=== PATIENT | female | born 1935 | race Caucasian/White ===

== ENCOUNTER 2020-08-14 12:38 | Outpatient (REF) | payer MEDICARE, SELFPAY ==
--- NOTE | 2020-08-14 12:47 | XR_ITS ---
EXAMINATION: XR HIP, LEFT XR FEMUR, LEFT XR KNEE, LEFT CLINICAL INFORMATION: Primary osteoarthritis of the knee. COMPARISON: None TECHNIQUE: 2 views of the left hip. 2 views of the left femur. 2 views of the left knee. FINDINGS: Left hip: No fracture or dislocation. The femoral head articulates appropriately with its acetabulum. There is [id number] appearance medially with sclerosis and osteophyte formation. The visualized left hemipelvis is intact. Vascular calcifications are noted. Left femur: No fracture or cortical disruption. Vascular calcifications. 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 The distal femoral component articulates appropriately with the tibial plateau and patellar components. No periprosthetic lucency or fracture. No joint effusion. Vascular calcifications are present. XR/XR knee LT 2V IMPRESSION: Total left knee arthroplasty in typical positioning and alignment. Severe degenerative changes at the left hip.
--- NOTE | 2020-08-14 12:47 | XR_ITS ---
EXAMINATION: XR HIP, LEFT XR FEMUR, LEFT XR KNEE, LEFT CLINICAL INFORMATION: Primary osteoarthritis of the knee. COMPARISON: None TECHNIQUE: 2 views of the left hip. 2 views of the left femur. 2 views of the left knee. FINDINGS: Left hip: No fracture or dislocation. The femoral head articulates appropriately with its acetabulum. There is [id number] appearance medially with sclerosis and osteophyte formation. The visualized left hemipelvis is intact. Vascular calcifications are noted. Left femur: No fracture or cortical disruption. Vascular calcifications. 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 The distal femoral component articulates appropriately with the tibial plateau and patellar components. No periprosthetic lucency or fracture. No joint effusion. Vascular calcifications are present. XR/XR femur LT 2V IMPRESSION: Total left knee arthroplasty in typical positioning and alignment. Severe degenerative changes at the left hip.
--- NOTE | 2020-08-14 12:47 | XR_ITS ---
EXAMINATION: XR HIP, LEFT XR FEMUR, LEFT XR KNEE, LEFT CLINICAL INFORMATION: Primary osteoarthritis of the knee. COMPARISON: None TECHNIQUE: 2 views of the left hip. 2 views of the left femur. 2 views of the left knee. FINDINGS: Left hip: No fracture or dislocation. The femoral head articulates appropriately with its acetabulum. There is [id number] appearance medially with sclerosis and osteophyte formation. The visualized left hemipelvis is intact. Vascular calcifications are noted. Left femur: No fracture or cortical disruption. Vascular calcifications. 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 The distal femoral component articulates appropriately with the tibial plateau and patellar components. No periprosthetic lucency or fracture. No joint effusion. Vascular calcifications are present. XR/XR hip LT min 2V IMPRESSION: Total left knee arthroplasty in typical positioning and alignment. Severe degenerative changes at the left hip.
[2020-08-14 14:38] LABS: MANUAL DIFF FLAG NO
[2020-08-14 14:42] LABS: Basophils Percent Auto 0.5 % (0-2); Eosinophils Absolute Auto 0.4 X10*3/uL (0.0-0.4); Eosinophils Percent Auto 4.4 % (0-4); Hematocrit 37.4 % (37-47); Hemoglobin 11.9 g/dl (12.0-16.0); Imm Gran Abs Auto 0.02 X10*3/uL (0.00-0.03); Imm Gran Pct Auto 0.2 % (0.0-0.4); Lymphocytes Absolute Auto 1.6 X10*3/uL (1.2-4.9); Lymphocytes Percent Auto 18.2 % (20-40); Mean Corpuscular HGB Conc 31.8 g/dl (31.0-35.0); Mean Corpuscular Hemoglobin 32.1 pg (27.0-33.0); Mean Corpuscular Volume 100.8 fL (80-98); Mean Platelet Volume 10.7 fL (9.4-12.3); Monocytes Absolute Auto 0.9 X10*3/uL (0.1-1.2); Monocytes Percent Auto 10.7 % (2-11); Neutrophils Absolute Auto 5.8 X10*3/uL (2.0-8.3); Platelet Count 293 X10*3/uL (160-400); Red Blood Count 3.71 X10*6/uL (4.20-5.50); White Blood Count 8.7 X10*3/uL (4.8-10.8)
[2020-08-14 15:21] LABS: Anion Gap 13 (12-20); Blood Urea Nitrogen 33 mg/dL (9-16); Calcium 9.4 mg/dL (8.4-10.2); Carbon Dioxide 31 mmol/L (22-29); Chloride 100 mmol/L (96-108); Estimated Glomerular Filt Rate 38; Glucose Random 97 mg/dL (60-115); Potassium 4.3 mmol/l (3.3-5.1); Sodium 140 mmol/L (135-145)
[2020-08-14 15:27] LABS: Ferritin 165 ng/mL (10-250)
[2020-08-14 15:37] LABS: Uric Acid 8.1 mg/dL (2.4-5.7)
== END 2020-08-14 12:39 | disposition home or self-care (01) ==
LOC: HO.HMGCLDS 12:38
PROVIDERS: PCP Internal Medicine; Visit Provider Internal Medicine
DX: M17.0 Bilateral primary osteoarthritis of knee (principal); I12.9 Hypertensive chronic kidney disease with stage 1 through stage 4 chronic kidney disease, or unspecified chronic kidney disease; N18.9 Chronic kidney disease, unspecified; M10.9 Gout, unspecified; E78.9 Disorder of lipoprotein metabolism, unspecified; D64.9 Anemia, unspecified; M79.652 Pain in left thigh; M25.552 Pain in left hip
CPT/HCPCS: 36415; 73502; 73552; 73560; 80048; 82728; 84550; 85025

== ENCOUNTER → 2020-08-17 10:39 | Outpatient (BNVA) | payer MEDICARE, SELFPAY | PROVIDERS: PCP Internal Medicine; Referring Provider Internal Medicine; Visit Provider Internal Medicine Cardiovascular Disease | DX: I25.10 Atherosclerotic heart disease of native coronary artery without angina pectoris (principal); I50.30 Unspecified diastolic (congestive) heart failure; Z79.899 Other long term (current) drug therapy | CPT/HCPCS: 93005; 99212 ==

== ENCOUNTER 2021-03-09 11:05 | Outpatient (REF) | payer MEDICARE, SELFPAY ==
[2021-03-09 14:22] LABS: Hematocrit 36.8 % (37-47); Hemoglobin 11.8 g/dl (12.0-16.0)
[2021-03-09 14:50] LABS: Alanine Aminotransferase 10 U/L (0-31); Albumin Level 4.1 g/dL (3.5-5.0); Alkaline Phosphatase 77 U/L (39-117); Anion Gap 15 (12-20); Aspartate Amino Transferase 20 U/L (5-31); Bilirubin Direct 0.2 mg/dL (0.0-0.5); Bilirubin Total 0.8 mg/dL (0.0-1.0); Blood Urea Nitrogen 40 mg/dL (9-16); Calcium 9.4 mg/dL (8.4-10.2); Carbon Dioxide 27 mmol/L (22-29); Chloride 104 mmol/L (96-108); Estimated Glomerular Filt Rate 34; Glucose Random 85 mg/dL (60-115); Magnesium 2.2 mg/dL (1.6-2.6); Potassium 4.1 mmol/L (3.3-5.1); Sodium 142 mmol/L (135-145); Total Protein 6.6 g/dL (6.5-8.0); Uric Acid 8.3 mg/dL (2.4-5.7)
[2021-03-09 15:04] LABS: Vitamin B12 482 pg/mL (200-900)
[2021-03-10 18:31] LABS: LDL Cholesterol Direct 81 mg/dL (<100)
== END 2021-03-09 11:06 | disposition home or self-care (01) ==
LOC: HO.HMGCLDS 11:05
PROVIDERS: PCP Internal Medicine; Visit Provider Internal Medicine
DX: I12.9 Hypertensive chronic kidney disease with stage 1 through stage 4 chronic kidney disease, or unspecified chronic kidney disease (principal); N18.9 Chronic kidney disease, unspecified; I73.9 Peripheral vascular disease, unspecified; D64.9 Anemia, unspecified; M10.9 Gout, unspecified; E78.9 Disorder of lipoprotein metabolism, unspecified; R53.83 Other fatigue
CPT/HCPCS: 36415; 80048; 80076; 82607; 83721; 83735; 84550; 85014; 85018

== ENCOUNTER 2021-05-06 10:54 | Outpatient (REF) | payer MEDICARE, SELFPAY ==
--- NOTE | ~2021-05-06 | MM_ITS ---
EXAMINATION: BONE DENSITOMETRY CLINICAL INDICATION: Asymptomatic menopausal state. COMPARISON: Previous BD dated 11/22/2016 and baseline BD dated 01/25/2011. Radiographs lumbar spine 03/05/2018 TECHNIQUE: Using a [email or web address] DXA System (software version: 13.1) manufactured by [email or web address], dual-energy x-ray absorptiometry was performed of the lumbar spine and left hip. The images are of good technical quality. Summary results are attached. FINDINGS: AP SPINE L1-L4 (excluding L2 and L3): The data of L1-L4 has been changed to exclude the L2 and L3 vertebral bodies, because significant degenerative change at these levels may cause overestimation of lumbar spine density. Current: BMD 1.311 g/cm2, Z-score 3.2, T-score 1.2, normal, 10.4% increase from previous, 2.8% increase from baseline (<5% change is not significant). Prior: BMD 1.188 g/cm2. Baseline: BMD 1.275 g/cm2. LEFT FEMUR, NECK: Current: BMD 0.880 g/cm2, Z-score 1.3, T-score -1.1, osteopenia. Prior: BMD 0.801 g/cm2. Baseline: BMD 0.905 g/cm2. LEFT FEMUR, TOTAL: Current: BMD 0.987 g/cm2, Z-score 2.2, T-score -0.2, normal, 3.9% increase from previous, 5.1% decrease from baseline (<5% change is not significant). Prior: BMD 0.950 g/cm2. Baseline: BMD 1.040 g/cm2. IDENTIFIED RISK FACTORS: Osteoporosis, renal, height loss, menopause. HISTORY OF FRACTURE: None listed. MEDICATIONS: Vitamin D. MM/XR DEXA axial skeleton IMPRESSION: 1. DIAGNOSIS: Osteopenia based on the lowest T-score value of -1.1 in the femoral neck applying World Health Organization criteria. 2. 10-YEAR FRACTURE RISK PREDICTION, FRAX: Major osteoporotic fracture (clinical spine, forearm, hip or shoulder) 12.0%. Hip fracture 2.9%. 3. Treatment Recommendations: NOF guidelines recommend consideration for treatment in postmenopausal women and men age 50 and older presenting with the following: -A hip or vertebral (clinical or morphometric) fracture. -T-score less than or equal to -2.5 at the femoral neck or spine after appropriate evaluation to exclude secondary causes. -Low bone mass at the hip or spine and a 10-year fracture probability by FRAX of greater than or equal to 3% for hip fracture or greater than or equal to 20% for major osteoporotic fracture based on the [place] adapted WHO algorithm. 4. Other Recommendations: All treatment decisions require clinical judgment and consideration of individual patient factors, including patient preferences, comorbidities, previous drug use, risk factors not captured in the FRAX model (e.g. frailty, falls, vitamin D deficiency, increased bone turnover, interval significant decline in bone density) and possible under or overestimation of fracture risk by FRAX. Additional medical evaluation for secondary cause of low bone mineral density may be appropriate. FUTURE SCAN RECOMMENDATION: People with diagnosed cases of osteoporosis or at high risk for fracture should have regular bone mineral density tests. For patients eligible for Medicare, routine testing is allowed once every 2 years. The testing frequency can be increased to one year for patients who have rapidly progressing disease, those who are receiving or discontinuing medical therapy to restore bone mass, or have additional risk factors.
== END 2021-05-06 10:55 | disposition home or self-care (01) ==
LOC: HO.MAMMO 10:54
PROVIDERS: PCP Internal Medicine; Visit Provider Internal Medicine
DX: Z13.820 Encounter for screening for osteoporosis (principal); Z78.0 Asymptomatic menopausal state
CPT/HCPCS: 77080

== ENCOUNTER → 2021-07-01 13:22 | Outpatient (BNVA) | payer MEDICARE, SELFPAY | PROVIDERS: PCP Internal Medicine; Visit Provider Internal Medicine Cardiovascular Disease | DX: I25.10 Atherosclerotic heart disease of native coronary artery without angina pectoris (principal); I50.30 Unspecified diastolic (congestive) heart failure | CPT/HCPCS: 93005; 99212 ==

== ENCOUNTER 2021-07-30 12:08 | Outpatient (REF) | payer MEDICARE, SELFPAY ==
[2021-07-30 14:01] LABS: Hematocrit 38.4 % (37-47); Hemoglobin 12.3 g/dl (12.0-16.0)
[2021-07-30 14:17] LABS: Alanine Aminotransferase 9 U/L (0-31); Albumin Level 4.6 g/dL (3.5-5.0); Alkaline Phosphatase 70 U/L (39-117); Anion Gap 18 (12-20); Aspartate Amino Transferase 22 U/L (5-31); Bilirubin Total 0.4 mg/dL (0.0-1.0); Blood Urea Nitrogen 35 mg/dL (9-16); Calcium 10.1 mg/dL (8.4-10.2); Carbon Dioxide 28 mmol/L (22-29); Chloride 100 mmol/L (96-108); Estimated Glomerular Filt Rate 26; Glucose Random 91 mg/dL (60-115); Sodium 141 mmol/L (135-145); Total Protein 7.3 g/dL (6.5-8.0)
[2021-07-30 14:38] LABS: Ferritin 154 ng/mL (10-250)
== END 2021-07-30 12:09 | disposition home or self-care (01) ==
LOC: HO.HMGCLDS 12:08
PROVIDERS: PCP Internal Medicine; Visit Provider Internal Medicine
DX: I12.9 Hypertensive chronic kidney disease with stage 1 through stage 4 chronic kidney disease, or unspecified chronic kidney disease (principal); N18.9 Chronic kidney disease, unspecified; D64.9 Anemia, unspecified; E78.9 Disorder of lipoprotein metabolism, unspecified; M10.9 Gout, unspecified; M16.12 Unilateral primary osteoarthritis, left hip
CPT/HCPCS: 36415; 80053; 82728; 85014; 85018

== ENCOUNTER → 2021-12-24 10:52 | Outpatient (BNVA) | payer MEDICARE, SELFPAY | PROVIDERS: PCP Internal Medicine; Referring Provider Internal Medicine; Visit Provider Internal Medicine Cardiovascular Disease | DX: I50.30 Unspecified diastolic (congestive) heart failure (principal); I25.10 Atherosclerotic heart disease of native coronary artery without angina pectoris | CPT/HCPCS: 99212 ==

== ENCOUNTER → 2022-02-04 10:19 | Outpatient (REF) | payer MEDICARE, SELFPAY ==
--- NOTE | 2022-02-04 10:25 | CA_ITS ---
Transthoracic Echocardiogram Patient (Last, First, Middle): Aminah Lane S Gender: Female Date of : 1935 Age: 86 Procedure Date: 02/04/2022 Procedure Type: Transthoracic Echocardiogram Location: OP Height: 149.86 cm Weight: 58.97 kg BSA: 1.54 m2 Heart Rate: bpm BP: 138 / 64 mmHg Revenue Field Auditor: AYAAN Referring MD: Pranay Ruvalcaba MD Catalyst Supervisor: Pranay Ruvalcaba MD Symptoms: I50.30 - Unspecified diastolic (congestive) heart failure Study Quality: Adequate ECG Rhythm: Sinus Conclusions: - 1. Hyperdynamic LV systolic function with impaired relaxation filling pattern and elevated filling pressures 2. Normal cardiac valvular Doppler 3. No gross pericardial effusion Findings Procedure Information Contrast agent, definity, is being given per protocol without apparent complications. Left Ventricle Normal left ventricular cavity size. There is normal left ventricular wall thickness. The left ventricular systolic function is hyperdynamic. The visually estimated ejection fraction is >70%. Spectral Doppler is indicative of an impaired relaxation filling pattern. Elevated filling pressures. E/E prime ratio is >15, consistent with elevated filling pressures. Right Ventricle Normal right ventricular cavity size and systolic function. Atria The left atrium is likely dilated. There is no evidence of interatrial shunt. The right atrium is likely dilated. Aortic Valve There is mild calcification of the aortic valve. The mean gradient is 6 mmHg. There is no aortic valve regurgitation. Mitral Valve There is mild anterior and moderate posterior mitral leaflet thickening. There is moderate mitral annular calcification. There is trace mitral valve regurgitation. There is no mitral valve stenosis. Pulmonic Valve The pulmonic valve was not well visualized. Tricuspid Valve Likely normal tricuspid valve structure and function. Tricuspid regurgitation envelope is inadequate for calculation of right ventricular systolic pressure. Normal right atrial pressure. Great Vessels All visible segments of the aorta are normal in size. The pulmonary artery was not well visualized. Venous The inferior vena cava is normal in size and collapses greater than 50% with inspiration. Pericardium/Pleural There is no evidence of pericardial effusion. Prior Study Comparison No significant change compared to prior study dated: 05/19/2020. Measurements 2D Linear Measurements IVSd: 0.63 0.6-0.9/0.6-1.0 cm LVIDd: 4.21 3.9-5.3/4.2-5.9 cm LVIDd Index: 2.73 2.4-3.2/2.2-3.1 cm/m2 LVIDs: 2.59 2.0-3.6 cm LVPWd: 0.59 0.7-1.1 cm LA Diam: 3.20 2.7-3.8/3.0-4.0 cm LAIDs Index: 2.08 1.5-2.3 cm/m2 LV Mass: 88.63 67-162/88-224 g LV Mass Index: 57.55 43-95/49-115 g/m2 LVOT Diam: 2.00 3.0+(-)1.3 cm 2D Systolic Function EF 4C: 80.10 >55% EF 2C: 75.00 >55% EF BiP: 78.50 >55% Mitral Valve MV Pk E: 0.89 MV PK A: 0.97 MV Decel Time: 181.00 E/A: 0.90 E'Lateral: 6.96 E'Medial: 5.66 E/E' Med: 15.70 E/E' Lat: 12.70 PHT: 53.00 MVA PHT: 4.15 Decel Camas: 4.89 Aortic Valve AoV Pk Jamshid: 1.55 AoV Mn Jamshid: 1.14 AoV VTI: 0.37 AoV Pk Grad: 10.00 Aov Mn Grad: 6.00 ROSITA Cont.VTI: 1.85 AI Pk Jamshid: 3.66 AI Camas: 2.64 LVOT LVOT Pk Jamshid: 0.90 LVOT Mn Jamshid: 0.65 LVOT VTI: 0.22 LVOT Pk Grad: 3.00 LVOT Mn Grad: 2.00 LVOT Diam: 2.00 LVOT Area: 3.14 Diastolic Function MV Pk E: 0.89 MV Pk A: 0.97 E/A: 0.90 E'Medial: 5.66 E/E' Med: 15.70 E' Laterial: 6.96 E/E' Lat: 12.70 Right Ventricle TAPSE (mm): 13.50 TVS' Jamshid: 9.10 Tricuspid Valve RA Press: 3.00 Great Vessels Aorta Sinus of Valsalva: 2.52 2.0-3.[address] Ridge: 2.13 1.7-3.4 cm Ao Asc: 2.70 2.1-3.4 cm Pulmonary Veins Pulm Vein S/D 1.10 Pulmonary Valve PV Pk Jamshid: 1.05 Peak PV Grad: 4.00 Updated in Other Vendor System with Status of Final Pranay Ruvalcaba MD electronically signed on 02/04/2022 3:19:49 PM with status of Final
== END ==
LOC: HO.CARD 10:19
PROVIDERS: PCP Internal Medicine; Visit Provider Internal Medicine Cardiovascular Disease
DX: I50.30 Unspecified diastolic (congestive) heart failure (principal)
CPT/HCPCS: 93306; Q9957

== ENCOUNTER → 2022-03-31 13:07 | Outpatient (BNVA) | payer MEDICARE, SELFPAY | PROVIDERS: PCP Internal Medicine; Referring Provider Internal Medicine; Visit Provider Internal Medicine Cardiovascular Disease | DX: I50.30 Unspecified diastolic (congestive) heart failure (principal); I25.10 Atherosclerotic heart disease of native coronary artery without angina pectoris | CPT/HCPCS: 36415; 80048; 83880; 99212 ==

== ENCOUNTER 2022-03-31 13:40 | Outpatient (REF) | payer MEDICARE, SELFPAY ==
[2022-03-31 14:44] LABS: B Type Natriuretic Peptide 393 pg/mL (<100)
[2022-03-31 14:50] LABS: Anion Gap 17 (12-20); Blood Urea Nitrogen 31 mg/dL (9-16); Calcium 9.6 mg/dL (8.4-10.2); Carbon Dioxide 26 mmol/L (22-29); Chloride 104 mmol/L (96-108); Estimated Glomerular Filt Rate 30; Glucose Random 90 mg/dL (60-115); Potassium 4.6 mmol/L (3.3-5.1); Sodium 142 mmol/L (135-145)
== END 2022-03-31 13:41 | disposition home or self-care (01) ==
LOC: HO.LAB 13:40
PROVIDERS: PCP Internal Medicine; Visit Provider Internal Medicine Cardiovascular Disease
DX: Z13.89 Encounter for screening for other disorder (principal)
CPT/HCPCS: 36415; 80048; 83880

== ENCOUNTER 2022-04-07 15:36 | Emergency (ER) | payer MEDICARE, SELFPAY ==
--- NOTE | ~2022-04-07 | CT_ITS ---
EXAMINATION: CT HEAD WITHOUT CONTRAST CT CERVICAL SPINE WITHOUT CONTRAST CLINICAL INFORMATION: Head strike. On blood thinners. COMPARISON: None. TECHNIQUE: Imaging was performed from the skull base to vertex without intravenous administration of contrast. In addition, helical noncontrast CT imaging was acquired through the cervical spine and source images were reviewed along with axial reconstructions and sagittal and coronal MPRs. [This CT examination was performed using dose optimization techniques as appropriate, variously including the following: *Automated exposure control *Adjustment of mA and/or kV according to patient size (this includes techniques or standardized protocols for targeted exams where dose is matched to indication/reason for exam; i.e. extremities or head) *Use of iterative reconstruction technique] DLP: 1011 mGy-cm FINDINGS: HEAD: No intracranial mass, hemorrhage, or midline shift is visualized. There is generalized global volume loss. There is moderate prominence of the ventricles and the sulci . There is mild hypodensity of the periventricular white matter due to chronic small vessel ischemic disease. There are vascular calcifications of the internal carotid arteries bilaterally. . No extra-axial collections are identified. The paranasal sinuses and mastoid air cells are well aerated. CERVICAL SPINE: There is no evidence of acute cervical spine fracture. Vertebral bodies remain normal in height. Cervical vertebrae have normal alignment. There is multilevel degenerative spondylosis of the cervical spine with disc height narrowing and endplate spurs and facet joint arthrosis No pre- or paravertebral soft tissue abnormality is identified. Limited assessment of the lung apices is unremarkable. CT/CT cervical spine wo con IMPRESSION: 1. No acute intracranial pathology. 2. No CT evidence of acute cervical spine fracture or traumatic subluxation
--- NOTE | ~2022-04-07 | CT_ITS ---
EXAMINATION: CT CHEST, ABDOMEN AND PELVIS WITHOUT CONTRAST CLINICAL INFORMATION: fall left-sided abdominal pain rule out rib fracture COMPARISON: Rib radiographs earlier today, CT abdomen pelvis 02/08/2018 TECHNIQUE: Multidetector volumetric imaging was performed from the thoracic inlet through the pubic symphysis without IV contrast. Sagittal and coronal reformatted images were obtained on the technologist's workstation. This CT examination was performed using dose optimization techniques as appropriate, variously including the following: *Automated exposure control *Adjustment of mA and/or kV according to patient size (this includes techniques or standardized protocols for targeted exams where dose is matched to indication/reason for exam; i.e. extremities or head) *Use of iterative reconstruction technique DLP: 458+255 mGy-cm FINDINGS: CHEST: Lung: A number of 2 -3 mm sized nodules are seen, 2 in the left upper lobe and 1 in the right lower lobe (7:249, 248 and 394). The lungs are otherwise clear without worrisome focal opacity or nodule. Mediastinum: Status post median sternotomy. The central vascular structures demonstrate calcific atherosclerotic plaque. Moderate changes are present in the left subclavian artery.. No hilar or mediastinal lymphadenopathy. Pericardium/Pleura: No significant effusion. No pleural mass or thickening. Chest Wall/Axilla: Unremarkable ABDOMEN/PELVIS: Peritoneal Space: No significant free air or free fluid identified. Liver, Gallbladder, Biliary Tree: The liver is normal in size, shape, and attenuation. No focal hepatic lesion or biliary ductal dilatation is present. The gallbladder is unremarkable with no evidence of radiopaque gallstones, gallbladder wall thickening, or obvious pericholecystic inflammatory changes. Pancreas: Unremarkable Spleen: Unremarkable Adrenal Glands: Unremarkable Kidneys and Ureters: The kidneys are normal in size, shape, and attenuation. There is a nonobstructing 2 mm right upper pole renal calculus. No hydronephrosis, hydroureter, or calculi seen. No perinephric stranding. Bladder: Unremarkable Gastrointestinal Tract: A small hiatal hernia is present. The small and large bowel are unremarkable. The appendix is unremarkable. Abdominal Wall: No significant hernia is appreciated. Lymph Nodes: No lymphadenopathy. Vascular: Severe calcific atherosclerotic changes present in the infrarenal aorta and visualized iliofemoral vessels. I suspect there are stenoses present diagnosis with contrast media is difficult.. The IVC appears unremarkable. PELVIC VISCERA: An anteverted uterus is present containing calcifications. The ovaries are grossly abnormal, markedly enlarged on the left measuring 7.5 x 3.6 x 5.3 cm and 4.5 x 3.2 x 4.1 cm on the left. The right ovarian mass has increased considerably since the prior study when it measured 4.5 x 4.0 x 4.1 cm. Findings are suspicious for growing neoplasm. OSSEUS STRUCTURES: Marked degenerative changes are noted throughout the spine. No bony destructive lesions are seen. CT/CT abdomen pelvis wo con IMPRESSION: 1. No evidence of a traumatic injury in the chest abdomen or pelvis. 2. Growing solid neoplasm right ovary. Recommend gynecological consult and possible pelvic MRI 3. Incidental note made of atherosclerotic vascular disease punctate nonobstructing right renal calculus, tiny 2 to 3 mm lung nodules which most likely need no further follow-up and other findings described above. 2017 Fleischner Society Recommendations for Lung Nodule(s): Follow-Up based on size (average of long- and short-axis diameters). Use most suspicious nodule for followup. Multiple Solid lung nodules < 6 mm: Follow up management based on most suspicious nodule. In a low-risk patient, no routine follow-up imaging is recommended. In a high-risk patient, a non-contrast Chest CT at 12 months is optional. If performed and the nodule is stable at 12 months, no further follow-up is recommended. These guidelines do not apply to patients younger than 35 years, immunocompromised patients, and patients with cancer. F/u in patients with significant comorbidities as clinically warranted. For lung cancer screening, adhere to Lung-RADS guidelines. Reference: Radiology. 2017 Ha; 284(1):228-243 Fleischner guidelines were followed.
--- NOTE | ~2022-04-07 | XR_ITS ---
EXAMINATION: XR RIBS, LEFT CLINICAL INFORMATION: Left rib pain status post fall. COMPARISON: 02/02/2016 chest radiographs. TECHNIQUE: 3 views of the left ribs were obtained along with a PA view of the chest. FINDINGS: Lungs are clear. No consolidation, pneumothorax, or pleural effusion. The cardiomediastinal silhouette and pulmonary vasculature are normal. Multilevel sternotomy wires are intact. Osseous structures are unremarkable. Ribs are intact. No fractures are identified. XR/XR ribs LT min 3V w CXR1V IMPRESSION: Unremarkable examination.
--- NOTE | ~2022-04-07 | XR_ITS ---
EXAMINATION: XR KNEE, LEFT CLINICAL INFORMATION: Left knee pain status post fall. COMPARISON: Left knee radiographs dated 08/14/2020. TECHNIQUE: Four views of the left knee. FINDINGS: The patient is status post left knee arthroplasty showing good anatomic alignment and no evidence for hardware malfunction. There is no acute fracture or dislocation. There is a trace of joint effusion. Mild to moderate atherosclerosis is noted. XR/XR knee LT 3V IMPRESSION: No hardware abnormality. No acute fracture.
--- NOTE | ~2022-04-07 | XR_ITS ---
EXAMINATION: XR SHOULDER, LEFT CLINICAL INFORMATION: Left shoulder pain status post fall. COMPARISON: None TECHNIQUE: AP external rotation, Grashey, scapular Y, and axillary views of the left shoulder. FINDINGS: The bones and soft tissues are normal. No fracture. Glenohumeral and acromioclavicular alignment is anatomic with normal joint space. No abnormal soft tissue calcifications. XR/XR shoulder LT min 2V IMPRESSION: Unremarkable left shoulder.
[2022-04-07 15:48] VITALS: BP 165/53; PULSE 67; RESP 20; TEMP 36.8; O2SAT 97; BMI 25.8
[2022-04-07 20:26] VITALS: BP 219/71; PULSE 73; RESP 16; TEMP 36.5; O2SAT 99
--- NOTE | 2022-04-07 20:29 | PC.NURSE ---
patient a&ox3, phototypesetting equipment monitor applied, nsr, vss, family at bedside, provider at bedside, call de la rosa within reach, will continue to monitor.
--- NOTE | 2022-04-07 20:32 | ECG_ITS ---
Test Reason : FALL Blood Pressure : / mmHG Vent. Rate : 074 BPM Atrial Rate : 074 BPM P-R Int : 172 ms QRS Dur : 124 ms QT Int : 452 ms P-R-T Axes : 071 020 051 degrees QTc Int : 501 ms Normal sinus rhythm Possible Left atrial enlargement Right bundle branch block Abnormal ECG When compared with ECG of 02-FEB-2016 13:23, Non-specific change in ST segment in Anterior leads T wave inversion now evident in Anterior leads Referred By: Yamile Ramirez Electronically Signed By:Bernabe Chase
--- NOTE | 2022-04-07 20:36 | PC.NURSE ---
pt taken to ct scan before this nurse could start iv or obtain an ekg
--- NOTE | 2022-04-07 20:40 | ED_ITS ---
HPI - Fall General Chief Complaint: Fall Stated Complaint: fall Time Seen by Provider: 04/07/22 20:17 Source: patient Mode of arrival: ambulatory Limitations: no limitations History of Present Illness HPI Narrative: 86-year-old female history of heart failure, CAD, PVD, hypertension, CKD, GERD presents to the emergency department with complaints of left shoulder pain, left anterior chest wall pain and left knee pain status post trip and fall. Patient tells me that there was a crack in the sidewalk, patient got caught in a crack, falling onto her left side. She did not hit her head no loss of consciousness. fall was witnessed by patient's family member who is at the bedside. There is no preceding symptoms of chest pain, shortness of breath. At this time patient denies fevers, chills, chest pain, shortness of breath, nausea, vomiting, abdominal pain, headache, vision changes, dizziness. patient on Plavix and aspirin. MD complaint: fall Onset (ago): hour(s) (3) Fall from: standing Fall witnessed: yes, by family Place fall occurred: home Loss of consciousness: none Prolonged down time: no Symptoms prior to fall: none Context: tripped/slipped Severity: moderate Related Data Home Medications Medication Instructions Recorded Confirmed aspirin 81 mg tablet,delayed 81 mg PO DAILY 08/17/20 03/31/22 release (Adult Low Dose Aspirin) biotin 2,500 mcg capsule 2,500 mcg PO DAILY 08/17/20 03/31/22 cholecalciferol (vitamin D3) 10 10 mcg PO DAILY 08/17/20 03/31/22 mcg (400 unit) capsule coenzyme Q10 75 mg capsule (Ultra 150 mg PO DAILY 08/17/20 03/31/22 CoQ10) docusate sodium 100 mg capsule 100 mg PO DAILY 08/17/20 03/31/22 (Colace) lutein 40 mg capsule 40 mg PO DAILY 08/17/20 03/31/22 multivitamin 1 tab PO DAILY 08/17/20 03/31/22 clopidogrel 75 mg tablet 75 mg PO DAILY 12/24/21 03/31/22 Previous Rx's Medication Instructions Recorded metoprolol succinate 25 mg 25 mg PO BID 90 days #180 tabs 10/04/21 tablet,extended release 24 hr tramadol 50 mg tablet 50 mg PO BID PRN pain 30 days #60 12/31/21 tabs atorvastatin 20 mg tablet 20 mg PO BEDTIME #90 tabs 01/03/22 torsemide 20 mg tablet 40 mg PO DAILY 90 days #180 tabs 01/06/22 allopurinol 100 mg tablet 100 mg PO DAILY 90 days #90 tabs 03/31/22 Allergies Allergy/AdvReac Type Severity Reaction Status Date / Time azithromycin Allergy Unknown Nausea/Became Verified 01/21/22 12:33 dehydrated codeine Allergy Unknown Stomach Verified 01/21/22 12:33 Upset hydromorphone Allergy Unknown Unknown Verified 01/21/22 12:33 Review of Systems Review of Systems: Constitutional : No Weight loss, No Fever, No Chills, No Fatigue, No Malaise ENT/Mouth : No sore throat, No Rhinorrhea Eyes: No Eye Pain, No Swelling, No Redness Cardiovascular : No Chest Pain, No SOB, No Dyspnea on Exertion, No Orthopnea, No Edema, No Palpitations Respiratory : No Cough, No Sputum, No Wheezing Gastrointestinal : No Nausea, No Vomiting, No Diarrhea, No Constipation, No abdominal Pain, No Hematochezia, No Melena Genitourinary : No Dysuria, No Urinary Frequency, No Hematuria, Musculoskeletal : + joint pain, No Myalgias, No Joint Swelling Skin : No Skin Lesions, No rash Neuro : No Weakness, No Numbness, No Dizziness, No Headache Psych : No Anxiety/Panic, No Depression All other systems reviewed and are negative Yes all other systems are reviewed and are negative [facility] Past Medical History Attestation statement: The following information was validated with the patient. Source: old records reviewed and nursing notes reviewed Medical History (HFpEF) heart failure with preserved ejection fraction CAD (coronary artery disease) Chronic GERD Chronic kidney disease Degenerative localized arthritis of hip Diastolic dysfunction Gout Hypertension, essential Lipid disorder Low hemoglobin Osteoarthritis of knees, bilateral PVD (peripheral vascular disease) Surgical History History of carpal tunnel surgery History of right hip replacement History of tonsillectomy S/P CABG x 2 Family History Family History Father CHF (congestive heart failure) CVD (cardiovascular disease) Mother Pancreatitis Maternal Aunt Breast cancer Sister No problems noted. Sister No problems noted. Daughter No problems noted. Social History Social History Housing: House Alcohol intake: never Patient Tobacco Use Status: Former Tobacco user Quit Date: 1959 Tobacco use type: Cigarette Years Smoked: 2 years Use of substances other than those prescribed or required for medical reasons: No Advance Directives: No Advance Directives Information Provided: Yes Current occupational status: retired Cognitive needs: No Hearing needs: No Vision needs: No Physical Exam Vital Signs: Vital Signs: Last Vital Signs Temp 97.7 F 04/07/22 20:26 Pulse 68 04/08/22 00:00 Resp 12 04/08/22 00:00 BP 176/45 H 04/08/22 00:00 Pulse Ox 99 04/08/22 00:00 O2 Del Method 04/08/22 00:00 BMI result Body Mass Index 25.8 patient noted to be hypertensive. Appearance: Alert.? Oriented X3.? No acute distress.? Head: Normocephalic, atraumatic, no step-offs or deformities Eyes: Pupils equal, round and reactive to light.? ENT: Pharynx normal.? Neck: Normal inspection.? Neck supple.? CVS: Normal heart rate and rhythm.? Pulses normal.? Respiratory: No respiratory distress.? Breath sounds normal.? Abdomen: Soft and nontender.? Skin: Skin warm and dry.? Normal skin color.? Normal skin turgor.? Extremities: No lower extremity edema.? No calf ttp. 5/5 strength to bilateral upper and lower extremities + Abrasion to left shoulder with overlying hematoma, abrasions to the left knee with some overlying swelling. Full range of motion to shoulder and knee. 2+ radial pulses equal bilateral. 2+ patellar pulses equal bilateral. Patient able to ambulate with steady gait. Back: No midline tenderness, no C-spine tenderness, full range of motion, no CVA tenderness bilaterally Neuro: Oriented X 3.? No motor deficit.? No sensory deficit. CN 2-12 intact Course Reevaluation(s) Reevaluation #1: CBC appears to be at baseline. X-ray of the left knee with no acute findings. X-ray of the ribs with no acute findings. X-ray of the left shoulder with no acute findings. Time: 21:37 Reevaluation #2: Patient's pressure is elevated, she tells me she did not take her night blood pressure medication, it will be given at this time. Time: 22:02 Reevaluation #3: Patients chemistry w/o acute findings. Trop 11 initially repeat pending. EKG non ischemic unlikley ACS. CT of the head no acute findings. No fractures or traumatic subluxation of the cervical spine. No evidence of traumatic injury of the chest, abdomen or pelvis. 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 , arthrosclerotic vascular disease is noted with her nonobstructing right renal stone. Small lung nodules. This is also discussed with patient. CT scan results shared with patient and placed on her discharge for her to follow-up with her PCP. Time: 00:53 MDM - Fall MDM Narrative Medical decision making narrative: 2040 86-year-old female presents status post trip and fall with complaints of left shoulder pain, left knee pain and left anterior chest wall pain. Patient is anticoagulated on Plavix. No loss of consciousness or head strike. No preceding symptoms physical examination significant for left shoulder hematoma with abrasion, abrasions to left knee. No C-spine tenderness. Neuro exam nonfocal. Regular rate and rhythm. Lungs clear. Abdomen soft nontender nondistended. Patient ambulating with steady gait. Brisk patellar reflexes. Plan at this time is to obtain CT scan of the head, cervical spine as patient is anticoagulated and did sustain a fall. Will also obtain CT of the chest to rule out rib fractures, CT of the abdomen to rule out internal bleeding. Will also obtain basic lab work and will get cardiac enzymes although patient is denying chest pain will rule out cardiac etiologies. Medical Records Attestation: I reviewed the patient's medical records. Lab Data Attestation: I reviewed the patient's lab results. Result diagrams: 04/07/22 21:17 04/07/22 22:16 Labs: Lab Results 04/07/22 04/07/22 04/07/22 Range/Units 21:17 21:28 22:16 WBC 9.5 (4.8-10.8) X10*3/uL RBC 3.32 L (4.20-5.50) X10*6/uL Hgb 11.2 L (12.0-16.0) g/dl Hct 33.7 L (37.0-47.0) % MCV 101.5 H (80.0-98.0) fL MCH 33.7 H (27.0-33.0) pg MCHC 33.2 (31.0-35.0) g/dl RDW 13.3 (11.0-16.0) % Plt Count 257 (160-400) X10*3/uL MPV 10.3 (9.4-12.3) fL Immature Gran % (Auto) 0.3 (0.0-0.4) % Neut % (Auto) 66.0 (45-73) % Lymph % (Auto) 18.9 L (20-40) % [place] % (Auto) 12.1 H (2-11) % Eos % (Auto) 2.4 (0-4) % Baso % (Auto) 0.3 (0-2) % Lymph # (Auto) 1.8 (1.2-4.9) X10*3/uL [place] # (Auto) 1.2 (0.1-1.2) X10*3/uL Eos # (Auto) 0.2 (0.0-0.4) X10*3/uL Baso # (Auto) 0.0 (0.0-0.2) X10*3/uL Abs Immat Gran (auto) 0.03 (0.00-0.03) X10*3/uL Absolute Neuts (auto) 6.3 (2.0-8.3) x10*3/uL Absolute Nucleated RBC 0.000 (0.0-0.012) X10*3/uL Nucleated RBC % (auto) 0.0 (0.0-0.2) /100WBC Sodium 142 (135-145) mmol/L Potassium 4.2 (3.3-5.1) mmol/L Chloride 105 (96-108) mmol/L Carbon Dioxide 26 (22-29) mmol/L Anion Gap 15 (12-20) BUN 29 H (9-16) mg/dL Creatinine 1.37 (0.5-1.4) mg/dL Estim Creat Clear Calc 23.0 Estimated GFR 37 Random Glucose 105 (60-115) mg/dL Calcium 9.3 (8.4-10.2) mg/dL Magnesium 2.2 (1.6-2.6) mg/dL Total Bilirubin 0.4 (0.0-1.0) mg/dL AST 23 (5-31) U/L ALT 13 (0-31) U/L Alkaline Phosphatase 88 D (39-117) U/L Troponin I High Sens 11.0 (<3.5-17.0) ng/L Total Protein 6.7 (6.5-8.0) g/dL Albumin 4.2 (3.5-5.0) g/dL 04/08/22 Range/Units 00:41 WBC (4.8-10.8) X10*3/uL RBC (4.20-5.50) X10*6/uL Hgb (12.0-16.0) g/dl Hct (37.0-47.0) % MCV (80.0-98.0) fL MCH (27.0-33.0) pg MCHC (31.0-35.0) g/dl RDW (11.0-16.0) % Plt Count (160-400) X10*3/uL MPV (9.4-12.3) fL Immature Gran % (Auto) (0.0-0.4) % Neut % (Auto) (45-73) % Lymph % (Auto) (20-40) % [place] % (Auto) (2-11) % Eos % (Auto) (0-4) % Baso % (Auto) (0-2) % Lymph # (Auto) (1.2-4.9) X10*3/uL [place] # (Auto) (0.1-1.2) X10*3/uL Eos # (Auto) (0.0-0.4) X10*3/uL Baso # (Auto) (0.0-0.2) X10*3/uL Abs Immat Gran (auto) (0.00-0.03) X10*3/uL Absolute Neuts (auto) (2.0-8.3) x10*3/uL Absolute Nucleated RBC (0.0-0.012) X10*3/uL Nucleated RBC % (auto) (0.0-0.2) /100WBC Sodium (135-145) mmol/L Potassium (3.3-5.1) mmol/L Chloride (96-108) mmol/L Carbon Dioxide (22-29) mmol/L Anion Gap (12-20) BUN (9-16) mg/dL Creatinine (0.5-1.4) mg/dL Estim Creat Clear Calc Estimated GFR Random Glucose (60-115) mg/dL Calcium (8.4-10.2) mg/dL Magnesium (1.6-2.6) mg/dL Total Bilirubin (0.0-1.0) mg/dL AST (5-31) U/L ALT (0-31) U/L Alkaline Phosphatase (39-117) U/L Troponin I High Sens 12.4 (<3.5-17.0) ng/L Total Protein (6.5-8.0) g/dL Albumin (3.5-5.0) g/dL ECG Data Attestation: I personally reviewed and interpreted this ECG as follows: ECG interpretation date: 04/07/22 ECG interpretation time: 21:01 Prior ECG tracings: available for review Interpretation: Ventricular rate of 74, OK normal, QRS normal, QT /QTC normal. EKG with normal sinus rhythm and right bundle-branch block. no ST elevations or depressions concerning for ischemia. No significant changes when compared to EKG from 02/02/2016. Critical Care Time Critical Care Time Critical Care Time: No Discharge Plan Discharge Clinical Impression: Fall, Left shoulder pain, Left knee pain, Mass of ovary, Lung nodule Patient Disposition: Home, Self-Care Instructions: Knee Pain (ED), Fall Prevention (ED), Arm Pain (ED) Additional Instructions: Take your medications as prescribed. If you were prescribed antibiotics today, it is important that you take your medication to their entirety, do not skip any doses, do not finish them early. Follow-up with your primary care provider this week. Return to the emergency department with new or worsening symptoms. Such as fevers, chills, chest pain, shortness of breath, nausea, vomiting, dizziness, headache, vision changes, lethargy In case of emergency call 911 CT/CT head/brain wo con IMPRESSION: 1. No acute intracranial pathology. 2. No CT evidence of acute cervical spine fracture or traumatic subluxation ? CT/CT chest wo con IMPRESSION: 1.? No evidence of a traumatic injury in the chest abdomen or pelvis. 2.? Growing solid neoplasm right ovary. Recommend gynecological consult and possible pelvic MRI 3.? Incidental note made of atherosclerotic vascular disease punctate nonobstructing right renal calculus, tiny 2 to 3 mm lung nodules which most likely need no further follow-up and other findings described above. ? 2017 Fleischner Society Recommendations for Lung Nodule(s): Follow-Up based on size (average of long- and short-axis diameters). Use most suspicious nodule for followup. ? Multiple Solid lung nodules < 6 mm: Follow up management based on most suspicious nodule. In a low-risk patient, no routine follow-up imaging is recommended.? In a high-risk patient, a non-contrast Chest CT at 12 months is optional. If performed and the nodule is stable at 12 months, no further follow-up is recommended.? ? ? These guidelines do not apply to patients younger than 35 years, immunocompromised patients, and patients with cancer. F/u in patients with significant comorbidities as clinically warranted. For lung cancer screening, adhere to Lung-RADS guidelines.? Prescriptions: No Action metoprolol succinate 25 mg tablet extended release 24 hr 25 mg PO BID 90 Days Qty: 180 3RF tramadol 50 mg tablet 50 mg PO BID PRN (Reason: pain) 30 Days Qty: 60 0RF atorvastatin 20 mg tablet 20 mg PO BEDTIME Qty: 90 0RF torsemide 20 mg tablet 40 mg PO DAILY 90 Days Qty: 180 1RF allopurinol 100 mg tablet 100 mg PO DAILY 90 Days Qty: 90 0RF cholecalciferol (vitamin D3) 10 mcg (400 unit) capsule 10 mcg PO DAILY docusate sodium [Colace] 100 mg capsule 100 mg PO DAILY Ultra CoQ10 75 mg capsule 150 mg PO DAILY aspirin [Adult Low Dose Aspirin] 81 mg tablet,delayed release (DR/EC) 81 mg PO DAILY lutein 40 mg capsule 40 mg PO DAILY Rx Instructions: administer with meals multivitamin Tablet 1 tab PO DAILY biotin 2,500 mcg capsule 2,500 mcg PO DAILY clopidogrel 75 mg tablet 75 mg PO DAILY Referrals: Penelope Parsons MD [Primary Care Provider] - 2 days
[2022-04-07 21:20] LABS: MANUAL DIFF FLAG NO
[2022-04-07 21:23] LABS: Basophils Percent Auto 0.3 % (0-2); Eosinophils Absolute Auto 0.2 X10*3/uL (0.0-0.4); Eosinophils Percent Auto 2.4 % (0-4); Hematocrit 33.7 % (37.0-47.0); Hemoglobin 11.2 g/dl (12.0-16.0); Imm Gran Abs Auto 0.03 X10*3/uL (0.00-0.03); Imm Gran Pct Auto 0.3 % (0.0-0.4); Lymphocytes Absolute Auto 1.8 X10*3/uL (1.2-4.9); Lymphocytes Percent Auto 18.9 % (20-40); Mean Corpuscular HGB Conc 33.2 g/dl (31.0-35.0); Mean Corpuscular Hemoglobin 33.7 pg (27.0-33.0); Mean Corpuscular Volume 101.5 fL (80.0-98.0); Mean Platelet Volume 10.3 fL (9.4-12.3); Monocytes Absolute Auto 1.2 X10*3/uL (0.1-1.2); Monocytes Percent Auto 12.1 % (2-11); Neutrophils Absolute Auto 6.3 x10*3/uL (2.0-8.3); Platelet Count 257 X10*3/uL (160-400); Red Blood Count 3.32 X10*6/uL (4.20-5.50); Red Cell Distribution Width 13.3 % (11.0-16.0); White Blood Count 9.5 X10*3/uL (4.8-10.8)
[2022-04-07 21:30] VITALS: BP 164/86; PULSE 73; RESP 11
[2022-04-07 21:54] VITALS: BP 227/79; PULSE 74; O2SAT 99
[2022-04-07] MEDS: Metoprolol Succinate ER 25 MG TAB.ER.24H PO (22:24)
[2022-04-07 22:39] LABS: Alanine Aminotransferase 13 U/L (0-31); Albumin Level 4.2 g/dL (3.5-5.0); Alkaline Phosphatase 88 U/L (39-117); Anion Gap 15 (12-20); Aspartate Amino Transferase 23 U/L (5-31); Bilirubin Total 0.4 mg/dL (0.0-1.0); Blood Urea Nitrogen 29 mg/dL (9-16); Calcium 9.3 mg/dL (8.4-10.2); Carbon Dioxide 26 mmol/L (22-29); Chloride 105 mmol/L (96-108); Estimated Glomerular Filt Rate 37; Glucose Random 105 mg/dL (60-115); Magnesium 2.2 mg/dL (1.6-2.6); Potassium 4.2 mmol/L (3.3-5.1); Sodium 142 mmol/L (135-145); Total Protein 6.7 g/dL (6.5-8.0)
[2022-04-07] MEDS: Lidocaine 4 % Patch ADH..PATCH 1 PATCH TRANSDERMA (23:56)
[2022-04-07] MEDS: Acetaminophen 325 MG TABLET 650 MG PO (23:56)
[2022-04-08] VITALS: BP 176/45; PULSE 68; RESP 12; O2SAT 99
[2022-04-08 01:05] LABS: Troponin-I High Sensitivity 12.4 ng/L (<3.5-17.0)
== END 2022-04-08 01:41 | disposition home or self-care (01) ==
PROVIDERS: Physician Assistant; Emergency Provider Internal Medicine; PCP Internal Medicine
DX: S46.912A Strain of unspecified muscle, fascia and tendon at shoulder and upper arm level, left arm, initial encounter (principal); R19.00 Intra-abdominal and pelvic swelling, mass and lump, unspecified site; R91.1 Solitary pulmonary nodule; I13.0 Hypertensive heart and chronic kidney disease with heart failure and stage 1 through stage 4 chronic kidney disease, or unspecified chronic kidney disease; R51.9 Headache, unspecified; M54.2 Cervicalgia; N18.9 Chronic kidney disease, unspecified; I25.10 Atherosclerotic heart disease of native coronary artery without angina pectoris; R07.81 Pleurodynia; M25.512 Pain in left shoulder; M25.511 Pain in right shoulder; M25.562 Pain in left knee; M25.561 Pain in right knee; R10.30 Lower abdominal pain, unspecified; W01.0XXA Fall on same level from slipping, tripping and stumbling without subsequent striking against object, initial encounter; Y93.9 Activity, unspecified; Y92.480 Sidewalk as the place of occurrence of the external cause; Y99.9 Unspecified external cause status; Z79.899 Other long term (current) drug therapy; Z87.891 Personal history of nicotine dependence
CPT/HCPCS: 36415; 70450; 71101; 71250; 72125; 73030; 73562; 74176; 80053; 83735; 84484; 85025; 93005; 99284

== ENCOUNTER 2022-05-23 08:17 | Day surgery (SDC) | payer MEDICARE, SELFPAY ==
[2022-05-10 14:16] VITALS: BMI 27.0
--- NOTE | 2022-05-20 08:39 | MHC.SHP ---
Pre-Procedural Eval Section A Date of Service: 05/20/22 The patient is an INPATIENT: No Changes since office visit: No Cold of Flu in the past 2 weeks, No New Medical Problems, No Changes in Medication and No Patient answered all questions The History & Physical has been completed within 30 days and I have reviewed it.: Yes Section B Chief Complaint: cataract Allergies: Allergies Allergy/AdvReac Type Severity Reaction Status Date / Time azithromycin Allergy Intermediate Nausea/Became Verified 04/27/22 12:09 dehydrated hydromorphone Allergy Unknown Unknown Verified 04/27/22 12:09 codeine AdvReac Intermediate Stomach Verified 04/27/22 12:09 Upset Plan Diagnosis/Plan: Unchanged I have reviewed the history and physical and performed a pertinent physical examination on my patient. No changes have occurred unless specified.
--- NOTE | 2022-05-20 13:02 | P.CONAN_ITS ---
Documented by User: Analy Diaz NP 05/20/22 13:03 HPI - Anesthesia Eval Consult details Narrative: 86yo F for Left Cataract Extraction IOL Insertion PCP cleared No previous cataract on record [facility] [place] Active Problems Active Problems: All Active Problems (Updated 04/27/22 @ 12:27 by Penelope Parsons MD) Weakness of both legs (Acute) Cataract (Acute) Pre-op evaluation (Acute) Injury of shoulder, left, superficial (Acute) Fall (Acute) Traumatic ecchymosis of left thigh (Acute) Cellulitis of anterior lower leg (Acute) Low hemoglobin (Acute) Menopause (Acute) Tired (Acute) Osteoarthritis of left hip (Acute) Degenerative localized arthritis of hip (Acute) CAD (coronary artery disease) (Acute) (HFpEF) heart failure with preserved ejection fraction (Acute) Diastolic dysfunction (Acute) PVD (peripheral vascular disease) (Acute) Hypertension, essential (Acute) Chronic kidney disease (Acute) Low hemoglobin (Acute) Gout (Acute) Osteoarthritis of knees, bilateral (Acute) Chronic GERD (Acute) Lipid disorder (Acute) Past Medical History Medical History (HFpEF) heart failure with preserved ejection fraction CAD (coronary artery disease) Chronic GERD Chronic kidney disease Degenerative localized arthritis of hip Diastolic dysfunction Gout Hypertension, essential Lipid disorder Low hemoglobin Osteoarthritis of knees, bilateral PVD (peripheral vascular disease) Family History Family History Father CHF (congestive heart failure) CVD (cardiovascular disease) Mother Pancreatitis Maternal Aunt Breast cancer Sister No problems noted. Sister No problems noted. Daughter No problems noted. Surgical History Surgical History History of carpal tunnel surgery History of right hip replacement History of tonsillectomy S/P CABG x 2 Social History Social History Housing: House Alcohol intake: never Patient Tobacco Use Status: Former Tobacco user Quit Date: 1959 Tobacco use type: Cigarette Years Smoked: 2 years e-Cigarette/Vaping Use: Never Used Second Hand Smoke Exposure: No Are you DNR?: No Advance Directives: No Advance Directives Information Provided: Yes Nutrition Risks: No Nutritional Risk Current occupational status: retired Cognitive needs: No Hearing needs: No Vision needs: No Meds Allergies Allergy/AdvReac Type Severity Reaction Status Date / Time azithromycin Allergy Intermediate Nausea/Became Verified 04/27/22 12:09 dehydrated hydromorphone Allergy Unknown Unknown Verified 04/27/22 12:09 codeine AdvReac Intermediate Stomach Verified 04/27/22 12:09 Upset Home Medications Medication Instructions Recorded Confirmed Last Taken Type aspirin 81 mg tablet,delayed 81 mg PO DAILY 08/17/20 04/27/22 05/22/22 History release (Adult Low Dose Aspirin) biotin 2,500 mcg capsule 2,500 mcg PO DAILY 08/17/20 04/27/22 Unknown History cholecalciferol (vitamin D3) 10 10 mcg PO DAILY 08/17/20 04/27/22 Unknown History mcg (400 unit) capsule coenzyme Q10 75 mg capsule (Ultra 150 mg PO DAILY 08/17/20 04/27/22 Unknown History CoQ10) docusate sodium 100 mg capsule 100 mg PO DAILY 08/17/20 04/27/22 Unknown History (Colace) lutein 40 mg capsule 40 mg PO DAILY 08/17/20 04/27/22 Unknown History multivitamin 1 tab PO DAILY 08/17/20 04/14/22 Unknown History clopidogrel 75 mg tablet 75 mg PO DAILY 12/24/21 04/27/22 05/22/22 History Exam Exam Date and Time: May 20, 2022 1302 Height,Weight and Vital Signs: Height 4 ft 11 in Weight 60.781 kg Assessment and Plan Assessment Anesthesia Assessment: Chart Reviewed Documented by User: Hilda Fenton MD 05/23/22 09:25 [facility] [place] Past Medical History Medical History (HFpEF) heart failure with preserved ejection fraction CAD (coronary artery disease) Chronic GERD Chronic kidney disease Degenerative localized arthritis of hip Diastolic dysfunction Gout Hypertension, essential Lipid disorder Low hemoglobin Osteoarthritis of knees, bilateral PVD (peripheral vascular disease) Family History Family History Father CHF (congestive heart failure) CVD (cardiovascular disease) Mother Pancreatitis Maternal Aunt Breast cancer Sister No problems noted. Sister No problems noted. Daughter No problems noted. Surgical History Surgical History History of carpal tunnel surgery History of right hip replacement History of tonsillectomy S/P CABG x 2 History of Problems with Anesthesia: No Social History Social History Housing: House Alcohol intake: never Patient Tobacco Use Status: Former Tobacco user Quit Date: 1959 Tobacco use type: Cigarette Years Smoked: 2 years e-Cigarette/Vaping Use: Never Used Second Hand Smoke Exposure: No Are you DNR?: No Advance Directives: No Advance Directives Information Provided: Yes Nutrition Risks: No Nutritional Risk Current occupational status: retired Cognitive needs: No Hearing needs: No Vision needs: No Meds Allergies Allergy/AdvReac Type Severity Reaction Status Date / Time azithromycin Allergy Intermediate Nausea/Became Verified 04/27/22 12:09 dehydrated hydromorphone Allergy Unknown Unknown Verified 04/27/22 12:09 codeine AdvReac Intermediate Stomach Verified 04/27/22 12:09 Upset Home Medications Medication Instructions Recorded Confirmed Last Taken Type aspirin 81 mg tablet,delayed 81 mg PO DAILY 08/17/20 04/27/22 05/22/22 History release (Adult Low Dose Aspirin) biotin 2,500 mcg capsule 2,500 mcg PO DAILY 08/17/20 04/27/22 Unknown History cholecalciferol (vitamin D3) 10 10 mcg PO DAILY 08/17/20 04/27/22 Unknown History mcg (400 unit) capsule coenzyme Q10 75 mg capsule (Ultra 150 mg PO DAILY 08/17/20 04/27/22 Unknown History CoQ10) docusate sodium 100 mg capsule 100 mg PO DAILY 08/17/20 04/27/22 Unknown History (Colace) lutein 40 mg capsule 40 mg PO DAILY 08/17/20 04/27/22 Unknown History multivitamin 1 tab PO DAILY 08/17/20 04/14/22 Unknown History clopidogrel 75 mg tablet 75 mg PO DAILY 12/24/21 04/27/22 05/22/22 History Exam Airway Mallampati Class: II TM Dist: >3cm Neck ROM: Full Loose/Missing/Broken Teeth: No Heart: RRR Lungs: CTA Assessment and Plan Assessment Anesthesia Assessment: Anesthesia Plan Discussed Final Anesthetic Review History of Problems with Anesthesia: No NPO: Yes ASA Class: III Final Preanesthetic Review: Meds/Allgs Chart Reviewed, Consent Obtained/Reviewed and Anes Risks/Benef Reviewed Patient Risk: Intermediate Procedure Risk: Low Anesthetic Plan Anesthetic Plan: MAC: Disposition: Standard PACU
[2022-05-23 09:02] VITALS: BP 178/93; PULSE 66; RESP 17; TEMP 36.3; O2SAT 99
[2022-05-23] MEDS: Phenylephrine HCL 2.5% Oph SoL 2 ML BOTTLE 1 DROP EYE-LEFT ×3 (09:09→09:11)
[2022-05-23] MEDS: Tetracaine HCl/PF 0.5% Oph Sol 4 ML DROPS 1 DROP EYE-LEFT (09:09)
[2022-05-23] MEDS: Cyclopentolate 1 % Ophth Sol 2 ML DRPBTL 1 DROP EYE-LEFT ×3 (09:09→09:11)
[2022-05-23] MEDS: Tropicamide 1 % Ophth Sol 3 ML BTL 1 DROP EYE-LEFT ×3 (09:09→09:12)
[2022-05-23] MEDS: Lactated Ringers 500 ML 50 ML IV (09:10)
--- NOTE | 2022-05-23 10:07 | HO.PNOPHT ---
Ophthalmology Procedure Procedure Date of Service: 05/23/22 Ophthalmology Viscoelastic: Healivette Chavezt Dual Pack Pro Ophthalmology Lenses: TECNIS [id number] (23.5) Procedure Notes: PREOPERATIVE DIAGNOSIS: Decreased visual acuity left eye secondary to cataract POSTOPERATIVE DIAGNOSIS: Same PROCEDURE: Left cataract extraction with intraocular lens insertion SURGEON: Abner Zambrano M.D. ANESTHESIA: Topical/MAC ESTIMATED BLOOD LOSS: None COMPLICATIONS: None After obtaining informed consent, the patient was brought to the operation room suite and placed in the supine position. After adequate sedation per anesthesia, topical drops of Tetracaine were given to the left eye. The eye was then prepped and draped in the usual sterile fashion. The operating room microscope was then positioned over the operative eye and a lid speculum placed. A paracentesis was created. Viscoelastic was then instilled into the anterior chamber. A three plane incision was then created temporally, utilizing a 2.85 mm keratome. Capsulotomy forceps were then utilized to create a circular tear capsulotomy. Hydrodissection and hydrodelineation were carried out until adequate mobilization of the nucleus occurred. Phacoemulsification was then utilized to remove the dense central nucleus followed by removal of the cortical material utilizing the automated aspiration irrigation unit. Viscoat elastic was instilled into the posterior capsular bag followed by placement of a posterior chamber intraocular lens without difficulty. The residual Viscoat elastic was then removed utilizing the automated IA machine. The wound was check and found to be watertight. The patient tolerated the procedure well and the lid speculum was removed. Intracameral injection of Vigamox 0.1 mL followed by a subtenon injection of Kenalog-40 0.2 mL were administered. The patient will be seen in the a.m.
[2022-05-23 10:32] VITALS: BP 153/47; PULSE 66; RESP 16; TEMP 36.6; O2SAT 100
== END 2022-05-23 10:41 | disposition home or self-care (01) ==
PROVIDERS: PCP Internal Medicine; Visit Provider Ophthalmology
PROC: (CPT 66985; principal; 2022-05-23 10:30)
DX: H25.12 Age-related nuclear cataract, left eye (principal); H54.7 Unspecified visual loss; H04.123 Dry eye syndrome of bilateral lacrimal glands; I13.0 Hypertensive heart and chronic kidney disease with heart failure and stage 1 through stage 4 chronic kidney disease, or unspecified chronic kidney disease; I50.30 Unspecified diastolic (congestive) heart failure; N18.30 Chronic kidney disease, stage 3 unspecified; I25.10 Atherosclerotic heart disease of native coronary artery without angina pectoris; Z95.1 Presence of aortocoronary bypass graft; I73.9 Peripheral vascular disease, unspecified; E78.5 Hyperlipidemia, unspecified; M17.0 Bilateral primary osteoarthritis of knee; Z79.82 Long term (current) use of aspirin; Z79.899 Other long term (current) drug therapy; Z88.1 Allergy status to other antibiotic agents; Z88.8 Allergy status to other drugs, medicaments and biological substances; Z87.891 Personal history of nicotine dependence; Z91.81 History of falling
CPT/HCPCS: 66984; J2250; J3300; V2632

== ENCOUNTER 2022-06-13 08:26 | Day surgery (SDC) | payer MEDICARE, SELFPAY ==
[2022-05-10 14:15] VITALS: BMI 27.0
--- NOTE | 2022-06-10 13:00 | MHC.SHP ---
Pre-Procedural Eval Section A Date of Service: 06/10/22 The patient is an INPATIENT: No Changes since office visit: No Cold of Flu in the past 2 weeks, No New Medical Problems, No Changes in Medication and No Patient answered all questions The History & Physical has been completed within 30 days and I have reviewed it.: Yes Section B Chief Complaint: cataract Allergies: Allergies Allergy/AdvReac Type Severity Reaction Status Date / Time azithromycin Allergy Intermediate Nausea/Became Verified 05/31/22 12:57 dehydrated hydromorphone Allergy Unknown Unknown Verified 05/31/22 12:57 codeine AdvReac Intermediate Stomach Verified 05/31/22 12:57 Upset Plan Diagnosis/Plan: Unchanged I have reviewed the history and physical and performed a pertinent physical examination on my patient. No changes have occurred unless specified.
[2022-06-13] MEDS: Tropicamide 1 % Ophth Sol 3 ML BTL 1 DROP EYE-RIGHT ×3 (10:21→10:31)
[2022-06-13] MEDS: Cyclopentolate 1 % Ophth Sol 2 ML DRPBTL 1 DROP EYE-RIGHT ×3 (10:21→10:31)
[2022-06-13] MEDS: Lactated Ringers 500 ML 50 ML IVCONT (10:21)
[2022-06-13] MEDS: Tetracaine HCl/PF 0.5% Oph Sol 4 ML DROPS 1 DROP EYE-RIGHT (10:21)
[2022-06-13] MEDS: Phenylephrine HCL 2.5% Oph SoL 2 ML BOTTLE 1 DROP EYE-RIGHT ×3 (10:22→10:32)
--- NOTE | 2022-06-13 10:22 | P.CONAN_ITS ---
HPI - Anesthesia Eval Consult details Narrative: Right eye cataract [facility] Active Problems Active Problems: All Active Problems (Updated 05/31/22 @ 13:23 by Penelope Parsons MD) Pain management (Acute) Weakness of both legs (Acute) Cataract (Acute) Pre-op evaluation (Acute) Injury of shoulder, left, superficial (Acute) Fall (Acute) Traumatic ecchymosis of left thigh (Acute) Cellulitis of anterior lower leg (Acute) Low hemoglobin (Acute) Menopause (Acute) Tired (Acute) Osteoarthritis of left hip (Acute) Degenerative localized arthritis of hip (Acute) CAD (coronary artery disease) (Acute) (HFpEF) heart failure with preserved ejection fraction (Acute) Diastolic dysfunction (Acute) PVD (peripheral vascular disease) (Acute) Hypertension, essential (Acute) Chronic kidney disease (Acute) Low hemoglobin (Acute) Gout (Acute) Osteoarthritis of knees, bilateral (Acute) Chronic GERD (Acute) Lipid disorder (Acute) Past Medical History Medical History (HFpEF) heart failure with preserved ejection fraction CAD (coronary artery disease) Chronic GERD Chronic kidney disease Degenerative localized arthritis of hip Diastolic dysfunction Gout Hypertension, essential Lipid disorder Low hemoglobin Osteoarthritis of knees, bilateral PVD (peripheral vascular disease) Family History Family History Father CHF (congestive heart failure) CVD (cardiovascular disease) Mother Pancreatitis Maternal Aunt Breast cancer Sister No problems noted. Sister No problems noted. Daughter No problems noted. Family history of problems with anesthesia: No Surgical History Surgical History History of carpal tunnel surgery History of cataract surgery History of right hip replacement History of tonsillectomy S/P CABG x 2 History of Problems with Anesthesia: No Social History Social History Housing: House Alcohol intake: never Patient Tobacco Use Status: Former Tobacco user Quit Date: 1959 Tobacco use type: Cigarette Years Smoked: 2 years e-Cigarette/Vaping Use: Never Used Second Hand Smoke Exposure: No Advance Directives: No Advance Directives Information Provided: Yes Current occupational status: retired Cognitive needs: No Hearing needs: No Vision needs: No Meds Allergies Allergy/AdvReac Type Severity Reaction Status Date / Time azithromycin Allergy Intermediate Nausea/Became Verified 06/13/22 09:59 dehydrated hydromorphone Allergy Unknown Unknown Verified 06/13/22 09:59 codeine AdvReac Intermediate Stomach Verified 06/13/22 09:59 Upset Active Medications: Current Medications Cyclopentolate HCl (Cyclopentolate 1 % Ophth Summer 2 Ml Drpbtl) 1 drop EYE-RIGHT Q5M GRACIA Stop: 06/13/22 09:56 Lactated Ringer's (Lr) 500 mls @ 50 mls/hr IVCONT .Q10H GRACIA Ketorolac Tromethamine (Ketorolac Tromethamine 0.5% Op 3 Ml Drops) 1 drop EYE- RIGHT Q5M GRACIA Stop: 06/13/22 09:56 Moxifloxacin HCl (Moxifloxacin Hcl 0.5 % Oph Summer 3 Ml Drpbtl) 1 drop EYE-RIGHT POSTOP ONE Stop: 06/13/22 09:42 Phenylephrine HCl (Phenylephrine Hcl 2.5% Oph Summer 2 Ml Bottle) 1 drop EYE-RIGHT Q5M GRACIA Stop: 06/13/22 09:56 Povidone Iodine (Povidone Iodine 5 % Ophth Soln 30 Ml Bottle) 1 appl EYE-RIGHT PREOP PRN PRN Reason: Pre-Op Surgical Implant Prophy Tetracaine HCl (Tetracaine Hcl/Pf 0.5% Oph Summer 4 Ml Drops) 1 drop EYE-RIGHT PREOP ONE Stop: 06/13/22 09:42 Triamcinolone Acetonide (Triamcinolone Acetonide 40 Mg/Ml Vial) 40 mg IM POSTOP ONE Stop: 06/13/22 09:42 Tropicamide (Tropicamide 1 % Ophth Summer 3 Ml Btl) 1 drop EYE-RIGHT Q5M GRACIA Stop: 06/13/22 09:56 Home Medications Medication Instructions Recorded Confirmed Last Taken Type aspirin 81 mg tablet,delayed 81 mg PO DAILY 08/17/20 05/31/22 06/12/22 History release (Adult Low Dose Aspirin) biotin 2,500 mcg capsule 2,500 mcg PO DAILY 08/17/20 05/31/22 06/12/22 History cholecalciferol (vitamin D3) 10 10 mcg PO DAILY 08/17/20 05/31/22 06/12/22 History mcg (400 unit) capsule coenzyme Q10 75 mg capsule (Ultra 150 mg PO DAILY 08/17/20 05/31/22 06/12/22 History CoQ10) docusate sodium 100 mg capsule 100 mg PO DAILY 08/17/20 05/31/22 06/12/22 History (Colace) lutein 40 mg capsule 40 mg PO DAILY 08/17/20 05/31/22 06/12/22 History multivitamin 1 tab PO DAILY 08/17/20 05/31/22 06/12/22 History clopidogrel 75 mg tablet 75 mg PO DAILY 12/24/21 05/31/22 06/12/22 History Exam Exam Date and Time: June 13, 2022 1022 Height,Weight and Vital Signs: Height 4 ft 11 in Weight 60.781 kg Airway Mallampati Class: II TM Dist: >3cm Neck ROM: Full Loose/Missing/Broken Teeth: No Heart: [id number] Lungs: cta b/l Assessment and Plan Assessment Anesthesia Assessment: Anesthesia Plan Discussed and Chart Reviewed Final Anesthetic Review Family History of Problems with Anesthesia: No History of Problems with Anesthesia: No NPO: Yes ASA Class: III Final Preanesthetic Review: No Changes in Pt Med Stat, Meds/Allgs Chart Reviewed, Consent Obtained/Reviewed and Anes Risks/Benef Reviewed Patient Risk: Intermediate Procedure Risk: Low Assessment/Block/Sedation in SS: Assess/Block/Sedation-SS Anesthetic Plan Anesthetic Plan: MAC: and Agree w/ Assess. and Plan Disposition: Standard PACU
[2022-06-13 10:32] VITALS: BP 205/79; PULSE 65; RESP 18; TEMP 36.4; O2SAT 100
--- NOTE | 2022-06-13 11:24 | HO.PNOPHT ---
Ophthalmology Procedure Procedure Date of Service: 06/13/22 Ophthalmology Viscoelastic: Healivette Duet Dual Pack Pro Ophthalmology Lenses: TECNIS [id number] (23.5) Procedure Notes: PREOPERATIVE DIAGNOSIS: Decreased visual acuity right eye secondary to cataract POSTOPERATIVE DIAGNOSIS: Same PROCEDURE: Right cataract extraction with intraocular lens insertion SURGEON: Abner Zambrano M.D. ANESTHESIA: Topical/MAC ESTIMATED BLOOD LOSS: None COMPLICATIONS: None After obtaining informed consent, the patient was brought to the operating room suite and placed in the supine position. After adequate sedation per anesthesia, topical drops of Tetracaine were given to the right eye. The eye was then prepped and draped in the usual sterile fashion. The operating room microscope was then positioned over the operative eye and a lid speculum placed. A paracentesis was created. Viscoelastic was then instilled into the anterior chamber. A three plane incision was then created temporally, utilizing a 2.85 mm keratome. Capsulotomy forceps were then utilized to create a circular tear capsulotomy. Hydrodissection and hydrodelineation were carried out until adequate mobilization of the nucleus occurred. Phacoemulsification was then utilized to remove the dense central nucleus followed by removal of the cortical material utilizing the automated aspiration irrigation unit. Viscoelastic was instilled into the posterior capsular bag followed by placement of a posterior chamber intraocular lens without difficulty. The residual Viscoelastic was then removed utilizing the automated IA machine. The wound was checked and found to be watertight. The patient tolerated the procedure well and the lid speculum was removed. Intracameral injection of Vigamox 0.1 mL followed by a subtenon injection of Kenalog-40 0.2 mL were administered. The patient will be seen in the a.m.
[2022-06-13 11:45] VITALS: BP 215/81; PULSE 70; RESP 16; TEMP 36.1; O2SAT 98
--- NOTE | 2022-06-13 13:42 | P.EN_ITS ---
Event Note Date of Service: 06/13/22 Event Note: Patient for right eye catract pressure 205/79 admits to white coat hypertension. Proceeded with case and 1mg midazolam only given for the 10 minute case. In PACU pressure was 214/88. Patient states pressure 130's and checks all the time at home. Olivier texted her installer apprentice Dr. Ruvalcaba and he believed to be stress related and give 10mg hydralazine. Spoke with patient and daughter and was decided to hold hydralazine and to go home and check in a few hours when white coat hypertension should improve. Discuused also that if pressure still is abnormally high to go to the ER. Patient and daughter agreed to plan.
== END 2022-06-13 12:05 | disposition home or self-care (01) ==
PROVIDERS: PCP Internal Medicine; Visit Provider Ophthalmology
PROC: (CPT 66985; principal; 2022-06-13 10:50)
DX: H25.11 Age-related nuclear cataract, right eye (principal); I10 Essential (primary) hypertension; D64.9 Anemia, unspecified; M17.0 Bilateral primary osteoarthritis of knee; M16.12 Unilateral primary osteoarthritis, left hip; Z79.891 Long term (current) use of opiate analgesic; Z79.899 Other long term (current) drug therapy
CPT/HCPCS: 66984; 99499; J2250; J3300; V2632

== ENCOUNTER → 2022-08-23 08:57 | Outpatient (REF) | payer MEDICARE, SELFPAY ==
--- NOTE | ~2022-08-23 | NM_ITS ---
Myocardial perfusion study Indication: CAD Technique: The patient was brought in for a Lexiscan perfusion study on 08/23/2022. Patient performed low-level exercise and was injected 0.4 mg of Lexiscan intravenously. Within a minute of injection, 24 mCi of sestamibi was given intravenously. Images were obtained using the SPECT gamma camera interlaced with the gating device. Images were obtained in supine position. Resting perfusion study was performed on 08/23/2022. Patient was administered 8 mCi of sestamibi intravenously at rest. Images were then obtained in supine position. Images obtained with and without CT attenuation. Total DLP 84 mGy-cm. Images were processed with the software and compared side to side in short axis, horizontal long axis and vertical long axis views. Findings: The stress perfusion study showed non attenuated images show mildly reduced uptake in the basal and mid lateral wall of the LV myocardium. Remainder of the LV myocardium is normally perfused. Attenuation corrected images also show mildly reduced uptake in the basal and mid lateral wall of the LV myocardium.. The gated study shows normal LV systolic function with calculated LVEF of 57%. LV cavity is normal in size. The gated study shows normal systolic wall thickening and contraction of segments. Resting study shows improved uptake in the basal and mid lateral wall suggestive wall ischemia.. Gating at rest reveals normal systolic wall motion with ejection fraction at 67%. The findings are consistent with mild intensity reversible defect of the basal and mid lateral wall, consistent with ischemia.. NM/NM [place] perf SPECT rest & str Impression: 1. Myocardial perfusion imaging study shows mild intensity basal and mid lateral wall ischemia 2. Gated LVEF is 67% 3. Transient ischemic dilatation not present EKG is nondiagnostic for ischemia
--- NOTE | 2022-08-23 09:09 | CA_ITS ---
Acquisition Time: 2022-08-23 10:15:10 Total Exercise Time: 00:02:00 Test Indications: cad, preop Medications: see chart Protocol: LEXISCAN Max HR: 087 BPM 64% of Pred: 134 BPM Max BP: 190/062 mmHG Max Work Load: 1.0 METS Pharmacological stress test with Lexiscan injection, while sitting and kicking her legs, without anginal symptoms, with isolated PACs, with normotensive response to injection, with nondiagnostic EKG for ischemia. Nuclear images pending. Test reviewed wit Dr Brown. Referred By: Pranay Ruvalcaba Overread By: SHARAD DAVENPORT
== END ==
LOC: HO.CARD 08:57
PROVIDERS: Visit Provider Internal Medicine Cardiovascular Disease
DX: Z01.810 Encounter for preprocedural cardiovascular examination (principal); I25.10 Atherosclerotic heart disease of native coronary artery without angina pectoris; I50.30 Unspecified diastolic (congestive) heart failure
CPT/HCPCS: 78452; 93017; A9500; J0280; J2785

== ENCOUNTER → 2022-09-15 13:04 | Outpatient (BNVA) | payer MEDICARE, SELFPAY | PROVIDERS: PCP Internal Medicine; Referring Provider Internal Medicine; Visit Provider Internal Medicine Cardiovascular Disease | DX: Z01.810 Encounter for preprocedural cardiovascular examination (principal); I25.10 Atherosclerotic heart disease of native coronary artery without angina pectoris; I50.30 Unspecified diastolic (congestive) heart failure | CPT/HCPCS: 93005; 99212 ==

== ENCOUNTER → 2023-03-23 09:40 | Outpatient (BNVA) | payer MEDICARE, SELFPAY | PROVIDERS: PCP Internal Medicine; Referring Provider Internal Medicine; Visit Provider Internal Medicine Cardiovascular Disease | DX: I50.30 Unspecified diastolic (congestive) heart failure (principal); I25.10 Atherosclerotic heart disease of native coronary artery without angina pectoris; Z79.82 Long term (current) use of aspirin; Z79.899 Other long term (current) drug therapy | CPT/HCPCS: 99212 ==

== ENCOUNTER 2023-05-31 15:35 | Outpatient (AMB) | payer MEDICARE, SELFPAY ==
--- NOTE | 2023-05-31 15:39 | A.OFFPC_ITS ---
Vital Signs 05/31/23 15:40 Height 4 ft 11 in Weight 149 lb BMI 30.1 BP 116/62 Blood Pressure Location Rt brachial Position Sitting Pulse 60 Pulse Source Pulse Oximeter Pulse Oximetry (%) 98 Oxygen Delivery Method Room Air Intake Visit Reasons: 4 month f/u medication Allergies azithromycin Allergy (Intermediate, Verified 05/31/23 15:41) Nausea/Became dehydrated hydromorphone Allergy (Unknown, Verified 05/31/23 15:41) Unknown codeine Adverse Reaction (Intermediate, Verified 05/31/23 15:41) Stomach Upset Medication List - Last Reconciled 05/31/23 by Penelope Parsons MD allopurinol 100 mg PO DAILY 90 days aspirin (Adult Low Dose Aspirin) 81 mg PO DAILY atorvastatin 20 mg PO BEDTIME cephalexin 500 mg PO BID cholecalciferol (vitamin D3) 10 mcg PO DAILY clopidogrel 75 mg PO DAILY coenzyme Q10 (Ultra CoQ10) 150 mg PO DAILY docusate sodium (Colace) 100 mg PO DAILY metoprolol succinate ER 25 mg PO BID multivitamin (One Daily Multivitamin tablet) 1 tab PO DAILY multivitamin 1 tab PO DAILY torsemide 40 mg (2 x 20 mg) PO DAILY tramadol 50 mg PO BID PRN 30 days Tobacco use date assessed: 11/23/22 Last assessed Fall Risk: 05/31/23 HPI 4 month f/u medication HPI Details Patient is 87-year-old female came in today for a follow-up ap pointment Patient recently saw Nephrology Dr. Lopezter Note reviewed labs were done during that visit her creatinine was 1.5 hemoglobin was 11.4 Patient is on allopurinol due to gout however she ran out 3 months ago and has stop taking it Patient says that she has not had any gout attack and she would like to continue to hold the medication for now. She has chronic kidney disease stage 3 secondary to hypertension Patient had left hip replacement September of 2022 after that she developed anemia however her hemoglobin is gradually getting better Patient has seen and a vascular specialist also in April and had treatment done she is feeling much better The pain in her legs is better and she has stop taking tramadol. Medication list reviewed Atorvastatin 20 mg is through cardiology office Dr. Ruvalcaba She clopidogrel he is also through Cardiology office along with metoprolol 25 mg b.i.d. And diuretic. No medication is from PCP office Patient will now return for Medicare wellness visit annually. [facility] Medical History (HFpEF) heart failure with preserved ejection fraction CAD (coronary artery disease) Chronic GERD Chronic kidney disease Degenerative localized arthritis of hip Diastolic dysfunction Gout Hypertension, essential Lipid disorder Low hemoglobin Osteoarthritis of knees, bilateral PVD (peripheral vascular disease) Surgical History History of carpal tunnel surgery History of cataract surgery History of right hip replacement History of tonsillectomy S/P CABG x 2 Family History Father CHF (congestive heart failure) CVD (cardiovascular disease) Mother Pancreatitis Maternal Aunt Breast cancer Sister No problems noted. Sister No problems noted. Daughter No problems noted. Social History Housing: House Alcohol intake: never Patient Tobacco Use Status: Former Tobacco user Quit Date: 1959 Tobacco use type: Cigarette Years Smoked: 2 years e-Cigarette/Vaping Use: Never Used Second Hand Smoke Exposure: No Current occupational status: retired Cognitive needs: No Hearing needs: No Vision needs: No Questionnaire PHQ-9 Over the last 2 weeks, how often have you been bothered by any of the following problems? 1. Little interest or pleasure in doing things: not at all 2. Feeling down, depressed, or hopeless: several days 3. Trouble falling or staying asleep, or sleeping too much: not at all 4. Feeling tired or having little energy: nearly every day 5. Poor appetite or overeating: several days 6. Feeling bad about yourself - or that you are a failure or have let yourself or your family down: not at all 7. Trouble concentrating on things, such as reading the newspaper or watching television: not at all 8. Moving or speaking so slowly that other people could have noticed. Or the opposite - being so fidgety or restless that you have been moving around a lot more than usual: not at all 9. Thoughts that you would be better off or of hurting yourself in some way: not at all Total score: 5 Depression Screening Interpretation: Negative 46322 - PHQ-9 Billing: Yes Source: Developed by Drs. Umair Villegas, Miriam Antunez, Hermilo Friedman and colleagues, with an educational jillian from [employer]. Thrive Questionnaire Date Thrive assessed: 07/29/22 VENESSA-7 AMB Questionnaire VENESSA-7 Date VENESSA - 7 assessed: 07/29/22 Source: Developed by Drs. Umair Villegas, Miriam Antunez, Hermilo Friedman and colleagues, with an educational jillian from [employer]. Review of Systems Const Denies chills and Denies fever(s) ENT Denies epistaxis and Denies nasal discharge Card Denies chest pain Resp Denies chest congestion, Denies cough and Denies hemoptysis GI Denies diarrhea and Denies nausea Skin/Breast Denies rash Neuro Reports no additional complaints Psych Reports no additional complaints Endo Reports no additional complaints Physical exam (Primary Care) Vital Signs: Last Vital Signs Pulse 60 05/31/23 15:40 BP 116/62 05/31/23 15:40 Pulse Ox 98 05/31/23 15:40 Oxygen Delivery Method Room Air 05/31/23 15:40 BMI result Body Mass Index 30.1 Tobacco/Smoking Status: Tobacco use Status Tobacco use date assessed 11/23/22 05/31/23 15:40 Patient Tobacco Use Status Former Tobacco user 05/31/23 15:40 Tobacco use type Cigarette 05/31/23 15:40 e-Cigarette/Vaping Use Never Used 05/31/23 15:40 Depression Screening Interpretation: Negative Thrive Assessment: Date of Thrive Assessment Date Thrive assessed 07/29/22 05/31/23 15:40 Const General: cooperative, comfortable and no acute distress Orientation/consciousness: patient oriented x3 HENMT Head: Yes normocephalic Eyes General: appearance normal, both eyes and all related structures Neck Neck: Yes supple Resp Effort & Inspection: normal respiratory effort, no cough and no stridor Cardio Rhythm: regular rhythm Heart sounds: S1 normal heart sound present and S2 normal heart sound present Skin General skin exam: turgor normal Neuro General: patient oriented x3, tone normal and moves all extremities Extrem Right lower extremity: no edema Left lower extremity: no edema Assessment and Plan Assessment & Plan (1) Chronic kidney disease: Code(s): N18.9 - Chronic kidney disease, unspecified Qualifiers: Chronic kidney disease stage: stage 3 (moderate) Chronic kidney disease stage 3 subtype: stage 3a (GFR 45-59) Qualified Code(s): N18.31 - Chronic kidney disease, stage 3a (2) Hypertension, essential: Code(s): I10 - Essential (primary) hypertension (3) Low hemoglobin: Code(s): D64.9 - Anemia, unspecified (4) CAD (coronary artery disease): Code(s): I25.10 - Atherosclerotic heart disease of [place] coronary artery without angina pectoris Qualifiers: Coronary Disease-Associated Artery/Lesion type: [place] artery [place] vs. transplanted heart: [place] heart Associated angina: without angina Qualified Code(s): I25.10 - Atherosclerotic heart disease of [place] coronary artery without angina pectoris (5) (HFpEF) heart failure with preserved ejection fraction: Code(s): I50.30 - Unspecified diastolic (congestive) heart failure (6) PVD (peripheral vascular disease): Code(s): I73.9 - Peripheral vascular disease, unspecified (7) Chronic GERD: Code(s): K21.9 - Gastro-esophageal reflux disease without esophagitis (8) Lipid disorder: Code(s): E78.9 - Disorder of lipoprotein metabolism, unspecified (9) Gout: Code(s): M10.9 - Gout, unspecified Qualifiers: Gout site: foot Gout etiology: due to renal impairment Chronicity: chronic Laterality: unspecified laterality Presence of tophus: without tophus Qualified Code(s): M1A.3790 - Chronic gout due to renal impairment, unspecified ankle and foot, without tophus (tophi) Plan Patient is 87-year-old female came in today for a follow-up appointment Patient recently saw Nephrology Dr. Lopezter Note reviewed labs were done during that visit her creatinine was 1.5 hemoglobin was 11.4 Patient is on allopurinol due to gout however she ran out 3 months ago and has stop taking it Patient says that she has not had any gout attack and she would like to continue to hold the medication for now. She has chronic kidney disease stage 3 secondary to hypertension Patient had left hip replacement September of 2022 after that she developed anemia however her hemoglobin is gradually getting better Patient has seen and a vascular specialist also in April and had treatment done she is feeling much better The pain in her legs is better and she has stop taking tramadol. Medication list reviewed Atorvastatin 20 mg is through cardiology office Dr. Peg Childress clopidogrel he is also through Cardiology office along with metoprolol 25 mg b.i.d. And diuretic. No medication is from PCP office Patient will now return for Medicare wellness visit annually. Medications: Refilled allopurinol 100 mg PO DAILY 90 days 90 tabs 0RF Discontinued cephalexin Discontinued Reason: Patient Completed Course 500 mg PO BID 20 caps 0RF Coding Level of Care Code Est Pt Level 4 (80552) Diagnoses Chronic kidney disease N18.31 Chronic kidney disease stage: stage 3 (moderate) Chronic kidney disease stage 3 subtype: stage 3a (GFR 45-59) Hypertension, essential I10 Low hemoglobin D64.9 CAD (coronary artery disease) I25.10 Coronary Disease-Associated Artery/Lesion type: [place] artery [place] vs. transplanted heart: [place] heart Associated angina: without angina (HFpEF) heart failure with preserved ejection fraction I50.30 PVD (peripheral vascular disease) I73.9 Chronic GERD K21.9 Lipid disorder E78.9 Gout M1A.3790 Gout site: foot Gout etiology: due to renal impairment Chronicity: chronic Laterality: unspecified laterality Presence of tophus: without tophus
[2023-05-31 15:40] VITALS: BP 116/62; PULSE 60; O2SAT 98; BMI 30.1
== END 2023-05-31 16:39 | disposition home or self-care (01) ==
PROVIDERS: PCP Internal Medicine; Visit Provider Internal Medicine
DX: I12.9 Hypertensive chronic kidney disease with stage 1 through stage 4 chronic kidney disease, or unspecified chronic kidney disease (principal); N18.31 Chronic kidney disease, stage 3a; I50.30 Unspecified diastolic (congestive) heart failure; K21.9 Gastro-esophageal reflux disease without esophagitis; I73.9 Peripheral vascular disease, unspecified; I25.10 Atherosclerotic heart disease of native coronary artery without angina pectoris; D64.9 Anemia, unspecified; E78.9 Disorder of lipoprotein metabolism, unspecified; M1A.3790 Chronic gout due to renal impairment, unspecified ankle and foot, without tophus (tophi)
CPT/HCPCS: 99214

== ENCOUNTER 2023-09-06 14:34 | Outpatient (AMB) | payer MEDICARE, SELFPAY ==
--- NOTE | 2023-09-06 14:34 | AM.OFFWIN_ITS ---
Intake Vital Signs 09/06/23 14:35 Height 4 ft 11 in Weight 68.039 kg BMI 30.3 BP 150/70 H Blood Pressure Location Rt brachial Position Sitting Pulse 81 Pulse Source Pulse Oximeter Temp 96.9 F Temp Source Temporal Artery Scan Pulse Oximetry (%) 96 Oxygen Delivery Method Room Air Intake Visit Reasons: EP, finger swelling Intake Note: pt is here today for finger swelling started 5 days ago Patient Tobacco Use Status: Former Tobacco user Quit Date: 1959 Allergies azithromycin Allergy (Intermediate, Verified 09/06/23 14:35) Nausea/Became dehydrated hydromorphone Allergy (Unknown, Verified 09/06/23 14:35) Unknown codeine Adverse Reaction (Intermediate, Verified 09/06/23 14:35) Stomach Upset Do you need a note to return to daycare/school/sports/work: No HPI HPI Comments History of Present Illness Details 1456 87 year old female presents with bilater al finger pain to all digits, has been going on progressively worsening over the past few days. Patient reports she has a history of gout stop taking allopurinol a while ago and would like some labs drawn as well basic labs in magnesium as well as uric acid. Denies fevers and chills. Physical exam with positive depuytrens contracture b/l and swollen fingers b/l swollen finger joints b/l. normal sensation distally. 2+ radial pulsese equal and b/l. no wrist drop likely depuytrens contracture vs gout vs inflammatory arthritis unlikely septic joint, threat to [place], neurovascular compromise, arterial or venous occlusion. Plan will obtain basic labs. Discharged on prednisone. Ortho consult. Educated patient on diagnosis and treatment plan, answered all question, patient verbalizes understanding. At this time patient will be discharged home, advised to return with new or worsening symptoms. Educated on worrisome signs and symptoms and when to return. At this time I feel comfortable discharge home. [facility] Medical History Degenerative localized arthritis of hip PVD (peripheral vascular disease) CAD (coronary artery disease) Diastolic dysfunction (HFpEF) heart failure with preserved ejection fraction Low hemoglobin Gout Osteoarthritis of knees, bilateral Chronic kidney disease Chronic GERD Lipid disorder Hypertension, essential Surgical History History of cataract surgery S/P CABG x 2 History of carpal tunnel surgery History of right hip replacement History of tonsillectomy Family History Father CHF (congestive heart failure) CVD (cardiovascular disease) Mother Pancreatitis Maternal Aunt Breast cancer Sister No problems noted. Sister No problems noted. Daughter No problems noted. Social History Housing: House Alcohol intake: never Patient Tobacco Use Status: Former Tobacco user Quit Date: 1959 Tobacco use type: Cigarette Years Smoked: 2 years e-Cigarette/Vaping Use: Never Used Second Hand Smoke Exposure: No Current occupational status: retired Cognitive needs: No Hearing needs: No Vision needs: No Review of Systems Const Details: Constitutional : No Weight loss, No Fever, No Chills, No Fatigue, No Malaise ENT/Mouth : No sore throat, No Rhinorrhea Eyes: No Eye Pain, No Swelling, No Redness Cardiovascular : No Chest Pain, No SOB, No Dyspnea on Exertion, No Orthopnea, No Edema, No Palpitations Respiratory : No Cough, No Sputum, No Wheezing Gastrointestinal : No Nausea, No Vomiting, No Diarrhea, No Constipation, No abdominal Pain, No Hematochezia, No Melena Genitourinary : No Dysuria, No Urinary Frequency, No Hematuria, Musculoskeletal : + joint pain, No Myalgias, + Joint Swelling Skin : No Skin Lesions, No rash Neuro : No Weakness, No Numbness, No Dizziness, No Headache Psych : No Anxiety/Panic, No Depression All other systems reviewed and are negative All systems reviewed & are unremarkable except as noted in HPI and below Physical Exam Vital Signs: Last Vital Signs Temp 96.9 F 09/06/23 14:35 Pulse 81 09/06/23 14:35 BP 150/70 H 09/06/23 14:35 Pulse Ox 96 09/06/23 14:35 Oxygen Delivery Method Room Air 09/06/23 14:35 BMI result Body Mass Index 30.3 vss Appearance: Alert.? Oriented X3.? No acute distress.? Head: Normocephalic, atraumatic, no step-offs or deformities Eyes: Pupils equal, round and reactive to light.? CVS: Normal heart rate and rhythm.? Pulses normal.? Respiratory: No respiratory distress.? Breath sounds normal.? Skin: Skin warm and dry.? Normal skin color.? Normal skin turgor.? Extremities: No lower extremity edema.? No calf ttp. 5/5 strength to bilateral upper and lower extremities positive depuytrens contracture b/l and swollen fingers b/l swollen finger joints b/l. normal sensation distally. 2+ radial pulsese equal and b/l. no wrist drop Back: No midline tenderness, no C-spine tenderness, full range of motion, no CVA tenderness bilaterally Neuro: Oriented X 3.? No motor deficit.? No sensory deficit. CN 2-12 intact Assessment & Plan Assessment & Plan (1) Finger pain: Code(s): M79.646 - Pain in unspecified finger(s) (2) Dupuytren's contracture of both hands: Code(s): M72.0 - Palmar fascial fibromatosis [Dupuytren] (3) Bilateral finger arthralgia: Code(s): M25.541 - Pain in joints of right hand; M25.542 - Pain in joints of left hand Plan Take your medications as prescribed. If you were prescribed antibiotics today, it is important that you take your medication to their entirety, do not skip any doses, do not finish them early. Follow-up with your primary care provider this week. Return to the emergency department with new or worsening symptoms. In case of emergency call 911 Orders: Orders Uric Acid Today M79.646 - Pain in unspecified finger(s) Complete Blood Count Auto Diff Today M79.646 - Pain in unspecified finger(s) Basic Metabolic Panel Today M79.646 - Pain in unspecified finger(s) Magnesium Today M79.646 - Pain in unspecified finger(s) Referrals Orthopedics Referral M25.541 - Pain in joints of right hand, M25.542 - Pain in joints of left hand, M72.0 - Palmar fascial fibromatosis [Dupuytren] Medications: New prednisone 40 mg (2 x 20 mg) PO DAILY 5 days 10 tabs 0RF Coding Level of Care Code Est Pt Level 3 (97301) Diagnoses Finger pain M79.646 Dupuytren's contracture of both hands M72.0 Bilateral finger arthralgia M25.541; M25.542
[2023-09-06 14:35] VITALS: BP 150/70; PULSE 81; TEMP 36.1; O2SAT 96; BMI 30.3
== END 2023-09-06 15:31 | disposition home or self-care (01) ==
PROVIDERS: PCP Internal Medicine; Visit Provider Physician Assistant
DX: M79.646 Pain in unspecified finger(s) (principal); M72.0 Palmar fascial fibromatosis [Dupuytren]; M25.541 Pain in joints of right hand; M25.542 Pain in joints of left hand
CPT/HCPCS: 99213

== ENCOUNTER 2023-09-06 14:56 | Outpatient (REF) | payer MEDICARE, SELFPAY ==
[2023-09-06 16:09] LABS: MANUAL DIFF FLAG NO
[2023-09-06 16:22] LABS: Basophils Percent Auto 0.4 % (0-2); Eosinophils Absolute Auto 0.2 X10*3/uL (0.0-0.4); Eosinophils Percent Auto 2.4 % (0-4); Hematocrit 35.7 % (37.0-47.0); Hemoglobin 11.4 g/dl (12.0-16.0); Imm Gran Abs Auto 0.04 X10*3/uL (0.00-0.03); Imm Gran Pct Auto 0.4 % (0.0-0.4); Lymphocytes Absolute Auto 1.2 X10*3/uL (1.2-4.9); Lymphocytes Percent Auto 12.6 % (20-40); Mean Corpuscular HGB Conc 31.9 g/dl (31.0-35.0); Mean Corpuscular Hemoglobin 31.9 pg (27.0-33.0); Mean Platelet Volume 10.3 fL (9.4-12.3); Monocytes Absolute Auto 1.4 X10*3/uL (0.1-1.2); Monocytes Percent Auto 14.1 % (2-11); Neutrophils Absolute Auto 6.9 x10*3/uL (2.0-8.3); Neutrophils Percent Auto 70.1 % (45-73); Platelet Count 342 X10*3/uL (160-400); Red Blood Count 3.57 X10*6/uL (4.20-5.50); White Blood Count 9.9 X10*3/uL (4.8-10.8)
[2023-09-06 16:33] LABS: Anion Gap 15 (12-20); Blood Urea Nitrogen 29 mg/dL (9-16); Calcium 9.9 mg/dL (8.4-10.2); Carbon Dioxide 24 mmol/L (22-29); Chloride 105 mmol/L (96-108); Estimated Glomerular Filt Rate 31; Glucose Random 107 mg/dL (60-115); Magnesium 2.3 mg/dL (1.6-2.6); Potassium 4.1 mmol/L (3.3-5.1); Sodium 140 mmol/L (135-145); Uric Acid 10.8 mg/dL (2.4-5.7)
== END 2023-09-06 14:57 | disposition home or self-care (01) ==
LOC: HO.HMGCLDS 14:56
PROVIDERS: Physician Assistant; PCP Internal Medicine; Visit Provider Internal Medicine
DX: M79.646 Pain in unspecified finger(s) (principal)
CPT/HCPCS: 36415; 80048; 83735; 84550; 85025

== ENCOUNTER 2023-09-11 11:12 | Outpatient (AMB) | payer MEDICARE, SELFPAY ==
[2023-09-11 11:16] VITALS: BP 140/60; PULSE 73; BMI 29.8
--- NOTE | 2023-09-11 11:16 | MHC.OFFVIS ---
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 Accompanied by: Daughter Allergies azithromycin Allergy (Intermediate, Verified 09/11/23 11:19) Nausea/Became dehydrated hydromorphone Allergy (Unknown, Verified 09/11/23 11:19) Unknown codeine Adverse Reaction (Intermediate, Verified 09/11/23 11:19) Stomach Upset Medication List - Last Reconciled 09/11/23 by Pranay Ruvalcaba MD aspirin (Adult Low Dose Aspirin) 81 mg PO DAILY atorvastatin 20 mg PO BEDTIME cholecalciferol (vitamin D3) 10 mcg PO DAILY clopidogrel 75 mg PO DAILY coenzyme Q10 (Ultra CoQ10) 150 mg PO DAILY docusate sodium (Colace) 100 mg PO DAILY metoprolol succinate ER 25 mg PO BID multivitamin (One Daily Multivitamin tablet) 1 tab PO DAILY prednisone 40 mg (2 x 20 mg) PO DAILY 5 days torsemide 40 mg (2 x 20 mg) PO DAILY tramadol 50 mg PO BID PRN 30 days HPI HPI Comments History of Present Illness Details Aminah comes for follow-up. Recently she has been treated for gout flare up after she was off allopurinol for few months. She has no cardiac symptoms. Denies any exertional chest pain or shortness of breath. Denies any clear symptoms of claudication. Recently had procedure on peripheral venous ablation at vascular surgery. Denies any orthopnea, PND, leg edema. Follows with Nephrology. Denies any prolonged palpitation irregular heartbeat [facility] Medical History Degenerative localized arthritis of hip PVD (peripheral vascular disease) CAD (coronary artery disease) Diastolic dysfunction (HFpEF) heart failure with preserved ejection fraction Low hemoglobin Gout Osteoarthritis of knees, bilateral Chronic kidney disease Chronic GERD Lipid disorder Hypertension, essential Surgical History History of cataract surgery S/P CABG x 2 History of carpal tunnel surgery History of right hip replacement History of tonsillectomy Family History Father CHF (congestive heart failure) CVD (cardiovascular disease) Mother Pancreatitis Maternal Aunt Breast cancer Sister No problems noted. Sister No problems noted. Daughter No problems noted. Social History Housing: House Alcohol intake: never Patient Tobacco Use Status: Former Tobacco user Quit Date: 1959 Tobacco use type: Cigarette Years Smoked: 2 years e-Cigarette/Vaping Use: Never Used Second Hand Smoke Exposure: No Current occupational status: retired Cognitive needs: No Hearing needs: No Vision needs: No Review of Systems Const Reports chills, Reports fatigue, Reports fever(s), Reports frequent falls, Reports weakness, Reports weight gain and Reports weight loss ENT Reports dizziness Card Reports chest pain, Reports leg edema, Reports lightheadedness, Reports palpitations, Reports dyspnea and Reports dyspnea on exertion Resp Reports cough, Reports dyspnea and Reports dyspnea on exertion GI Reports hematochezia Musc Reports abnormal gait, Reports muscle weakness, Reports numbness, Reports radiating pain into limb and Reports tingling Neuro Reports abnormal gait, Reports dizziness, Reports frequent falls, Reports numbness, Reports tingling and Reports weakness Endo Reports fatigue and Reports palpitations Physical Exam Vital Signs: Last Vital Signs Pulse 73 09/11/23 11:16 BP 140/60 H 09/11/23 11:16 BMI result Body Mass Index 29.8 Const General: cooperative, healthy appearing, comfortable, no acute distress, well developed, alert and awake Nutritional Appearance: overweight Orientation/consciousness: patient oriented x3 Limitations: no limitations HEENT Head: Yes normal to inspection, Yes normocephalic and Yes atraumatic Eyes General: appearance normal, both eyes and all related structures Neck Neck: Yes normal visual inspection, Yes trachea midline, Yes supple and Yes no JVD Chest Chest palpation & inspection: normal inspection of the chest and other ( Well-healed sternotomy scar) Resp Effort & Inspection: normal respiratory effort Auscultation: clear to auscultation bilaterally, no crackles and no rales Cardio Palpation: normal PMI Rate: regular rate Rhythm: regular rhythm Heart sounds: S1 normal heart sound present, S2 normal heart sound present, no click, no gallops, Murmur heart sound present systolic early and Other heart sounds present ( S4 present) GI Auscultation: normal bowel sounds Skin General skin exam: no rashes or lesions noted and ecchymosis Neuro General: patient oriented x3 and no focal motor deficits Extrem General: No clubbing, No cyanosis, Yes edema and Yes other ( Bilateral significant varicosities) Psych Appearance: grossly normal Office Procedures EKG Details: EKG shows normal sinus rhythm with right bundle-branch block 53076-[id number], Complete Assessment & Plan Assessment & Plan (1) (HFpEF) heart failure with preserved ejection fraction: Code(s): I50.30 - Unspecified diastolic (congestive) heart failure Plan: Heart failure preserved ejection fraction, clinically appears to be euvolemic and well compensated. Currently on high dose of torsemide. There is elevated creatinine. She follows with Nephrology. This could be related to over-diuresis and/or progressive renal disease related to underlying atherosclerotic disease. Follow-up with nephrology. Consider tapering torsemide to 40 mg alternating with 20 mg. Daily weight monitoring avoidance of salt loading was discussed continue aggressive blood pressure control which currently appears to be well optimized. Signs and symptoms of heart failure were discussed. (2) CAD (coronary artery disease): Code(s): I25.10 - Atherosclerotic heart disease of [place] coronary artery without angina pectoris Qualifiers: Associated angina: without angina Coronary Disease-Associated Artery/Lesion type: [place] artery [place] vs. transplanted heart: [place] heart Qualified Code(s): I25.10 - Atherosclerotic heart disease of [place] coronary artery without angina pectoris Plan: CAD status post coronary bypass grafting with mild basal and mid lateral wall ischemia without any symptoms of angina. Continue medical therapy. She has diffuse vascular disease currently on dual antiplatelet therapy and discussed with her to discuss this with vascular to see how long she needs to continue dual antiplatelet therapy. If not indicated can consider switching to low-dose oral anticoagulant therapy in addition of aspirin. Blood pressure is currently well optimized. Continue statin therapy with target goal LDL closer to 70 mg/dL. Advised to call me with any symptoms of angina. Will follow up in the clinic in 6 months time, sooner p.r.n.. Thank you for allowing me to partake in her care Coding Level of Care Code Est Pt Level 4 (82171) Diagnoses (HFpEF) heart failure with preserved ejection fraction I50.30 Coronary artery disease involving [place] coronary artery of [place] heart without angina pectoris I25.10 Associated angina: without angina Coronary Disease-Associated Artery/Lesion type: [place] artery [place] vs. transplanted heart: [place] heart CPT Codes EKG - CPT: 89868-[id number], Complete ([id number])
== END 2023-09-11 11:57 | disposition home or self-care (01) ==
PROVIDERS: PCP Internal Medicine; Visit Provider Internal Medicine Cardiovascular Disease
DX: I50.30 Unspecified diastolic (congestive) heart failure (principal); I25.10 Atherosclerotic heart disease of native coronary artery without angina pectoris
CPT/HCPCS: 93010; 99214

== ENCOUNTER → 2023-09-11 11:12 | Outpatient (BNVA) | payer MEDICARE, SELFPAY | PROVIDERS: PCP Internal Medicine; Visit Provider Internal Medicine Cardiovascular Disease | DX: I50.30 Unspecified diastolic (congestive) heart failure (principal); I25.10 Atherosclerotic heart disease of native coronary artery without angina pectoris | CPT/HCPCS: 93005; 99212 ==

== ENCOUNTER 2023-12-26 12:05 | Outpatient (AMB) | payer MEDICARE, SELFPAY ==
--- NOTE | 2023-12-26 12:38 | A.OFFVIS_ITS ---
Intake Vital Signs 12/26/23 12:47 Height 4 ft 10 in Weight 154 lb 6 oz BMI 32.3 BP 136/74 Blood Pressure Location Rt brachial Position Sitting Respiration 16 Pulse 73 Pulse Source Pulse Oximeter Pulse Oximetry (%) 98 Oxygen Delivery Method Room Air Intake Visit Reasons: INP-Other symp & signs-LVM Intake Note: Pt presents to the office for new pt evaluation for neuropathy of fernie legs and feet. Pt is former pt of Dr. Gibson, who retired. 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 Allergies azithromycin Allergy (Intermediate, Verified 09/11/23 11:19) Nausea/Became dehydrated hydromorphone Allergy (Unknown, Verified 09/11/23 11:19) Unknown codeine Adverse Reaction (Intermediate, Verified 09/11/23 11:19) Stomach Upset Medication List - Last Reconciled 12/26/23 by Shasta Quarles MD allopurinol 100 mg PO DAILY aspirin (Adult Low Dose Aspirin) 81 mg PO DAILY atorvastatin 20 mg PO BEDTIME betamethasone dipropionate 0.05% 1 appl topical DAILY PRN cholecalciferol (vitamin D3) 10 mcg PO DAILY clopidogrel 75 mg PO DAILY coenzyme Q10 (Ultra CoQ10) 150 mg PO DAILY docusate sodium (Colace) 100 mg PO DAILY metoprolol succinate ER 25 mg PO BID multivitamin (One Daily Multivitamin tablet) 1 tab PO DAILY prednisone 40 mg (2 x 20 mg) PO DAILY 5 days torsemide 40 mg (2 x 20 mg) PO DAILY tramadol 50 mg PO ONCE PRN 30 days HPI HPI Comments History of Present Illness Details 88y/o female comes for further managemen t of neuropathy . she was diagnosed with neuropathy about 4-[address] Gibson. Her initial symptom was sensitivity in her feet - felt like she walked on broken stones.she feels her symptoms are about the same and fluctuates in intensity.she also feels in the sides of her leg.It bothers her somenights - hard to find a comfortable position. she takes tonic water to help with her nocturnal cramps. she has mild back pain and gets better as days goes on she is not sure she had EMG. she has venous issues in LE and has musculoskeletal issues. she had fernie knee replacement, hip replacement ( left ) Sep 2022, Right hip replacement in 2005. she uses a cane to walk , feels off balance . No recent falls. [facility] Medical History (Updated 12/26/23 @ 14:05 by Shasta Quarles MD) Gait disorder Neuropathy Degenerative localized arthritis of hip PVD (peripheral vascular disease) CAD (coronary artery disease) Diastolic dysfunction (HFpEF) heart failure with preserved ejection fraction Low hemoglobin Gout Osteoarthritis of knees, bilateral Chronic kidney disease Chronic GERD Lipid disorder Hypertension, essential Surgical History H/O vein stripping Hx of bilateral hip replacements History of cataract surgery S/P CABG x 2 History of carpal tunnel surgery History of right hip replacement History of tonsillectomy Family History Father CHF (congestive heart failure) CVD (cardiovascular disease) Mother Pancreatitis Maternal Aunt Breast cancer Sister No problems noted. Sister No problems noted. Daughter No problems noted. Social History Housing: House Alcohol intake: never Patient Tobacco Use Status: Former Tobacco user Quit Date: 1959 Tobacco use type: Cigarette Years Smoked: 2 years e-Cigarette/Vaping Use: Never Used Second Hand Smoke Exposure: No Current occupational status: retired Cognitive needs: No Hearing needs: No Vision needs: No Physical Exam Vital Signs: Last Vital Signs Pulse 73 12/26/23 12:47 Resp 16 12/26/23 12:47 BP 136/74 12/26/23 12:47 Pulse Ox 98 12/26/23 12:47 Oxygen Delivery Method Room Air 12/26/23 12:47 BMI result Body Mass Index 32.3 Const General: cooperative, healthy appearing and comfortable Nutritional Appearance: average body habitus Orientation/consciousness: patient oriented x3 Eyes Pupils: Equal, round and reactive pupils present Neuro Other: mild neck stiffness [place] foot bunions, high arches with hammer toes A=Mild dysesthesias in plantar surfaces Gait- slow mild off balance General: patient oriented x3, tone normal, moves all extremities and no focal motor deficits Cranial nerves: Yes Facial sensation intact/muscles of mastication intact, Yes Equal, round and reactive pupils present, Yes Bilaterally intact EOM present, Yes Nystagmus not present, Yes Normal facial strength present, Yes Midline tongue present and Yes Symmetric palate elevation present Cognition (Neuro): normal cognition Motor exam (neuro): 5/5 motor strength present throughout and Normal motor muscle tone present throughout Deep tendon reflexes (DTR's): Right triceps reflex intensity grade: 2+, Left triceps reflex intensity grade: 2+, Rt Biceps (C5, C6): 2+, Left biceps reflex intensity grade: 2+, Right brachioradialis reflex intensity grade: 2+, Left brachioradialis reflex intensity grade: 2+, Right patellar reflex intensity grade: 1+, Left patellar reflex intensity grade: 1+, Right ankle reflex intensity grade: 0 and Left ankle reflex intensity grade: 0 Coordination: [id number] test normal Assessment & Plan Assessment & Plan (1) Neuropathy: Comment: slowly progressive Code(s): G62.9 - Polyneuropathy, unspecified (2) Gait disorder: Comment: multifactorial - musculoskeletal, vascular , neuropathy Code(s): R26.9 - Unspecified abnormalities of gait and mobility Plan I will check her Vit B 12 TSH CBC CMP Suggested to start B complex and Alpha lipoic acid Suggested to continue exercise with PT. Orders: Orders Vitamin B12 and Folate Today G62.9 - Polyneuropathy, unspecified TSH reflex Free T4 Today G62.9 - Polyneuropathy, unspecified Vitamin D 25-OH (D2 and D3) Today G62.9 - Polyneuropathy, unspecified Complete Blood Count Auto Diff Today G62.9 - Polyneuropathy, unspecified Comprehensive Met. Panel Today G62.9 - Polyneuropathy, unspecified Coding Level of Care Code New Pt Level 4 (40939) Diagnoses Neuropathy G62.9 Gait disorder R26.9
[2023-12-26 12:47] VITALS: BP 136/74; PULSE 73; RESP 16; O2SAT 98; BMI 32.3
== END 2023-12-26 14:13 | disposition home or self-care (01) ==
PROVIDERS: PCP Internal Medicine; Visit Provider Psychiatry & Neurology Neurology
DX: G62.9 Polyneuropathy, unspecified (principal); R26.9 Unspecified abnormalities of gait and mobility
CPT/HCPCS: 99204

== ENCOUNTER → 2023-12-26 12:05 | Outpatient (BNVA) | payer MEDICARE, SELFPAY | PROVIDERS: PCP Internal Medicine; Visit Provider Psychiatry & Neurology Neurology ==

== ENCOUNTER 2023-12-26 13:49 | Outpatient (REF) | payer MEDICARE, SELFPAY ==
[2023-12-26 17:30] LABS: MANUAL DIFF FLAG NO
[2023-12-26 17:38] LABS: Basophils Percent Auto 0.4 % (0-2); Eosinophils Absolute Auto 0.2 X10*3/uL (0.0-0.4); Eosinophils Percent Auto 2.1 % (0-4); Hematocrit 36.9 % (37.0-47.0); Hemoglobin 12.1 g/dl (12.0-16.0); Imm Gran Abs Auto 0.02 X10*3/uL (0.00-0.03); Imm Gran Pct Auto 0.3 % (0.0-0.4); Lymphocytes Absolute Auto 1.4 X10*3/uL (1.2-4.9); Lymphocytes Percent Auto 17.9 % (20-40); Mean Corpuscular HGB Conc 32.8 g/dl (31.0-35.0); Mean Corpuscular Volume 97.6 fL (80.0-98.0); Mean Platelet Volume 10.6 fL (9.4-12.3); Monocytes Absolute Auto 0.8 X10*3/uL (0.1-1.2); Monocytes Percent Auto 10.6 % (2-11); Neutrophils Absolute Auto 5.3 x10*3/uL (2.0-8.3); Neutrophils Percent Auto 68.7 % (45-73); Platelet Count 318 X10*3/uL (160-400); Red Blood Count 3.78 X10*6/uL (4.20-5.50); Red Cell Distribution Width 14.7 % (11.0-16.0); White Blood Count 7.8 X10*3/uL (4.8-10.8)
[2023-12-26 17:54] LABS: Alanine Aminotransferase 12 U/L (0-31); Albumin Level 4.3 g/dL (3.5-5.0); Alkaline Phosphatase 86 U/L (39-117); Anion Gap 16 (12-20); Aspartate Amino Transferase 21 U/L (5-31); Bilirubin Total 0.4 mg/dL (0.0-1.0); Blood Urea Nitrogen 30 mg/dL (9-16); Calcium 9.7 mg/dL (8.4-10.2); Carbon Dioxide 27 mmol/L (22-29); Chloride 103 mmol/L (96-108); Estimated Glomerular Filt Rate 37; Glucose Random 102 mg/dL (60-115); Potassium 3.5 mmol/L (3.3-5.1); Sodium 142 mmol/L (135-145); Total Protein 7.5 g/dL (6.5-8.0)
[2023-12-26 18:10] LABS: TSH reflex Free T4 1.26 uIU/mL (0.32-4.0)
[2023-12-26 18:29] LABS: Folate > 20.0 ng/mL (> or = 4.0); Vitamin B12 675 pg/mL (200-900)
[2023-12-30 15:39] LABS: Vitamin D 25-OH, D2 <4 ng/mL; Vitamin D 25-OH, D3 42 ng/mL; Vitamin D 25-OH, Total 42 ng/mL (30-100)
== END 2023-12-26 13:50 | disposition home or self-care (01) ==
LOC: HO.HKASLDS 13:49
PROVIDERS: Visit Provider Psychiatry & Neurology Neurology
DX: G62.9 Polyneuropathy, unspecified (principal); R26.9 Unspecified abnormalities of gait and mobility; R25.2 Cramp and spasm; M54.9 Dorsalgia, unspecified; Z79.899 Other long term (current) drug therapy
CPT/HCPCS: 36415; 80053; 82306; 82607; 82746; 84443; 85025; 99202

== ENCOUNTER 2024-04-02 12:48 | Outpatient (REF) | payer MEDICARE, SELFPAY ==
[2024-04-02 14:37] LABS: Anion Gap 15 (12-20); Blood Urea Nitrogen 33 mg/dL (9-16); Calcium 9.4 mg/dL (8.4-10.2); Carbon Dioxide 26 mmol/L (22-29); Chloride 106 mmol/L (96-108); Estimated Glomerular Filt Rate 31; Glucose Random 97 mg/dL (60-115); Potassium 3.8 mmol/L (3.3-5.1); Sodium 143 mmol/L (135-145)
[2024-04-02 14:41] LABS: B Type Natriuretic Peptide 618 pg/mL (<100)
== END 2024-04-02 12:49 | disposition home or self-care (01) ==
LOC: HO.LAB 12:48
PROVIDERS: PCP Internal Medicine; Visit Provider Internal Medicine Cardiovascular Disease
DX: I11.0 Hypertensive heart disease with heart failure (principal); I50.30 Unspecified diastolic (congestive) heart failure; I25.10 Atherosclerotic heart disease of native coronary artery without angina pectoris
CPT/HCPCS: 36415; 80048; 83880; 99212

== ENCOUNTER 2024-04-02 12:48 | Outpatient (AMB) | payer MEDICARE, SELFPAY ==
[2024-04-02 12:51] VITALS: BP 142/86; PULSE 63; BMI 31.3
--- NOTE | 2024-04-02 12:51 | MHC.OFFVIS ---
Vital Signs 04/02/24 12:51 Height 4 ft 10 in Weight 149 lb 14.629 oz BMI 31.3 BP 142/86 H Blood Pressure Location Lt brachial Position Sitting Pulse 63 Intake Visit Reasons: 6 mth f/up Intake Note: 6 month follow-up bp has been a little high and leg swelling [employer] Associate Required: No Facility Administrator: Facility Administrator Present Accompanied by: Daughter Allergies azithromycin Allergy (Intermediate, Verified 09/11/23 11:19) Nausea/Became dehydrated hydromorphone Allergy (Unknown, Verified 09/11/23 11:19) Unknown codeine Adverse Reaction (Intermediate, Verified 09/11/23 11:19) Stomach Upset Medication List - Last Reconciled 04/02/24 by Pranay Ruvalcaba MD allopurinol 100 mg PO DAILY aspirin (Adult Low Dose Aspirin) 81 mg PO DAILY atorvastatin 20 mg PO BEDTIME betamethasone dipropionate 0.05% 1 appl topical DAILY PRN cholecalciferol (vitamin D3) 10 mcg PO DAILY clopidogrel 75 mg PO DAILY coenzyme Q10 (Ultra CoQ10) 150 mg PO DAILY docusate sodium (Colace) 100 mg PO DAILY metoprolol succinate ER 25 mg PO BID multivitamin (One Daily Multivitamin tablet) 1 tab PO DAILY omega-3 fatty acids-fish oil 435-880 mg (Fish Oil Extra Strength) caps PO torsemide 40 mg (2 x 20 mg) PO DAILY HPI Comments Details: Aminah comes for her regular follow-up in 6 months although she says she has had increasing leg swelling and increasing shortness of breath along with a weight gain of over 5-6 lb over the last many months. She most often takes torsemide 40 mg and has not been able to reduce it but sometimes she forgets to take them especially she is doing much that day. Over the weekend she call me as she would notice that her blood pressure is significantly elevated. She has not been monitoring a blood pressure usually but decided to monitor blood pressure over the weekend and with systolic blood pressure 180 to 190 range. She has not sure as to why her blood pressure will be so high recently although she has not been monitoring it on a regular basis. Today in the office a blood pressure is significantly elevated. She might have some salt indiscretion diet as per the daughter. [facility] Medical History Gait disorder Neuropathy Degenerative localized arthritis of hip PVD (peripheral vascular disease) CAD (coronary artery disease) Diastolic dysfunction (HFpEF) heart failure with preserved ejection fraction Low hemoglobin Gout Osteoarthritis of knees, bilateral Chronic kidney disease Chronic GERD Lipid disorder Hypertension, essential Surgical History H/O vein stripping Hx of bilateral hip replacements History of cataract surgery S/P CABG x 2 History of carpal tunnel surgery History of right hip replacement History of tonsillectomy Family History Father CHF (congestive heart failure) CVD (cardiovascular disease) Mother Pancreatitis Maternal Aunt Breast cancer Sister No problems noted. Sister No problems noted. Daughter No problems noted. Social History Housing: House Alcohol intake: never Patient Tobacco Use Status: Former Tobacco user Tobacco use type: Cigarette Years Smoked: 2 years e-Cigarette/Vaping Use: Never Used Second Hand Smoke Exposure: No Current occupational status: retired Cognitive needs: No Hearing needs: No Vision needs: No Review of Systems Const Denies chills, Denies fatigue, Denies fever(s), Denies frequent falls, Denies weakness, Denies weight gain and Denies weight loss ENT Denies dizziness Card Denies chest pain, Denies leg edema, Denies lightheadedness, Denies palpitations, Denies dyspnea, Denies dyspnea on exertion, Denies orthopnea and Denies other (loss of consciousness) Resp Denies cough, Denies dyspnea and Denies dyspnea on exertion GI Denies hematochezia and Denies change in stool character Musc Denies abnormal gait, Denies muscle weakness, Denies numbness, Denies radiating pain into limb and Denies tingling Neuro Denies abnormal gait, Denies dizziness, Denies frequent falls, Denies numbness, Denies tingling and Denies weakness Endo Denies fatigue and Denies palpitations Physical Exam Vital Signs: Last Vital Signs Pulse 63 04/02/24 12:51 BP 142/86 H 04/02/24 12:51 BMI result Body Mass Index 31.3 Const General: cooperative, healthy appearing, comfortable, no acute distress, well developed, alert and awake Nutritional Appearance: overweight Orientation/consciousness: patient oriented x3 Limitations: no limitations HEENT Head: Yes normal to inspection, Yes normocephalic and Yes atraumatic Eyes General: appearance normal, both eyes and all related structures Neck Neck: Yes normal visual inspection, Yes trachea midline, Yes supple and Yes no JVD (+ AJR) Chest Chest palpation & inspection: normal inspection of the chest and other ( Well-healed sternotomy scar) Resp Effort & Inspection: normal respiratory effort Auscultation: clear to auscultation bilaterally, no crackles and no rales Cardio Jugular venous distension: no JVD (Positive AJR) Palpation: normal PMI Rate: regular rate Rhythm: regular rhythm Heart sounds: S1 normal heart sound present, S2 normal heart sound present, no click, no gallops, Murmur heart sound present systolic early and Other heart sounds present ( S4 present) GI Auscultation: normal bowel sounds Skin General skin exam: no rashes or lesions noted and ecchymosis Neuro General: patient oriented x3 and no focal motor deficits Extrem General: No clubbing, No cyanosis, Yes edema (Two to 3+) and Yes other ( Bilateral significant varicosities) Psych Appearance: grossly normal Assessment & Plan Assessment & Plan (1) (HFpEF) heart failure with preserved ejection fraction: Code(s): I50.30 - Unspecified diastolic (congestive) heart failure Category: Medical Plan: Heart failure preserved ejection fraction with clinical findings suggestive of fluid overload. This is concerning. Discussed with her. Will check BMP and BNP today. If BNP significantly elevated I think she will benefit from increase diuretic dose. Concerned about renal function but we discussed that heart failure per se and also increase risk of progressive renal dysfunction. Will advised daily weight monitoring avoidance of salt loading. Improvement in dietary discretion was discussed. Expect with increase diuretic to have the weight loss of 5-6 lb but may not completely improved leg edema given her venous insufficiency. Consider compression stockings. Continue other therapy. Will follow renal function closely. Will also request echocardiogram to assess LV systolic and diastolic function to evaluate for RV systolic function as well as RV systolic pressures. (2) CAD (coronary artery disease): Code(s): I25.10 - Atherosclerotic heart disease of [place] coronary artery without angina pectoris Category: Medical Qualifiers: Coronary Disease-Associated Artery/Lesion type: [place] artery [place] vs. transplanted heart: [place] heart Associated angina: without angina Qualified Code(s): I25.10 - Atherosclerotic heart disease of [place] coronary artery without angina pectoris Plan: CAD with remote coronary artery bypass grafting with no recent symptoms suggestive angina. Continue low-dose aspirin therapy. Continue aggressive blood pressure control. Blood pressure is not well optimized at home. See below. Continue statin therapy with target goal LDL less than 70 mg/dL. No further workup is indicated at this point in time. (3) Hypertension, essential: Code(s): I10 - Essential (primary) hypertension Category: Medical Plan: Hypertension with significantly elevated blood pressure readings on home monitoring. Daughter is wondering if the blood pressure at home was not working. She is going to calibrate with her own machine. If she has persistently elevated blood pressure readings I have advised her to calibrate with over office machine. Advised to maintain a log. Low-salt diet was discussed. For blood pressure is persistently elevated will benefit from further blood pressure reduction consider amlodipine therapy at that point in time. Follow up in the clinic in 6 weeks time, sooner p.r.n.. Thank you for allowing me to partake in the care Orders: Orders Basic Metabolic Panel 04/02/24 I50.30 - Unspecified diastolic (congestive) heart failure B Type Natriuretic Peptide 04/02/24 I50.30 - Unspecified diastolic (congestive) heart failure CA echo transthoracic complete 04/02/24 I50.30 - Unspecified diastolic (congestive) heart failure Coding Level of Care Code Est Pt Level 4 (47691) Diagnoses (HFpEF) heart failure with preserved ejection fraction I50.30 Coronary artery disease involving [place] coronary artery of [place] heart without angina pectoris I25.10 Coronary Disease-Associated Artery/Lesion type: [place] artery [place] vs. transplanted heart: [place] heart Associated angina: without angina Hypertension, essential I10
== END 2024-04-02 13:24 | disposition home or self-care (01) ==
PROVIDERS: PCP Internal Medicine; Visit Provider Internal Medicine Cardiovascular Disease
DX: I50.30 Unspecified diastolic (congestive) heart failure (principal); I25.10 Atherosclerotic heart disease of native coronary artery without angina pectoris; I10 Essential (primary) hypertension
CPT/HCPCS: 99214

== ENCOUNTER → 2024-04-12 10:55 | Outpatient (BNVA) | payer MEDICARE, SELFPAY | PROVIDERS: PCP Internal Medicine; Visit Provider Internal Medicine Cardiovascular Disease ==

== ENCOUNTER → 2024-05-03 10:54 | Outpatient (BNVA) | payer MEDICARE, SELFPAY | PROVIDERS: PCP Internal Medicine; Visit Provider Internal Medicine Cardiovascular Disease ==

== ENCOUNTER 2024-05-15 10:01 | Outpatient (AMB) | payer MEDICARE, SELFPAY ==
--- NOTE | 2024-05-15 10:17 | ...WebTmpl.AM.BPCHK ---
Intake Intake Visit Reasons: BP Check Allergies azithromycin Allergy (Intermediate, Verified 09/11/23 11:19) Nausea/Became dehydrated hydromorphone Allergy (Unknown, Verified 09/11/23 11:19) Unknown codeine Adverse Reaction (Intermediate, Verified 09/11/23 11:19) Stomach Upset Vital Signs 05/15/24 10:44 BP 148/58 H Blood Pressure Location Lt brachial Position Sitting Nursing Note pt is here for blood pressure ck pt's bp at nurse visit was 148/58 pt brought in home machine it was 158/60 dr escobar is aware Coding
[2024-05-15 10:44] VITALS: BP 148/58
== END 2024-05-15 10:46 | disposition home or self-care (01) ==
PROVIDERS: PCP Internal Medicine; Visit Provider Internal Medicine Cardiovascular Disease
DX: I50.30 Unspecified diastolic (congestive) heart failure (principal); I35.1 Nonrheumatic aortic (valve) insufficiency; I34.0 Nonrheumatic mitral (valve) insufficiency; I36.1 Nonrheumatic tricuspid (valve) insufficiency
CPT/HCPCS: 93306

== ENCOUNTER → 2024-05-15 10:35 | Outpatient (REF) | payer MEDICARE, SELFPAY ==
--- NOTE | 2024-05-15 10:38 | CA_ITS ---
Transthoracic Echocardiogram Patient (Last, First, Middle): Aminah Lane S Gender: Female Date of : 1935 Age: 88 Procedure Date: 05/15/2024 Procedure Type: Transthoracic Echocardiogram Location: OP Height: 147.32 cm Weight: 67.59 kg BSA: 1.61 m2 Heart Rate: 57 bpm BP: 140 / 84 mmHg Commercial Lease Administrator: SB Referring MD: Pranay Ruvalcaba MD Symptoms: I50.30 - Unspecified diastolic (congestive) heart failure Study Quality: Fair but adequate ECG Rhythm: Sinus Conclusions: - The left ventricular systolic function is normal. The visually estimated ejection fraction is between 60-65%. - Evidence suggests grade II (moderate) diastolic dysfunction. - Trace to mild aortic regurgitation. - There is mild mitral valve regurgitation. - There is mild tricuspid valve regurgitation. Findings Left Ventricle Normal left ventricular cavity size. There is normal left ventricular wall thickness. The left ventricular systolic function is normal. The visually estimated ejection fraction is between 60-65%. There is no evidence of regional wall motion abnormalities. Evidence suggests grade II (moderate) diastolic dysfunction. Right Ventricle Normal right ventricular cavity size. There is mildly decreased right ventricular systolic function. Atria The left atrium is mildly dilated. The right atrium is normal in size. Aortic Valve There is a normal trileaflet aortic valve. There is mild calcification of the aortic valve. There is no aortic valve stenosis. Trace to mild aortic regurgitation. Mitral Valve There is mild mitral annular calcification. There is mild mitral valve regurgitation. There is no mitral valve stenosis. Pulmonic Valve The pulmonic valve is likely normal. There is mild pulmonic valve regurgitation. Tricuspid Valve There is mild tricuspid valve regurgitation. There is no evidence of pulmonary hypertension. Great Vessels The asc aorta is normal in size. Venous The inferior vena cava is normal in size and collapses less than 50% with inspiration. Pericardium/Pleural There is no evidence of pericardial effusion. Prior Study Comparison No significant change compared to prior study dated: 02/04/2022. Measurements 2D Linear Measurements IVSd: 0.61 0.6-0.9/0.6-1.0 cm LVIDd: 4.54 3.9-5.3/4.2-5.9 cm LVIDd Index: 2.82 2.4-3.2/2.2-3.1 cm/m2 LVIDs: 2.93 2.0-3.6 cm LVPWd: 0.61 0.7-1.1 cm LA Diam: 3.40 2.7-3.8/3.0-4.0 cm LAIDs Index: 2.11 1.5-2.3 cm/m2 LV Mass: 101.22 67-162/88-224 g LV Mass Index: 62.87 43-95/49-115 g/m2 LVOT Diam: 1.80 3.0+(-)1.3 cm 2D Systolic Function EF 4C: 54.30 >55% EF 2C: 57.30 >55% EF BiP: 55.80 >55% Mitral Valve MV VTI: 0.39 MV Pk Jamshid: 1.31 MV Mn Jamshid: 0.62 MV Pk Grad: 7.00 MV Mn Grad: 2.00 MV Pk E: 1.18 MV PK A: 0.67 MV Decel Time: 233.00 E/A: 1.80 E'Lateral: 5.15 E'Medial: 3.30 E/E' Med: 35.80 E/E' Lat: 22.90 PHT: 68.00 MVA PHT: 3.24 MVA Continuity: 1.60 Decel Pinal: 5.07 Aortic Valve AoV Pk Jamshid: 1.80 AoV Mn Jamshid: 1.25 AoV VTI: 0.49 AoV Pk Grad: 13.00 Aov Mn Grad: 7.00 ROSITA Cont.VTI: 1.29 AI Pk Jamhsid: 3.23 AI Pinal: 1.65 LVOT LVOT Pk Jamshid: 0.91 LVOT Mn Jamshid: 0.63 LVOT VTI: 0.25 LVOT Pk Grad: 3.00 LVOT Mn Grad: 2.00 LVOT Diam: 1.80 LVOT Area: 2.54 Diastolic Function MV Pk E: 1.18 MV Pk A: 0.67 E/A: 1.80 E'Medial: 3.30 E/E' Med: 35.80 E' Laterial: 5.15 E/E' Lat: 22.90 Right Ventricle TAPSE (mm): 14.10 TVS' Jamshid: 7.30 Tricuspid Valve TR Pk Jamshid: 2.34 TR Pk Grad: 22.00 RA Press: 8.00 RVSP: 30.00 Great Vessels Aorta Sinus of Valsalva: 2.60 2.0-3.5 cm Ao Asc: 2.70 2.1-3.4 cm Pulmonary Veins Pulm Vein S/D 0.80 Pulmonary Valve PV Pk Jamshid: 1.00 Peak PV Grad: 4.00 SC Pk Jamshid: 2.08 Updated in Other Vendor System with Status of Final Sixto Brown MD electronically signed on 05/15/2024 1:10:23 PM with status of Final
== END ==
LOC: HO.CARD 10:35
PROVIDERS: PCP Internal Medicine; Visit Provider Internal Medicine Cardiovascular Disease
DX: I50.30 Unspecified diastolic (congestive) heart failure (principal)
CPT/HCPCS: 93306

== ENCOUNTER 2024-06-07 12:03 | Outpatient (AMB) | payer MEDICARE, SELFPAY ==
[2024-06-07 12:05] VITALS: BP 132/74; PULSE 70; O2SAT 97; BMI 30.3
--- NOTE | 2024-06-07 12:06 | A.OFFVIS_ITS ---
Intake Vital Signs 06/07/24 12:05 Height 4 ft 10 in Weight 145 lb 2 oz BMI 30.3 BP 132/74 Blood Pressure Location Lt brachial Position Sitting Pulse 70 Pulse Source Pulse Oximeter Pulse Oximetry (%) 97 Oxygen Delivery Method Room Air Intake Visit Reasons: AWV G0438 Allergies azithromycin Allergy (Intermediate, Verified 06/07/24 12:06) Nausea/Became dehydrated hydromorphone Allergy (Unknown, Verified 06/07/24 12:06) Unknown codeine Adverse Reaction (Intermediate, Verified 06/07/24 12:06) Stomach Upset Medication List - Last Reconciled 06/07/24 by Penelope Parsons MD allopurinol 100 mg PO DAILY amlodipine 10 mg (2 x 5 mg) PO DAILY aspirin (Adult Low Dose Aspirin) 81 mg PO DAILY atorvastatin 20 mg PO BEDTIME betamethasone dipropionate 0.05% 1 appl topical DAILY PRN cholecalciferol (vitamin D3) 10 mcg PO DAILY clopidogrel 75 mg PO DAILY coenzyme Q10 (Ultra CoQ10) 150 mg PO DAILY docusate sodium (Colace) 100 mg PO DAILY metoprolol succinate ER 50 mg PO BID multivitamin (One Daily Multivitamin tablet) 1 tab PO DAILY omega-3 fatty acids-fish oil 435-880 mg (Fish Oil Extra Strength) caps PO torsemide 60 mg PO DAILY Do you need a note to return to daycare/school/sports/work: No HPI AWV G0438 HPI Details Patient complaining of difficulty swallowing at times and have dyspepsia Which is a chronic problem for the patient she was seeing a web production manager in [place] Patient would like to have a 2nd opinion at [facility] I have placed a referral for her to see Dr. Tracey She also feel the hearing test left ear Audiology appointment request placed. HPI Comments History of Present Illness Details AWV Medical/social history reviewed Past medical history reviewed Ruby of care / care team list updated Surgical/ hospitalization history reviewed Current medications including OTC and supplements reviewed Family history reviewed Tobacco controlled form updated Alcohol use form updated Illicit drug use in social history reviewed Current diagnosis of depression ?screening updated Appropriate PHQ 2/PHQ-9 completed . Vital signs reviewed Alcohol tobacco drug use reviewed and discussed . MMSE completed . ? Fall risk: ?Assessed Fall history: ?None Have you had any falls with injury in the past year?? No Have you had 2 or more falls in the past year?? No Fall risk assessment completed Home safety discussed with the patient Functional ability assessed and discussed and documented Activities of daily living reviewed and appropriate actions taken . HRA filled out by the patient and reviewed by provider and scanned . Appropriate written screening schedule established . Any health advise needed provided . Advance care planning discussed with the patient , necessary paperwork filled Examination IPPE/AWE: Balance intact Romberg intact Tandem failed walk-in turn failed rise from sit to stand intact . ?Hearing ?whisper test failed left ear . Medication list reviewed, patient is stable on medications All other providers patient is seeing discussed and noted . [facility] Medical History Gait disorder Neuropathy Degenerative localized arthritis of hip PVD (peripheral vascular disease) CAD (coronary artery disease) Diastolic dysfunction (HFpEF) heart failure with preserved ejection fraction Low hemoglobin Gout Osteoarthritis of knees, bilateral Chronic kidney disease Chronic GERD Lipid disorder Hypertension, essential Surgical History H/O vein stripping Hx of bilateral hip replacements History of cataract surgery S/P CABG x 2 History of carpal tunnel surgery History of right hip replacement History of tonsillectomy Family History Father CHF (congestive heart failure) CVD (cardiovascular disease) Mother Pancreatitis Maternal Aunt Breast cancer Sister No problems noted. Sister No problems noted. Daughter No problems noted. Social History Housing: House Alcohol intake: never Patient Tobacco Use Status: Former Tobacco user Tobacco use type: Cigarette Years Smoked: 2 years e-Cigarette/Vaping Use: Never Used Second Hand Smoke Exposure: No Current occupational status: retired Cognitive needs: No Hearing needs: No Vision needs: No Questionnaire Medicare Wellness Checkup What is your age?: 80 or older What gender do you identify with?: female During the past 4 weeks, how much have you been bothered by emotional problems such as feeling anxious, depressed, irritable, sad or downhearted, and blue?: not at all During the past 4 weeks, has your physical & emotional health limited your social activities with family, friends, neighbors, or groups?: not at all During the past 4 weeks, how much bodily pain have you generally had?: very mild pain During the past 4 weeks, was someone available to help you if you needed & wanted help?: yes, as much as I wanted During the past 4 weeks, what was the hardest physical activity you could do for at least 2 minutes?: light Can you get to places out of walking distance without help? (For eg., can you travel alone on buses, taxis or drive your car?): Yes Can you go shopping for groceries or clothes without someone's help?: Yes Can you prepare your own meals?: Yes Can you do your housework without help?: Yes Because of any health problems, do you need the help of another person with your personal care needs such as eating, bathing, dressing or getting around the house?: No Can you handle your own money without help?: Yes During the past 4 weeks, how would you rate your health in general?: very good During the past 4 weeks how have things been going for you?: pretty well Are you having difficulties driving your car?: not applicable, I don't use a car Do you always fasten your seat belt when you are in a car?: yes, usually During past 4 weeks, have you been bothered by the following: never: Falling or dizzy when standing up, Sexual problems?, Trouble eating well?, Teeth or denture problems?, Problems using the telephone? and Tiredness or fatigue? Have you fallen 2 or more times in the past year?: No Are you afraid of falling?: No Are you a smoker?: no During the past 4 weeks, how many drinks of wine, beer, or other alcoholic beverages did you have?: no alcohol at all Do you exercise for about 20 minutes 3 or more times a week?: no, I usually do not exercise this much Have you been given information to help with the following?: no: Hazards in your house that might hurt you? and no: Keeping track of your medications? How often do you have trouble taking medicines the way you have been told to take them?: I always take medicine as prescribed How confident are you that you can control & manage most of your health problems?: very confident What is your race?: White Mini Mental State Exam (MMSE) Orientation What is the (year) (season) (date) (day) (month)?: year, season, date, day and month Where are we (state) (county) (town or city) (hospital) (floor)?: state, county, town or city, hospital/clinic and floor Score Score: 10 Activity of Daily Living Bathing - sponge bath, tub bath or shower: receives no assistance (gets in/out by self, if usual bathing means Dressing - getting clothes from closets & drawers, including inner/outer garments & fasteners.: gets clothes & gets completely dressed without help Toileting - going to the 'toilet room' for urine/bowel elimination & cleaning self/arranging clothes: goes to toilet room, cleans self, arranges clothes without help Transfer: moves in & out of bed and chair without help (may use support object) Continence: controls urination/bowel movements completely by self Feeding: feeds self without help Total Score: 0 Information obtained from: patient Using telephone: independent Traveling: independent Shopping: independent Preparing meals: independent Housework: independent Taking medicine: independent Managing money: independent PHQ-9 Over the last 2 weeks, how often have you been bothered by any of the following problems? 1. Little interest or pleasure in doing things: not at all 2. Feeling down, depressed, or hopeless: not at all 3. Trouble falling or staying asleep, or sleeping too much: not at all 4. Feeling tired or having little energy: several days 5. Poor appetite or overeating: not at all 6. Feeling bad about yourself - or that you are a failure or have let yourself or your family down: not at all 7. Trouble concentrating on things, such as reading the newspaper or watching television: not at all 8. Moving or speaking so slowly that other people could have noticed. Or the opposite - being so fidgety or restless that you have been moving around a lot more than usual: not at all 9. Thoughts that you would be better off or of hurting yourself in some way: not at all Total score: 1 Depression Screening Interpretation: Negative Depression Screening Done: Yes 40776 - PHQ-9 Billing: Yes Source: Developed by Drs. Umair Villegas, Miriam Antunez, Hermilo Friedman and colleagues, with an educational jillian from [employer]. Review of Systems Const All systems reviewed & are unremarkable except as noted in HPI and below Physical Exam Vital Signs: Last Vital Signs Pulse 70 06/07/24 12:05 BP 132/74 06/07/24 12:05 Pulse Ox 97 06/07/24 12:05 Oxygen Delivery Method Room Air 06/07/24 12:05 BMI result Body Mass Index 30.3 Const General: no acute distress Orientation/consciousness: patient oriented x3 HEENT Other: Left ear exam shows no blockage due to wax Eyes General: appearance normal, both eyes and all related structures Resp Effort & Inspection: normal respiratory effort and able to speak in complete sentences Auscultation: clear to auscultation bilaterally Neuro General: patient oriented x3 Psych Mental Status: mental status grossly normal Assessment & Plan Assessment & Plan (1) Medicare annual wellness visit, initial: Code(s): Z00.00 - Encounter for general adult medical examination without abnormal findings (2) Hearing difficulty of left ear: Code(s): H91.92 - Unspecified hearing loss, left ear (3) Dyspepsia: Code(s): R10.13 - Epigastric pain Plan need hearing test, failed hearing test in left ear Orders: Referrals Gastroenterology Referral R10.13 - Epigastric pain Audiology Referral H91.92 - Unspecified hearing loss, left ear Quality Reporting (2019) Depression/Bipolar (159/160/161/177) PHQ-9: Total score: 1 Coding Level of Care Code Medicare First (G0438) Est Pt Level 3 (59787) Diagnoses Medicare annual wellness visit, initial Z00.00 Hearing difficulty of left ear H91.92 Dyspepsia R10.13 CPT Codes Advance Care Planning - Time spent: 16-45 minutes ([id number]) Advance Care Planning Forms completed: Health Care Proxy and MOLST Time spent: 16-45 minutes Actual minutes spent: 16
== END 2024-06-07 12:55 | disposition home or self-care (01) ==
PROVIDERS: PCP Internal Medicine; Visit Provider Internal Medicine
DX: Z00.00 Encounter for general adult medical examination without abnormal findings (principal); H91.92 Unspecified hearing loss, left ear; R10.13 Epigastric pain
CPT/HCPCS: 99213; 99497; G0438

== ENCOUNTER 2024-06-21 10:24 | Outpatient (REF) | payer MEDICARE, SELFPAY ==
[2024-06-21 10:39] LABS: MANUAL DIFF FLAG NO
[2024-06-21 11:00] LABS: Basophils Percent Auto 0.5 % (0-2); Eosinophils Absolute Auto 0.3 X10*3/uL (0.0-0.4); Hematocrit 34.6 % (37.0-47.0); Hemoglobin 11.5 g/dl (12.0-16.0); Imm Gran Abs Auto 0.02 X10*3/uL (0.00-0.03); Imm Gran Pct Auto 0.2 % (0.0-0.4); Lymphocytes Absolute Auto 1.4 X10*3/uL (1.2-4.9); Lymphocytes Percent Auto 15.9 % (20-40); Mean Corpuscular HGB Conc 33.2 g/dl (31.0-35.0); Mean Corpuscular Hemoglobin 32.4 pg (27.0-33.0); Mean Corpuscular Volume 97.5 fL (80.0-98.0); Mean Platelet Volume 10.3 fL (9.4-12.3); Monocytes Percent Auto 11.8 % (2-11); Neutrophils Percent Auto 68.6 % (45-73); Platelet Count 299 X10*3/uL (160-400); Red Blood Count 3.55 X10*6/uL (4.20-5.50); Red Cell Distribution Width 14.1 % (11.0-16.0); White Blood Count 8.7 X10*3/uL (4.8-10.8)
[2024-06-21 11:33] LABS: Parathyroid Hormone Intact 130.8 pg/mL (8.7-77.1)
[2024-06-21 11:58] LABS: Anion Gap 16 (12-20); Blood Urea Nitrogen 32 mg/dL (9-16); Calcium 9.5 mg/dL (8.4-10.2); Carbon Dioxide 25 mmol/L (22-29); Chloride 109 mmol/L (96-108); Estimated Glomerular Filt Rate 37; Phosphorus 3.3 mg/dL (2.7-4.5); Sodium 146 mmol/L (135-145); Uric Acid 8.1 mg/dL (2.4-5.7)
[2024-06-21 12:05] LABS: Vitamin D 25-OH Total 45.7 ng/mL (>30)
== END 2024-06-21 10:25 | disposition home or self-care (01) ==
LOC: HO.LAB 10:24
PROVIDERS: PCP Internal Medicine; Visit Provider Internal Medicine Nephrology
DX: N18.32 Chronic kidney disease, stage 3b (principal); I10 Essential (primary) hypertension; D63.1 Anemia in chronic kidney disease; D50.8 Other iron deficiency anemias
CPT/HCPCS: 36415; 80051; 82306; 82310; 82565; 83970; 84100; 84520; 84550; 85025

== ENCOUNTER 2024-06-24 12:29 | Outpatient (REF) | payer MEDICARE, SELFPAY ==
[2024-06-24 12:54] LABS: Appearance Urine Clear; Color Urine Yellow; Glucose Urine UA Negative (Negative); Leukocyte Esterase Urine Negative (Negative); Nitrite Urine Negative (Negative); PH 6.5 (5.0-9.0); UMIC TRIGGER UA YES; Urine Blood Negative (Negative); Urine Ketones Negative (Negative); Urine Protein 30 (1+) mg/dL (Neg-Trace)
[2024-06-24 12:57] LABS: Bacteria Urine None Seen (None Seen); Hyaline Casts Urine 0-2 /LPF (0-2); RBC Urine 0-2 /HPF (0-2); Squamous Epithelial Cell Urine 0-2 /HPF (0-2); WBC Urine 0-5 /HPF (0-5)
[2024-06-24 13:23] LABS: Creatinine Urine 34.98 mg/dL; Microalbum/Creatinine Ratio Ur 611.7 ug/mg cr (<30)
== END 2024-06-24 12:30 | disposition home or self-care (01) ==
LOC: HO.LNP 12:29
PROVIDERS: Visit Provider Internal Medicine Nephrology
DX: N18.32 Chronic kidney disease, stage 3b (principal); I10 Essential (primary) hypertension; D63.1 Anemia in chronic kidney disease; D50.8 Other iron deficiency anemias
CPT/HCPCS: 81001; 82043; 82570

== ENCOUNTER 2024-07-08 14:59 | Outpatient (AMB) | payer MEDICARE, SELFPAY ==
[2024-07-08 15:00] VITALS: BP 152/82; PULSE 67; BMI 31.3
--- NOTE | 2024-07-08 15:00 | A.OFFVIS_ITS ---
Vital Signs 07/08/24 15:00 Height 4 ft 10 in Weight 149 lb 14.629 oz BMI 31.3 BP 152/82 H Blood Pressure Location Lt brachial Position Sitting Pulse 67 Intake Visit Reasons: 3 mth f/up pre-op Dr Benson Intake Note: 3 month follow-up and pre-op Dr Benson bp is still running high Reproductive Healthcare Assistant Required: No Night Clerk: Night Clerk Present Accompanied by: Daughter Allergies azithromycin Allergy (Intermediate, Verified 06/07/24 12:06) Nausea/Became dehydrated hydromorphone Allergy (Unknown, Verified 06/07/24 12:06) Unknown codeine Adverse Reaction (Intermediate, Verified 06/07/24 12:06) Stomach Upset Medication List - Last Reconciled 07/08/24 by Pranay Ruvalcaba MD acetaminophen ER 650 mg PO Q8H PRN allopurinol 100 mg PO BEDTIME amlodipine 5 mg PO BID aspirin (Adult Low Dose Aspirin) 81 mg PO DAILY atorvastatin 20 mg PO BEDTIME betamethasone dipropionate 0.05% 1 appl topical DAILY PRN cholecalciferol (vitamin D3) (Vitamin D3) 50 mcg PO DAILY clopidogrel 75 mg PO DAILY coenzyme Q10 200 mg PO BEDTIME docusate sodium (Colace) 100 mg PO BEDTIME PRN hydralazine 10 mg PO BEDTIME metoprolol succinate ER 25 mg PO BID multivitamin 1 tab PO QAM torsemide 60 mg (3 x 20 mg) PO DAILY HPI Comments Details: Aminah comes for follow-up. Continues to have elevated blood pressures at home on reading. No symptoms associated with it. Denies any chest pain or shortness of breath. No worsening shortness of breath, orthopnea, PND. No prolonged palpitation irregular heartbeat. Takes all her medications. Denies lightheadedness, syncope. He is trying to increase her fluid intake. Renal function has improved on recent blood work. She is scheduled to undergo GI endoscopy next week [facility] Medical History Back pain History of femoral angiogram Arthritis Gait disorder Neuropathy Degenerative localized arthritis of hip PVD (peripheral vascular disease) CAD (coronary artery disease) Diastolic dysfunction (HFpEF) heart failure with preserved ejection fraction Low hemoglobin Gout Osteoarthritis of knees, bilateral Chronic kidney disease Chronic GERD Lipid disorder Hypertension, essential Surgical History H/O colonoscopy Hx of right cataract extraction History of bilateral knee replacement H/O vein stripping Hx of bilateral hip replacements History of cataract surgery S/P CABG x 2 History of carpal tunnel surgery History of right hip replacement History of tonsillectomy Family History Father CHF (congestive heart failure) CVD (cardiovascular disease) Mother Pancreatitis Maternal Aunt Breast cancer Sister No problems noted. Sister No problems noted. Daughter No problems noted. Social History Housing: House Are you a primary care nurse rn to a significant other at home: No Do you presently have visiting nurse or other home services: No Alcohol intake: never Patient Tobacco Use Status: Former Tobacco user Tobacco use type: Cigarette Years Smoked: 2 years e-Cigarette/Vaping Use: Never Used Second Hand Smoke Exposure: No Current occupational status: retired Cognitive needs: No Hearing needs: No Vision needs: No Review of Systems Const Denies chills, Denies fatigue, Denies fever(s), Denies frequent falls, Denies weakness, Denies weight gain and Denies weight loss ENT Denies dizziness Card Denies chest pain, Denies leg edema, Denies lightheadedness, Denies palpitations, Denies dyspnea, Denies dyspnea on exertion, Denies orthopnea and Denies other (loss of consciousness) Resp Denies cough, Denies dyspnea and Denies dyspnea on exertion GI Denies hematochezia and Denies change in stool character Musc Denies abnormal gait, Denies muscle weakness, Denies numbness, Denies radiating pain into limb and Denies tingling Neuro Denies abnormal gait, Denies dizziness, Denies frequent falls, Denies numbness, Denies tingling and Denies weakness Endo Denies fatigue and Denies palpitations Physical Exam Vital Signs: Last Vital Signs Pulse 67 07/08/24 15:00 BP 152/82 H 07/08/24 15:00 BMI result Body Mass Index 31.3 Const General: cooperative, healthy appearing, comfortable, no acute distress, well developed, alert and awake Nutritional Appearance: overweight Orientation/consciousness: patient oriented x3 Limitations: no limitations HEENT Head: Yes normal to inspection, Yes normocephalic and Yes atraumatic Eyes General: appearance normal, both eyes and all related structures Neck Neck: Yes normal visual inspection, Yes trachea midline, Yes supple and Yes no JVD (+ AJR) Chest Chest palpation & inspection: normal inspection of the chest and other ( Well- healed sternotomy scar) Resp Effort & Inspection: normal respiratory effort Auscultation: clear to auscultation bilaterally, no crackles and no rales Cardio Jugular venous distension: no JVD (Positive AJR) Palpation: normal PMI Rate: regular rate Rhythm: regular rhythm Heart sounds: S1 normal heart sound present, S2 normal heart sound present, no click, no gallops, Murmur heart sound present systolic early and Other heart sounds present ( S4 present) GI Auscultation: normal bowel sounds Skin General skin exam: no rashes or lesions noted and ecchymosis Neuro General: patient oriented x3 and no focal motor deficits Extrem General: No clubbing, No cyanosis, Yes edema (Two to 3+) and Yes other ( Bilateral significant varicosities) Psych Appearance: grossly normal Assessment & Plan Assessment & Plan (1) Labile blood pressure: Code(s): R09.89 - Other specified symptoms and signs involving the circulatory and respiratory systems Category: Medical Plan: Labile blood pressure this elderly woman which is not unusual given her age and diffuse atherosclerotic events. I would suggest to add hydralazine 10 mg b.i.d. to her regimen instead of at bedtime. Continue monitor blood pressure at home. Goal blood pressure less than systolic 140. Can not normalized blood pressure. Orthostatic precautions were discussed. Low-salt diet was discussed. Advised to maintain adequate hydration. Advised to follow-up with blood pressure readings with over office in 2 weeks time (2) (HFpEF) heart failure with preserved ejection fraction: Code(s): I50.30 - Unspecified diastolic (congestive) heart failure Category: Medical Plan: Heart failure with preserved ejection fraction, clinically euvolemic and well compensated. Continue current high diuretic dose. Daily weight monitoring avoidance salt loading was discussed. Management of heart failure were discussed in details. Additional diuretics as need be. Continue participate in aggressive blood pressure control as above. (3) CAD (coronary artery disease): Code(s): I25.10 - Atherosclerotic heart disease of [place] coronary artery without angina pectoris Category: Medical Qualifiers: Coronary Disease-Associated Artery/Lesion type: [place] artery [place] vs. transplanted heart: [place] heart Associated angina: without angina Qualified Code(s): I25.10 - Atherosclerotic heart disease of [place] coronary artery without angina pectoris Plan: CAD status post coronary artery bypass grafting. No symptoms of angina at current point time. Discussed with the patient about continue medical therapy including current antiplatelet therapy. Continue statin therapy with target goal LDL less than 70 mg/dL. No further workup is indicated at this point time. Will follow up in the clinic in 3 months time, sooner p.r.n.. Thank you for allowing me to partake in her care Medications: New hydralazine 10 mg PO BID 60 tabs 5RF Coding Level of Care Code Est Pt Level 4 (52340) Diagnoses Labile blood pressure R09.89 (HFpEF) heart failure with preserved ejection fraction I50.30 Coronary artery disease involving [place] coronary artery of [place] heart without angina pectoris I25.10 Coronary Disease-Associated Artery/Lesion type: [place] artery [place] vs. transplanted heart: [place] heart Associated angina: without angina
== END 2024-07-08 15:25 | disposition home or self-care (01) ==
PROVIDERS: PCP Internal Medicine; Visit Provider Internal Medicine Cardiovascular Disease
DX: R09.89 Other specified symptoms and signs involving the circulatory and respiratory systems (principal); I50.30 Unspecified diastolic (congestive) heart failure; I25.10 Atherosclerotic heart disease of native coronary artery without angina pectoris
CPT/HCPCS: 99214

== ENCOUNTER → 2024-07-08 14:59 | Outpatient (BNVA) | payer MEDICARE, SELFPAY | PROVIDERS: PCP Internal Medicine; Visit Provider Internal Medicine Cardiovascular Disease | DX: Z01.810 Encounter for preprocedural cardiovascular examination (principal); R09.89 Other specified symptoms and signs involving the circulatory and respiratory systems; I11.0 Hypertensive heart disease with heart failure; I25.10 Atherosclerotic heart disease of native coronary artery without angina pectoris; I50.30 Unspecified diastolic (congestive) heart failure | CPT/HCPCS: 99212 ==

== ENCOUNTER 2024-07-18 12:04 | Day surgery (SDC) | payer MEDICARE, SELFPAY ==
--- NOTE | 2024-07-04 | ECG_ITS ---
Test Reason : pre op Blood Pressure : / mmHG Vent. Rate : 070 BPM Atrial Rate : 070 BPM P-R Int : 172 ms QRS Dur : 136 ms QT Int : 486 ms P-R-T Axes : 077 027 020 degrees QTc Int : 524 ms Normal sinus rhythm Right bundle branch block Abnormal ECG When compared with ECG of 07-APR-2022 20:53, Inverted T waves have replaced nonspecific T wave abnormality in Inferior leads Referred By: Analy Diaz Electronically Signed By:BENEDICT RODRIGUEZ
[2024-07-04 12:38] VITALS: BP 158/67; PULSE 56; RESP 16; O2SAT 99
--- NOTE | 2024-07-16 09:46 | HO.ANESPROP2 ---
Documented by User: Analy Diaz NP 07/17/24 10:34 HPI - Anesthesia Eval Consult details Narrative: 88yo F for Upper Endoscopy with Balloon Dilitation Follows [facility] for CAD s/p CABG x 2, HFpEF. Last office visit 07/08/2024, discussed labile BP. OK to hold plavix PMFSH Active Problems Active Problems: All Active Problems (Updated 07/08/24 @ 15:41 by Pranay Ruvalcaba MD) Labile blood pressure (Acute) Dyspepsia (Acute) Medicare annual wellness visit, initial (Acute) Hearing difficulty of left ear (Acute) Lower extremity edema (Acute) Cellulitis of right leg (Acute) Pain management (Acute) Weakness of both legs (Acute) Cataract (Acute) Pre-op evaluation (Acute) Injury of shoulder, left, superficial (Acute) Fall (Acute) Traumatic ecchymosis of left thigh (Acute) Cellulitis of anterior lower leg (Acute) Low hemoglobin (Acute) Menopause (Acute) Tired (Acute) Osteoarthritis of left hip (Acute) Gait disorder (Acute) Neuropathy (Acute) Degenerative localized arthritis of hip (Acute) CAD (coronary artery disease) (Acute) (HFpEF) heart failure with preserved ejection fraction (Acute) Diastolic dysfunction (Acute) PVD (peripheral vascular disease) (Acute) Hypertension, essential (Acute) Chronic kidney disease (Acute) Low hemoglobin (Acute) Gout (Acute) Osteoarthritis of knees, bilateral (Acute) Chronic GERD (Acute) Lipid disorder (Acute) Past Medical History Medical History Back pain History of femoral angiogram Arthritis Gait disorder Neuropathy Degenerative localized arthritis of hip PVD (peripheral vascular disease) CAD (coronary artery disease) Diastolic dysfunction (HFpEF) heart failure with preserved ejection fraction Low hemoglobin Gout Osteoarthritis of knees, bilateral Chronic kidney disease Chronic GERD Lipid disorder Hypertension, essential Family History Family History Father CHF (congestive heart failure) CVD (cardiovascular disease) Mother Pancreatitis Maternal Aunt Breast cancer Sister No problems noted. Sister No problems noted. Daughter No problems noted. Family history of problems with anesthesia: No Surgical History Surgical History H/O colonoscopy Hx of right cataract extraction History of bilateral knee replacement H/O vein stripping Hx of bilateral hip replacements History of cataract surgery S/P CABG x 2 History of carpal tunnel surgery History of right hip replacement History of tonsillectomy History of Problems with Anesthesia: No Social History Social History Housing: House Are you a primary physician locums urgent care to a significant other at home: No Do you presently have visiting nurse or other home services: No Alcohol intake: never Patient Tobacco Use Status: Former Tobacco user Tobacco use type: Cigarette Years Smoked: 2 years e-Cigarette/Vaping Use: Never Used Second Hand Smoke Exposure: No Use of substances other than those prescribed or required for medical reasons: No Have you been hit, kicked, punched, or otherwise hurt by someone within the past year? If so, by whom?: No Advance Directives: No Advance Directives Information Provided: Yes Advance Directives on File: No Recently lost weight without trying: No Eating poorly because of decreased appetite: No Nutrition Risks: No Nutritional Risk Patient : No : No Poor oral hygiene: Yes (3 implants upper and one lower implant) Current occupational status: retired Cognitive needs: No Hearing needs: No Vision needs: No Meds Allergies Allergy/AdvReac Type Severity Reaction Status Date / Time azithromycin Allergy Intermediate Nausea/Became Verified 06/07/24 12:06 dehydrated hydromorphone Allergy Unknown Unknown Verified 06/07/24 12:06 codeine AdvReac Intermediate Stomach Verified 06/07/24 12:06 Upset Home Medications ?Medication ?Instructions ?Recorded ?Confirmed ?Last Taken ?Type aspirin 81 mg tablet,delayed 81 mg PO DAILY 08/17/20 07/08/24 07/17/24 History release (Adult Low Dose Aspirin) docusate sodium 100 mg capsule 100 mg PO BEDTIME PRN Constipation 08/17/20 07/08/24 06/12/22 History (Colace) clopidogrel 75 mg tablet 75 mg PO DAILY 12/24/21 07/08/24 07/13/24 History betamethasone dipropionate 0.05 % 1 appl topical DAILY PRN Skin 12/26/23 07/08/24 07/17/24 History topical cream Irritation metoprolol succinate 25 mg 25 mg PO BID 05/15/24 07/08/24 07/18/24 History tablet,extended release 24 hr acetaminophen 650 mg 650 mg PO Q8H PRN Pain 07/04/24 07/08/24 07/17/24 History tablet,extended release allopurinol 100 mg tablet 100 mg PO BEDTIME 07/04/24 07/08/24 07/17/24 History amlodipine 5 mg tablet 5 mg PO BID 07/04/24 07/08/24 07/18/24 History cholecalciferol (vitamin D3) 50 50 mcg PO DAILY 07/04/24 07/08/24 07/17/24 History mcg (2,000 unit) tablet (Vitamin D3) coenzyme Q10 200 mg capsule 200 mg PO BEDTIME 07/04/24 07/08/24 07/17/24 History multivitamin 1 tab PO QAM 07/04/24 07/08/24 07/17/24 History Exam Height,Weight and Vital Signs: Height 4 ft 11.5 in Weight 68.492 kg Last Vital Signs Pulse 56 07/04/24 12:38 Resp 16 07/04/24 12:38 BP 158/67 H 07/04/24 12:38 Pulse Ox 99 07/04/24 12:38 O2 Del Method Room Air 07/04/24 12:38 Pertinent Lab Results Pertinent Lab Results: Laboratory Tests 06/21/24 10:38 WBC 8.7 Hgb 11.5 L Hct 34.6 L Plt Count 299 Sodium 146 H Potassium 4.0 Chloride 109 H Carbon Dioxide 25 BUN 32 H Creatinine 1.35 Narrative Narrative: EKG 07/2024 Vent. Rate : 070 BPM Atrial Rate : 070 BPM P-R Int : 172 ms QRS Dur : 136 ms QT Int : 486 ms P-R-T Axes : 077 027 020 degrees QTc Int : 524 ms Normal sinus rhythm Right bundle branch block Abnormal ECG When compared with ECG of 07-APR-2022 20:53, Inverted T waves have replaced nonspecific T wave abnormality in Inferior leads ECHO 05/2024 Conclusions: - The left ventricular systolic function is normal. The visually estimated ejection fraction is between 60-65%. - Evidence suggests grade II (moderate) diastolic dysfunction. - Trace to mild aortic regurgitation. - There is mild mitral valve regurgitation. - There is mild tricuspid valve regurgitation. NM [place] perf SPECT rest & str 2021 Impression: 1. Myocardial perfusion imaging study shows mild intensity basal and mid lateral wall ischemia 2. Gated LVEF is 67% 3. Transient ischemic dilatation not present EKG is nondiagnostic for ischemia Assessment and Plan Assessment Anesthesia Assessment: Chart Reviewed Final Anesthetic Review Family History of Problems with Anesthesia: No History of Problems with Anesthesia: No Documented by User: Hilda Fenton MD 07/18/24 13:06 [facility] Past Medical History Medical History Back pain History of femoral angiogram Arthritis Gait disorder Neuropathy Degenerative localized arthritis of hip PVD (peripheral vascular disease) CAD (coronary artery disease) Diastolic dysfunction (HFpEF) heart failure with preserved ejection fraction Low hemoglobin Gout Osteoarthritis of knees, bilateral Chronic kidney disease Chronic GERD Lipid disorder Hypertension, essential Family History Family History Father CHF (congestive heart failure) CVD (cardiovascular disease) Mother Pancreatitis Maternal Aunt Breast cancer Sister No problems noted. Sister No problems noted. Daughter No problems noted. Surgical History Surgical History H/O colonoscopy Hx of right cataract extraction History of bilateral knee replacement H/O vein stripping Hx of bilateral hip replacements History of cataract surgery S/P CABG x 2 History of carpal tunnel surgery History of right hip replacement History of tonsillectomy Social History Social History Housing: House Are you a primary physician locums urgent care to a significant other at home: No Do you presently have visiting nurse or other home services: No Alcohol intake: never Patient Tobacco Use Status: Former Tobacco user Tobacco use type: Cigarette Years Smoked: 2 years e-Cigarette/Vaping Use: Never Used Second Hand Smoke Exposure: No Use of substances other than those prescribed or required for medical reasons: No Have you been hit, kicked, punched, or otherwise hurt by someone within the past year? If so, by whom?: No Advance Directives: No Advance Directives Information Provided: Yes Advance Directives on File: No Recently lost weight without trying: No Eating poorly because of decreased appetite: No Nutrition Risks: No Nutritional Risk Patient : No : No Poor oral hygiene: Yes (3 implants upper and one lower implant) Current occupational status: retired Cognitive needs: No Hearing needs: No Vision needs: No Meds Allergies Allergy/AdvReac Type Severity Reaction Status Date / Time azithromycin Allergy Intermediate Nausea/Became Verified 06/07/24 12:06 dehydrated hydromorphone Allergy Unknown Unknown Verified 06/07/24 12:06 codeine AdvReac Intermediate Stomach Verified 06/07/24 12:06 Upset Home Medications ?Medication ?Instructions ?Recorded ?Confirmed ?Last Taken ?Type aspirin 81 mg tablet,delayed 81 mg PO DAILY 08/17/20 07/08/24 07/17/24 History release (Adult Low Dose Aspirin) docusate sodium 100 mg capsule 100 mg PO BEDTIME PRN Constipation 08/17/20 07/08/24 06/12/22 History (Colace) clopidogrel 75 mg tablet 75 mg PO DAILY 12/24/21 07/08/24 07/13/24 History betamethasone dipropionate 0.05 % 1 appl topical DAILY PRN Skin 12/26/23 07/08/24 07/17/24 History topical cream Irritation metoprolol succinate 25 mg 25 mg PO BID 05/15/24 07/08/24 07/18/24 History tablet,extended release 24 hr acetaminophen 650 mg 650 mg PO Q8H PRN Pain 07/04/24 07/08/24 07/17/24 History tablet,extended release allopurinol 100 mg tablet 100 mg PO BEDTIME 07/04/24 07/08/24 07/17/24 History amlodipine 5 mg tablet 5 mg PO BID 07/04/24 07/08/24 07/18/24 History cholecalciferol (vitamin D3) 50 50 mcg PO DAILY 07/04/24 07/08/24 07/17/24 History mcg (2,000 unit) tablet (Vitamin D3) coenzyme Q10 200 mg capsule 200 mg PO BEDTIME 07/04/24 07/08/24 07/17/24 History multivitamin 1 tab PO QAM 07/04/24 07/08/24 07/17/24 History Exam Airway Mallampati Class: II TM Dist: >3cm Neck ROM: Full Loose/Missing/Broken Teeth: No Heart: RRR Lungs: CTA Assessment and Plan Assessment Anesthesia Assessment: Anesthesia Plan Discussed Final Anesthetic Review NPO: Yes ASA Class: III Final Preanesthetic Review: Meds/Allgs Chart Reviewed, Consent Obtained/Reviewed and Anes Risks/Benef Reviewed Patient Risk: Intermediate Procedure Risk: Intermediate Anesthetic Plan Anesthetic Plan: MAC: Disposition: Standard PACU
[2024-07-18 12:20] VITALS: BP 178/60; PULSE 76; RESP 18; TEMP 36.9; O2SAT 97
[2024-07-18] MEDS: Lactated Ringers 1,000 ML 100 ML IVCONT (12:44)
[2024-07-18 13:50] VITALS: BP 126/56; PULSE 78; RESP 12; TEMP 36.1; O2SAT 97
--- NOTE | 2024-07-18 14:01 | P.BOP_ITS ---
Brief Operative Note Date of Service: 07/18/24 Pre-op diagnosis: Dysphagia Post-op diagnosis: other (Esophageal stricture, esophagitis, gastritis) Procedure: EGD with Balloon dilation 12mm to 13.5mm to 15mm of esophageal stricture, and biopsies Surgeon: Umair Tracey MD Anesthesia: MAC Was an Copy Preparer used for this Procedure?: No Estimated blood loss (mL): 2.0 Pathology: other (A. Gastric antrum) Condition: stable Disposition: PACU
[2024-07-18 14:05] VITALS: BP 142/64; PULSE 74; RESP 16; TEMP 36.1; O2SAT 98
--- NOTE | 2024-07-19 00:04 | OP_ITS ---
DATE OF SERVICE: 07/18/2024 SURGEON: Umair Tracey MD INDICATIONS: The patient presents for evaluation of chronic gastroesophageal reflux and dysphagia. Full consent has been obtained from her for this, including risks of bleeding and perforation. PREOPERATIVE DIAGNOSIS: POSTOPERATIVE DIAGNOSIS: PROCEDURE PERFORMED: Esophagogastroduodenoscopy with balloon dilation of esophageal stricture and biopsies. ESTIMATED BLOOD LOSS: COMPLICATIONS: ANESTHESIA: Monitored anesthesia care. ASSISTANTS: SPECIMENS: PREOPERATIVE DIAGNOSES: Gastroesophageal reflux and dysphagia. POSTOPERATIVE DIAGNOSES: Gastroesophageal reflux and dysphagia, esophageal stricture, esophagitis, hiatal hernia, gastritis, duodenitis. DESCRIPTION OF PROCEDURE: The patient was placed in the left lateral decubitus position. The Olympus video gastroscope was passed in the posterior oropharynx and upper esophagus under direct vision. The scope was passed slowly to a level of 28 cm. At this level was what appeared to be a circumferential fibrotic stricture. There was some friability at this level and the scope passed it easily. Between 28 and 30 cm was what appeared to be a probable short-segment of Nair mucosa but without any overlying mass or other lesions. There was some associated friability. The esophagogastric junction was at 30 cm, which appeared patent. The scope entered the stomach. There was a moderate-sized hiatal hernia with the diaphragmatic indentation seen at 35 cm. The hiatal hernia mucosa appeared normal. The scope was advanced to the pylorus and the duodenum was cannulated to the descending portion. The duodenum including the bulb was carefully inspected. The duodenal bulb had some evidence of duodenitis with erythema and edema but no erosions or ulceration. The 2nd and 3rd portions of duodenum appeared normal. The scope was withdrawn back in the stomach. The gastric antrum had a relatively diffuse gastritis with some erythema and edema. There was good peristalsis. Biopsies were obtained from the antrum. The scope was retroflexed visualizing the proximal stomach carefully, which appeared normal, without any sign of mass or ulceration. The scope was straightened and withdrawn back in the esophagus. Given her symptomatology, I did use a [employer] esophageal balloon to dilate the esophageal stricture from 12 mm to 13.5 mm to 15 mm at the recommended pressures for approximately 20 to 30 seconds each. There was some friability noted and definite heme noted post dilation. It was easy to move the scope into and out of the stomach at that point. I did not obtain biopsies from the Nair appearing mucosa between 28 and 30 cm. Proximal to 28 cm, the esophageal mucosa appeared normal. The scope was withdrawn from the patient. She tolerated the procedure well and was returned to the recovery area in stable condition. IMPRESSION: 1. Esophageal stricture, status post balloon dilation. 2. Hiatal hernia. 3. 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 4. Gastritis. 5. Duodenitis. PLAN: The results of the biopsies will be checked. She has been using omeprazole 20 mg daily and reports that her heartburn has definitely improved and her swallowing seems to be somewhat better as well. Given the findings, I shall have her increase the omeprazole to 40 mg each morning and have her stay on that until she sees me in followup in the next 2 to 3 months. Between today's dilation and the PPI, hopefully, she will experience some significant improvement in her swallowing as well. She was advised to resume her Plavix in 72 hours and to resume her aspirin in 48 hours. She was advised to stay off all NSAIDs long-term. She was advised to contact me prior to the office visit if she has any problems. This has all been discussed with her daughter Arianna. MD MARK Peres/ROSALBA / [phone]
== END 2024-07-18 14:32 | disposition home or self-care (01) ==
PROVIDERS: PCP Internal Medicine; Visit Provider Internal Medicine
PROC: (CPT 43249; principal; 2024-07-18 13:00)
DX: K22.2 Esophageal obstruction (principal); K20.80 Other esophagitis without bleeding; K29.60 Other gastritis without bleeding; K29.80 Duodenitis without bleeding; K44.9 Diaphragmatic hernia without obstruction or gangrene; K21.9 Gastro-esophageal reflux disease without esophagitis; I45.10 Unspecified right bundle-branch block; I13.0 Hypertensive heart and chronic kidney disease with heart failure and stage 1 through stage 4 chronic kidney disease, or unspecified chronic kidney disease; N18.9 Chronic kidney disease, unspecified; I50.30 Unspecified diastolic (congestive) heart failure; E78.5 Hyperlipidemia, unspecified; Z87.891 Personal history of nicotine dependence; Z79.82 Long term (current) use of aspirin; Z79.02 Long term (current) use of antithrombotics/antiplatelets; Z79.899 Other long term (current) drug therapy
CPT/HCPCS: 43249; 43239; 88305; 88313; 88342; 93005; C1726; J2704

== ENCOUNTER 2024-10-21 15:06 | Outpatient (AMB) | payer MEDICARE, SELFPAY ==
[2024-10-21 15:08] VITALS: BP 136/78; PULSE 77; BMI 30.6
--- NOTE | 2024-10-21 15:08 | A.OFFVIS_ITS ---
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: No Block Out Machine Operator: Block Out Machine Operator Present Accompanied by: Daughter Allergies azithromycin Allergy (Intermediate, Verified 06/07/24 12:06) Nausea/Became dehydrated hydromorphone Allergy (Unknown, Verified 06/07/24 12:06) Unknown codeine Adverse Reaction (Intermediate, Verified 06/07/24 12:06) Stomach Upset Medication List - Last Reconciled 10/21/24 by Pranay Ruvalcaba MD acetaminophen ER 650 mg PO Q8H PRN allopurinol 100 mg PO BEDTIME amlodipine 5 mg PO BID aspirin (Adult Low Dose Aspirin) 81 mg PO DAILY atorvastatin 20 mg PO BEDTIME betamethasone dipropionate 0.05% 1 appl topical DAILY PRN cholecalciferol (vitamin D3) (Vitamin D3) 50 mcg PO DAILY clopidogrel 75 mg PO DAILY coenzyme Q10 200 mg PO BEDTIME docusate sodium (Colace) 100 mg PO BEDTIME PRN hydralazine 10 mg PO BID metoprolol succinate ER 25 mg PO BID multivitamin 1 tab PO QAM omeprazole mg PO DAILY torsemide 60 mg (3 x 20 mg) PO DAILY HPI Comments Details: Aminah comes for follow-up. Continues to have significant exertional shortness of breath and said this is getting worse with limited exertion. She denies any clear orthopnea or PND. No chest pain. She says her leg edema continues to be present and maybe getting worse. No clear abdominal distension. No prolonged palpitation irregular heartbeat. Blood pressure, she has not been measuring religiously. Taking all medications. Taking her diuretics and says she is diuresing well. [facility] Medical History Back pain History of femoral angiogram Arthritis Gait disorder Neuropathy Degenerative localized arthritis of hip PVD (peripheral vascular disease) CAD (coronary artery disease) Diastolic dysfunction (HFpEF) heart failure with preserved ejection fraction Low hemoglobin Gout Osteoarthritis of knees, bilateral Chronic kidney disease Chronic GERD Lipid disorder Hypertension, essential Surgical History H/O colonoscopy Hx of right cataract extraction History of bilateral knee replacement H/O vein stripping Hx of bilateral hip replacements History of cataract surgery S/P CABG x 2 History of carpal tunnel surgery History of right hip replacement History of tonsillectomy Family History Father CHF (congestive heart failure) CVD (cardiovascular disease) Mother Pancreatitis Maternal Aunt Breast cancer Sister No problems noted. Sister No problems noted. Daughter No problems noted. Social History Housing: House Are you a primary care transitions nurse to a significant other at home: No Do you presently have visiting nurse or other home services: No Alcohol intake: never Patient Tobacco Use Status: Former Tobacco user Tobacco use type: Cigarette Years Smoked: 2 years e-Cigarette/Vaping Use: Never Used Second Hand Smoke Exposure: No Current occupational status: retired Cognitive needs: No Hearing needs: No Vision needs: No Review of Systems Const Denies chills, Denies fatigue, Denies fever(s), Denies frequent falls, Denies weakness, Denies weight gain and Denies weight loss ENT Denies dizziness Card Denies chest pain, Denies leg edema, Denies lightheadedness, Denies palpitations, Denies dyspnea, Denies dyspnea on exertion, Denies orthopnea and Denies other (loss of consciousness) Resp Denies cough, Denies dyspnea and Denies dyspnea on exertion GI Denies hematochezia and Denies change in stool character Musc Denies abnormal gait, Denies muscle weakness, Denies numbness, Denies radiating pain into limb and Denies tingling Neuro Denies abnormal gait, Denies dizziness, Denies frequent falls, Denies numbness, Denies tingling and Denies weakness Endo Denies fatigue and Denies palpitations Physical Exam Vital Signs: Last Vital Signs Pulse 77 10/21/24 15:08 BP 136/78 10/21/24 15:08 BMI result Body Mass Index 30.6 Const General: cooperative, healthy appearing, comfortable, no acute distress, well developed, alert and awake Nutritional Appearance: overweight Orientation/consciousness: patient oriented x3 Limitations: no limitations HEENT Head: Yes normal to inspection, Yes normocephalic and Yes atraumatic Eyes General: appearance normal, both eyes and all related structures Neck Neck: Yes normal visual inspection, Yes trachea midline, Yes supple and Yes JVD Chest Chest palpation & inspection: normal inspection of the chest and other ( Well- healed sternotomy scar) Resp Effort & Inspection: normal respiratory effort Auscultation: clear to auscultation bilaterally, no crackles and no rales Cardio Jugular venous distension: no JVD (Positive AJR) Palpation: normal PMI Rate: regular rate Rhythm: regular rhythm Heart sounds: S1 normal heart sound present, S2 normal heart sound present, no click, no gallops, Murmur heart sound present systolic early and Other heart sounds present ( S4 present) GI Auscultation: normal bowel sounds Skin General skin exam: no rashes or lesions noted and ecchymosis Neuro General: patient oriented x3 and no focal motor deficits Extrem General: No clubbing, No cyanosis, Yes edema (Three to 4+) and Yes other ( Bilateral significant varicosities) Psych Appearance: grossly normal Assessment & Plan Assessment & Plan (1) CAD (coronary artery disease): Code(s): I25.10 - Atherosclerotic heart disease of [place] coronary artery without angina pectoris Category: Medical Qualifiers: Associated angina: without angina Coronary Disease-Associated Artery/Lesion type: [place] artery [place] vs. transplanted heart: [place] heart Qualified Code(s): I25.10 - Atherosclerotic heart disease of [place] coronary artery without angina pectoris Plan: CAD with remote coronary artery bypass grafting. She had mild ischemia by prior myocardial perfusion imaging 2 years ago. Clearly no symptoms of angina or exertional shortness of breath could represent myocardial ischemia although likely more related to heart failure and diastolic dysfunction has says deconditioning. Continue aggressive medical therapy. Currently on amlodipine as well as metoprolol which will be continued. Continue clopidogrel. Continue statin therapy with target goal LDL less than 70 mg/dL. (2) (HFpEF) heart failure with preserved ejection fraction: Code(s): I50.30 - Unspecified diastolic (congestive) heart failure Category: Medical Plan: Heart failure preserved ejection fraction, clinically appears to be significantly fluid overloaded. Will check BMP and BNP today. I think she will require extra diuresis. Further treatment based on her lab value. If she has significantly elevated BNP I think she would benefit from more diuresis with torsemide up to 80 mg. If she does not respond with torsemide will need additional metolazone therapy. This was discussed with her. Discussed importance of managing congestive heart failure euvolemia to help with also renal function and improve her functionality. She understands agrees. Advised to monitor salt intake in his diet. Daily weight monitoring avoidance of salt loading was discussed. A detailed discussion about management of heart failure. Continue aggressive blood pressure control. (3) Labile blood pressure: Code(s): R09.89 - Other specified symptoms and signs involving the circulatory and respiratory systems Category: Medical Plan: Difficult control blood pressure with labile blood pressure. Continue current therapy. Blood pressure on today's exam appears to be well controlled. However importance of measuring more frequently blood pressure at home was discussed. Low-salt diet was discussed. Target goal blood pressure systolic less than 140 if possible. Will monitor closely. Monitor renal function. Will follow up in the clinic in 3 months time, sooner p.r.n.. Greater than 30 minutes was spent in managing her care. Orders: Orders Basic Metabolic Panel Today I50.30 - Unspecified diastolic (congestive) heart failure B Type Natriuretic Peptide Today I50.30 - Unspecified diastolic (congestive) heart failure Coding Level of Care Code Est Pt Level 5 (54269) Complex EM visit Add On G2211 Diagnoses Coronary artery disease involving [place] coronary artery of [place] heart without angina pectoris I25.10 Associated angina: without angina Coronary Disease-Associated Artery/Lesion type: [place] artery [place] vs. transplanted heart: [place] heart (HFpEF) heart failure with preserved ejection fraction I50.30 Labile blood pressure R09.89
== END 2024-10-21 15:38 | disposition home or self-care (01) ==
PROVIDERS: PCP Internal Medicine; Visit Provider Internal Medicine Cardiovascular Disease
DX: I25.10 Atherosclerotic heart disease of native coronary artery without angina pectoris (principal); I50.30 Unspecified diastolic (congestive) heart failure; R09.89 Other specified symptoms and signs involving the circulatory and respiratory systems
CPT/HCPCS: 99214; G2211

== ENCOUNTER 2024-10-21 15:06 | Outpatient (REF) | payer MEDICARE, SELFPAY ==
[2024-10-21 17:00] LABS: Anion Gap 16 (12-20); Blood Urea Nitrogen 28 mg/dL (9-16); Calcium 9.7 mg/dL (8.4-10.2); Carbon Dioxide 25 mmol/L (22-29); Chloride 105 mmol/L (96-108); Estimated Glomerular Filt Rate 35; Glucose Random 99 mg/dL (60-115); Potassium 4.3 mmol/L (3.3-5.1); Sodium 142 mmol/L (135-145)
[2024-10-21 17:02] LABS: B Type Natriuretic Peptide 531 pg/mL (<100)
== END 2024-10-21 15:07 | disposition home or self-care (01) ==
LOC: HO.LAB 15:06
PROVIDERS: PCP Internal Medicine; Visit Provider Internal Medicine Cardiovascular Disease
DX: I50.30 Unspecified diastolic (congestive) heart failure (principal); I25.10 Atherosclerotic heart disease of native coronary artery without angina pectoris; R09.89 Other specified symptoms and signs involving the circulatory and respiratory systems
CPT/HCPCS: 36415; 80048; 83880; 99212

== ENCOUNTER 2024-12-25 12:52 | Outpatient (REF) | payer MEDICARE, SELFPAY ==
[2024-12-25 18:15] LABS: MANUAL DIFF FLAG NO
[2024-12-25 18:17] LABS: Basophils Absolute Auto 0.1 X10*3/uL (0.0-0.2); Basophils Percent Auto 0.6 % (0-2); Eosinophils Absolute Auto 0.3 X10*3/uL (0.0-0.4); Eosinophils Percent Auto 3.1 % (0-4); Hematocrit 34.3 % (37.0-47.0); Imm Gran Abs Auto 0.02 X10*3/uL (0.00-0.03); Imm Gran Pct Auto 0.2 % (0.0-0.4); Lymphocytes Absolute Auto 1.2 X10*3/uL (1.2-4.9); Lymphocytes Percent Auto 13.3 % (20-40); Mean Corpuscular HGB Conc 32.1 g/dl (31.0-35.0); Mean Corpuscular Hemoglobin 29.7 pg (27.0-33.0); Mean Corpuscular Volume 92.7 fL (80.0-98.0); Mean Platelet Volume 10.3 fL (9.4-12.3); Monocytes Absolute Auto 0.9 X10*3/uL (0.1-1.2); Monocytes Percent Auto 10.5 % (2-11); Neutrophils Absolute Auto 6.4 x10*3/uL (2.0-8.3); Neutrophils Percent Auto 72.3 % (45-73); Platelet Count 390 X10*3/uL (160-400); Red Cell Distribution Width 15.1 % (11.0-16.0); White Blood Count 8.8 X10*3/uL (4.8-10.8)
[2024-12-25 18:37] LABS: Alanine Aminotransferase 11 U/L (0-31); Alkaline Phosphatase 133 U/L (39-117); Anion Gap 16 (12-20); Aspartate Amino Transferase 28 U/L (5-31); Bilirubin Total 0.3 mg/dL (0.0-1.0); Blood Urea Nitrogen 27 mg/dL (9-16); Calcium 9.6 mg/dL (8.4-10.2); Carbon Dioxide 25 mmol/L (22-29); Chloride 105 mmol/L (96-108); Estimated Glomerular Filt Rate 38; Glucose Random 110 mg/dL (60-115); Potassium 3.7 mmol/L (3.3-5.1); Sodium 142 mmol/L (135-145); Total Protein 7.6 g/dL (6.5-8.0)
[2024-12-25 18:52] LABS: TSH reflex Free T4 1.89 uIU/mL (0.32-4.0)
[2024-12-25 19:08] LABS: Folate > 20.0 ng/mL (> or = 4.0); Vitamin B12 451 pg/mL (200-900)
== END 2024-12-25 12:53 | disposition home or self-care (01) ==
LOC: HO.HKASLDS 12:52
PROVIDERS: PCP Internal Medicine; Visit Provider Psychiatry & Neurology Neurology
DX: G62.9 Polyneuropathy, unspecified (principal); R26.9 Unspecified abnormalities of gait and mobility
CPT/HCPCS: 36415; 80053; 82607; 82746; 84443; 85025; 99212

== ENCOUNTER 2024-12-25 12:52 | Outpatient (AMB) | payer MEDICARE, SELFPAY ==
--- NOTE | 2024-12-25 12:56 | A.OFFVIS_ITS ---
Vital Signs 12/25/24 12:57 Height 4 ft 11.5 in Weight 152 lb BMI 30.2 BP 124/70 Blood Pressure Location Rt brachial Position Sitting Pulse 77 Pulse Source Pulse Oximeter Pulse Oximetry (%) 98 Oxygen Delivery Method Room Air Intake Visit Reasons: 1 year F/U Intake Note: patient following up on labs, called and left msg. for patient regarding labs ordered by Dr. Quarles before next weeks appt. Allergies azithromycin Allergy (Intermediate, Verified 12/25/24 13:03) Nausea/Became dehydrated hydromorphone Allergy (Unknown, Verified 12/25/24 13:03) Unknown codeine Adverse Reaction (Intermediate, Verified 12/25/24 13:03) Stomach Upset HPI Comments Details: 89y/o female comes for follow up neuropathy and gait disorder.. she did PT and is doing well No falls. History form initial visit-she was diagnosed with neuropathy about 4-[address] Gibson. Her initial symptom was sensitivity in her feet - felt like she walked on broken stones.she feels her symptoms are about the same and fluctuates in intensity.she also feels in the sides of her leg.It bothers her somenights - hard to find a comfortable position. she takes tonic water to help with her nocturnal cramps. she has mild back pain and gets better as days goes on she is not sure she had EMG. she has venous issues in LE and has musculoskeletal issues. she had fernie knee replacement, hip replacement ( left ) Sep 2022, Right hip replacement in 2005. she uses a cane to walk , feels off balance . No recent falls. [facility] Medical History Back pain History of femoral angiogram Arthritis Gait disorder Neuropathy Degenerative localized arthritis of hip PVD (peripheral vascular disease) CAD (coronary artery disease) Diastolic dysfunction (HFpEF) heart failure with preserved ejection fraction Low hemoglobin Gout Osteoarthritis of knees, bilateral Chronic kidney disease Chronic GERD Lipid disorder Hypertension, essential Surgical History H/O colonoscopy Hx of right cataract extraction History of bilateral knee replacement H/O vein stripping Hx of bilateral hip replacements History of cataract surgery S/P CABG x 2 History of carpal tunnel surgery History of right hip replacement History of tonsillectomy Family History Father CHF (congestive heart failure) CVD (cardiovascular disease) Mother Pancreatitis Maternal Aunt Breast cancer Sister No problems noted. Sister No problems noted. Daughter No problems noted. Social History Housing: House Are you a primary urgent care to a significant other at home: No Do you presently have visiting nurse or other home services: No Alcohol intake: never Patient Tobacco Use Status: Former Tobacco user Tobacco use type: Cigarette Years Smoked: 2 years e-Cigarette/Vaping Use: Never Used Second Hand Smoke Exposure: No Current occupational status: retired Cognitive needs: No Hearing needs: No Vision needs: No Physical Exam Vital Signs: Last Vital Signs Pulse 77 12/25/24 12:57 BP 124/70 12/25/24 12:57 Pulse Ox 98 12/25/24 12:57 Oxygen Delivery Method Room Air 12/25/24 12:57 BMI result Body Mass Index 30.2 Const General: cooperative, healthy appearing and comfortable Nutritional Appearance: average body habitus Orientation/consciousness: patient oriented x3 Eyes Pupils: Equal, round and reactive pupils present Neuro Other: Fernie foot bunions, high arches with hammer toes Mild dysesthesias in plantar surfaces Gait- slow mild off balance General: patient oriented x3, tone normal, moves all extremities and no focal motor deficits Cranial nerves: Yes Facial sensation intact/muscles of mastication intact, Yes Equal, round and reactive pupils present, Yes Bilaterally intact EOM present, Yes Nystagmus not present, Yes Normal facial strength present, Yes Midline tongue present and Yes Symmetric palate elevation present Cognition (Neuro): normal cognition Motor exam (neuro): 5/5 motor strength present throughout Deep tendon reflexes (DTR's): Right triceps reflex intensity grade: 2+, Left triceps reflex intensity grade: 2+, Rt Biceps (C5, C6): 2+, Left biceps reflex intensity grade: 2+, Right brachioradialis reflex intensity grade: 2+, Left brachioradialis reflex intensity grade: 2+, Right patellar reflex intensity grade: 0, Left patellar reflex intensity grade: 0, Right ankle reflex intensity grade: 0 and Left ankle reflex intensity grade: 0 Coordination: [id number] test normal Assessment & Plan Assessment & Plan (1) Neuropathy: Comment: slowly progressive Code(s): G62.9 - Polyneuropathy, unspecified Category: Medical (2) Gait disorder: Comment: multifactorial - musculoskeletal, vascular , neuropathy Code(s): R26.9 - Unspecified abnormalities of gait and mobility Category: Medical Plan I will check her Vit B 12 TSH CBC CMP Suggested to start B complex and Alpha lipoic acid PT for gait and balance Orders: Orders TSH reflex Free T4 Today G62.9 - Polyneuropathy, unspecified Vitamin B12 and Folate Today G62.9 - Polyneuropathy, unspecified Complete Blood Count Auto Diff Today G62.9 - Polyneuropathy, unspecified PT Evaluation and Treatment Today G62.9 - Polyneuropathy, unspecified, R26.9 - Unspecified abnormalities of gait and mobility Comprehensive Met. Panel Today G62.9 - Polyneuropathy, unspecified Coding Level of Care Code Est Pt Level 4 (32637) Diagnoses Neuropathy G62.9 Gait disorder R26.9
[2024-12-25 12:57] VITALS: BP 124/70; PULSE 77; O2SAT 98; BMI 30.2
--- OUTSIDE RECORDS SUMMARY | 2024-12-25 15:14 | XMS_ITS ---
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, [place] Primary Care Provider UnavailFrancesca Hull Unavailable [phone] Juan Daniel Ambrosio Unavailable [phone] REASON FOR VISIT Painful nail(s) aggrevated by shoes and causing difficulty standing/walking. Medications Medication SIG (Take, Route, Frequency, Duration) Notes Start Date End Date Status Multivitamin Not-Jasper ing Aleve 220 MG 1 tablet as needed Orally every 12 hrs Not-Taking Folic Acid 1 MG 1 tablet Orally Once a day Not-Taking [place] Power 1050 MG 1 capsule Orally Once a day Not-Taking Vitamin B-6 50 MG 1 tablet Orally Once a day Not-Taking Warfarin Sodium 1 MG take 3 tablets by mouth once daily or as directed for 10 days Oral for 3 Not-Taking Lisinopril 10 MG 1 tablet Orally Once a day Not-Taking Isosorbide Mononitrate ER 60 MG Oral for 30 Not-Taking Omeprazole 20 MG 1 capsule Orally Once a day Not-Taking Atenolol 25 MG 1 tablet Orally Once a day Not-Taking Colchicine 0.6 MG 1 tablet Orally Once a day for 10 days 02/08/2016 Not-Taking traMADol HCl Not-Jasper ing Lasix 40 MG 1 tablet Orally Once a day Not-Taking Chlorhexidine Gluconate 0.12 % Mouth/Throat for 2 Not-Taking Mupirocin 2 % External for 22 Not-Taking Pantoprazole Sodium 40 MG take 1 tablet by mouth every morning Oral for 30 Not-Taking Furosemide 20 MG Oral for 30 N ot-Taking Fish Oil Not-Taking hydroCHLOROthiazide 25 MG 1 tablet in th e morning Orally Once a day Not-Taking Spironolactone 25 MG 1 tablet Orally Once a day Not-Taking Ocuvite Not-Taking Biotin Not-Taking Vitamin B 12 Not-Jasper ing Nystop Not-Taking Lipitor 20 MG Orally Not-Ta kitty Extra-Depth Diabetic Shoes with 3 Pair Custom heat-molded multi-density innersoles . for 1 year . Dx:please accomodate for painful left 5th mtpj in the insole for . 07/01/2015 Not-Taking Tums 500 MG 1 tablet Orally Four times a day PRN Not-Taking Metoprolol Succinate 100 MG Orally Not-Taking Centrum Silver Orally Not-T aking Allopurinol 100 MG Orally every other day Not-Taking [place] 3 Not-Taking Metoprolol Tartrate 25 MG Oral for 6 Active Colace Not-Taking Clopidogrel Bisulfate 75 MG as directed Not-Taking Torsemide 20 MG as directed Orally Once a day Not-Taking Pepto-Bismol Not-Jasper ing Tamsulosin HCl Not-T aking Co Q 10 10 MG 1 capsule with a meal Orally Once a day Not-Taking Atorvastatin Calcium 20 MG 1 tablet Oral ly Once a day Not-Taking Ezetimibe Not-Taking Aspirin 81 MG 1 tablet Orally Once a day Active Torsemide 20 MG 2 tabs Orally Active Plavix Active Betamethasone Dipropionate 0.05 % APPLY TWICE DAILY TO LOWER LEGS FOR 2 WEEKS THEN TAKE 1 WEEK OFF. REPEAT NEEDED External for 30 L2089,Unava ilable Active [place] Not-Taking Vitamin D3 1000 UNIT 1 capsule Orally Once a day Active amLODIPine Besylate 10 MG 1 tablet Orall y Once a day Active Acetaminophen Active Multivitamin Active Vital Signs Height 5 ft in 05/20/2024 Weight 140 lbs 05/20/2024 BMI 27.34 kg/m2 05/20/2024 Blood pressure systolic 162 mm Hg 05/20/20 24 Blood pressure diastolic 69 mm Hg 024 Encounters Encounter Location Date Provider Diagnosis [facility] [address] [place] [address] 05/20/2024 Juan Daniel Ambrosio Pain in right toe(s) [...] neuritis, unspecified M79.2 and 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, bilateral legs I70.203 Assessments Encounter Date Diagnosis (ICD Code) Assessment Notes Treatment Notes Treatment Clinical Notes Section Notes 05/20/2024 Pain in right toe(s) (ICD-10 - M79.674) 05/20/2024 Tinea unguium (ICD-10 - B35.1) 05/20/2024 Pain in left toe(s) (ICD-10 - M79.675) 05/20/2024 Tailors bunion (ICD-10 - M20.10) 05/20/2024 Hallux valgus (acquired), left foot (ICD-10 - M20.12) 05/20/2024 Hallux valgus (acquired), right foot (ICD-10 - M20.11) 05/20/2024 Metatarsalgia, left foot (ICD-10 - M77.42) 05/20/2024 Other hammer toe(s) (acquired), left foot (ICD-10 - M20.42) 05/20/2024 Other hammer toe(s) (acquired), right foot (ICD-10 - M20.41) 05/20/2024 Neuralgia and neuritis, unspecified (ICD-10 - M79.2) 05/20/2024 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 Patient chooses, no pharmaceutical tx (83301) Keratoma Treatment Parring or Cutting o f Benign Hyperkeratotic Lesion(s) 36368 ( 2-4 Lesions ) - The Benign hyperkeratotic lesions, as described above were pared, and/or cut utilizing a sterile 15 blade, tissue nippers, and/or dremel , Q8 Progress Notes * Aminah FRAZIER SDOB:1935 (88 yo F)Acc No.[id number]:05/20/2024 Progress Note Patient:?Aminah Frazier S Provider:?Juan Daniel Ambrosio DPM :1935???Age:88 Y???Sex:Female D ate:05/20/2024 Address:[address] [place] [address], [place], [id number] Pcp:Penelope Parsons MD Subjective: * Chief Complaints: * ??? Painful nail(s) aggrevat ed by shoes and causing difficulty standing/walking. * HPI: ???Painful Nails:?Pt States Last PCP Visit:?Date:?08/02/2023 ?Misc:?daughter Arianna is present who takes care of and lives with her Mom.?Toe pain:?Location:?5th toe, Left foot.?Duration:?several months.?Course:?improved.? * ROS:?General/Constitutional:?Nausea?denies.?Vomiting?denies.?Hunger Thirst?denies.?Loss appetite?denies.?Chills?denies.?Fatigue?admits.?Fever?denies.?Night Sweats?denies.?Unexplained weight loss?denies.?Unexplained weight gain?denies.?HEENTM:?Dentures?denies.?Dizziness?denies.?Glasses/contacts?admits.?Retinopathy?de nies.?Blurred/double vision?denies.?TMJ?denies.?Discharge/drainage?denies.?Implants?denies.?Sore throat?admits.?Dental implants?admits.?Hard of hearing ?denies.?Difficulty chewing/swallowing/speaking?admits.?Nose bleeds?admits.?Sore mouth?denies.?Respiratory:?On Oxygen?denies.?Pneumonia/pleurisy?denies.?Bronchitis?denies.?Emphysema?denies.?C oughing?denies.?Cough blood?denies.?Shortness of breath?admits.?Wheezing?denies.?Cardiovascular:?Pacemaker?denies.?MVP?denies.?WPW?denies.?CHF?denies.?Heart attack?denies.?Septal defect?denies.?Rapid beat?denies.?Chest pain ?denies.?Atrial Fib.?denies.?Murmur/Palpitations?denies.?Gastrointestinal:?Hemorrhoids?denies.?Stomach/Abdominal pain?denies.?Dark blood stool?denies.?Irritable bowel ?denies.?Constipation?denies.?Diarrhea?denies.?Hematology:?Swelling?admits.?Clots?denies.?Varicose Veins?admits.?Bruising?admits.?Bleeding problem?denies.?Genitourinary:?Blood urine?denies.?Frequent/Painfu/urination/bladder control?admits.?Kidney stones?denies.?Infection (UTI)?denies.?Nephropathy?denies.?sex trans dis (STD)?denies.?Prostate?denies.?Musculoskeletal:?Hammertoes?denies.?Bunions?denies.?Back Pain?denies.?Muscle Cramps/ Resting?admits.?Muscle cramps / walking?denies.?Generalized aches and pains?denies.?Weakness?admits.?Integ.:?Diallo?denies.?Scars?denies.?Corns/calluses?admits.?Ingrown nails?denies.?Painful nails?denies.?Open Sores?denies.?Rashes?denies.?Neurologic:?Difficulty sleeping?denies.?Brain disorder?denies.?Numbness?denies.?Balance trouble?admits.?Confusion?denies.?Fainting/blackouts?denies.?Tingling?denies.?Tr emors?denies.? * Medical History:? * Surgical History:? * Hospitalization/Major Diagno stic Procedure:? * Medications:?TakingamLODIPin e Besylate 10 MG Tablet 1 tablet Orally Once a dayMultivitamin Acetaminophen Vitamin D3 1000 UNIT Capsule 1 capsule Orally Once a dayAspirin 81 MG Tablet 1 tablet Orally Once a dayPlavix Torsemide 20 MG Tablet 2 tabs Orally Betamethasone Dipropionate 0.05 % Cream APPLY TWICE DAILY TO LOWER LEGS FOR 2 WEEKS THEN TAKE 1 WEEK OFF. REPEAT NEEDED External , Notes: L2089,UnavailableMetoprolol Tartrate 25 MG Tablet Oral Taking amLODIPine Besylate 10 MG Tablet 1 tablet Orally Once a dayTaking Multivitamin Taking Acetaminophen Taking Vitamin D3 1000 UNIT Capsule 1 capsule Orally Once a dayTaking Aspirin 81 MG Tablet 1 tablet Orally Once a dayTaking Plavix Taking Torsemide 20 MG Tablet 2 tabs Orally Taking Betamethasone Dipropionate 0.05 % Cream APPLY TWICE DAILY TO LOWER LEGS FOR 2 WEEKS THEN TAKE 1 WEEK OFF. REPEAT NEEDED External , Notes: L2089,UnavailableTaking Metoprolol Tartrate 25 MG Tablet Oral Not- Taking/PRNVazalore Ezetimibe Tamsulosin HCl Pepto-Bismol Atorvastatin Calcium 20 MG Tablet 1 tablet Orally Once a dayCo Q 10 10 MG Capsule 1 capsule with a meal Orally Once a dayOmega 3 Colace Torsemide 20 MG Tablet as directed Orally Once a dayClopidogrel Bisulfate 75 MG Tablet as directed Allopurinol 100 MG Tablet Orally every other dayCentrum Silver Tablet Orally Tums 500 MG Tablet Chewable 1 tablet Orally Four times a day, Notes: PRNExtra-Depth Diabetic Shoes with 3 Pair Custom heat-molded multi-density innersoles . . for 1 year . Dx:please accomodate for painful left 5th mtpj in the insoleMetoprolol Succinate 100 MG Capsule ER 24 Hour Sprinkle Orally Vitamin B 12 Biotin Ocuvite Lipitor 20 MG Tablet Orally Nystop Fish Oil Spironolactone 25 MG Tablet 1 tablet Orally Once a dayhydroCHLOROthiazide 25 MG Tablet 1 tablet in the morning Orally Once a dayFurosemide 20 MG Tablet Oral Pantoprazole Sodium 40 MG Tablet Delayed Release take 1 tablet by mouth every morning Oral Lasix 40 MG Tablet 1 tablet Orally Once a daytraMADol HCl Colchicine 0.6 MG Tablet 1 tablet Orally Once a dayMupirocin 2 % Ointment External Chlorhexidine Gluconate 0.12 % Solution Mouth/Throat Isosorbide Mononitrate ER 60 MG Tablet Extended Release 24 Hour Oral Lisinopril 10 MG Tablet 1 tablet Orally Once a dayAtenolol 25 MG Tablet 1 tablet Orally Once a dayOmeprazole 20 MG Capsule Delayed Release 1 capsule Orally Once a dayWarfarin Sodium 1 MG Tablet take 3 tablets by mouth once daily or as directed for 10 days Oral Folic Acid 1 MG Tablet 1 tablet Orally Once a dayVitamin B-6 50 MG Tablet 1 tablet Orally Once a dayOmega Power 1050 MG Capsule 1 capsule Orally Once a dayAleve 220 MG Tablet 1 tablet as needed Orally every 12 hrsMultivitamin Medication List reviewed and reconciled with the patientNot-Taking/PRN [place] Not- Taking/PRN Ezetimibe Not-Taking/PRN Tamsulosin HCl Not-Taking/PRN Pepto-Bismol Not- Taking/PRN Atorvastatin Calcium 20 MG Tablet 1 tablet Orally Once a dayNot-Taking/PRN Co Q 10 10 MG Capsule 1 capsule with a meal Orally Once a dayNot-Taking/PRN [place] 3 Not-Taking/PRN Colace Not-Taking/PRN Torsemide 20 MG Tablet as directed Orally Once a dayNot-Taking/PRN Clopidogrel Bisulfate 75 MG Tablet as directed Not-Taking/PRN Allopurinol 100 MG Tablet Orally every other dayNot-Taking/PRN Centrum Silver Tablet Orally Not-Taking/PRN Tums 500 MG Tablet Chewable 1 tablet Orally Four times a day, Notes: PRNNot-Taking/PRN Extra-Depth Diabetic Shoes with 3 Pair Custom heat- molded multi-density innersoles . . for 1 year . Dx:please accomodate for painful left 5th mtpj in the insoleNot-Taking/PRN Metoprolol Succinate 100 MG Capsule ER 24 Hour Sprinkle Orally Not-Taking/PRN Vitamin B 12 Not-Taking/PRN Biotin Not-Taking/PRN Ocuvite Not-Taking/PRN Lipitor 20 MG Tablet Orally Not-Taking/PRN Nystop Not-Taking/PRN Fish Oil Not-Taking/PRN Spironolactone 25 MG Tablet 1 tablet Orally Once a dayNot-Taking/PRN hydroCHLOROthiazide 25 MG Tablet 1 tablet in the morning Orally Once a dayNot-Taking/PRN Furosemide 20 MG Tablet Oral Not-Taking/PRN Pantoprazole Sodium 40 MG Tablet Delayed Release take 1 tablet by mouth every morning Oral Not-Taking/PRN Lasix 40 MG Tablet 1 tablet Orally Once a dayNot-Taking/PRN traMADol HCl Not-Taking/PRN Colchicine 0.6 MG Tablet 1 tablet Orally Once a dayNot-Taking/PRN Mupirocin 2 % Ointment External Not-Taking/PRN Chlorhexidine Gluconate 0.12 % Solution Mouth/Throat Not-Taking/PRN Isosorbide Mononitrate ER 60 MG Tablet Extended Release 24 Hour Oral Not-Taking/PRN Lisinopril 10 MG Tablet 1 tablet Orally Once a dayNot-Taking/PRN Atenolol 25 MG Tablet 1 tablet Orally Once a dayNot-Taking/PRN Omeprazole 20 MG Capsule Delayed Release 1 capsule Orally Once a dayNot-Taking/PRN Warfarin Sodium 1 MG Tablet take 3 tablets by mouth once daily or as directed for 10 days Oral Not-Taking/PRN Folic Acid 1 MG Tablet 1 tablet Orally Once a dayNot-Taking/PRN Vitamin B-6 50 MG Tablet 1 tablet Orally Once a dayNot-Taking/PRN [place] Power 1050 MG Capsule 1 capsule Orally Once a dayNot-Taking/PRN Aleve 220 MG Tablet 1 tablet as needed Orally every 12 hrsNot-Taking/PRN Multivitamin Medication List reviewed and reconciled with the patient Objective: * Vitals:?Ht: 5 ft, Wt:140, BM I:27.34, Shoe size:6.5, BP:162/69 mm Hg. * Examination: ???General Examination: ?GENERAL APPEARANCE:?pleasant, alert, well nourished, well developed, well hydrated, with good attention to hygene/body habitus, and in no acute distress.?ORIENTED:?person,place, and time.?Neurological: ?SENSORY:? Neurological exam reveals intact sensorium, pain sensation normal, vibration sensation intact, pinprick sensation is normal in the lower extremities, Pt denies, anesthesia, burning, paresthesia, tingling, B/L, Neurological exam demonstrates pop left 5th toe pipj.?TINEL'S COMPRESSION:?Negative tarsal tunnel, stephen pedis, and medial calcaneal nerves B/L.?BABINSKI REFLEX:?absent.?Neuroma Pain: ?PALPATION:?No interspace pain noted on palpation.?Vascular: ?DP PULSES:? 0/4, B/L.?PT PULSES:? 0/4, B/L.?CAPILLARY FILL TIME:? delayed, all digits, B/L.?SKIN TEMPERTURE GRADIENT OF THE LOWER EXTERMITIES:? decreased, cool to cold, proximal to distal, B/L.?HAIR GROWTH/TEXTURE/ELASTICITY/TURGOR:? decreased, B/L.?PIGMENTATION:? cyanotic, B/L.?EDEMA:? 2/4, pitting, B/L, Feet, Ankle(s), Leg(s).?TELANGECTASIA:? moderate .?VARICOSITIES:? present, moderate, nonpainful, B/L .?Dermatologic: ?SKIN FINDINGS:? Skin exam reveals Keratotic lesion(s) located at, Dorsal, PIPJ, T4, SUB MTH (s), 1, 5, Left , Skin exam reveals Keratotic lesion(s) located at, SUB MTH (s), 1, Right.?Orthopedic: ?MUSCLE STRENGTH:?5/5 all groups in a symmetrical fashion , B/L .?GAIT ABNORMALITY:?pronated, abducted, B/L .?BUNION:? Medially prominent 1st MPJ, Dorsally prominent 1st MPJ , (+) Pain on palpation, RIGHT, Lateral tracking 1st MPJ incompletely reducable .?TAILOR'S BUNION:? Prominent 5th MTH/MPJ, B/L.?DIGITAL DEFORMITIES:? Digital contracture, PIPJ, 2-5 B/L, incompl- reducable to push-up test, no over, nor underlapping.?Nails: ?NAILS are:? Elongated, overgrown, dystrophic, lytic, greater than 3mm thick, discolored and friable with crumbly malodorous subungual debris, with pain on palpation, 1-5 Right foot, TA.? 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 Plan: * Treatment: * Procedures:?Debride Nail 6-10:?Nail debridement?Nail debridement performed extensively to reduce/remove overall nail length and girth, subungual debris, and necrotic tissue, by manual and electrical means with use of a nail nipper and/or dremel, to more viable healthy nail plate or bed tissue 6-10. Silver nitrate used for any petechial bleeding as necessary. Patient chooses, no pharmaceutical tx (26307).?Keratoma Treatment:?Parring or Cutting of Benign Hyperkeratotic Lesion(s)?77082 ( 2-4 Lesions ) - The Benign hyperkeratotic lesions, as described above were pared, and/or cut utilizing a sterile 15 blade, tissue nippers, and/or dremel , Q8.? * Procedure Codes:?88843 DEBRI DE NAIL, 6 OR MORE, Modifiers: XS 85278 TRIM SKIN LESIONS, 2 TO 4, Modifiers: Q8 * Follow Up:?3 Months * Images: * Sign off status: Completed true * Provider:?Juan Daniel Ambrosio DPM Date:? 024 Generated for Leroy martinez/Shonda/Isaias on:?12/25/2024 03:14 PM EDT History and Physical Notes * HPI (History of Present Illness) Category Sub-Category Detail Notes Category Not es Toe pain Location: 5th toe, Left foot Duration: several months Course: improved Painful Nails Misc: daughter Arianna is present [...]
--- OUTSIDE RECORDS SUMMARY | 2024-12-25 15:14 | XMS_ITS | Encounter Summary ---
Author Organization [facility], Address [address] [address] Phone Care Team Providers Care Warning Analyst Name Role Phone Penelope Parsons MD Primary Care Provider [phone] Encounter Details Date Type Department Care Team (Late st Contact Info) Description 12/02/2024 2:15 PM EST Office Visit [facility], [address] [place] [address] Juan Luis MD [address] [place] [address] [place] [phone] Stage 3b chronic kidney disease (HCC) (Primary Dx); Hypertension; Anemia in chronic kidney disease; Other iron deficiency anemia Social History Tobacco Use Types Packs/Day Years Used Date Smoking Tobacco: Never Alcohol Use Standard Drinks/Week Comments No 0 (1 standard drink = 0.6 oz pure alcohol) Alcoholic Drinks/day: 1-2 drinks per day Comments Unknown Sex and Gender Information Value Date Recorded Sex Assigned at Not on file Legal Sex Female 4:35 PM EST Gender Identity Not on file Sexual Orientation Not on file documented as of this encounter Last Filed Vital Signs Vital Sign Reading Time Taken Comments Blood Pressure 138/60 12/02/2024 2:15 PM EST Pulse - - Temperature - - Respiratory Rate - - Oxygen Saturation - - Inhaled Oxygen Concentration - - Weight - - Height - - Body Mass Index - - documented in this encounter H&P Notes * Juan Luis MD - 12/02/2024 2:15 PM EST Images from the original note were not included. PATIENT: Aminah Lane : 1935 ENCOUNTER: 12/02/2024 PCP: Penelope Parsons MD Aminah Lane is a 88 y.o. year old patient who I have followed for the following: Chronic kidney disease stage III with a baseline creatinine of 1.5 to 1.9 mg/dL in the setting of ischemic nephropathy and hypertensive nephrosclerosis In the interval since our last visit I have had the opportunity to review the following: -availablelaboratory data, imaging studies, and cardiovascular data -current medication list if available from patient; any changes from previous (including information from the patient's pharmacy, [facility], and Care Everywhere) During this visit I had the opportunity for a full review of systems and limited physical exam as outlined below, with the pertinent findings noted and others found to be negative or noncontributory to the current assessment of this patient. HPI: I last saw Aminah santos in June 2024. At that time she was on amlodipine and relatively high dose of torsemide with ongoing lower extremity edema. Her blood pressure was also high in the office. Her creatinine in June was actually relatively stable at 1.4 mg/dL. She now presents for follow-up. She went through a period of time recently when her blood pressure was more elevated and she was having more volume retention. It sounds like hydralazine 10 twice a day was added. In addition the torsemide went up to 60 mg. Her edema and blood pressure did improve. PAST MEDICAL HISTORY: Patient Active Problem List Diagnosis Date Noted ??? 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 Renal artery stenosis (HCC) 12/31/2021 ??? Essential hypertension 05/27/2021 ??? Stage 3b chronic kidney disease (HCC) 01/03/2020 ??? 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 Iron deficiency anemia 01/03/2020 ROS: Constitutional: No fever. Respiratory: No shortness of breath. Cardiovascular: No chest pain. Gastrointestinal: No abdominal pain, nausea or vomiting, no change in appetite. Genitourinary: No hematuria, pain, or difficulty voiding. All other systems reviewed and are negative. MEDICATIONS: Outpatient Encounter Medications as of 12/02/2024 Medication Sig Dispense Refill ??? allopurinol (ZYLOPRIM) 100 MG tablet Take 100 mg by mouth 1 (one) time each day ??? amLODIPine (NORVASC) 5 MG tablet Take 5 mg by mouth in the morning and 5 mg in the evening. ??? aspirin 81 MG tablet Take 81 mg by mouth 1 (one) time each day ??? atorvastatin (LIPITOR) 20 MG tablet Take 20 mg by mouth 1 (one) time each day ??? betamethasone dipropionate 0.05 % cream APPLY TWICE DAILY TO LOWER LEGS FOR 2 WEEKS THEN TAKE 1WEEK OFF. REPEAT NEEDED ??? Cholecalciferol 50 MCG (2000 UT) capsule Take by mouth ??? clopidogrel (PLAVIX) 75 MG tablet Take 75 mg by mouth 1 (one) time each day ??? co-enzyme Q-10 30 MG capsule Take 30 mg by mouth 1 (one) time each day ??? docusate sodium (COLACE) 100 MG capsule Take 100 mg by mouth 2 (two) times a day ??? hydrALAZINE (APRESOLINE) 10 MG tablet Take 10 mg by mouth in the morning and 10 mg in the evening. ??? Lutein 6 MG capsule Take by mouth ??? metoprolol succinate XL (TOPROL XL) 25 MG 24 hr tablet Take 1 tablet (25 mg total) by mouth twice a day Do not crush or chew. ??? Multiple Vitamin (MULTIVITAMIN) capsule Take 1 capsule by mouth 1 (one) time each day ??? oxyCODONE (ROXICODONE) 5 MG immediate release tablet TAKE 1 TO 2 TABLETS BY MOUTH EVERY 4 HOURSAS NEEDED FOR MODERATE PAIN ??? pantoprazole (PROTONIX) 40 MG EC tablet TAKE 1 TABLET BY MOUTH EVERY DAY MEDICATION TO BE STARTED AFTER SURGERY ??? predniSONE (DELTASONE) 20 MG tablet TAKE 2 TABLETS BY MOUTH DAILY FOR 5 DAYS ??? sodium polystyrene (KAYEXALATE) 15 GM/60ML suspension Take 15 g by mouth 1 (one) time ??? torsemide (DEMADEX) 20 MG tablet Take 60 mg by mouth 1 (one) time each day ??? traMADol (ULTRAM) 50 MG tablet Take 50 mg by mouth 2 (two) times a day if needed ??? triamcinolone (KENALOG) 0.1 % ointment APPLY TOPICALLY TO THE AFFECTED AREA DAILY FOR 14 DAYS No facility-administered encounter medications on file as of 12/02/2024. ALLERGIES: is allergic to azithromycin, clarithromycin, codeine, erythromycin, guaifenesin, hydrocodone, hydromorphone, and levofloxacin. Physical exam: Blood pressure: 138/60 Lungs clear Heart regular Bilateral lower extremity edema 2+ LABS: Chemistry Lab Units 05/26/23 1451 CREATININE MG/DL 1.5* BUN MG/DL 36* POTASSIUM MMOL/L 5.4* SODIUM MMOL/L 139 CO2 MMOL/L 25 CHLORIDE MMOL/L 101 ALBUMIN GM/DL 4.5 EGFRNAFR ML/MIN/1.73 M2 33 WBC AUTO K/MM3 8.6 HEMATOCRIT % 35.7 HEMOGLOBIN GM/DL 11.4* PLATELETS AUTO K/MM3 322 Bone Mineral Lab Units 05/26/23 1451 CALCIUM MG/DL 9.8 PHOSPHORUS MG/DL 4.0 SUMMARY: Based on the above findings and my interpretation of the available data including med review, the following problems/diagnoses with recommendations for any further testing, treatment options, and follow-up are provided for your review: Chronic and Active Issues: 1. Stage 3b chronic kidney disease (HCC) 2. Hypertension 3. Anemia in chronic kidney disease 4. Other iron deficiency anemia Aminah has chronic kidney disease with a creatinine of 1.4-1.9. This is most likely on the basis of hypertensive nephrosclerosis. Her blood pressure was recently more elevated with more volume retention. This has improved with an increase in her torsemide and the addition of hydralazine. At this point, I have made no changes in her medications. [facility] Otherwise, I will see her back in 6 months if things remain stable. No orders of the defined types were placed in this encounter. documented in this encounter Plan of Treatment Upcoming Encounters Date Type Department Care Team (Late st Contact Info) Description 06/06/2025 2:00 PM EDT Office Visit [facility], [address] [place] [address] Juan Luis MD [address] [facility] [place] [address] documented as of this encounter Visit Diagnoses Diagnosis Stage 3b chronic kidney disease (HCC)- Primary Hypertension Anemia in chronic kidney disease Other iron deficiency anemia documented in this encounter Care Teams Warning Analyst Relationship Specialty Start Date End Date Penelope Parsons MD [address] [place], [place] [id number] PCP - General 08/06/19 documented as of this encounter
--- OUTSIDE RECORDS SUMMARY | 2024-12-25 15:14 | XMS_ITS ---
Author [facility] Address [address] [place] [address] Care Team Providers Care Environmental Field Technician Name Role Phone Issa STEIN, [facility] Primary [facility] Provider Francesca Zapien Unavailable [phone] Allergies Allergen (clinical drug ingredient) Drug/Non Drug Allergy documented on EMR Reaction Allergy Type Onset Date Status Biaxin nausea and dehydration Drug Allergy Active azithromycin Azithromycin nausea and dehydration Drug Allergy Active codeine Codeine nausea Drug Allergy Active erythromycin Erythromycin nausea and dehydration Drug Allergy Active hydromorphone Hydromorphone withdraw Drug Allergy Active REASON FOR VISIT Pcp-06/07/24, At Risk Footcare, Painful Nail(s) aggravated by shoes and causing difficulty standing/walking. Medications Medication SIG (Take, Route, Frequency, Duration) Notes Start Date End Date Status Vitamin B-6 50 MG 1 tablet Orally Once a day Not-Taking Folic Acid 1 MG 1 tablet Orally Once a day Not-Taking Multivitamin Not-Jasper ing Aleve 220 MG 1 tablet as needed Orally every 12 hrs Not-Taking Ecorse Power 1050 MG 1 capsule Orally Once a day Not-Taking Atenolol 25 MG 1 tablet Orally Once a day Not-Taking Lisinopril 10 MG 1 tablet Orally Once a day Not-Taking Isosorbide Mononitrate ER 60 MG Oral for 30 Not-Taking Warfarin Sodium 1 MG take 3 tablets by mouth once daily or as directed for 10 days Oral for 3 Not-Taking Omeprazole 20 MG 1 capsule Orally Once a day Not-Taking Mupirocin 2 % External for 22 Not-Taking Chlorhexidine Gluconate 0.12 % Mouth/Throat for 2 Not-Taking Lasix 40 MG 1 tablet Orally Once a day Not-Taking Colchicine 0.6 MG 1 tablet Orally Once a day for 10 days 02/08/2016 Not-Taking traMADol HCl Not-Jasper ing Spironolactone 25 MG 1 tablet Orally Once a day Not-Taking Fish Oil Not-Taking Pantoprazole Sodium 40 MG take 1 tablet by mouth every morning Oral for 30 Not-Taking Furosemide 20 MG Oral for 30 N ot-Taking hydroCHLOROthiazide 25 MG 1 tablet in th e morning Orally Once a day Not-Taking Nystop Not-Taking Lipitor 20 MG Orally Not-Ta kitty Ocuvite Not-Taking Biotin Not-Taking Vitamin B 12 Not-Jasper ing Allopurinol 100 MG Orally every other day Not-Taking Metoprolol Succinate 100 MG Orally Not-Taking Extra-Depth Diabetic Shoes with 3 Pair Custom heat-molded multi-density innersoles . for 1 year . Dx:please accomodate for painful left 5th mtpj in the insole for . 07/01/2015 Not-Taking Tums 500 MG 1 tablet Orally Four times a day PRN Not-Taking Centrum Silver Orally Not-T aking Clopidogrel Bisulfate 75 MG as directed Not-Taking Torsemide 20 MG as directed Orally Once a day Not-Taking Colace Not-Taking Ecorse 3 Not-Taking Co Q 10 10 MG 1 capsule with a meal Orally Once a day Not-Taking Pepto-Bismol Not-Jasper ing Tamsulosin HCl Not-T aking Ezetimibe Not-Taking Vazalore Not-Taking Atorvastatin Calcium 20 MG 1 tablet Oral ly Once a day Not-Taking Torsemide 20 MG 2 tabs Orally Active Metoprolol Tartrate 25 MG Oral for 6 Active Betamethasone Dipropionate 0.05 % APPLY TWICE DAILY TO LOWER LEGS FOR 2 WEEKS THEN TAKE 1 WEEK OFF. REPEAT NEEDED External for 30 L2089,Unava ilable Active Plavix Active Aspirin 81 MG 1 tablet Orally Once a day Active Multivitamin Active amLODIPine Besylate 10 MG 1 tablet Orall y Once a day Active Vitamin D3 1000 UNIT 1 capsule Orally Once a day Active Acetaminophen Active Social History Tobacco Use: Social History Observation Description Date Details (start date - stop date) Former Smoker NA - NA Tobacco Use/Smoking Question Answer Notes Are you a: former smoker Additional Findings: Tobacco Non-User Current no n-smoker Tobacco use other than smoking: Question Answer Notes Are you an other tobacco user? 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, with unspecified presence of clinical manifestation (I70.203) Active confirmed Q7(A), Q8(2B), Q9(1B,2C) Vital Signs Height 5 ft in 08/26/2024 Weight 145 lbs 08/26/2024 BMI 28.32 kg/m2 08/26/2024 Blood pressure systolic 148 mm Hg 08/26/20 Blood pressure diastolic 70 mm Hg 024 Procedures Procedure Date Ordered Date Performed Result Body Sit e 33520-MXATYZT NAIL, 6 OR MORE 08/26/2024 N/A 11656-OPWO SKIN LESIONS, OVER 4 08/26/2024 N/A Encounters Encounter Location Date Provider Diagnosis [facility] [place] [address] [place] [address] 08/26/2024 Francesca Gutierrez Atherosclerosis of klamath artery of both lower extremities, with unspecified presence of clinical manifestation I70.203 ; Tinea unguium B35.1 ; Pain in right toe(s) M79.674 and Pain in left toe(s) M79.675 Assessments Encounter Date Diagnosis (ICD Code) Assessment Notes Treatment Notes Treatment Clinical Notes Section Notes 08/26/2024 Atherosclerosis of klamath artery of both lower extremities, with unspecified presence of clinical manifestation (ICD-10 - I70.203) Q7(A), Q8(2B), Q9(1B,2C) 08/26/2024 Tinea unguium (ICD-10 - B35.1) 08/26/2024 Pain in right toe(s) (ICD-10 - M79.674) 08/26/2024 Pain in left toe(s) (ICD-10 - M79.675) Plan Of Treatment Pending Test Test Name Order Date 48543-PZAGZJQ NAIL, 6 OR MORE 08/26/2024 80036-FXHT SKIN LESIONS, OVER 4 08/26/20 24 Next Appt Details Follow Up: 3 Months, Reason: Provider Name:Francesca henry, 01/13/2025 11:15:00 AM, [address] [place], [address], Procedure Notes * Category Sub-Category Detail Notes Debride Nail 6-10 Nail debridement Performance o f this nail treatment by a nonprofessional would put this patients foot and overall health at risk. Therefore, debridement to affected nail(s), as described in exam, was performed extensively to reduce/remove overall nail length, girth, thickness, subungual debris, and necrotic tissue, by manual and/or electrical means through the use of a nail nipper and/or dremel-type glass grinder, to a more viable healthy nail plate or bed tissue 6-10 nails in total. Silver nitrate was used for any petechial bleeding as necessary. Definitive antifungal treatment options, both pharmaceutical and surgical, have been reviewed and discussed with the patient. The patient solely prefers the use of intermittent/as needed professional debridement services for their nail condition and understands the need for additional periodic treatments to maintain effectiveness in symptomatic relief - 68114 Keratoma Treatment Parring or Cutting o f Benign Hyperkeratotic Lesion(s) (-57) More than 4 Lesions - The Benign hyperkeratotic lesions, ( 6 ) in total, locations as stated and described in exam, were pared, and/or cut utilizing a sterile 15 blade, tissue nippers, and/or power dremel instrumentation - 94292, Q8 Progress Notes * Aminah FRAZIER SDOB:1935 (88 yo F)Acc No.[id number]:08/26/2024 Progress Note Patient:?Aminah FRAZIER S Provider:?Francesca Gutierrez DPM :1935???Age:88 Y???Sex:Female D ate:08/26/2024 Address:[address] [place], [place] [id number] Pcp:Penelope Parsons MD Subjective: * Chief Complaints: * ???Pcp-06/07/24At Risk Footc arePainful Nail(s) aggravated by shoes and causing difficulty standing/walking. * HPI: ???At Risk footcare:?Pt States Last PCP Visit:?Date?06/07/2024 * ROS:?General/Constitutional:?Nausea?denies.?Vomiting?denies.?Hunger Thirst?denies.?Loss appetite?denies.?Chills?denies.?Fatigue?admits.?Fever?denies.?Night Sweats?denies.?Unexplained weight loss?denies.?Unexplained [...] trouble?admits.?Confusion?denies.?Fainting/blackouts?denies.?Tingling?denies.?Tr emors?denies.? * Medical History:? * Surgical History:?Tonsillect sukumar 1950Carpal Tunnel 1980'sRt Hip Replacement 2004angioplasty 2014,2double bypass surgery 06/10/2016right knee replacement 11/2017Left knee replacement 05/16/2017cataract surgery 2021endoscopy * Hospitalization/Major Diagno stic Procedure:?[facility] for bad reaction to pain medication. Legs/feet swelled up. 2018Vein Surgery 03/24 * Family History:?Mother: dece ased, diagnosed with Unspecified essential hypertension, Family history of arthritis.?Father: , poor circulation, diagnosed with Unspecified essential hypertension, Unspecified heart disease.?Siblings: foot problems, diagnosed with Unspecified essential hypertension, Unspecified heart disease, Family history of arthritis.?Maternal aunt: diagnosed with Other malignant neoplasm of unspecified site.? * Social History:?Tobacco Use:?Tobacco Use/Smoking?Are you a:?former smoker ?Additional Findings: Tobacco Non-User?Current non-smoker ?Tobacco use other than smoking?Are you an other tobacco user??No * Medications:?TakingamLODIPin e Besylate 10 MG Tablet 1 tablet Orally Once a day Multivitamin Acetaminophen Vitamin D3 1000 UNIT Capsule 1 capsule Orally Once a day Aspirin 81 MG Tablet 1 tablet Orally Once a day Plavix Torsemide 20 MG Tablet 2 tabs Orally Betamethasone Dipropionate 0.05 % Cream APPLY TWICE DAILY TO LOWER LEGS FOR 2 WEEKS THEN TAKE 1 WEEK OFF. REPEAT NEEDED External , Notes to Pharmacist: L2089,UnavailableMetoprolol Tartrate 25 MG Tablet Oral Taking amLODIPine Besylate 10 MG Tablet 1 tablet Orally Once a day Taking Multivitamin Taking Acetaminophen Taking Vitamin D3 1000 UNIT Capsule 1 capsule Orally Once a day Taking Aspirin 81 MG Tablet 1 tablet Orally Once a day Taking Plavix Taking Torsemide 20 MG Tablet 2 tabs Orally Taking Betamethasone Dipropionate 0.05 % Cream APPLY TWICE DAILY TO LOWER LEGS FOR 2 WEEKS THEN TAKE 1 WEEK OFF. REPEAT NEEDED External , Notes to Pharmacist: L2089,UnavailableTaking Metoprolol Tartrate 25 MG Tablet Oral Not- Taking/PRNVazalore Ezetimibe Tamsulosin HCl Pepto-Bismol Atorvastatin Calcium 20 MG Tablet 1 tablet Orally Once a day Co Q 10 10 MG Capsule 1 capsule with a meal Orally Once a day Ecorse 3 Colace Torsemide 20 MG Tablet as directed Orally Once a day Clopidogrel Bisulfate 75 MG Tablet as directed Allopurinol 100 MG Tablet Orally every other day Centrum Silver Tablet Orally Tums 500 MG Tablet Chewable 1 tablet Orally Four times a day , Notes to Pharmacist: PRNExtra-Depth Diabetic Shoes with 3 Pair Custom heat- molded multi-density innersoles . . for 1 year . Dx:please accomodate for painful left 5th mtpj in the insole Metoprolol Succinate 100 MG Capsule ER 24 Hour Sprinkle Orally Vitamin B 12 Biotin Ocuvite Lipitor 20 MG Tablet Orally Nystop Fish Oil Spironolactone 25 MG Tablet 1 tablet Orally Once a day hydroCHLOROthiazide 25 MG Tablet 1 tablet in the morning Orally Once a day Furosemide 20 MG Tablet Oral Pantoprazole Sodium 40 MG Tablet Delayed Release take 1 tablet by mouth every morning Oral Lasix 40 MG Tablet 1 tablet Orally Once a day traMADol HCl Colchicine 0.6 MG Tablet 1 tablet Orally Once a day Mupirocin 2 % Ointment External Chlorhexidine Gluconate 0.12 % Solution Mouth/Throat Isosorbide Mononitrate ER 60 MG Tablet Extended Release 24 Hour Oral Lisinopril 10 MG Tablet 1 tablet Orally Once a day Atenolol 25 MG Tablet 1 tablet Orally Once a day Omeprazole 20 MG Capsule Delayed Release 1 capsule Orally Once a day Warfarin Sodium 1 MG Tablet take 3 tablets by mouth once daily or as directed for 10 days Oral Folic Acid 1 MG Tablet 1 tablet Orally Once a day Vitamin B-6 50 MG Tablet 1 tablet Orally Once a day Ecorse Power 1050 MG Capsule 1 capsule Orally Once a day Aleve 220 MG Tablet 1 tablet as needed Orally every 12 hrs Multivitamin Medication List reviewed and reconciled with the patientNot-Taking/PRN Vazalore Not-Taking/PRN Ezetimibe Not-Taking/PRN Tamsulosin HCl Not-Taking/PRN Pepto-Bismol Not-Taking/PRN Atorvastatin Calcium 20 MG Tablet 1 tablet Orally Once a day Not-Taking/PRN Co Q 10 10 MG Capsule 1 capsule with a meal Orally Once a day Not-Taking/PRN Ecorse 3 Not-Taking/PRN Colace Not-Taking/PRN Torsemide 20 MG Tablet as directed Orally Once a day Not-Taking/PRN Clopidogrel Bisulfate 75 MG Tablet as directed Not-Taking/PRN Allopurinol 100 MG Tablet Orally every other day Not-Taking/PRN Centrum Silver Tablet Orally Not-Taking/PRN Tums 500 MG Tablet Chewable 1 tablet Orally Four times a day , Notes to Pharmacist: PRNNot- Taking/PRN Extra-Depth Diabetic Shoes with 3 Pair Custom heat-molded multi-density innersoles . . for 1 year . Dx:please accomodate for painful left 5th mtpj in the insole Not-Taking/PRN Metoprolol Succinate 100 MG Capsule ER 24 Hour Sprinkle Orally Not-Taking/PRN Vitamin B 12 Not-Taking/PRN Biotin Not-Taking/PRN Ocuvite Not-Taking/PRN Lipitor 20 MG Tablet Orally Not-Taking/PRN Nystop Not-Taking/PRN Fish Oil Not-Taking/PRN Spironolactone 25 MG Tablet 1 tablet Orally Once a day Not-Taking/PRN hydroCHLOROthiazide 25 MG Tablet 1 tablet in the morning Orally Once a day Not-Taking/PRN Furosemide 20 MG Tablet Oral Not-Taking/PRN Pantoprazole Sodium 40 MG Tablet Delayed Release take 1 tablet by mouth every morning Oral Not- Taking/PRN Lasix 40 MG Tablet 1 tablet Orally Once a day Not-Taking/PRN traMADol HCl Not-Taking/PRN Colchicine 0.6 MG Tablet 1 tablet Orally Once a day Not- Taking/PRN Mupirocin 2 % Ointment External Not-Taking/PRN Chlorhexidine Gluconate 0.12 % Solution Mouth/Throat Not-Taking/PRN Isosorbide Mononitrate ER 60 MG Tablet Extended Release 24 Hour Oral Not-Taking/PRN Lisinopril 10 MG Tablet 1 tablet Orally Once a day Not-Taking/PRN Atenolol 25 MG Tablet 1 tablet Orally Once a day Not- Taking/PRN Omeprazole 20 MG Capsule Delayed Release 1 capsule Orally Once a day Not- Taking/PRN Warfarin Sodium 1 MG Tablet take 3 tablets by mouth once daily or as directed for 10 days Oral Not-Taking/PRN Folic Acid 1 MG Tablet 1 tablet Orally Once a day Not-Taking/PRN Vitamin B-6 50 MG Tablet 1 tablet Orally Once a day Not- Taking/PRN Ecorse Power 1050 MG Capsule 1 capsule Orally Once a day Not-Taking/PRN Aleve 220 MG Tablet 1 tablet as needed Orally every 12 hrs Not-Taking/PRN Multivitamin Medication List reviewed and reconciled with the patient * Allergies:?Hydromorphone: wi thdrawAzithromycin: nausea and dehydrationErythromycin: nausea and dehydrationBiaxin: nausea and dehydrationCodeine: nauseayes[Allergies Verified] Objective: * Vitals:?Ht: 5 ft, Wt: 145, B NE: 28.32, Shoe size: 6.5, BP: 148/70 mm Hg, Ht-cm: 149.86 cm, Wt-k.77 kg. * Examination: ???General Examination: ?GENERAL APPEARANCE:?Reveals a pleasant, alert, well nourished, well- developed, well hydrated individual, who demonstrates proper attention to hygiene/body habitus, and is in no acute distress, Pt serves as own historian for office visit today.?ORIENTED:?person, place, and time.?Vascular: ?DP PULSES(B):? 0/4, B/L.?PT PULSES(B):? 0/4, B/L.?CAPILLARY FILL TIME:? delayed, all digits, B/L.?TROPHIC CONDITION-TEXTURE/ELASTICITY/TURGOR/HAIR GROWTH(B):? decreased, fragile, thin, shiny skin, with sparse to absent hair growth, B/L.?TEMPERTURE GRADIENT(C):? decreased, cool to cool, proximal to distal, B/L.?PIGMENTATION:?cyanotic, B/L.?EDEMA(C):?absent, B/L.?CLAUDICATION(C):?denies, B/L.?REST PAIN:?denies, B/L.?PARESTHESIA(C):?absent, B/L.?BURNING(C):?absent, B/L.?Dermatologic: ?SKIN FINDINGS:?Skin exam reveals Keratotic lesion(s) located at sub 1st metatarsal head B/L, sub 5th metatarsal B/L, plantar heels B/L.?Nails: ?NAILS are:?Elongated, overgrown, dystrophic, lytic, greater than 3mm thick, discolored and friable with crumbly malodorous subungual debris, with pain on palpation, 1-5 B/L.?Orthopedic: ?MUSCLE STRENGTH:?5/5 all groups in a symmetrical fashion, B/L.?Neurological: ?SENSORY:?Neurological exam reveals intact sensorium, pain sensation normal, vibration sensation intact, pinprick sensation is normal in the lower extremities, Pt denies, anesthesia, burning, paresthesia, tingling, B/L.? 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 Plan: * Treatment: 2.?Tinea unguium?Procedure: 59040-FCBPPOD NAIL, 6 OR MORE * Procedures:?Debride Nail 6-10:?Nail debridement?Performance of this nail treatment by a nonprofessional would put this patients foot and overall health at risk. Therefore, debridement to affected nail(s), as described in exam, was performed extensively to reduce/remove overall nail length, girth, thickness, subungual debris, and necrotic tissue, by manual and/or electrical means through the use of a nail nipper and/or dremel-type glass grinder, to a more viable healthy nail plate or bed tissue 6-10 nails in total. Silver nitrate was used for any petechial bleeding as necessary. Definitive antifungal treatment options, both pharmaceutical and surgical, have been reviewed and discussed with the patient. The patient solely prefers the use of intermittent/as needed professional debridement services for their nail condition and understands the need for additional periodic treatments to maintain effectiveness in symptomatic relief - 68497.?Keratoma Treatment:?Parring or Cutting of Benign Hyperkeratotic Lesion(s)?(-57) More than 4 Lesions - The Benign hyperkeratotic lesions, ( 6 ) in total, locations as stated and described in exam, were pared, and/or cut utilizing a sterile 15 blade, tissue nippers, and/or power dremel instrumentation - 61585, Q8.? * Procedure Codes:?60939 DEBRI DE NAIL, 6 OR MORE, Modifiers: XS 14397 TRIM SKIN LESIONS, OVER 4, Modifiers: XS , Q8 * Follow Up:?3 Months * Images: * Sign off status: Completed true * Provider:?Francesca Gutierrez DPM Date:?10/26/2023 Generated for Leroy martinez/Shonda/Isaias on:?12/25/2024 03:14 PM EDT History and Physical Notes * HPI (History of Present Illness) Category Sub-Category Detail Notes Category Not es At Risk footcare Pt States Last PCP Visit: Date: 4 Examination Category Sub-Category Detail Notes Category Not es Neurological SENSORY: Neurological exa m reveals intact sensorium, pain sensation normal, vibration sensation intact, pinprick sensation is normal in the lower extremities, Pt denies, anesthesia, burning, paresthesia, tingling, B/L Dermatologic SKIN FINDINGS: Skin exam reveal s Keratotic lesion(s) located at sub 1st metatarsal head B/L, sub 5th metatarsal B/L, plantar heels B/L Orthopedic MUSCLE STRENGTH: 5/5 all groups in a symmetrical fashion, B/L General Examination GENERAL APPEARANCE: Reveals a pleasant, alert, well nourished, well-developed, well hydrated individual, who demonstrates proper attention to hygiene/body habitus, and is in no acute distress, Pt serves as own historian for office visit today ORIENTED: person, place, and t karri Vascular DP PULSES (B): 0/4, B/L PT PULSES (B): 0/4, B/L CAPILLARY FILL TIME: delayed, all digits , B/L TEMPERTURE GRADIENT (C): decreased, cool to cool, proximal to distal, B/L TROPHIC CONDITION-TEXTURE/ELASTICITY/TURGOR/HAIR GROWTH (B): decreased, fragile, thin, shiny skin, wi th sparse to absent hair growth, B/L EDEMA (C): absent, B/L CLAUDICATION (C): denies, B/L REST PAIN: denies, B/L PIGMENTATION: cyanotic, B/L PARESTHESIA (C): absent, B/L BURNING (C): absent, B/L Nails NAILS are: Elongated, overg rown, dystrophic, lytic, greater than 3mm thick, discolored and friable with crumbly malodorous subungual debris, with pain on palpation, 1-5 B/L
--- OUTSIDE RECORDS SUMMARY | 2024-12-25 15:14 | XMS_ITS | Patient Health Record ---
Author Organization [facility] Address [address] [place] [address] Care Team Providers Care Teacher Name Role Phone Issa STEIN, [facility] Primary Care Provider Umair Villafana [phone] Allergies Allergen (clinical drug ingredient) Drug/Non Drug Allergy documented on EMR Reaction Allergy Type Onset Date Status hydromorphone HYDROmorphone Unknown Drug Allergy Active codeine Codeine Unknown Drug Allergy Active azithromycin Azithromycin Unknown Drug Allergy A ctive Results Component Value Reference Range Notes Pathology Reviewed date:11/21/2024 10:20:00 AM Interpretation: Performing Lab:[facility], [address] [place] [phone] Notes/Report: Name: Pravin Frazierronald Lundberg Age/Sex: 88/F : 1935 Unit#: [id number] Attend Dr: Umair Tracey MD Re07/18/24 Status : [facility] Location: [facility] Disch: SPEC : [id number] RECD : 07/18/24 STATUS: YANELIS BELL NUM: [id number] VALERIE: 07/18/24-[address] [facility] [address]: Umair Tracey MD ENTERED: 07/18/24- SP TYPE: Surgical OTHR DR: Penelope Parsons MD ORDERED: HE Stain/3, Gross Micro L4, IHC, Special st. 2, H. pylori, AB/PAS Diagnosis Stomach, antrum, bio psy: Gastric antral mucosa with reactive gastropathy; negative for Helicobacter pylori, intestinal metaplasia and dysplasia. Clinical History Pre-Op Dx: Dysphagia Post-Op Dx: Hiatal h ernia, esophagitis Microscopic Description A. Microscopic secti ons examined. No metaplastic changes are seen, supported by AB/PAS stains (A); no Helic obacter organisms are seen, supported by H. pylori immunostain (A). Material Received Gastric antrum Gross Description Received in formalin labeled ?gastric antrum? are 3 ward-pink rectangular tissue fragments ranging from 0.35-0. 45 cm, submitted in toto in a cassette labeled A. CEDS Special stains order ed and performed: AB PAS on A; immunostain for H pylori on A. Copies To: Penelope Parsons MD [facility] [address] [place], [place] [id number] Umair Tracey MD [facility] [address] [place] [address] [address] [place], [place] [address] CONTINUED ON NEXT PAGE Name: Fede Frazier Age/Sex: 88/F : 1935 Unit#: [id number] Attend Dr: Umair Tracey MD Re07/18/24 Status : [facility] Location: [facility] Disch: SPEC : [id number] RECD : 07/18/24298 STATUS: YANELIS BELL NUM: [id number] VALERIE: 07/18/[address] [facility] [address]: Umair Tracey MD ENTERED: 07/18/24 SP TYPE: Surgical OTHR DR: Penelope Parsons MD ORDERED: HE Stain/3, Gross Micro L4, IHC, Special st. 2, H. pylori, AB/PAS Signed (si gnature on file) Amanda Ball MD 07/19/24 1456 END OF REPORT Reason For Referral No Information Medications Medication SIG (Take, Route, Frequency, Duration) Notes Start Date End Date Status Metoprolol Succinate ER 25 MG TAKE 1 TABLET BY MOUTH TWICE DAILY Oral for 90 Active amLODIPine Besylate 5 MG 1 tablet Oral twice a day for 90 days Active Torsemide 20 MG TAKE 2 TABLETS BY MOUTH DAILY Oral for 90 Active hydrALAZINE HCl 10 MG 1 tablet with food Oral Twice a day for 30 days Active Clopidogrel Bisulfate 75 MG TAKE 1 TABLET BY MOUTH EVERY DAY Oral for 90 [id number],Unavailab le Active Vitamin D 50 MCG (2000 UT) 1 capsule Orally Once a day for 30 day(s) Active Aspirin Adult Low Strength 81 MG 1 tablet Orally Once a day for 30 day(s) Active Pepto Bismol 262 MG 1 capsule as needed Orally 8 time(s) a day Active Tylenol Arthritis Pain Active Omeprazole 40 MG 1 Orally Once a day every morning for 90 days 07/18/2024 Active Allopurinol 100 MG 1 tablet Orally Once a day for 30 day(s) Active Betamethasone Dipropionate 0.05 % APPLY TWICE DAILY TO LOWER LEGS FOR 2 WEEKS THEN TAKE 1 WEEK OFF. REPEAT NEEDED External for 30 L2089,Unavailab le Active Omeprazole 20 MG 1 Orally Once a day every morning for 90 days 06/18/2024 Active Co Q-10 200 MG as directed Orally Active Atorvastatin Calcium 20 MG Oral for 90 Active Biotin 5000 Active Colace 100 MG 1 capsule as needed Orally Once a day for 30 day(s) Active Social History Tobacco Use: Social History Observation Description Date Details (start date - stop date) Former Smoker NA - NA Tobacco Use/Smoking Question Answer Notes Patient is a former smoker How long has it been since you last smoked? > 10 years Alcohol Screen Question Answer Notes Did you have a drink containing alcohol in the p ast year? No Points 0 Interpretation Negative Problems Problem Type SNOMED Code ICD Code Onset Dates Problem Status W/U Status Risk Notes Problem Gastro-esophageal reflux disease without esophagitis (419193195) Gastro-esophag eal reflux disease without esophagitis (K21.9) Active confirmed Problem Dysphagia (77002038) Dysphagia (R13.10) Active confirmed Problem Duodenitis (91197684) Duodenitis (K29.80) Active confirmed Problem Esophageal stricture (83208402) Esophageal stricture (K22.2) Active confirmed Problem Hiatal hernia (25636618) Hiatal hernia (K44.9) Active confirmed Problem Chronic gastritis (3975880) Gastritis, chronic (K29.50) Active confirmed Problem Gastroesophageal reflux disease (disorder) (883405177) Chronic GERD (K21.9) Active confirmed Vital Signs Blood pressure diastolic 11 mm Hg 11/21/2024 Height 4 ft 10 in in 11/21/2024 Blood pressure systolic 111 mm Hg 11/21/2024 Weight 138 lbs 11/21/2024 BMI 28.84 kg/m2 11/21/2024 Encounters Encounter Location Date Provider Diagnosis [facility] [address] [place] [phone] 07/18/2024 Umair Tracey Esophageal stricture K22.2 ; Other specified disease of esophagus K22.89 ; Gastro-esophageal reflux disease without esophagitis K21.9 ; Hiatal hernia K44.9 ; Duodenitis K29.80 ; Gastritis, chronic K29.50 and Dysphagia R13.10 [facility] [address] [place] [phone] 11/21/2024 Umair Tracey Esophageal stricture K22.2 ; Dysphagia R13.10 ; Chronic GERD K21.9 and Hiatal hernia K44.9 [facility] [address] [place] [phone] 06/18/2024 Umair Tracey Dysphagia R13.10 and Chronic GERD K21.9 [facility] [address] [place] [phone] 06/30/2024 Umair Tracey [facility] [address] [place] [address] [address] [place] [phone] 07/18/2024 Umair Tracey Assessments Encounter Date Diagnosis (ICD Code) Assessment Notes Treatment Notes Treatment Clinical Notes Section Notes 07/18/2024 Esophageal stricture (ICD-10 - K22.2) 07/18/2024 Other specified disease of esophagus (ICD-10 - K22.89) 11/21/2024 Esophageal stricture (ICD-10 - K22.2) Continue omeprazole 20mg daily supervisor long 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 Call me if problems 06/18/2024 Dysphagia (ICD-10 - R13.10) Stop Clopidogrel for 5 days before the procedure Do not take aspirin on the morning of the procedure Overall, Aminah appears quite well from a clinical standpoint given her age, multiple medical issues, and her ongoing upper GI complaints. We did review that she may very well have developed an esophageal stricture from the years of chronic reflux. Other things to be concerned about would be that of an esophageal neoplasm, although given her good clinical appearance I doubt that would be the case. I did recommend an upper endoscopy with possible balloon dilation further treatment and evaluation. Full consent was obtained from her for this, including risks of bleeding and perforation. She was given the below instructions regarding adjustment of her medications for the procedure. The procedure will be done with monitored anesthesia care. She does have an appointment with Dr. Ruvalcaba on July 08. We shall schedule her procedure for some time after that so as to be able to obtain his clearance for her. We shall also schedule her for a PAT appointment at the hospital to meet with the anesthesiologists as well. In the meantime, I shall start her on a regimen of omeprazole 20 mg daily to decrease any further acid reflux. I did instruct her to continue to be very careful with her eating and chewing so to avoid an esophageal obstruction. Aminah and her daughter were comfortable with this plan. Thank you again for allowing me to participate in Aminah's care. I shall continue to keep you advised of her progress. 06/18/2024 Chronic GERD (ICD-10 - K21.9) Overall, Aminah appears quite well from a clinical standpoint given her age, multiple medical issues, and her ongoing upper GI complaints. We did review that she may very well have developed an esophageal stricture from the years of chronic reflux. Other things to be concerned about would be that of an esophageal neoplasm, although given her good clinical appearance I doubt that would be the case. I did recommend an upper endoscopy with possible balloon dilation further treatment and evaluation. Full consent was obtained from her for this, including risks of bleeding and perforation. She was given the below instructions regarding adjustment of her medications for the procedure. The procedure will be done with monitored anesthesia care. She does have an appointment with Dr. Ruvalcaba on July 08. We shall schedule her procedure for some time after that so as to be able to obtain his clearance for her. We shall also schedule her for a PAT appointment at the hospital to meet with the anesthesiologists as well. In the meantime, I shall start her on a regimen of omeprazole 20 mg daily to decrease any further acid reflux. I did instruct her to continue to be very careful with her eating and chewing so to avoid an esophageal obstruction. Aminah and her daughter were comfortable with this plan. Thank you again for allowing me to participate in Aminah's care. I shall continue to keep you advised of her progress. 07/18/2024 Gastro-esophag eal reflux disease without esophagitis (ICD-10 - K21.9) 11/21/2024 Dysphagia (ICD-10 - R13.10) 07/18/2024 Hiatal hernia (ICD-10 - K44.9) 11/21/2024 Chronic GERD (ICD-10 - K21.9) 07/18/2024 Duodenitis (ICD-10 - K29.80) 11/21/2024 Hiatal hernia (ICD-10 - K44.9) 07/18/2024 Gastritis, chronic (ICD-10 - K29.50) 07/18/2024 Dysphagia (ICD-10 - R13.10) Plan Of Treatment Future Test Test Name Order Date UPPER GI ENDOSCOPY BALLOOON DILATION OF ESOPH 06/18/2024 Insurance Providers Payer Name Payer Address Payer Phone Subscriber Number Group Number Insured Name Patient Relationship to Insured Coverage Start Date Coverage End Date MEDICARE OF [place] [address] [place] [address] [phone] [id number] FREDDIEPRAVIN AGUILARIA Self - patient is the insured [employer] ATTN CLAIMS [address] [place] [phone] [id number] PRAVIN FRAZIERIA Self - patient is the insured Medical (General) History Medical History History ICD Code Neuropathy Arthritis Peripheral vascular disease Coronary artery disease Gout Hypertension Chronic kidney disease-- Stage 3 -sees Dr[address] Booth GERD--EGD 07/2024 Denies PR,DM,CVA,Lung disease Surgical History Surgery Date(Month/Year) Bilateral knee replacements tonsillectomy CARPAL TUNNEL BILATERAALY S/P CABG Hx of cataract surgery Hx of bilateral hip replacements LE vein stripping
--- OUTSIDE RECORDS SUMMARY | 2024-12-25 15:15 | XMS_ITS | Encounter Summary ---
Author Organization [facility] Address [address] [place] [address] Phone Care Team Providers Care Inserter Promotional Item Name Role Phone Penelope Parsons MD Primary Care Provider [phone] Encounter Details Date Type Department Care Team (Late Contact Info) Description 06/25/2024 Documentation Only [facility] [address] [place] [address] [place] [address] [place] [address] Social History Tobacco Use Types Packs/Day Years [...] on file documented as of this encounter Plan of Treatment Upcoming Encounters Date Type Department Care Team (Late st Contact Info) Description 06/06/2025 2:00 PM EDT Office Visit [facility] [address] [place] [address] Juan Luis MD [address] [facility] [address] [place] [address] documented as of this encounter Visit Diagnoses Not on filedocumented in this encounter Care Teams Inserter Promotional Item Relationship Specialty Start Date End Date Penelope Parsons MD [address] [facility] [place] [id number] PCP - General 08/06/19 documented as of this encounter
--- OUTSIDE RECORDS SUMMARY | 2024-12-25 15:15 | XMS_ITS ---
Author Organization [facility] Address [address] [place] [address] Care Team Providers Care Financial Investment Adviser Name Role Phone Issa STEIN, [facility] Primary Care Provider Francesca Zapien Unavailable [phone] Juan Daniel Ambrosio Unavailable [phone] REASON FOR VISIT Painful nail(s) aggrevated by shoes and causing difficulty standing/walking. Encounters Encounter Location Date Provider Diagnosis 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 Patient chooses, no pharmaceutical tx (77001) Keratoma Treatment Parring or Cutting o f Benign Hyperkeratotic Lesion(s) 60138 ( 2-4 Lesions ) - The Benign hyperkeratotic lesions, as described above were pared, and/or cut utilizing a sterile 15 blade, tissue nippers, and/or dremel , Q8 Progress Notes * Aminah FRAZIER SDOB:1935 (89 yo F)Acc No.[id number]:04/29/2024 Progress Note Patient:?Aminah FRAZIER S Provider:?Juan Daniel Ambrosio DPM :1935???Age:88 Y???Sex:Female D ate:04/29/2024 Address:[address] [place], [place] [address]ation Rosalba [place]berg [phone] Pcp:Penelope Parsons MD Subjective: * Chief Complaints: * ???1. Painful nail(s) aggrev ated by shoes and causing difficulty standing/walking.. * HPI: ???Painful Nails:?Pt States Last PCP Visit:?Date:?08/02/2023 ?Misc:?daughter Arianna is present who takes care of and lives with her Mom.?Toe pain:?Nature:?aching, tenderness, sharp.?Location:?5th toe, Left foot.?Duration:?several months.?Onset/Cause:?gradual.?Aggravated by:?shoes, any pressure.?Treatments:?change in shoes, bracing/splinting/padding.? * ROS:?General/Constitutional:?Nausea?denies.?Vomiting?denies.?Hunger Thirst?denies.?Loss appetite?denies.?Chills?denies.?Fatigue?admits.?Fever?denies.?Night Sweats?denies.?Unexplained weight loss?denies.?Unexplained weight gain?denies.?HEENTM:?Dentures?denies.?Dizziness?denies.?Glasses/contacts?admits.?Retinopathy?de nies.?Blurred/double vision?denies.?TMJ?denies.?Discharge/drainage?denies.?Implants?denies.?Sore throat?admits.?Dental implants?admits.?Hard of hearing ?denies.?Difficulty chewing/swallowing/speaking?admits.?Nose bleeds?admits.?Sore mouth?denies.?Respiratory:?On Oxygen?denies.?Pneumonia/pleurisy?denies.?Bronchitis?denies.?Emphysema?denies.?C oughing?denies.?Cough blood?denies.?Shortness of breath?admits.?Wheezing?denies.?Cardiovascular:?Pacemaker?denies.?MVP?denies.?WPW?denies.?CHF?denies.?Heart attack?denies.?Septal defect?denies.?Rapid beat?denies.?Chest pain ?denies.?Atrial Fib.?denies.?Murmur/Palpitations?denies.?Gastrointestinal:?Hemorrhoids?denies.?Stomach/Abdominal pain?denies.?Dark blood stool?denies.?Irritable bowel ?denies.?Constipation?denies.?Diarrhea?denies.?Hematology:?Swelling?admits.?Clots?denies.?Varicose Veins?admits.?Bruising?admits.?Bleeding problem?denies.?Genitourinary:?Blood urine?denies.?Frequent/Painfu/urination/bladder control?admits.?Kidney stones?denies.?Infection (UTI)?denies.?Nephropathy?denies.?sex trans dis (STD)?denies.?Prostate?denies.?Musculoskeletal:?Hammertoes?denies.?Bunions?denies.?Back Pain?denies.?Muscle Cramps/ Resting?admits.?Muscle cramps / walking?denies.?Generalized aches and pains?denies.?Weakness?admits.?Integ.:?Diallo?denies.?Scars?denies.?Corns/calluses?admits.?Ingrown nails?denies.?Painful nails?denies.?Open Sores?denies.?Rashes?denies.?Neurologic:?Difficulty sleeping?denies.?Brain disorder?denies.?Numbness?denies.?Balance trouble?admits.?Confusion?denies.?Fainting/blackouts?denies.?Tingling?denies.?Tr emors?denies.? * Medical History:? Objective: * Vitals:? * Examination: ???General Examination: ?GENERAL APPEARANCE:?pleasant, alert, [...] ?PALPATION:?No interspace pain noted on palpation.?Vascular: ?DP PULSES (B):? 0/4, B/L.?PT PULSES (B):? 0/4, B/L.?CAPILLARY FILL TIME:? delayed, all digits, B/L.?TROPHIC CONDITION-TEXTURE/ELASTICITY/TURGOR/HAIR GROWTH (B):? decreased, B/L.?TEMPERTURE GRADIENT (C):? decreased, cool to cold, proximal to distal, B/L.?PIGMENTATION:? cyanotic, B/L.?EDEMA (C):? 2/4, pitting, B/L, Feet, Ankle(s), Leg(s).?TELANGECTASIA:? moderate.?VARICOSITIES:? present, moderate, nonpainful, B/L.?Dermatologic: ?SKIN FINDINGS:? Skin exam reveals Keratotic lesion(s) located at, Dorsal, PIPJ, T4, SUB MTH (s), 1, 5, Left , Skin exam reveals Keratotic lesion(s) located at, SUB MTH (s), 1, Right.?Orthopedic: ?MUSCLE STRENGTH:?5/5 all groups in a symmetrical fashion , B/L.?GAIT ABNORMALITY:?pronated, abducted, B/L.?BUNION:? Medially prominent 1st MPJ, Dorsally prominent 1st MPJ , (+) Pain on palpation, RIGHT, Lateral tracking 1st MPJ incompletely reducable.?TAILOR'S BUNION:? Prominent 5th MTH/MPJ, B/L.?DIGITAL DEFORMITIES:? Digital contracture, PIPJ, 2-5 B/L, incompl- reducable to push-up test, no over, nor underlapping.?Nails: ?NAILS are:? Elongated, overgrown, dystrophic, lytic, greater than 3mm thick, discolored and friable with crumbly malodorous subungual debris, with pain on palpation, 1-5 Right foot, TA.? 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 Plan: * Treatment: * Procedures:?Debride Nail 6-10:?Nail debridement?Nail debridement performed extensively to reduce/remove overall nail length and girth, subungual debris, and necrotic tissue, by manual and electrical means with use of a nail nipper and/or dremel, to more viable healthy nail plate or bed tissue 6-10. Silver nitrate used for any petechial bleeding as necessary. Patient chooses, no pharmaceutical tx (18057).?Keratoma Treatment:?Parring or Cutting of Benign Hyperkeratotic Lesion(s)?02437 ( 2-4 Lesions ) - The Benign hyperkeratotic lesions, as described above were pared, and/or cut utilizing a sterile 15 blade, tissue nippers, and/or dremel , Q8.? * Procedure Codes:?53953 DEBRI DE NAIL, 6 OR MORE, Modifiers: XS , 01499 TRIM SKIN LESIONS, 2 TO 4, Modifiers: Q8 * Follow Up:?3 Months * Images: * The named appointment provid er may or may not be the originator of this progress note, and it is not deemed complete until electronically signed by the appointment provider. Sign off status: Pending * Provider:?Juan Daniel Ambrosio DPM Date:? 024 Generated for Leroy martinez/Shonda/Cassandraitting on:?12/25/2024 03:14 PM EDT History and Physical [...]
--- OUTSIDE RECORDS SUMMARY | 2024-12-25 15:15 | XMS_ITS ---
Author Organization [facility] Address [address] [place] [address] Care Team Providers Care Sap Bpc Developer Name Role Phone Issa STEIN, Asma Primary Care Provider Umair Villafana [phone] REASON FOR VISIT 40mg omeprazole Rx Medications Medication SIG (Take, Route, Fr equency, Duration) Notes Start Date End Date Status Omeprazole 40 MG 1 Orally Once a day every morning for 90 days 07/18/2024 Active Encounters Encounter Location Date Provider Diagnosis [facility] [address] [place] [phone] 07/18/2024 Umair Tracey Plan Of Treatment Medication Medication Name Sig Start Date Stop Date Notes Omeprazole 40 MG 1 Orally Once a day every morning for 90 days 07/18/2024 Progress Notes * FREDDIE, JANINEDOB:[birth year] (88 yo F)Acc No.[id number]:07/18/2024 Patient:?PRAVIN FRAZIERIA :1935???Age:88 Y???Sex:Female Address:[address] [place] [address] * Refills? Start Omeprazole Capsule Delayed Release, 40 MG, Orally, 90, 1, Once a day every morning, 90 days, Refills=3 * true * Date:? Generated for Leroy martinez/Shonda/eTransmitting on:?12/25/2024 03:14 PM EDT
--- OUTSIDE RECORDS SUMMARY | 2024-12-25 15:15 | XMS_ITS ---
Author Organization [facility] Address [address] [place] [address] Care Team Providers Care Cardiac Sonographer Name Role Phone Issa STEIN, Penelope Primary Care Provider Umair Villafana [phone] REASON FOR VISIT burning in throat Encounters Encounter Location Date Provider Diagnosis [facility] [address] [place] [phone] 09/03/2024 Umair Tracey Plan Of Treatment No Information Progress Notes * JANINE FRAZIERDOB:[birth year] (89 yo F)Acc No.[id number]:09/03/2024 Progress Notes Patient:?JANINE FRAZIER Provider:?Umair Tracey MD :1935???Age:88 Y???Sex:Female D ate:09/03/2024 Address:[address] [place], [place] [phone] Pcp:Penelope Parsons MD Subjective: * Chief Complaints: * ???1. Burning in throat. * Medical History:? Objective: * Vitals:? Assessment: Plan: * Treatment: * * The named appointment provid er may or may not be the originator of this progress note, and it is not deemed complete until electronically signed by the appointment provider. Sign off status: Pending * Provider:?Umair Tracey MD Date:? 024 Generated for Printi ng/Fatheodorag/eTransmitting on:?12/25/2024 03:14 PM EDT
--- OUTSIDE RECORDS SUMMARY | 2024-12-25 15:15 | XMS_ITS | Clinical Summary ---
Author Organization [facility], Address [address] [place] [address] [place] [address] Phone Care Team Providers Care Band Lining Bander Name Role Phone Penelope Parsons MD Primary Care Provider [phone] Allergies Active Allergy Reactions Criticality Noted Date Comments Azithromycin Other (see comments) 12/04/2023 Clarithromycin Other (see comments) 12/04/2023 Codeine Nausea,Other (see comments) 12/04/2023 Erythromycin Other (see comments) 12/04/2023 Guaifenesin Nausea Only 05/27/2021 Hydrocodone 12/04/2023 Hydromorphone 12/04/2023 Other Reaction(s): withdraw pt unable to recall if allergy is hydrocodone or hydromorphone, requests both added to allergy list Levofloxacin Nausea Only 05/27/2021 Medications aspirin 81 MG tablet Take 81 mg by mouth 1 (one) time each day Active atorvastatin (LIPITOR) 20 MG tablet Take 20 mg by mouth 1 (one) time each day Active co-enzyme Q-10 30 MG capsule Take 30 mg by mouth 1 (one) time each day Active docusate sodium (COLACE) 100 MG capsule Take 100 mg by mouth 2 (two) times a day Active Lutein 6 MG capsule Take by mouth Active Multiple Vitamin (MULTIVITAMIN) capsule Take 1 capsule by mouth 1 (one) time each day Active sodium polystyrene (KAYEXALATE) 15 GM/60ML suspension Take 15 g by mouth 1 (one) time Active torsemide (DEMADEX) 20 MG tablet Take 60 mg by mouth 1 (one) time each day Active Cholecalciferol 50 MCG (2000 UT) capsule Take by mouth Active metoprolol succinate XL (TOPROL XL) 25 MG 24 hr tablet Take 1 tablet (25 mg total) by mouth twice a day Do not crush or chew. 1 Active allopurinol (ZYLOPRIM) 100 MG tablet Take 100 mg by mouth 1 (one) time each day 1 Active traMADol (ULTRAM) 50 MG tablet Take 50 mg by mouth 2 (two) times a day if needed 1 Active clopidogrel (PLAVIX) 75 MG tablet Take 75 mg by mouth 1 (one) time each day 1 Active oxyCODONE (ROXICODONE) 5 MG immediate release tablet TAKE 1 TO 2 TABLETS BY MOUTH EVERY 4 HOURS NEEDED FOR MODERATE PAIN 2 Active pantoprazole (PROTONIX) 40 MG EC tablet TAKE 1 TABLET BY MOUTH EVERY DAY MEDICATION TO BE STARTED AFTER SURGERY 2 Active triamcinolone (KENALOG) 0.1 % ointment APPLY TOPICALLY TO THE AFFECTED AREA DAILY FOR 14 DAYS 3 Active betamethasone dipropionate 0.05 % cream APPLY TWICE DAILY TO LOWER LEGS FOR 2 WEEKS THEN TAKE 1 WEEK OFF. REPEAT NEEDED 4 Active predniSONE (DELTASONE) 20 MG tablet TAKE 2 TABLETS BY MOUTH DAILY FOR 5 DAYS 3 Active amLODIPine (NORVASC) 5 MG tablet Take 5 mg by mouth in the morning and 5 mg in the evening. Active hydrALAZINE (APRESOLINE) 10 MG tablet Take 10 mg by mouth in the morning and 10 mg in the evening. 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, or unspecified 01/03/2020 Iron deficiency anemia 01/03/2020 Encounters Date Type Department Care Team Description 12/02/2024 2:15 PM EST Office Visit [facility], [address] [place] [address] Juan Luis MD Stage 3b chronic kidney disease (HCC) (Primary Dx); Hypertension; Anemia in chronic kidney disease; Other iron deficiency anemia from Last 3 Months Immunizations Name Administration Dates Next Due Influenza Split High Dose Preservative Free IM 0 12/12/2019 Social History Tobacco Use Types Packs/Day Years [...] on file Sexual Orientation Not on file Last Filed Vital Signs Vital Sign Reading Time Taken Comments Blood Pressure 138/60 12/02/2024 2:15 PM EST Pulse - - Temperature - - Respiratory Rate 22 03/27/2018 12:00 PM EDT Oxygen Saturation - - Inhaled Oxygen Concentration - - Weight 63 kg (138 lb 12.8 oz) 09/03/2021 11:47 A M EST Height 149.9 cm (4' 11 ) 07/08/2019 12:00 PM EDT Body Mass Index 28.03 07/08/2019 12:00 PM EDT Plan of Treatment Upcoming Encounters Date Type Department Care Team (Late st Contact Info) Description 06/06/2025 2:00 PM EDT Office Visit [facility] [address] [place] [address] Juan Luis MD [address] [place] [phone] Health Maintenance Due Date Last Done Comments Pneumococcal Vaccine: 65+ Ye ars (1 of 2 - PCV) 12/14/1941 Influenza Vaccine (#1) 2024 12/12/2019 Hepatitis B Vaccine Aged Out No longe r eligible based on patient's age to complete this topic Insurance MEDICARE [facility] Care Teams Band Lining Bander Relationship Specialty Start Date End Date Penelope Parsons MD [address] [place] [address] PCP - General 08/06/19
--- OUTSIDE RECORDS SUMMARY | 2024-12-25 15:15 | XMS_ITS ---
Author Organization [facility] Address [address] [place] [address] Care Team Providers Care Hose Sprayer Name Role Phone Issa STEIN, [facility] Primary Care Provider Umair Villafana [phone] Allergies Allergen (clinical drug ingredient) Drug/Non Drug Allergy documented on EMR Reaction Allergy Type Onset Date Status hydromorphone HYDROmorphone Unknown Drug Allergy Active codeine Codeine Unknown Drug Allergy Active azithromycin Azithromycin Unknown Drug Allergy A ctive REASON FOR VISIT Patient presents today for esophageal stricture Medications Medication SIG (Take, Route, Frequency, Duration) Notes Start Date End Date Status Metoprolol Succinate ER 25 MG TAKE 1 TABLET BY MOUTH TWICE DAILY Oral for 90 Active Torsemide 20 MG TAKE 2 TABLETS BY MOUTH DAILY Oral for 90 Active Omeprazole 40 MG 1 Orally Once a day every morning for 90 days 07/18/2024 Active Betamethasone Dipropionate 0.05 % APPLY TWICE DAILY TO LOWER LEGS FOR 2 WEEKS THEN TAKE 1 WEEK OFF. REPEAT NEEDED External for 30 [id number],Unavailab le Active Atorvastatin Calcium 20 MG Oral for 90 Active amLODIPine Besylate 5 MG 1 tablet Oral twice a day for 90 days Active hydrALAZINE HCl 10 MG 1 tablet with food Oral Twice a day for 30 days Active Clopidogrel Bisulfate 75 MG TAKE 1 TABLET BY MOUTH EVERY DAY Oral for 90 [id number],Unavailab le Active Vitamin D 50 MCG (1999) 1 capsule Orally Once a day for 30 day(s) Active Aspirin Adult Low Strength 81 MG 1 tablet Orally Once a day for 30 day(s) Active Pepto Bismol 262 MG 1 capsule as needed Orally 8 time(s) a day Active Tylenol Arthritis Pain Active Allopurinol 100 MG 1 tablet Orally Once a day for 30 day(s) Active Co Q-10 200 MG as directed Orally Active Colace 100 MG 1 capsule as needed Orally Once a day for 30 day(s) Active Omeprazole 20 MG 1 Orally Once a day every morning for 90 days 06/18/2024 Active Biotin 5000 Active Social History Tobacco Use: Social History [...] Problem Status W/U Status Risk Notes Problem Hiatal hernia (05594172) Hiatal hernia (K44.9) Active confirmed Vital Signs Blood pressure systolic 111 mm Hg 11/21/19 25 Blood pressure diastolic 11 mm Hg 025 Height 4 ft 10 in in 11/21/2024 Weight 138 lbs 11/21/2024 BMI 28.84 kg/m2 11/21/2024 Encounters Encounter Location Date Provider Diagnosis [facility] [address] [place] [address] 11/21/2024 Umair Tracey Esophageal stricture K22.2 ; Dysphagia R13.10 ; Chronic GERD K21.9 and Hiatal hernia K44.9 Assessments Encounter Date Diagnosis (ICD Code) Assessment Notes Treatment Notes Treatment Clinical Notes Section Notes 11/21/2024 Esophageal stricture (ICD-10 - K22.2) 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 Call me if problems Progress Notes * PRIYANKA FRAZIER:[birth year] (89 yo F)Acc No.[id number]:11/21/2024 Progress Notes Patient:?JANINE FRAZIER Provider:?Umair Tracey MD :1935???Age:88 Y???Sex:Female D ate:11/21/2024 Address:[address] [place], [place] [id number] Pcp:Penelope Parsons MD Subjective: * Chief Complaints: * ???1. Patient presents today for esophageal stricture. * Medical History:?Neuropathy , Arthritis, Peripheral vascular disease, Coronary artery disease, Gout, Hypertension, Chronic kidney disease-- Stage 3 -sees Dr. Booth, GERD--EGD 07/2024, Denies VA,DM,CVA,Lung disease. * Surgical History:?LE vein st ripping , Hx of bilateral hip replacements , Hx of cataract surgery , S/P CABG , CARPAL TUNNEL BILATERAALY , tonsillectomy , Bilateral knee replacements . * Family History:?Father: dece ased, [employer], diagnosed with HTN (hypertension), Heart disease.?Mother: , gallbladder issues.? no known hx of colon cancer. * Social History:?Tobacco Use:?Tobacco Use/Smoking?Patient is a?former smoker,?How long has it been since you last smoked??> 10 years.?Drugs/Alcohol:?Alcohol Screen?Did you have a drink containing alcohol in the past year??No,?Points?0,?Interpretation?Negative.?Miscellaneous:?Housing: Lives in an In-law apartment by her daughter. Marital status: . Occupation: retired. * Medications:?Taking Biotin 5 000 , Taking Colace 100 MG Capsule 1 capsule as needed Orally Once a day , Taking Allopurinol 100 MG Tablet 1 tablet Orally Once a day , Taking Co Q-10 200 MG Capsule as directed Orally , Taking Pepto Bismol 262 MG Capsule 1 capsule as needed Orally 8 time(s) a day , Taking Tylenol Arthritis Pain , Taking Vitamin D 50 MCG (2000 UT) Capsule 1 capsule Orally Once a day , Taking Aspirin Adult Low Strength 81 MG Tablet Delayed Release 1 tablet Orally Once a day , Taking hydrALAZINE HCl 10 MG Tablet 1 tablet with food Oral Twice a day , Taking Clopidogrel Bisulfate 75 MG Tablet TAKE 1 TABLET BY MOUTH EVERY DAY Oral , Notes to Pharmacist: [id number],Unavailable, Taking amLODIPine Besylate 5 MG Tablet 1 tablet Oral twice a day , Taking Torsemide 20 MG Tablet TAKE 2 TABLETS BY MOUTH DAILY Oral , Taking Metoprolol Succinate ER 25 MG Tablet Extended Release 24 Hour TAKE 1 TABLET BY MOUTH TWICE DAILY Oral , Taking Betamethasone Dipropionate 0.05 % Cream APPLY TWICE DAILY TO LOWER LEGS FOR 2 WEEKS THEN TAKE 1 WEEK OFF. REPEAT NEEDED External , Notes to Pharmacist: [id number],Unavailable, Taking Atorvastatin Calcium 20 MG Tablet Oral , Taking Omeprazole 20 MG Capsule Delayed Release 1 Orally Once a day every morning , Taking Omeprazole 40 MG Capsule Delayed Release 1 Orally Once a day every morning , Medication List reviewed and reconciled with the patient * Allergies:?Azithromycin, HYD ROmorphone, Codeine. Objective: * Vitals:?Wt: 138 lbs, Ht: 4 f t 10 in, BMI: 28.84 Index, BP: 111/11 mm Hg, Wt-k.6. Assessment: * Assessment: 1.?Esophageal stricture - K2 2.2???2.?Dysphagia - R13.10???3.?Chronic GERD - K21.9???4.?Hiatal hernia - K44.9??? Plan: * Treatment: 2.?Chronic GERD? Refill Omeprazole Capsule Delayed Release, 20 MG, 1, Orally, Once a day every morning, 90 days, 90, Refills 3.?? * Preventive Medicine:? ??Counseling:?Care goal follow-up plan:?Above Normal BMI Follow-up?Giving encouragement to exercise,?BMI management provided?Yes.? ??Urinary Incontinence:?Urinary Incontinence?Assessment:?Present,?Plan of care documented:?Yes,?Type of plan of care:?Lifestyle interventions.? ??Screenings:?Fall Risk Screening?Fall Risk Assessment:?No falls in the past year,?Screening:?No falls in the past year,?Assessment:?Not performed, no reason specified,?Plan of Care:?Not documented, no reason specified.? * * The named appointment provid er may or may not be the originator of this progress note, and it is not deemed complete until electronically signed by the appointment provider. Sign off status: Pending * Provider:?Umair Tracey MD Date:? 025 Generated for Leroy martinez/Shonda/Cassandraitting on:?12/25/2024 03:15 PM EDT
== END 2024-12-25 13:41 | disposition home or self-care (01) ==
LOC: HO.HSMS 12:53
PROVIDERS: PCP Internal Medicine; Visit Provider Psychiatry & Neurology Neurology
DX: G62.9 Polyneuropathy, unspecified (principal); R26.9 Unspecified abnormalities of gait and mobility
CPT/HCPCS: 99214

== ENCOUNTER 2025-01-27 10:29 | Outpatient (AMB) | payer MEDICARE, SELFPAY ==
[2025-01-27 10:37] VITALS: BP 120/76; PULSE 78; BMI 28.9
--- NOTE | 2025-01-27 10:37 | MHC.OFFVIS ---
Vital Signs 01/27/25 10:37 Height 4 ft 11.5 in Weight 145 lb 8.081 oz BMI 28.9 BP 120/76 Blood Pressure Location Lt brachial Position Sitting Pulse 78 Intake Visit Reasons: 3m follow up Intake Note: 3 month follow-up c/o fatigue Logistics Support Required: No Local City Driver: Local City Driver Present Accompanied by: Daughter Allergies azithromycin Allergy (Intermediate, Verified 12/25/24 13:03) Nausea/Became dehydrated hydromorphone Allergy (Unknown, Verified 12/25/24 13:03) Unknown codeine Adverse Reaction (Intermediate, Verified 12/25/24 13:03) Stomach Upset Medication List - Last Reconciled 01/27/25 by Pranay Ruvalcaba MD acetaminophen ER 650 mg PO Q8H PRN allopurinol 100 mg PO BEDTIME amlodipine 10 mg (2 x 5 mg) PO DAILY aspirin (Adult Low Dose Aspirin) 81 mg PO DAILY atorvastatin 20 mg PO BEDTIME betamethasone dipropionate 0.05% 1 appl topical DAILY PRN cholecalciferol (vitamin D3) (Vitamin D3) 50 mcg PO DAILY clopidogrel 75 mg PO DAILY coenzyme Q10 200 mg PO BEDTIME docusate sodium (Colace) 100 mg PO BEDTIME PRN hydralazine 10 mg PO BID metoprolol succinate ER 25 mg PO BID multivitamin 1 tab PO QAM omeprazole 20 mg PO DAILY torsemide 60 mg (3 x 20 mg) PO DAILY HPI Comments Details: Aminah comes for follow-up. While she has been doing well with the fluid status. She was lost about 15 lb. She is now managing and weighing 135 lb at home. She continues to have leg edema mostly below the knees. No significant orthopnea, PND, leg edema. Blood pressure seems to be better controlled although when she measures blood pressure at home she does not usually relax prior to measuring it. Denies any exertional chest pain. No prolonged palpitation irregular heartbeat. No lightheadedness, syncope. Complains of neuropathy. Does also have cramps in her muscles. [facility] Medical History Back pain History of femoral angiogram Arthritis Gait disorder Neuropathy Degenerative localized arthritis of hip PVD (peripheral vascular disease) CAD (coronary artery disease) Diastolic dysfunction (HFpEF) heart failure with preserved ejection fraction Low hemoglobin Gout Osteoarthritis of knees, bilateral Chronic kidney disease Chronic GERD Lipid disorder Hypertension, essential Surgical History H/O colonoscopy Hx of right cataract extraction History of bilateral knee replacement H/O vein stripping Hx of bilateral hip replacements History of cataract surgery S/P CABG x 2 History of carpal tunnel surgery History of right hip replacement History of tonsillectomy Family History Father CHF (congestive heart failure) CVD (cardiovascular disease) Mother Pancreatitis Maternal Aunt Breast cancer Sister No problems noted. Sister No problems noted. Daughter No problems noted. Social History Housing: House Are you a primary floor care specialist to a significant other at home: No Do you presently have visiting nurse or other home services: No Alcohol intake: never Patient Tobacco Use Status: Former Tobacco user Tobacco use type: Cigarette Years Smoked: 2 years e-Cigarette/Vaping Use: Never Used Second Hand Smoke Exposure: No Current occupational status: retired Cognitive needs: No Hearing needs: No Vision needs: No Review of Systems Const Denies chills, Denies fatigue, Denies fever(s), Denies frequent falls, Denies weakness, Denies weight gain and Denies weight loss ENT Denies dizziness Card Denies chest pain, Denies leg edema, Denies lightheadedness, Denies palpitations, Denies dyspnea, Denies dyspnea on exertion, Denies orthopnea and Denies other (loss of consciousness) Resp Denies cough, Denies dyspnea and Denies dyspnea on exertion GI Denies hematochezia and Denies change in stool character Musc Denies abnormal gait, Denies muscle weakness, Denies numbness, Denies radiating pain into limb and Denies tingling Neuro Denies abnormal gait, Denies dizziness, Denies frequent falls, Denies numbness, Denies tingling and Denies weakness Endo Denies fatigue and Denies palpitations Physical Exam Vital Signs: Last Vital Signs Pulse 78 01/27/25 10:37 BP 120/76 01/27/25 10:37 BMI result Body Mass Index 28.9 Const General: cooperative, healthy appearing, comfortable, no acute distress, well developed, alert and awake Nutritional Appearance: overweight Orientation/consciousness: patient oriented x3 Limitations: no limitations HEENT Head: Yes normal to inspection, Yes normocephalic and Yes atraumatic Eyes General: appearance normal, both eyes and all related structures Neck Neck: Yes normal visual inspection, Yes trachea midline, Yes supple and Yes no JVD Chest Chest palpation & inspection: normal inspection of the chest and other ( Well-healed sternotomy scar) Resp Effort & Inspection: normal respiratory effort Auscultation: clear to auscultation bilaterally, no crackles and no rales Cardio Jugular venous distension: no JVD Palpation: normal PMI Rate: regular rate Rhythm: regular rhythm Heart sounds: S1 normal heart sound present, S2 normal heart sound present, no click, no gallops, Murmur heart sound present systolic early and Other heart sounds present ( S4 present) GI Auscultation: normal bowel sounds Skin General skin exam: no rashes or lesions noted and ecchymosis Neuro General: patient oriented x3 and no focal motor deficits Extrem General: No clubbing, No cyanosis, Yes edema (1-2+ below knee) and Yes other ( Bilateral significant varicosities) Psych Appearance: grossly normal Assessment & Plan Assessment & Plan (1) (HFpEF) heart failure with preserved ejection fraction: Code(s): I50.30 - Unspecified diastolic (congestive) heart failure Category: Medical Plan: Heart failure preserved ejection fraction much improved fluid status on increase torsemide dose. Kidney function has remained stable and Mibi marginally improved. Importance of continuing diuretic therapy was discussed. Daily weight monitoring avoidance salt loading was discussed. Additional diuretics as need be. Continue aggressive blood pressure control with current therapy. This is difficult control, see below. Overall prognosis guarded. Goals of therapy were discussed including avoidance of hospitalization. Follow-up blood work in 3 months time participate in next visit. (2) CAD (coronary artery disease): Code(s): I25.10 - Atherosclerotic heart disease of augustine coronary artery without angina pectoris Category: Medical Qualifiers: Coronary Disease-Associated Artery/Lesion type: [place] artery [place] vs. transplanted heart: augustine heart Associated angina: without angina Qualified Code(s): I25.10 - Atherosclerotic heart disease of augustine coronary artery without angina pectoris Plan: CAD with remote coronary artery bypass grafting without any symptoms of angina. Continue current aggressive blood pressure control. Continue statin therapy with target goal LDL less than 70 mg/dL. Currently on dual antiplatelet therapy due to vascular disease prescribed by vascular surgery. Recommend to follow their advice regarding dual antiplatelet therapy. (3) Labile blood pressure: Code(s): R09.89 - Other specified symptoms and signs involving the circulatory and respiratory systems Category: Medical Plan: Labile blood pressure most likely related to significant diffuse atherosclerotic disease. Advised to continue to monitor blood pressure at home maintain a log. Proper way of measuring blood pressure at home was discussed. Low-salt diet was discussed. Difficulty managing labile blood pressure was discussed with her. Orthostatic symptoms were discussed advised to maintain adequate hydration. Will follow up in the clinic in 3 months time, sooner p.r.n.. Thank you for allowing me to partake in her care Medications: New amlodipine 5 mg PO BID 60 tabs 5RF Discontinued amlodipine Discontinued Reason: Doctor's Order 10 mg (2 x 5 mg) PO DAILY 180 tabs 3RF Coding Level of Care Code Est Pt Level 4 (95910) Complex EM visit Add On G2211 Diagnoses (HFpEF) heart failure with preserved ejection fraction I50.30 Coronary artery disease involving augustine coronary artery of augustine heart without angina pectoris I25.10 Coronary Disease-Associated Artery/Lesion type: [place] artery [place] vs. transplanted heart: augustine heart Associated angina: without angina Labile blood pressure R09.89
--- OUTSIDE RECORDS SUMMARY | 2025-01-27 12:20 | XMS_ITS ---
[facility] Address [address] [facility] [facility] [place] [address] Care Team Providers Care Lift Slab Operator Name Role Phone Issa STEIN, [facility] Primary Care Provider Francesca Zapien Unavailable [phone] Allergies Allergen (clinical drug ingredient) Drug/Non Drug [...] as needed Orally every 12 hrs Not-Taking [place] Power 1050 MG 1 capsule Orally Once [...] Orally Once a day Not-Taking Colace Not-Taking [place] 3 Not-Taking Co Q 10 10 MG [...] Problem Status W/U Status Risk Notes Problem Bilateral atherosclerosis of arteries of lower limbs (disorder) ([id number] ) Atherosclerosis of [place] artery of both lower extremities, with unspecified presence of clinical manifestation (I70.203) Active confirmed Q7(A), Q8(2B), Q9(1B,2 C) Vital Signs Height 5 ft in 08/26/2024 Weight 145 lbs 08/26/2024 BMI 28.32 kg/m2 08/26/2024 Blood pressure systolic 148 mm Hg 08/26/20 Blood pressure diastolic 70 mm Hg 024 Procedures Procedure Date Ordered Date Performed Result Body Sit e 49946-KRCGEZR NAIL, 6 OR MORE 08/26/2024 N/A 67642-AQJU SKIN LESIONS, OVER 4 08/26/2024 N/A Encounters Encounter Location Date Provider Diagnosis [facility] [address] [address] 08/26/2024 Francesca Gutierrez Atherosclerosis of [place]ch[place] artery of both lower extremities, with unspecified presence of clinical manifestation I70.203 ; Tinea unguium B35.1 ; Pain in right toe(s) M79.674 and Pain in left toe(s) M79.675 Assessments Encounter Date Diagnosis (ICD Code) Assessment Notes Treatment Notes Treatment Clinical Notes Section Notes 08/26/2024 Atherosclerosis of [place] artery of both lower extremities, with unspecified presence of clinical manifestation (ICD-10 - I70.203) Q7(A), Q8(2B), Q9(1B,2C) 08/26/2024 Tinea unguium (ICD-10 - B35.1) 08/26/2024 Pain in right toe(s) (ICD-10 - M79.674) 08/26/2024 Pain in left toe(s) (ICD-10 - M79.675) Plan Of Treatment Pending Test Test Name Order Date [id number]-[id number] NAIL, 6 OR MORE 08/26/2024 98617-XIAF SKIN LESIONS, OVER 4 08/26/20 24 Next Appt Details Follow Up: 3 Months, Reason: Provider Name:Francesca henry, 03/17/2025 11:15:00 AM, [address] [place], [address], Procedure Notes * Category Sub-Category Detail Notes [...] use of a nail nipper and/or dremel-type disk grinder, to a more viable healthy nail [...] to maintain effectiveness in symptomatic relief - 19673 Keratoma Treatment Parring or Cutting o f Benign Hyperkeratotic Lesion(s) (-57) More than 4 Lesions - The Benign hyperkeratotic lesions, ( 6 ) in total, locations as stated and described in exam, were pared, and/or cut utilizing a sterile 15 blade, tissue nippers, and/or power dremel instrumentation - 87497, Q8 Progress Notes * Aminah FRAZIER SDOB:1935 (88 yo F)Acc No.[id number]:08/26/2024 Progress Note Patient:?FREDDIE Aminah S Provider:?Francesca Gutierrez DPM :1935???Age:88 Y???Sex:Female D ate:08/26/2024 Address:[address] [place] [address], [id number] Pcp:Penelope Parsons MD Subjective: * Chief Complaints: [...] sukumar 1950Carpal Tunnel 1980'sRt Hip Replacement 2004angioplasty 2014,ouble bypass surgery 06/10/2016right knee replacement 11/2017Left knee replacement 05/16/2017cataract surgery 2022endoscopy * Hospitalization/Major Diagno stic Procedure:?[facility] for bad reaction to pain medication. Legs/feet swelled up. 2018Vein Surgery 03/24 7- * Family History:?Mother: dece ased, diagnosed with [...] with a meal Orally Once a day [place] 3 Colace Torsemide 20 MG Tablet as [...] Tablet 1 tablet Orally Once a day [place] Power 1050 MG Capsule 1 capsule Orally [...] a meal Orally Once a day Not-Taking/PRN [place] 3 Not-Taking/PRN Colace Not-Taking/PRN Torsemide 20 MG [...] tablet Orally Once a day Not- Taking/PRN [place] Power 1050 MG Capsule 1 capsule Orally Once a day Not-Taking/PRN Aleve 220 MG Tablet 1 tablet as needed Orally every 12 hrs Not-Taking/PRN Multivitamin Medication List reviewed and reconciled with the patient * Allergies:?Hydromorphone: wi thdrawAzithromycin: nausea and dehydrationErythromycin: nausea and dehydrationBiaxin: nausea and dehydrationCodeine: nauseayes[Allergies Verified] Objective: * Vitals:?Ht: 5 ft, Wt: 145, B TX: 28.32, Shoe size: 6.5, BP: 148/70 mm [...] tingling, B/L.? Assessment: * Assessment: 1.?Atherosclerosis of pechanga artery of both lower extremities, with unspecified presence of clinical manifestation - I70.203 (Primary)???Notes :Q7(A), Q8(2B), Q9(1B,2C)???2.?Tinea unguium - B35.1???3.?Pain in right toe(s) - M79.674???4.?Pain in left toe(s) - M79.675??? Plan: * Treatment: 2.?Tinea unguium?Procedure: 75461-BPXKAYR NAIL, 6 OR MORE * Procedures:?Debride Nail [...] use of a nail nipper and/or dremel-type disk grinder, to a more viable healthy nail [...] to maintain effectiveness in symptomatic relief - 69487.?Keratoma Treatment:?Parring or Cutting of Benign Hyperkeratotic Lesion(s)?(-57) More than 4 Lesions - The Benign hyperkeratotic lesions, ( 6 ) in total, locations as stated and described in exam, were pared, and/or cut utilizing a sterile 15 blade, tissue nippers, and/or power dremel instrumentation - 18336, Q8.? * Procedure Codes:?15582 DEBRI DE NAIL, 6 OR MORE, Modifiers: XS 04382 TRIM SKIN LESIONS, OVER 4, Modifiers: XS , Q8 * Follow Up:?3 Months * Images: * Sign off status: Completed true * Provider:?Francesca Gutierrez DPM Date:?10/26/2023 Generated for Leroy martinez/Shonda/Isaias on:?01/27/2025 12:20 PM EDT History and Physical Notes * [...]
--- OUTSIDE RECORDS SUMMARY | 2025-01-27 12:20 | XMS_ITS | Clinical Summary ---
Author Organization [facility], Address [address] [place] [address] [place] [address] Phone Care Team Providers Care Industrial Truck Operator Name Role Phone Penelope Parsons MD Primary Care Provider [phone] Allergies Active Allergy Reactions Criticality Noted Date [...] Problem Noted Date Diagnosed Date Atherosclerosis of [place] arteries of the extrem ities 05/29/2023 05/29/2023 Renal artery stenosis 12/31/2021 05/29/2023 Essential hypertension 05/27/2021 Stage 3b chronic kidney disease 01/03/2020 Hypertensive chronic kidney disease, malignant, 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, or unspecified 01/03/2020 Iron deficiency anemia 01/03/2020 Encounters Date Type Department Care Team Description 12/25/2024 Documentation Only [facility] [address] [place] [address] Zara Bob MA 12/02/2024 2:15 PM EST Office Visit [facility] [address] [place] [address] Juan Luis MD Stage 3b chronic kidney disease (HCC) (Primary Dx); Hypertension; Anemia in chronic kidney disease; Other iron deficiency anemia from Last 3 Months Immunizations Immunization Administration Dates Next Due Influenza Split High [...] Office Visit [facility] [address] [place] [address] Juan Luis MD [address] [place] [address] [place] [id number] Health Maintenance Due Date Last Done Comments Pneumococcal Vaccine: 50+ Ye ars (1 of 2 - PCV) 12/14/1954 Influenza Vaccine (Season Ended) 2025 12/12/19 20 Hepatitis B Vaccine Aged Out No longe r eligible based on patient's age to complete this topic Insurance Medicare [facility] Care Teams Industrial Truck Operator Relationship Specialty Start Date End Date Penelope Parsons MD [facility] [place] [address] PCP - General 08/06/19
--- OUTSIDE RECORDS SUMMARY | 2025-01-27 12:20 | XMS_ITS | Encounter Summary ---
Author Organization [facility] Address [address] [place] [address] Phone Care Team Providers Care Senior Software Engineer Analytics Name Role Phone Penelope Parsons MD Primary Care Provider Encounter Details Date Type Department Care Team (Late Contact Info) Description 12/25/2024 Documentation Only [facility] [address] [place] [address] [place], [place] [address] [place] [address] Social History Tobacco Use Types [...] Visit [facility] [address] [facility] [address] [address] Juan Luis MD [address] [facility] [place] [address] documented as of this encounter Visit Diagnoses Not on filedocumented in this encounter Care Teams Senior Software Engineer Analytics Relationship Specialty Start Date End Date Penelope Parsons MD [address] [facility] [place] [address] PCP - General 08/06/19 documented as of this encounter
--- OUTSIDE RECORDS SUMMARY | 2025-01-27 12:20 | XMS_ITS | Encounter Summary ---
Author Organization [facility] Address [address] [place] [address] Phone Care Team Providers Care Program Proposals Coordinator Name Role Phone Penelope Parsons MD Primary Care Provider Encounter Details Date Type Department Care Team (Late Contact Info) Description 06/25/2024 Documentation Only [facility] [address] [place] [address] [place], [place] [address] [place] [address] Social History Tobacco Use Types [...] Visit [facility] [address] [address] Juan Luis MD [address] [facility] [place] [address] documented as of this encounter Visit Diagnoses Not on filedocumented in this encounter Care Teams Program Proposals Coordinator Relationship Specialty Start Date End Date Penelope Parsons MD [address] [facility] [place] [address] PCP - General 08/06/19 documented as of this encounter
--- OUTSIDE RECORDS SUMMARY | 2025-01-27 12:20 | XMS_ITS | Patient Health Record ---
Author Organization [facility] Address [address] [facility] [place] [address] Care Team Providers Care Transitions Manager Rn Name Role Phone Issa STEIN, [facility] Primary Care Provider UnavailFrancesca Hull Unavailable [phone] Juan Daniel Ambrosio Unavailable [phone] Allergies Allergen (clinical drug ingredient) Drug/Non Drug Allergy documented on EMR Reaction Allergy Type Onset Date Status Biaxin nausea and dehydration Drug Allergy Active azithromycin Azithromycin nausea and dehydration Drug Allergy Active codeine Codeine nausea Drug Allergy Active erythromycin Erythromycin nausea and dehydration Drug Allergy Active hydromorphone Hydromorphone withdraw Drug Allergy Active Reason For Referral No Information Medications Medication SIG (Take, Route, Frequency, Duration) Notes Start Date End Date Status Allopurinol 100 MG Orally every other day Not-Taking Clopidogrel Bisulfate 75 MG as directed Not-Taking Torsemide 20 MG as directed Orally Once a day Not-Taking Metoprolol Succinate 100 MG Orally Not-Taking Extra-Depth Diabetic Shoes with 3 Pair Custom heat-molded multi-density innersoles . for 1 year . Dx:please accomodate for painful left 5th mtpj in the insole for . 07/01/2015 Not-Taking Tums 500 MG 1 tablet Orally Four times a day PRN Not-Taking Centrum Silver Orally Not-T aking Ocuvite Not-Taking Biotin Not-Taking Vitamin B 12 Not-Jasper ing Spironolactone 25 MG 1 tablet Orally Once a day Not-Taking Fish Oil Not-Taking Nystop Not-Taking Lipitor 20 MG Orally Not-Ta kitty Lasix 40 MG 1 tablet Orally Once a day Not-Taking Pantoprazole Sodium 40 MG take 1 tablet by mouth every morning Oral for 30 Not-Taking Furosemide 20 MG Oral for 30 N ot-Taking hydroCHLOROthiazide 25 MG 1 tablet in th e morning Orally Once a day Not-Taking Colchicine 0.6 MG 1 tablet Orally Once a day for 10 days 02/08/2016 Not-Taking traMADol HCl Not-Jasper ing Mupirocin 2 % External for 22 Not-Taking Atenolol 25 MG 1 tablet Orally Once a day Not-Taking Lisinopril 10 MG 1 tablet Orally Once a day Not-Taking Isosorbide Mononitrate ER 60 MG Oral for 30 Not-Taking Chlorhexidine Gluconate 0.12 % Mouth/Throat for 2 Not-Taking Torsemide 20 MG 2 tabs Orally Active Multivitamin Active Vitamin B-6 50 MG 1 tablet Orally Once a day Not-Taking amLODIPine Besylate 10 MG 1 tablet Orall y Once a day Active Folic Acid 1 MG 1 tablet Orally Once a day Not-Taking Warfarin Sodium 1 MG take 3 tablets by mouth once daily or as directed for 10 days Oral for 3 Not-Taking Omeprazole 20 MG 1 capsule Orally Once a day Not-Taking Plavix Active Aspirin 81 MG 1 tablet Orally Once a day Active Vitamin D3 1000 UNIT 1 capsule Orally Once a day Active Acetaminophen Active Raleigh Power 1050 MG 1 capsule Orally Once a day Not-Taking Metoprolol Tartrate 25 MG Oral for 6 Active Betamethasone Dipropionate 0.05 % APPLY TWICE DAILY TO LOWER LEGS FOR 2 WEEKS THEN TAKE 1 WEEK OFF. REPEAT NEEDED External for 30 L2089,Unava ilable Active Pepto-Bismol Not-Jasper ing Tamsulosin HCl Not-T aking Ezetimibe Not-Taking Vazalore Not-Taking Colace Not-Taking Raleigh 3 Not-Taking Multivitamin Not-Jasper ing Co Q 10 10 MG 1 capsule with a meal Orally Once a day Not-Taking Aleve 220 MG 1 tablet as needed Orally every 12 hrs Not-Taking Atorvastatin Calcium 20 MG 1 tablet Oral ly Once a day Not-Taking Social History Tobacco Use: Social History Observation Description Date Details (start date - stop date) Former Smoker NA - NA Tobacco Use/Smoking Question Answer Notes Are you a: former smoker Additional Findings: Tobacco Non-User Current no n-smoker Alcohol Screen Question Answer Notes Did you have a drink contain ing alcohol in the past year? Yes How often did you have a dri nk containing alcohol in the past year? Monthly or less (1 point) Points 1 Interpretation Negative Tobacco use other than smoking: Question Answer Notes Are you an other tobacco user? No Problems Problem Type SNOMED Code ICD Code Onset Dates Problem Status W/U Status Risk Notes Problem Acquired hallux valgus (22860435) Hallux valgus (acquired), left foot (M20.12) Active confirmed Problem Bilateral atherosclerosis of arteries of lower limbs (disorder) (78768967534499296 ) Unspecified atherosclerosis of [place] arteries of extremities, bilateral legs (I70.203) Active confirmed Problem Acquired hallux valgus (10097582) Hallux valgus (acquired), right foot (M20.11) Active confirmed Problem Acquired hammer toe of right foot (6288526794235685) Other hammer toe(s) (acquired), right foot (M20.41) Active confirmed Problem Acquired hammer toe of left foot (9997032444603947) Other hammer toe(s) (acquired), left foot (M20.42) Active confirmed Problem 1732483 Tailors bunion (M20.10) Active confirmed Problem Bilateral atherosclerosis of arteries of lower limbs (disorder) (96748673638836504 ) Atherosclerosis of [place] artery of both lower extremities, with unspecified presence of clinical manifestation (I70.203) Active confirmed Q7(A), Q8(2B), Q9(1B,2 C) Vital Signs Blood pressure diastolic 70 mm Hg 08/26/2024 Height 5 ft in 08/26/2024 Blood pressure systolic 148 mm Hg 08/26/2024 Weight 145 lbs 08/26/2024 BMI 28.32 kg/m2 08/26/2024 Procedures Procedure Date Ordered Date Performed Result Body Sit e 48883-NVTCYBB NAIL, 6 OR MORE 08/26/2024 N/A 34310-CXBV SKIN LESIONS, OVER 4 08/26/2024 N/A Encounters Encounter Location Date Provider Diagnosis [facility] [place] [address] [place] [address] 05/20/2024 Juan Daniel Ambrosio Pain in right [...] neuritis, unspecified M79.2 and Unspecified atherosclerosis of [place] arteries of extremities, bilateral legs I70.203 [facility] [address] [address] 08/26/2024 Francesca Gutierrez Atherosclerosis of [place] artery of both lower extremities, with unspecified presence of clinical manifestation I70.203 ; Tinea unguium B35.1 ; Pain in right toe(s) M79.674 and Pain in left toe(s) M79.[address] [address] 04/26/2024 [facility] [address] 01/13/2025 Francesca Gutierrez Assessments Encounter Date Diagnosis (ICD Code) Assessment Notes Treatment Notes Treatment Clinical Notes Section Notes 05/20/2024 Pain in right toe(s) (ICD-10 - M79.674) 08/26/2024 Atherosclerosis of [place] artery of both lower extremities, with unspecified presence of clinical manifestation (ICD-10 - I70.203) Q7(A), Q8(2B), Q9(1B,2C) 05/20/2024 Tinea unguium (ICD-10 - B35.1) 08/26/2024 Tinea unguium (ICD-10 - B35.1) 05/20/2024 Pain in left toe(s) (ICD-10 - M79.675) 08/26/2024 Pain in right toe(s) (ICD-10 - [...] (ICD-10 - M79.2) 05/20/2024 Unspecified atherosclerosis of [place] arteries of extremities, bilateral legs (ICD-10 - I70.203) Plan Of Treatment Pending Test Test Name Order Date *Uric Acid, Serum 02/08/2016 *Sedimentation Rate-Westergren 6 X ray : Foot, left 3V 04/13/2015 29408-JJTGJEL NAIL, 6 OR MORE 08/26/2024 74159-QMALDFP NAIL, 1-5 04/13/2015 06995-BOESILM NAIL, 1-5 07/01/2015 94637-OWFTAKI NAIL, 1-5 09/21/2015 79385-PFAIZHK NAIL, 1-5 01/04/2016 89481-QKZXMDB NAIL, 1-5 05/02/2016 00257-QYJJNQD NAIL, 1-5 08/22/2016 55597-YTGDKIY NAIL, 1-5 12/21/2016 58871-VNIMKOY NAIL, 1-5 03/29/2017 94420-DVSM SKIN LESIONS, OVER 4 08/26/20 24 74432-DBDY SKIN LESIONS, 2 TO 4 01/03/20 23 90375-TADA SKIN LESIONS, 2 TO 4 07/01/20 19 44125-EZDR SKIN LESIONS, 2 TO 4 07/01/20 15 18156-MUOZ SKIN LESIONS, 2 TO 4 04/10/20 23 63571-PBQN NAIL(S) 01/02/2023 O6734-YAXTPAIQ DYSTROPHIC NAILS ANY # 73762- Nail Unit Biopsy 06/21/2018 Next Appt Details Provider Name:Francesca Cordovamarisela henry, 03/17/2025 11:15:00 AM, [address] [facility], [place], [address], Insurance Providers Payer Name Payer Address Payer Phone Subscriber Number Group Number Insured Name Patient Relationship to Insured Coverage Start Date Coverage End Date Medicare National Govt Sv[employer] [address] [place] [id number] Self - patient is the insured [employer] [address] [place] [address] [id number] Self - patient is the insured Medical (General) History Medical History History ICD Code Gout Cholesterol Back,Hip,and Knee pain Arthritis High blood pressure Kidney disease Osteoporosis Poor circulation Reflux Measles Mumps Chicken pox Transfusions Joint implants/screws Numbness Tonsilectomy Carpal Tunnel Heart disease Neuropathy Bone implants/screws Reflux ( GERD) Surgical History Surgery Date(Month/Year) Tonsillectomy 1950 Carpal Tunnel Rt Hip Replacement 2004 angioplasty 2014,2021 double bypass surgery 06/10/2016 right knee replacement 11/2017 Left knee replacement 05/16/2017 cataract surgery 2021 endoscopy Hospitalization History Reason Date(Month/Year) Vein Surgery 03/24 [facility] for bad reaction to pain medica tion. Legs/feet swelled up. 2017
--- OUTSIDE RECORDS SUMMARY | 2025-01-27 12:20 | XMS_ITS ---
Author Organization [facility] Address [address] [place] [address] Care Team Providers Care Schedule Announcer Name Role Phone Issa STEIN, Penelope Primary Care Provider Francesca Zapien [phone] Encounters Encounter Location Date Provider Diagnosis [address] [address] 01/13/2025 Francesca Gutierrez Plan Of Treatment Next Appt Details Provider Name:Francesca henry, 03/17/2025 11:15:00 AM, [address] [place] [address], [address], Progress Notes * Aminah FRAZIER SDOB:1935 (89 yo F)Acc No.[id number]:01/13/2025 Progress Note Patient:?Aminah FRAZIER Provider:?Francesca Gutierrez DPM :1935???Age:89 Y???Sex:Female D ate:01/13/2025 Address:[address] [place], [place] [id number] Pcp:Penelope Parsons MD Subjective: * Chief Complaints: * ??? * Medical History:? Objective: * Vitals:? Assessment: Plan: * Treatment: * Images: * The named appointment provid er may or may not be the originator of this progress note, and it is not deemed complete until electronically signed by the appointment provider. Sign off status: Pending * Provider:?Francesca Gutierrez DPM Date:?0 01/13/2025 Generated for Leroy martinez/Shonda/Isaias on:?01/27/2025 12:19 PM EDT
--- OUTSIDE RECORDS SUMMARY | 2025-01-27 12:20 | XMS_ITS ---
Author Organization [facility] Address [address] [place] [address] Care Team Providers Care Jai Alai Player Name Role Phone Issa STEIN, Asma Primary Care Provider Francesca Zapien [phone] REASON FOR VISIT same day rs 01/13/25 Encounters Encounter Location Date Provider Diagnosis [address] [address] 01/13/2025 Francesca Gutierrez Plan Of Treatment Next Appt Details Provider Name:Francesca henry, 03/17/2025 11:15:00 AM, [address] [place] [address], [address], Progress Notes * Aminah FRAZIER SDOB:1935 (89 yo F)Acc No.[id number]:01/13/2025 Patient:?Aminah FRAZIER :1935???Age:89 Y???Sex:Female Address:[address] [place], [place] [address] [facility] [place], [address] * true * Date:? Generated for Printi ng/Fatheodorag/eTransmitting on:?01/27/2025 12:20 PM EDT
== END 2025-01-27 11:08 | disposition home or self-care (01) ==
LOC: HO.HCS 10:30
PROVIDERS: PCP Internal Medicine; Visit Provider Internal Medicine Cardiovascular Disease
DX: I50.30 Unspecified diastolic (congestive) heart failure (principal); I25.10 Atherosclerotic heart disease of native coronary artery without angina pectoris; R09.89 Other specified symptoms and signs involving the circulatory and respiratory systems
CPT/HCPCS: 99214; G2211

== ENCOUNTER → 2025-01-27 10:29 | Outpatient (BNVA) | payer MEDICARE, SELFPAY | PROVIDERS: PCP Internal Medicine; Visit Provider Internal Medicine Cardiovascular Disease | DX: I25.10 Atherosclerotic heart disease of native coronary artery without angina pectoris (principal); I50.30 Unspecified diastolic (congestive) heart failure; R09.89 Other specified symptoms and signs involving the circulatory and respiratory systems | CPT/HCPCS: 99212 ==

== ENCOUNTER 2025-02-21 12:25 | Outpatient (REF) | payer MEDICARE, SELFPAY ==
--- OUTSIDE RECORDS SUMMARY | 2025-02-21 12:28 | XMS_ITS ---
Author Organization [facility] Address [address] [place] [address] Care Team Providers Care Mobile Game Engineer Name Role Phone Issa STEIN, Penelope Primary Care Provider Francesca Zapien [phone] Encounters Encounter Location Date Provider Diagnosis [address] [address] 01/13/2025 Francesca Gutierrez Plan Of Treatment Next Appt Details Provider Name:Francesca henry, 03/17/2025 11:15:00 AM, [address] [place] [address], [address], Progress Notes * Aminah FRAZIER SDOB:1935 (89 yo F)Acc No.[id number]:01/13/2025 Progress Note Patient:?Aminah FRAZIER Provider:?Francesca Gutierrez DPM :1935???Age:89 Y???Sex:Female D ate:01/13/2025 Address:[address] [place], [place] [id number] Pcp:Penelope Parsons MD Subjective: * Chief Complaints: [...] DPM Date:?0 01/13/2025 Generated for Leroy martinez/Shonda/Isaias on:?02/21/2025 12:28 PM EDT
== END 2025-02-21 12:26 | disposition home or self-care (01) ==
LOC: HO.SH 12:25
PROVIDERS: Visit Provider Internal Medicine
DX: Z01.118 Encounter for examination of ears and hearing with other abnormal findings (principal); H91.92 Unspecified hearing loss, left ear
CPT/HCPCS: 92557; 92567

== ENCOUNTER 2025-04-21 11:07 | Outpatient (RCR) | payer MEDICARE, SELFPAY ==
--- NOTE | 2025-02-28 14:58 | MHC.PT.EP ---
[facility] [place] Office [place] Office [place] Office [address] Abisai Azar [address] [phone] F: [phone] F: [phone] F: [phone] F: [phone] Physical Therapy Plan of Care Date of Evaluation: 02/28/25 Date of Surgery: Diagnosis: polyneuropathy unspecified abnormalities of gait and mobility neuropathy, gait disorder Assessment: 89 y/o female referred to PT with gait disorder and neuropathy. Currently ambulates with cane or furniture surfing in apartment. Educated pt and daughter on importance of using cane and not furniture for balance/ feedback to decrease fall risk. Also educated pt on looking into finding a shorter cane which will help improve gait. Pt would benefit from PT 2x/week for 5 weeks to address balance deficits, improved strength and flexibility and optimize function Frequency and Duration: The patient will be seen 2x/week for 5 weeks Short Term Goals: 3 weeks I with HEP Pt will demonstrate 10* B hip extension Circular Tank Cooper Goals: 5 weeks I with hEP and self management of sx Pt will be able to ambulate > 15 min with LRAD and appropriate balance strategies Treatment Plan: Modalities to reduce pain, spasms and effusion. Manual therapy to restore motion and function. Therapeutic exercise to improve strength and flexibility. Neuromuscular re-education for posture and balance. Therapeutic activities to return to functional activities of daily living. Electronically signed by: Alberta Brady PT Please sign and return to therapist. Thank you for your referral.
--- NOTE | 2025-04-21 12:33 | MHC.PT.DC ---
[facility] [place] [facility] [place] Office [place] Office [address] Abisai Azar [address] [phone] F: [phone] F: [phone] F: [phone] F: [phone] Physical Therapy Discharge Report Diagnosis: polyneuropathy unspecified abnormalities of gait and mobility neuropathy, gait disorder Date of Surgery: Date of Evaluation: 02/28/25 Date of Discharge: 04/21/25 Treatments to Date: 10 Cancellations to Date: 1 No Shows to Date: 0 Discharge Status: Improved Function Independent with HEP Discharge Summary: Pt has made good progress with appropriate balance strategies and is I with HEP. SHe is very motivated and reports will continue with exercises at home. At this time, she is appropriate for d/c to I HEP Electronically signed by: Gertrudis Brady PT Please sign and return to therapist. Thank you for your referral.
== END 2025-04-21 12:33 | disposition home or self-care (01) ==
LOC: HO.PT 11:07
PROVIDERS: PCP Internal Medicine; Visit Provider Psychiatry & Neurology Neurology
DX: G62.9 Polyneuropathy, unspecified (principal); R26.9 Unspecified abnormalities of gait and mobility
CPT/HCPCS: 97110; 97112; 97161

== ENCOUNTER 2025-05-05 11:01 | Outpatient (REF) | payer MEDICARE, SELFPAY ==
--- OUTSIDE RECORDS SUMMARY | 2025-01-13 07:15 | XMS_ITS ---
Author Organization [facility] Address [address] [place] [address] Care Team Providers Care Lockmaker Name Role Phone Issa STEIN, Penelope Primary Care Provider Francesca Zapien [phone] Encounters Encounter Location Date Provider Diagnosis [address] [address] 01/13/2025 Francesca Gutierrez Plan Of Treatment Next Appt Details Provider Name:Francesca henry, 06/30/2025 11:00:00 AM, [address] [place] [address], [phone], Progress Notes * Aminah FRAZIER SDOB:1935 (89 yo F)Acc No.[id number]:01/13/2025 Progress Note Patient: Aminah PRADO Provider: Chad Gutierrez DPM :1935 A ge:89 Y S ex:Female Date:01/13/2025 Address:[address] [place], [place] [address] [id number] Pcp:Penelope Parsons MD Subjective: * Chief Complaints: [...] 01/13/2025 Generated for Leroy martinez/Shonda/Isaias on: 0 05/05/2025 12:03 PM EDT
--- OUTSIDE RECORDS SUMMARY | 2025-05-05 12:04 | XMS_ITS | Patient Health Record ---
Author Organization [facility] Address [address] [place] [address] Care Team Providers Care Wheel Press Operator Name Role Phone Issa STEIN, [facility] Primary Care Provider Umair Villafana [phone] Allergies Allergen (clinical drug ingredient) Drug/Non Drug Allergy documented on EMR Reaction Allergy Type Onset Date Status hydromorphone HYDROmorphone Unknown Drug Allergy Active codeine Codeine Unknown Drug Allergy Active azithromycin Azithromycin Unknown Drug Allergy A ctive Results Component Value Reference Range Notes Pathology Reviewed date:11/21/2024 10:20:00 AM Interpretation: Performing Lab:[facility], [address] [place] [address] Notes/Report: Reason For Referral No Information Medications Medication [...] Z9862,Unavailab le Active Vitamin D 50 MCG (1999 UT) 1 capsule Orally Once a day [...] Notes Problem Gastro-esophageal reflux disease without esophagitis (464484573) Gastro-esophag eal reflux disease without esophagitis (K21.9) Active confirmed Problem Dysphagia (10691273) Dysphagia (R13.10) Active confirmed Problem Duodenitis (86086454) Duodenitis (K29.80) Active confirmed Problem Esophageal stricture (79757014) Esophageal stricture (K22.2) Active confirmed Problem Hiatal hernia (10023106) Hiatal hernia (K44.9) Active confirmed Problem Chronic gastritis (5345569) Gastritis, chronic (K29.50) Active confirmed Problem Gastroesophageal reflux disease (disorder) (000115971) Chronic GERD (K21.9) Active confirmed Vital Signs Blood pressure diastolic 11 mm Hg 11/21/2024 Height 4 ft 10 in in 11/21/2024 Blood pressure systolic 111 mm Hg 11/21/2024 Weight 138 lbs 11/21/2024 BMI 28.84 kg/m2 11/21/2024 Encounters Encounter Location Date Provider Diagnosis [facility] [address] [place] [phone] 07/18/2024 Umair Tracey Esophageal stricture K22.2 ; Other specified disease of esophagus K22.89 ; Gastro-esophageal reflux disease without esophagitis K21.9 ; Hiatal hernia K44.9 ; Duodenitis K29.80 ; Gastritis, chronic K29.50 and Dysphagia R13.10 [facility] [address] [place] [address] 06/18/2024 Umair Tracey Dysphagia R13.10 and Chronic GERD K21.9 [facility] [address] [place] [address] 11/21/2024 Umair Tracey Esophageal stricture K22.2 ; Dysphagia R13.10 ; Chronic GERD K21.9 and Hiatal hernia K44.9 [facility] [address] [place] [address] 06/30/2024 Umair Tracey [facility] [address] [place] [address] 07/18/2024 Umair Tracey Assessments Encounter Date Diagnosis (ICD Code) Assessment Notes Treatment Notes Treatment Clinical Notes Section Notes 07/18/2024 Esophageal stricture (ICD-10 - K22.2) 07/18/2024 Other specified disease of esophagus (ICD-10 - K22.89) 06/18/2024 Dysphagia (ICD-10 - R13.10) Stop Clopidogrel [...] to keep you advised of her progress. 11/21/2024 Dysphagia (ICD-10 - R13.10) 11/21/2024 Esophageal stricture (ICD-10 - K22.2) Continue omeprazole 20mg daily shelter. Call me if problems 07/18/2024 Gastro-esophag eal reflux disease without esophagitis (ICD-10 - K21.9) 11/21/2024 Chronic GERD (ICD-10 - K21.9) 07/18/2024 Hiatal hernia (ICD-10 - K44.9) 11/21/2024 Hiatal hernia (ICD-10 - K44.9) 07/18/2024 Duodenitis [...] Date MEDICARE OF [place] [address] [place] [address] [id number] AMINAH FRAZIER Self - patient is the insured [employer] ATT[employer] CLAIMS [address] [place] [address] [id number] AMINAH FRAZIER Self - patient is the insured Medical (General) History Medical History History ICD Code Neuropathy Arthritis Peripheral vascular disease Coronary artery disease Gout Hypertension Chronic kidney disease-- Stage 3 -sees Dr[address] Booth GERD--EGD 07/2024 Denies SC,DM,CVA,Lung disease Surgical History Surgery Date(Month/Year) Bilateral knee replacements tonsillectomy CARPAL TUNNEL BILATERAALY S/P CABG Hx of cataract surgery Hx of bilateral hip replacements LE vein stripping
--- OUTSIDE RECORDS SUMMARY | 2025-05-05 12:04 | XMS_ITS | Encounter Summary ---
Author Organization [facility] Address [address] [place] [address] Phone Care Team Providers Care Motor Vehicle Technician Name Role Phone Penelope Parsons MD Primary Care Provider [phone] Encounter Details Date Type Department Care Team (Late Contact Info) Description 06/25/2024 Documentation Only [facility] [address] [place] [address] [place], [place] [address] [place] [address] Social History Tobacco Use Types [...] [facility] [address] [place] [address] Juan Luis MD [address] [place] [address] documented as of this encounter Visit Diagnoses Not on filedocumented in this encounter Care Teams Motor Vehicle Technician Relationship Specialty Start Date End Date Penelope Parsons MD [address] [facility] [place] [address] PCP - General 08/06/19 documented as of this encounter
[2025-05-05 12:16] LABS: B Type Natriuretic Peptide 351 pg/mL (<100)
[2025-05-05 12:23] LABS: Anion Gap 12 (12-20); Blood Urea Nitrogen 30 mg/dL (9-16); Calcium 8.8 mg/dL (8.4-10.2); Carbon Dioxide 27 mmol/L (22-29); Chloride 109 mmol/L (96-108); Estimated Glomerular Filt Rate 36; Potassium 4.2 mmol/L (3.3-5.1); Sodium 144 mmol/L (135-145)
== END 2025-05-05 11:02 | disposition home or self-care (01) ==
LOC: HO.LAB 11:01
PROVIDERS: PCP Internal Medicine; Visit Provider Internal Medicine Cardiovascular Disease
DX: I50.30 Unspecified diastolic (congestive) heart failure (principal)
CPT/HCPCS: 36415; 80048; 83880

== ENCOUNTER 2025-05-12 10:56 | Outpatient (AMB) | payer MEDICARE, SELFPAY ==
--- OUTSIDE RECORDS SUMMARY | 2025-01-13 07:15 | XMS_ITS ---
Author Organization [facility] Address [address] [place] [address] Care Team Providers Care Automatic Stacker Name Role Phone Issa STEIN, Penelope Primary Care Provider Francesca Zapien [phone] Encounters Encounter Location Date Provider Diagnosis [address] [address] 01/13/2025 Francesca Gutierrez Plan Of Treatment Next Appt Details Provider Name:Francesca henry, 06/30/2025 11:00:00 AM, [address] [place] [address], [phone], Progress Notes * Aminah FRAZIER SDOB:1935 (89 yo F)Acc No.[id number]:01/13/2025 Progress Note Patient: Aminah PRADO Provider: Chad Gutierrez DPM :1935 A ge:89 Y S ex:Female Date:01/13/2025 Address:[address] [place], [place] [address] [id number] Pcp:Penelope Parsons MD Subjective: * Chief Complaints: [...] 01/13/2025 Generated for Leroy martinez/Shonda/Isaias on: 0 05/12/2025 11:39 AM EDT
[2025-05-12 11:02] VITALS: BP 128/72; PULSE 73; BMI 30.4
--- NOTE | 2025-05-12 11:02 | A.OFFVIS_ITS ---
Vital Signs 05/12/25 11:02 Height 4 ft 11 in Weight 150 lb 5.684 oz BMI 30.4 BP 128/72 Blood Pressure Location Lt brachial Position Sitting Pulse 73 Pulse Source Pulse Oximeter Intake Visit Reasons: 3 mth f/up labs wk prior Intake Note: 3 Month follow up [employer] Required: No Accompanied by: Daughter Allergies azithromycin Allergy (Intermediate, Verified 05/12/25 11:06) Nausea/Became dehydrated hydromorphone Allergy (Unknown, Verified 05/12/25 11:06) Unknown codeine Adverse Reaction (Intermediate, Verified 05/12/25 11:06) Stomach Upset Medication List - Last Reconciled 05/12/25 by Pranay Ruvalcaba MD acetaminophen ER 650 mg PO Q8H PRN allopurinol 100 mg PO BEDTIME amlodipine 5 mg PO BID aspirin (Adult Low Dose Aspirin) 81 mg PO DAILY atorvastatin 20 mg PO BEDTIME betamethasone dipropionate 0.05% 1 appl topical DAILY PRN cholecalciferol (vitamin D3) (Vitamin D3) 50 mcg PO DAILY clopidogrel 75 mg PO DAILY coenzyme Q10 200 mg PO BEDTIME docusate sodium (Colace) 100 mg PO BEDTIME PRN fluorouracil 5% 1 appl topical BID hydralazine 10 mg PO BEDTIME metoprolol succinate ER 25 mg PO BID multivitamin 1 tab PO QAM omeprazole 20 mg PO DAILY torsemide 60 mg (3 x 20 mg) PO DAILY HPI Comments Details: Aminah comes for follow-up, accompanied by her daughter. She has been overall doing well. She says her weight varies from 135-140 lb in his mostly related to fluid intake. She does not take extra diuretic when the weight is up. She says her weight comes down automatically after that. She has not had any worsening symptoms of shortness of breath, orthopnea, PND. She has no prolonged palpitation irregular heartbeat. No exertional chest pain. Blood pressures remained more or less stable. Her BNP has has downtrended while her creatinine has remained stable [facility] Medical History Back pain History of femoral angiogram Arthritis Gait disorder Neuropathy Degenerative localized arthritis of hip PVD (peripheral vascular disease) CAD (coronary artery disease) Diastolic dysfunction (HFpEF) heart failure with preserved ejection fraction Low hemoglobin Gout Osteoarthritis of knees, bilateral Chronic kidney disease Chronic GERD Lipid disorder Hypertension, essential Surgical History H/O colonoscopy Hx of right cataract extraction History of bilateral knee replacement H/O vein stripping Hx of bilateral hip replacements History of cataract surgery S/P CABG x 2 History of carpal tunnel surgery History of right hip replacement History of tonsillectomy Family History Father CHF (congestive heart failure) CVD (cardiovascular disease) Mother Pancreatitis Maternal Aunt Breast cancer Sister No problems noted. Sister No problems noted. Daughter No problems noted. Social History Housing: House Are you a primary adult care manager to a significant other at home: No Do you presently have visiting nurse or other home services: No Alcohol intake: never Patient Tobacco Use Status: Former Tobacco user Tobacco use type: Cigarette Years Smoked: 2 years e-Cigarette/Vaping Use: Never Used Second Hand Smoke Exposure: No Current occupational status: retired Cognitive needs: No Hearing needs: No Vision needs: No Review of Systems Const Denies daytime sleepiness, Denies difficulty sleeping, Denies snoring, Denies stops breathing during sleep and Denies weakness Card Denies chest pain, Denies rapid heart rate, Denies irregular heart rhythm, Denies claudication, Reports leg edema, Denies lightheadedness, Denies palpitations, Denies dyspnea, Denies dyspnea on exertion, Denies orthopnea, Denies paroxysmal nocturnal dyspnea and Denies slow heart rate Resp Denies cough, Denies dyspnea, Denies dyspnea on exertion and Denies snoring GI Reports no additional complaints, Denies hematochezia, Denies change in stool character and Denies dyspepsia Musc Denies abnormal gait, Denies muscle weakness and Denies numbness Neuro Denies abnormal gait, Denies numbness and Denies weakness Endo Denies palpitations Physical Exam Vital Signs: Last Vital Signs Pulse 73 05/12/25 11:02 BP 128/72 05/12/25 11:02 BMI result Body Mass Index 30.4 Const General: cooperative, healthy appearing, comfortable, no acute distress, well developed, alert and awake Nutritional Appearance: overweight Orientation/consciousness: patient oriented x3 Limitations: no limitations HEENT Head: Yes normal to inspection, Yes normocephalic and Yes atraumatic Eyes General: appearance normal, both eyes and all related structures Neck Neck: Yes normal visual inspection, Yes trachea midline, Yes supple and Yes no JVD Chest Chest palpation & inspection: normal inspection of the chest and other ( Well- healed sternotomy scar) Resp Effort & Inspection: normal respiratory effort Auscultation: clear to auscultation bilaterally, no crackles and no rales Cardio Jugular venous distension: no JVD Palpation: normal PMI Rate: regular rate Rhythm: regular rhythm Heart sounds: S1 normal heart sound present, S2 normal heart sound present, no click, no gallops, Murmur heart sound present systolic early and Other heart sounds present ( S4 present) GI Auscultation: normal bowel sounds Skin General skin exam: no rashes or lesions noted and ecchymosis Neuro General: patient oriented x3 and no focal motor deficits Extrem General: No clubbing, No cyanosis, Yes edema (1-2+ below knee) and Yes other ( Bilateral significant varicosities) Psych Appearance: grossly normal Assessment & Plan Assessment & Plan (1) (HFpEF) heart failure with preserved ejection fraction: Code(s): I50.30 - Unspecified diastolic (congestive) heart failure Category: Medical Plan: Heart failure preserved ejection fraction, clinically euvolemic and well compensated with improved BNP. Management of heart failure was discussed again. Continue aggressive blood pressure control. Discussed with her about diuretic use. Daily weight monitoring avoidance salt loading was discussed with the additional diuretics as need be. She understands agrees. Goals of therapy were discussed. (2) CAD (coronary artery disease): Code(s): I25.10 - Atherosclerotic heart disease of [place] coronary artery without angina pectoris Category: Medical Qualifiers: Coronary Disease-Associated Artery/Lesion type: [place] artery [place] vs. transplanted heart: [place] heart Associated angina: without angina Qualified Code(s): I25.10 - Atherosclerotic heart disease of [place] coronary ar [place] without angina pectoris Plan: CAD status post remote two-vessel coronary artery bypass grafting with no recent symptoms of angina. Continue current dual antiplatelet therapy given her peripheral vascular disease. Continue statin therapy with target goal LDL less than 70 mg/dL. Blood pressure is currently well optimized but she remains at risk for labile blood pressure. Continue PRN use of hydralazine. Stress mitigation strategies was discussed. Low-salt diet was discussed. Follow up in the clinic in 6 months time, sooner p.r.n.. Thank you for allowing me to partake in her care Coding Level of Care Code Est Pt Level 4 (19138) Complex EM visit Add On G2211 Diagnoses (HFpEF) heart failure with preserved ejection fraction I50.30 Coronary artery disease involving [place] coronary artery of [place] heart without angina pectoris I25.10 Coronary Disease-Associated Artery/Lesion type: [place] artery [place] vs. transplanted heart: [place] heart Associated angina: without angina
--- OUTSIDE RECORDS SUMMARY | 2025-05-12 11:39 | XMS_ITS | Encounter Summary ---
Author Organization [facility] Address [address] [place] [address] Phone Care Team Providers Care Labels Molder Name Role Phone Penelope Parsons MD Primary Care Provider Encounter Details Date Type Department Care Team (Late Contact Info) Description 06/25/2024 Documentation Only [facility] [address] [place] [address] [place], [place] [address] [place] [address] Social History Tobacco Use Types [...] Visit [facility] [address] [address] Juan Luis MD [address] [place] [address] documented as of this encounter Visit Diagnoses Not on filedocumented in this encounter Care Teams Labels Molder Relationship Specialty Start Date End Date Penelope Parsons MD 1961 [facility] [place] [id number] PCP - General 08/06/19 documented as of this encounter
== END 2025-05-12 11:25 | disposition home or self-care (01) ==
LOC: HO.HCS 10:57
PROVIDERS: PCP Internal Medicine; Visit Provider Internal Medicine Cardiovascular Disease
DX: I50.30 Unspecified diastolic (congestive) heart failure (principal); I25.10 Atherosclerotic heart disease of native coronary artery without angina pectoris
CPT/HCPCS: 99214; G2211

== ENCOUNTER → 2025-05-12 10:56 | Outpatient (BNVA) | payer MEDICARE, SELFPAY | PROVIDERS: PCP Internal Medicine; Visit Provider Internal Medicine Cardiovascular Disease | DX: I25.10 Atherosclerotic heart disease of native coronary artery without angina pectoris (principal); I50.30 Unspecified diastolic (congestive) heart failure | CPT/HCPCS: 99212 ==

== ENCOUNTER 2025-06-13 10:56 | Outpatient (REF) | payer MEDICARE, SELFPAY ==
[2025-06-13 13:23] LABS: MANUAL DIFF FLAG NO
[2025-06-13 13:37] LABS: Hematocrit 31.1 % (37.0-47.0); Hemoglobin 9.7 g/dl (12.0-16.0); Imm Gran Abs Auto 0.03 X10*3/uL (0.00-0.03); Imm Gran Pct Auto 0.3 % (0.0-0.4); Lymphocytes Absolute Auto 1.3 X10*3/uL (1.2-4.9); Mean Corpuscular HGB Conc 31.2 g/dl (31.0-35.0); Mean Corpuscular Hemoglobin 28.0 pg (27.0-33.0); Mean Corpuscular Volume 89.9 fL (80.0-98.0); NRBC Abs Auto 0.000 X10*3/uL (0.0-0.012); NRBC Pct Auto 0.0 /100WBC (0.0-0.2); Platelet Count 414 X10*3/uL (160-400); Red Blood Count 3.46 X10*6/uL (4.20-5.50); White Blood Count 8.7 X10*3/uL (4.8-10.8)
[2025-06-13 14:19] LABS: Alanine Aminotransferase 9 U/L (0-31); Albumin Level 4.1 g/dL (3.5-5.0); Alkaline Phosphatase 94 U/L (39-117); Anion Gap 15 (12-20); Aspartate Amino Transferase 26 U/L (5-31); Blood Urea Nitrogen 32 mg/dL (9-16); Calcium 9.3 mg/dL (8.4-10.2); Carbon Dioxide 27 mmol/L (22-29); Chloride 105 mmol/L (96-108); Estimated Glomerular Filt Rate 34; Ferritin 16 ng/mL (10-250); Magnesium 2.4 mg/dL (1.6-2.6); Potassium 4.2 mmol/L (3.3-5.1); Sodium 143 mmol/L (135-145); Total Protein 7.1 g/dL (6.5-8.0); Uric Acid 7.3 mg/dL (2.4-5.7)
[2025-06-13 14:53] LABS: Folate 16.0 ng/mL (> or = 4.0); Vitamin B12 612 pg/mL (200-900)
== END 2025-06-13 10:57 | disposition home or self-care (01) ==
LOC: HO.HMGCLDS 10:56
PROVIDERS: PCP Internal Medicine; Visit Provider Internal Medicine
DX: I13.0 Hypertensive heart and chronic kidney disease with heart failure and stage 1 through stage 4 chronic kidney disease, or unspecified chronic kidney disease (principal); I50.32 Chronic diastolic (congestive) heart failure; N18.31 Chronic kidney disease, stage 3a; D63.8 Anemia in other chronic diseases classified elsewhere; N95.1 Menopausal and female climacteric states; M1A.3790 Chronic gout due to renal impairment, unspecified ankle and foot, without tophus (tophi); Z12.31 Encounter for screening mammogram for malignant neoplasm of breast; Z79.82 Long term (current) use of aspirin; Z79.899 Other long term (current) drug therapy
CPT/HCPCS: 36415; 80053; 82607; 82728; 82746; 83735; 84550; 85025; 96127; 99212

== ENCOUNTER 2025-06-13 10:56 | Outpatient (AMB) | payer MEDICARE, SELFPAY ==
--- OUTSIDE RECORDS SUMMARY | 2024-04-29 07:15 | XMS_ITS ---
Author Organization [facility] Address [address] [place] [address] Care Team Providers Care Derrickman Helper Name Role Phone Issa STEIN, [facility] Primary Care Provider Francesca Zapien Unavailable [phone] Juan Daniel Ambrosio Unavailable [phone] REASON FOR VISIT Painful nail(s) aggrevated by shoes and causing difficulty standing/walking. Encounters Encounter Location Date Provider Diagnosis [facility] [address] [place] [address] 04/29/2024 Juan Daniel Ambrosio Pain in right toe(s) M79.674 ; Tinea [...] neuritis, unspecified M79.2 and Unspecified atherosclerosis of eagle arteries of extremities, bilateral legs I70.203 Assessments [...] (ICD-10 - M79.2) 04/29/2024 Unspecified atherosclerosis of eagle arteries of extremities, bilateral legs (ICD-10 - I70.203) Plan Of Treatment Next Appt Details Follow Up: 3 Months, Reason: Provider Name:Francescaki henry, 06/30/2025 11:00:00 AM, [address] [place] [address], [phone], Procedure Notes * Category Sub-Category Detail [...] as necessary. Patient chooses, no pharmaceutical tx (36306) Keratoma Treatment Parring or Cutting o f Benign Hyperkeratotic Lesion(s) 95760 ( 2-4 Lesions ) - The Benign hyperkeratotic lesions, as described above were pared, and/or cut utilizing a sterile 15 blade, tissue nippers, and/or dremel , Q8 Progress Notes * Aminah FRAZIER SDOB:1935 (89 yo F)Acc No.[id number]:04/29/2024 Progress Note Patient: Aminah PRADO Provider: Hetal Ambrosio DPM :1935 A ge:88 Y S ex:Female Date:04/29/2024 Address:[address] [place] [address] Rosalba [place]berg [id number] Pcp:Penelope Parsons MD Subjective: * Chief Complaints: * 1 . Painful nail(s) aggrevated by shoes and causing difficulty standing/walking.. * HPI: P ainful Nails: Pt States Last PCP Visit: D ate: 1 10/02/2022 Misc: sendy nevin Keller is present who takes care [...] enies. C ardiovascular: Pacemaker d enies. M PIANO INSTRUCTOR d enies. W PW d enies. C [...] M79.2 1 1. U nspecified atherosclerosis of eagle arteries of extremities, bilateral legs - I70.203 [...] as necessary. Patient chooses, no pharmaceutical tx (21382). K eratoma Treatment: Parring or Cutting of Benign Hyperkeratotic Lesion(s) 1 1056 ( 2-4 Lesions ) - The Benign hyperkeratotic lesions, as described above were pared, and/or cut utilizing a sterile 15 blade, tissue nippers, and/or dremel , Q8. * Procedure Codes: 1 1721 DEBRIDE NAIL, 6 OR MORE, Modifiers: XS , 95782 TRIM SKIN LESIONS, 2 TO 4, Modifiers: Q8 * Follow Up: 3 Months * Images: * The named appointment provid er may or may not be the originator of this progress note, and it is not deemed complete until electronically signed by the appointment provider. Sign off status: Pending * Provider: Hetal Ambrosio DPM Date: 0 04/29/2024 Generated for Leroy martinez/Shonda/eTransmitting on: 0 06/13/2025 12:37 PM EDT History and Physical Notes * HPI (History [...]
--- OUTSIDE RECORDS SUMMARY | 2024-07-18 09:00 | XMS_ITS ---
Author Organization [facility] Address [address] [place] [address] Care Team Providers Care Decorating Kiln Operator Name Role Phone Issa STEIN, [facility] Primary Care Provider Umair Villafana [phone] REASON FOR VISIT dysphagia, gerd Problems Problem Type SNOMED Code ICD Code Onset Dates Problem Status W/U Status Risk Notes Problem Esophageal stricture (68447791) Esophageal stricture (K22.2) Active confirmed Problem Gastro-esophagea l reflux disease without esophagitis (484674636) Gastro-esophage al reflux disease without esophagitis (K21.9) Active confirmed Problem Duodenitis (67825347) Duodenitis (K29.80) Active confirmed Problem Chronic gastritis (6374056) Gastritis, chronic (K29.50) Active confirmed Encounters Encounter Location Date Provider Diagnosis [facility] Outpatient [address] [place] [phone] 07/18/2024 Umair Tracey Esophageal strictu re K22.2 [...] * JANINE FRAZIERDOB:[birth year] (89 yo F)Acc No.[id number]:07/18/2024 EGD/MAC Patient: JANINE PRADO Provider: Shelley Tracey MD :1935 A ge:88 Y S ex:Female Date:07/18/2024 Address:[address] [place], [place] [phone] Pcp:Penelope Parsons MD Subjective: * Chief Complaints: [...] Procedure Codes: 4 3249 ESOPH ENDOSCOPY, DILATION, 62879 UPPER GI ENDOSCOPY, BIOPSY, Modifiers: 59 * * The named appointment provid er may or may not be the originator of this progress note, and it is not deemed complete until electronically signed by the appointment provider. Sign off status: Pending * Provider: Shelley Tracey MD Date: 1 Generated for Leroy martinez/Shonda/Kevansmitting on: 0 06/13/2025 12:37 PM EDT
--- OUTSIDE RECORDS SUMMARY | 2024-09-03 06:50 | XMS_ITS ---
Author Organization [facility] Address [address] [place] [phone] Care Team Providers Care Field Clinical Engineer Name Role Phone Issa STEIN, Penelope Primary Care Provider Umair Villafana [phone] REASON FOR VISIT burning in throat Encounters Encounter Location Date Provider Diagnosis [facility] [address] [place] [phone] 09/03/2024 Umair Tracey Plan Of Treatment No Information Progress Notes * JANINE FRAZIERDOB:[birth year] (89 yo F)Acc No.[id number]:09/03/2024 Progress Notes Patient: JANINE PRADO Provider: Shelley Tracey MD :1935 A ge:88 Y S ex:Female Date:09/03/2024 Address:[address] [place], [place] [phone] Pcp:Penelope Parsons MD Subjective: * Chief Complaints: [...] MD Date: 1 11/04/2023 Generated for Printi ng/Faxing/eTransmitting on: 0 06/13/2025 12:37 PM EDT
--- OUTSIDE RECORDS SUMMARY | 2025-01-13 07:15 | XMS_ITS ---
Author Organization [facility] Address [address] [place] [address] Care Team Providers Care Joy Loader Name Role Phone Issa STEIN, Penelope Primary Care Provider Francesca Zapien [phone] Encounters Encounter Location Date Provider Diagnosis [address] [address] 01/13/2025 Francesca Gutierrez Plan Of Treatment Next Appt Details Provider Name:Francesca henry, 06/30/2025 11:00:00 AM, [address] [place] [address], [phone], Progress Notes * Aminah FRAZIER SDOB:1935 (89 yo F)Acc No.[id number]:01/13/2025 Progress Note Patient: Aminah PRADO Provider: Chad Gutierrez DPM :1935 A ge:89 Y S ex:Female Date:01/13/2025 Address:[address] [place], [place] [address] [id number] Pcp:Penelope Parsons MD Subjective: * Chief Complaints: [...] 01/13/2025 Generated for Leroy martinez/Shonda/Isaias on: 0 06/13/2025 12:37 PM EDT
[2025-06-13 11:03] VITALS: BP 140/78; PULSE 69; O2SAT 97; BMI 30.5
--- NOTE | 2025-06-13 11:03 | A.OFFVIS_ITS ---
Intake Vital Signs 06/13/25 11:03 Height 4 ft 11 in Weight 151 lb BMI 30.5 BP 140/78 H Pulse 69 Pulse Oximetry (%) 97 Oxygen Delivery Method Room Air Intake Visit Reasons: AWV Allergies azithromycin Allergy (Intermediate, Verified 06/13/25 11:08) Nausea/Became dehydrated hydromorphone Allergy (Unknown, Verified 06/13/25 11:08) Unknown codeine Adverse Reaction (Intermediate, Verified 06/13/25 11:08) Stomach Upset Medication List - Last Reconciled 06/13/25 by Penelope Parsons MD acetaminophen ER 650 mg PO Q8H PRN allopurinol 100 mg PO BEDTIME amlodipine 5 mg PO BID aspirin (Adult Low Dose Aspirin) 81 mg PO DAILY atorvastatin 20 mg PO BEDTIME betamethasone dipropionate 0.05% 1 appl topical DAILY PRN cholecalciferol (vitamin D3) (Vitamin D3) 50 mcg PO DAILY clopidogrel 75 mg PO DAILY coenzyme Q10 200 mg PO BEDTIME docusate sodium (Colace) 100 mg PO BEDTIME PRN fluorouracil 5% 1 appl topical BID hydralazine 10 mg PO BEDTIME metoprolol succinate ER 25 mg PO BID multivitamin 1 tab PO QAM omeprazole 20 mg PO DAILY torsemide 60 mg (3 x 20 mg) PO DAILY HPI AWV HPI Details History The patient is an 89-year-old female presenting with a Medicare wellness visit and management of chronic medical conditions. Congestive Heart Failure: - The patient is diagnosed with congesti ve heart failure with a preserved ejection fraction. - Associated with coronary artery diseas e and diastolic dysfunction. - Complains of chronic skin changes lowe r extremity due to fluid retention due to peripheral vascular disease. - Managed by cardiology. Coronary Artery Disease: - Established care under cardiology for coronary artery disease. - No recent exacerbations mentioned. Hypertension: - Managed with amlodipine, hydralazine, and metoprolol. . Chronic Kidney Disease: - Under care with Dr. Booth for [facility] kidney disease. - stable. Anemia: - History of anemia of chronic disease, with the last complete blood count in November showing hemoglobin at 11.0 with microcytic picture. - Plans to monitor CBC in the future. Skin Cancer: - Recent squamous cell carcinoma on the back treated by Dr. Pinedo. Immunizations: - Updated on flu and COVID-19, but lacki ng pneumococcal vaccine. Shingles and Tdap - Patient agreed to receive vaccine thro [facility] pharmacy Gout: - History of gout, currently on allopuri nol for gout prevention. - No recent gout flare-ups reported. Fungal Infection: - Presenting with fungal infection under breasts. - topical cream prescribed today to be u sed at night until rash healed Uterine Incontinence: - Patient reports uterine incontinence a nd use of pads. Mobility: - No falls in the last year, uses a cane for balance. - Reports occasional dizziness when armando ding quickly. Medical History: - Congestive Heart Failure with slightly preserved ejection fraction - Coronary Artery Disease - Diastolic Dysfunction - Hypertension - Chronic Kidney Disease - Anemia of Chronic Disease - Gout - Chronic Gastroesophageal Reflux Diseas e - Skin Cancer (Squamous Cell Carcinoma) Medications: - Allopurinol 100 mg for gout prevention - Amlodipine 5 mg for blood pressure man agement - Aspirin for coronary artery disease - Atorvastatin for hyperlipidemia - Vitamin D supplement - Clopidogrel 75 mg for coronary artery disease - Hydralazine for blood pressure managem ent - Metoprolol for blood pressure manageme nt - Torsemide for fluid management - Omeprazole for management of chronic G ERD Social History: - Daughter assists with groceries and ot her needs. - Patient maintains independence with so me support. Problem List - Congestive Heart Failure with preserve d ejection fraction - Coronary Artery Disease - Diastolic Dysfunction - Hypertension - Chronic Kidney Disease - Anemia of Chronic Disease - Gout - Hyperlipidemia - Chronic Gastroesophageal Reflux Diseas e - Skin Cancer (Squamous Cell Carcinoma) - Uterine Incontinence - Fungal Infection Under Breasts Diagnostic results - Labs: Last CBC in November showed hemoglo bin 11.0 with microcytic anemia. - Tests and diagnostics: No data availab le from the conversation. [facility] of Care - Follow-up care by divinity teacher, Dr. Daryl monte. - Care with Dr. Pinedo for skin cancer antoinette geiger. - Nephrology involvement with Dr. Navarro gonzalez. Patient Instructions - Verify pneumococcal vaccine status [facility] pharmacy and consider receiving the vaccine. - Apply prescribed cream nightly for fun gal infection under the breasts. - Schedule lab tests to monitor anemia ( complete blood count) and uric acid levels. - Consider bone density test and mammogr am. - Use wheelchair driver post-shower to ensure s kin dryness under the breast and prevent fungal recurrence. - Continue current medication regimen as prescribed. Only medication from this office is allopurinol Follow-up 1 year Medicare wellness and regular follow-up Review of Systems General: No fever no chills neurological: No headaches no dizziness ear nose throat: No sore throat no hearing difficulty no ear pain cardiovascular: No syncope, no chest pain, no palpitations gastrointestinal: No nausea vomiting or diarrhea genitourinary: No dysuria Physical Exam general: No acute distress HEENT: No acute findings neck: Supple respiratory system: Able to talk in full sentences, no audible wheeze no stridor cardiovascular: S1-S2 murmur present Breast exam revealed no lumps, tinea corporis infection present under left breast gastrointestinal: No pain extremities: Chronic skin changes both lower extremities 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 oriented x3 motor intact unable to do tandem walk, Romberg intact able to stand up from chair without touching anything uses cane for ambulation felt dizzy during exam skin: Normal turgor, HPI Comments History of Present Illness Details AWV Medical/social history reviewed Past medical history reviewed [facility] of care / care team list updated Surgical/ hospitalization history reviewed Current medications including OTC and supplements reviewed Family history reviewed Tobacco controlled form updated Alcohol use form updated Illicit drug use in social history reviewed Current diagnosis of depression ?screening updated Appropriate PHQ 2/PHQ-9 completed . Vital signs reviewed Alcohol tobacco drug use reviewed and discussed . MMSE completed . ? Fall risk: ?Assessed Fall history: ?None Have you had any falls with injury in the past year?? No Have you had 2 or more falls in the past year?? No Fall risk assessment completed Home safety discussed with the patient Functional ability assessed and discussed and documented Activities of daily living reviewed and appropriate actions taken . HRA filled out by the patient and reviewed by provider and scanned . Appropriate written screening schedule established . Any health advise needed provided . Advance care planning discussed with the patient , necessary paperwork filled Examination IPPE/AWE: Balance intact Romberg intact Tandem failed walk-in turn pass rise from sit to stand intact . ?Hearing ?whisper test failed left ear . Medication list reviewed, patient is stable on medications All other providers patient is seeing discussed and noted . [facility] Medical History Back pain History of femoral angiogram Arthritis Gait disorder Neuropathy Degenerative localized arthritis of hip PVD (peripheral vascular disease) CAD (coronary artery disease) Diastolic dysfunction (HFpEF) heart failure with preserved ejection fraction Low hemoglobin Gout Osteoarthritis of knees, bilateral Chronic kidney disease Chronic GERD Lipid disorder Hypertension, essential Surgical History H/O colonoscopy Hx of right cataract extraction History of bilateral knee replacement H/O vein stripping Hx of bilateral hip replacements History of cataract surgery S/P CABG x 2 History of carpal tunnel surgery History of right hip replacement History of tonsillectomy Family History Father CHF (congestive heart failure) CVD (cardiovascular disease) Mother Pancreatitis Maternal Aunt Breast cancer Sister No problems noted. Sister No problems noted. Daughter No problems noted. Social History Housing: House Are you a primary animal care assistant to a significant other at home: No Do you presently have visiting nurse or other home services: No Alcohol intake: never Patient Tobacco Use Status: Former Tobacco user Tobacco use type: Cigarette Years Smoked: 2 years e-Cigarette/Vaping Use: Never Used Second Hand Smoke Exposure: No Current occupational status: retired Cognitive needs: No Hearing needs: No Vision needs: No Questionnaire Medicare Wellness Checkup What is your age?: 80 or older What gender do you identify with?: female During the past 4 weeks, how much have you been bothered by emotional problems such as feeling anxious, depressed, irritable, sad or downhearted, and blue?: not at all During the past 4 weeks, has your physical & emotional health limited your social activities with family, friends, neighbors, or groups?: not at all During the past 4 weeks, how much bodily pain have you generally had?: moderate pain During the past 4 weeks, was someone available to help you if you needed & wanted help?: yes, as much as I wanted During the past 4 weeks, what was the hardest physical activity you could do for at least 2 minutes?: moderate Can you get to places out of walking distance without help? (For eg., can you travel alone on buses, taxis or drive your car?): No Can you go shopping for groceries or clothes without someone's help?: No Can you prepare your own meals?: Yes Can you do your housework without help?: Yes (light work) Because of any health problems, do you need the help of another person with your personal care needs such as eating, bathing, dressing or getting around the house?: No Can you handle your own money without help?: Yes During the past 4 weeks, how would you rate your health in general?: fair During the past 4 weeks how have things been going for you?: pretty well Do you always fasten your seat belt when you are in a car?: yes, usually During past 4 weeks, have you been bothered by the following: never: Falling or dizzy when standing up, Sexual problems? and Trouble eating well?, seldom: Teeth or denture problems? and Problems using the telephone? and always: Tiredness or fatigue? Have you fallen 2 or more times in the past year?: No Are you afraid of falling?: No Are you a smoker?: no During the past 4 weeks, how many drinks of wine, beer, or other alcoholic beverages did you have?: 1 drink or less per week Do you exercise for about 20 minutes 3 or more times a week?: yes, most of the time Have you been given information to help with the following?: yes: Hazards in your house that might hurt you? and yes: Keeping track of your medications? How often do you have trouble taking medicines the way you have been told to take them?: I always take medicine as prescribed How confident are you that you can control & manage most of your health prob lems?: very confident What is your race?: White Mini Mental State Exam (MMSE) Orientation What is the (year) (season) (date) (day) (month)?: year, season, date, day and month Where are we (state) (county) (town or city) (hospital) (floor)?: state, county, town or city, hospital/clinic and floor Score Score: 10 Activity of Daily Living Bathing - sponge bath, tub bath or shower: receives no assistance (gets in/out by self, if usual bathing means Dressing - getting clothes from closets & drawers, including inner/outer garments & fasteners.: gets clothes & gets completely dressed without help Toileting - going to the 'toilet room' for urine/bowel elimination & cleaning self/arranging clothes: goes to toilet room, cleans self, arranges clothes without help Transfer: moves in & out of bed and chair without help (may use support object) Continence: supervision helps urination/bowel control; catheter use; incontinent (Wears diapers) Feeding: feeds self without help Total Score: 1 Information obtained from: patient Using telephone: independent Traveling: needs assistance Shopping: needs assistance Preparing meals: needs assistance Housework: needs assistance Taking medicine: independent Managing money: independent PHQ-9 Over the last 2 weeks, how often have you been bothered by any of the following problems? 1. Little interest or pleasure in doing things: not at all 2. Feeling down, depressed, or hopeless: not at all 3. Trouble falling or staying asleep, or sleeping too much: not at all 4. Feeling tired or having little energy: nearly every day 5. Poor appetite or overeating: not at all 6. Feeling bad about yourself - or that you are a failure or have let yourself or your family down: not at all 7. Trouble concentrating on things, such as reading the newspaper or watching television: not at all 8. Moving or speaking so slowly that other people could have noticed. Or the opposite - being so fidgety or restless that you have been moving around a lot more than usual: not at all 9. Thoughts that you would be better off or of hurting yourself in some way: not at all Total score: 3 Depression Screening Interpretation: Negative Depression Screening Done: Yes 53984 - PHQ-9 Billing: Yes Source: Developed by Drs. Umair Villegas, Miriam Antunez, Hermilo Friedman and colleagues, with an educational jillian from [employer]. Physical Exam Vital Signs: Last Vital Signs Pulse 69 06/13/25 11:03 BP 140/78 H 06/13/25 11:03 Pulse Ox 97 06/13/25 11:03 Oxygen Delivery Method Room Air 06/13/25 11:03 BMI result Body Mass Index 30.5 Assessment & Plan Assessment & Plan (1) Hypertension, essential: Code(s): I10 - Essential (primary) hypertension (2) Chronic kidney disease: Code(s): N18.9 - Chronic kidney disease, unspecified Qualifiers: Chronic kidney disease stage: stage 3 (moderate) Chronic kidney disease stage 3 subtype: stage 3a (GFR 45-59) Qualified Code(s): N18.31 - Chronic kidney disease, stage 3a (3) (HFpEF) heart failure with preserved ejection fraction: Code(s): I50.30 - Unspecified diastolic (congestive) heart failure Qualifiers: Heart failure chronicity: chronic Qualified Code(s): I50.32 - Chronic diastolic (congestive) heart failure (4) Anemia in chronic illness: Code(s): D63.8 - Anemia in other chronic diseases classified elsewhere (5) Menopausal state: Code(s): N95.1 - Menopausal and female climacteric states (6) Gout: Code(s): M10.9 - Gout, unspecified Qualifiers: Chronicity: chronic Gout etiology: due to renal impairment Gout site: foot Laterality: unspecified laterality Presence of tophus: without tophus Qualified Code(s): 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 Congestive Heart Failure: - The patient is diagnosed with congestive heart failure with a preserved ejection fraction. - Associated with coronary artery disease and diastolic dysfunction. - Complains of chronic skin changes lower extremity due to fluid retention due to peripheral vascular disease. - Managed by cardiology. Coronary Artery Disease: - Established care under cardiology for coronary artery disease. - No recent exacerbations mentioned. Hypertension: - Managed with amlodipine, hydralazine, and metoprolol. . Chronic Kidney Disease: - Under care with Dr. Booth for chronic kidney disease. - stable. Anemia: - History of anemia of chronic disease, with the last complete blood count in November showing hemoglobin at 11.0 with microcytic picture. - Plans to monitor CBC in the future. Skin Cancer: - Recent squamous cell carcinoma on the back treated by Dr. Pinedo. Immunizations: - Updated on flu and COVID-19, but lacking pneumococcal vaccine. Shingles and Tdap - Patient agreed to receive vaccine through pharmacy Gout: - History of gout, currently on allopurinol for gout prevention. - No recent gout flare-ups reported. Fungal Infection: - Presenting with fungal infection under breasts. - topical cream prescribed today to be used at night until rash healed Uterine Incontinence: - Patient reports uterine incontinence and use of pads. Mobility: - No falls in the last year, uses a cane for balance. - Reports occasional dizziness when standing quickly. Medical History: - Congestive Heart Failure with slightly preserved ejection fraction - Coronary Artery Disease - Diastolic Dysfunction - Hypertension - Chronic Kidney Disease - Anemia of Chronic Disease - Gout - Chronic Gastroesophageal Reflux Disease - Skin Cancer (Squamous Cell Carcinoma) Medications: - Allopurinol 100 mg for gout prevention - Amlodipine 5 mg for blood pressure management - Aspirin for coronary artery disease - Atorvastatin for hyperlipidemia - Vitamin D supplement - Clopidogrel 75 mg for coronary artery disease - Hydralazine for blood pressure management - Metoprolol for blood pressure management - Torsemide for fluid management - Omeprazole for management of chronic GERD Social History: - Daughter assists with groceries and other needs. - Patient maintains independence with some support. Problem List - Congestive Heart Failure with preserved ejection fraction - Coronary Artery Disease - Diastolic Dysfunction - Hypertension - Chronic Kidney Disease - Anemia of Chronic Disease - Gout - Hyperlipidemia - Chronic Gastroesophageal Reflux Disease - Skin Cancer (Squamous Cell Carcinoma) - Uterine Incontinence - Fungal Infection Under Breasts Diagnostic results - Labs: Last CBC in November showed hemoglobin 11.0 with microcytic anemia. - Tests and diagnostics: No data available from the conversation. [facility] of Care - Follow-up care by divinity teacher, Dr. Ruvalcaba. - Care with Dr. Pinedo for skin cancer management. - Nephrology involvement with Dr. Navarro gonzalez. Patient Instructions - Verify pneumococcal vaccine status with pharmacy and consider receiving the vaccine. - Apply prescribed cream nightly for fungal infection under the breasts. - Schedule lab tests to monitor anemia (complete blood count) and uric acid levels. - Consider bone density test and mammogram. - Use wheelchair driver post-shower to ensure skin dryness under the breast and prevent fungal recurrence. - Continue current medication regimen as prescribed. Only medication from this office is allopurinol Follow-up 1 year Medicare wellness and regular follow-up Orders: Orders Complete Blood Count Auto Diff Today D63.8 - Anemia in other chronic diseases classified elsewhere, I10 - Essential (primary) hypertension, I50.30 - Unspecified diastolic (congestive) heart failure, N18.31 - Chronic kidney disease, stage 3a Magnesium Today I10 - Essential (primary) hypertension Ferritin Today D63.8 - Anemia in other chronic diseases classified elsewhere, I10 - Essential (primary) hypertension, I50.30 - Unspecified diastolic (congestive) heart failure, N18.31 - Chronic kidney disease, stage 3a Folate Today D63.8 - Anemia in other chronic diseases classified elsewhere, I10 - Essential (primary) hypertension, I50.30 - Unspecified diastolic (congestive) heart failure, N18.31 - Chronic kidney disease, stage 3a Comprehensive Met. Panel Today D63.8 - Anemia in other chronic diseases classified elsewhere, I10 - Essential (primary) hypertension, I50.30 - Unspecified diastolic (congestive) heart failure, N18.31 - Chronic kidney disease, stage 3a Vitamin B12 Today D63.8 - Anemia in other chronic diseases classified elsewhere, I10 - Essential (primary) hypertension, I50.30 - Unspecified diastolic (congestive) heart failure, N18.31 - Chronic kidney disease, stage 3a MM tomosynthesis screening BI Today N95.1 - Menopausal and female climacteric states, Z12.31 - Encounter for screening mammogram for malignant neoplasm of breast XR DEXA axial skeleton Today N95.1 - Menopausal and female climacteric states, Z12.31 - Encounter for screening mammogram for malignant neoplasm of breast Uric Acid Today M1A.3790 - Chronic gout due to renal impairment, unspecified ankle and foot, without tophus (tophi) Medications: New nystatin 1 appl topical DAILY 30 grams 1RF 30 days Quality Reporting (2019) Depression/Bipolar (159/160/161/177) PHQ-9: Total score: 3 Coding Level of Care Code Medicare Subsequent (G0439) Est Pt Level 4 (40594) Diagnoses Hypertension, essential I10 Stage 3a chronic kidney disease N18.31 Chronic kidney disease stage: stage 3 (moderate) Chronic kidney disease stage 3 subtype: stage 3a (GFR 45-59) Chronic heart failure with preserved ejection fraction (HFpEF) I50.32 Heart failure chronicity: chronic Anemia in chronic illness D63.8 Menopausal state N95.1 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
--- OUTSIDE RECORDS SUMMARY | 2025-06-13 12:36 | XMS_ITS | Encounter Summary ---
Author Organization [facility], Address [address] [place] [address] Phone Care Team Providers Care Software Writer Name Role Phone Penelope Parsons MD Primary Care Provider [phone] Encounter Details Date Type Department Care Team (Late Contact Info) Description 05/20/2025 Orders Only [facility] [address] [place] [address] [place] [address] [place] [address] Social History Tobacco Use Types [...] Care Team (Late st Contact Info) Description 12/05/2025 2:45 PM EST Office Visit [facility] [address] [place] [address] Juan Luis MD [address] [place] [address] documented as of this encounter Visit Diagnoses Not on filedocumented in this encounter Care Teams Software Writer Relationship Specialty Start Date End Date Penelope Parsons MD [address] [place] [address] PCP - General 08/06/19 documented as of this encounter
--- OUTSIDE RECORDS SUMMARY | 2025-06-13 12:37 | XMS_ITS | Patient Health Record ---
Author Organization [facility] Address [address] [place] [address] Care Team Providers Care River Driver Name Role Phone Issa STEIN, [facility] Primary Care Provider Umair Villafana [phone] Allergies Allergen (clinical drug ingredient) Drug/Non Drug Allergy documented on EMR Reaction Allergy Type Onset Date Status hydromorphone HYDROmorphone Unknown Drug Allergy Active codeine Codeine Unknown Drug Allergy Active azithromycin Azithromycin Unknown Drug Allergy A ctive Results Component Value Reference Range Notes Pathology Reviewed date:11/21/2024 10:20:00 AM Interpretation: Performing Lab:[facility], [address] [place] [id number] Notes/Report: Reason For Referral No Information Medications [...] every morning for 90 days 06/18/2024 Active Pepto Bismol 262 MG 1 capsule [...] NEEDED External for 30 L2089,Unavailab le Active Co Q-10 200 MG as directed [...] Notes Problem Gastro-esophageal reflux disease without esophagitis (874489178) Gastro-esophag eal reflux disease without esophagitis (K21.9) Active confirmed Problem Dysphagia (85675497) Dysphagia (R13.10) Active confirmed Problem Duodenitis (62664311) Duodenitis (K29.80) Active confirmed Problem Esophageal stricture (84837282) Esophageal stricture (K22.2) Active confirmed Problem Hiatal hernia (09752691) Hiatal hernia (K44.9) Active confirmed Problem Chronic gastritis (5786263) Gastritis, chronic (K29.50) Active confirmed Problem Gastroesophageal reflux disease (disorder) (942066399) Chronic GERD (K21.9) Active confirmed Vital Signs Blood pressure diastolic 11 mm Hg 11/21/2024 Height 4 ft 10 in in 11/21/2024 Blood pressure systolic 111 mm Hg 11/21/2024 Weight 138 lbs 11/21/2024 BMI 28.84 kg/m2 11/21/2024 Encounters Encounter Location Date Provider Diagnosis [facility] Outpatient [address] [place] [id number] 07/18/2024 Umair Tracey Esophageal stricture K22.2 ; Other specified disease of esophagus K22.89 ; Gastro-esophageal reflux disease without esophagitis K21.9 ; Hiatal hernia K44.9 ; Duodenitis K29.80 ; Gastritis, chronic K29.50 and Dysphagia R13.10 [facility] [address] [place] [address] 06/18/2024 Umair Tracey Dysphagia R13.10 and Chronic GERD K21.9 [facility] [address] [place] [address] 11/21/2024 Umair Tracey Esophageal stricture K22.2 ; Dysphagia R13.10 ; Chronic GERD K21.9 and Hiatal hernia K44.9 [facility] [address] [place] [address] 06/30/2024 Umair Tracey [facility] [address] [place] [address] 07/18/2024 Umair Tracey [facility] [address] [place] [address] 05/06/2025 Umair Tracey Chronic GERD K21.9 Assessments Encounter Date Diagnosis (ICD Code) Assessment [...] (ICD-10 - K22.2) Continue omeprazole 20mg daily [facility] Call me if problems 05/06/2025 Chronic GERD (ICD-10 - K21.9) 07/18/2024 Gastro-esophag eal reflux disease without esophagitis [...] Date MEDICARE OF [place] [address] [facility] [place] [address] [id number] AMINHA FRAZIER Self - patient is the insured [employer] ATTN CLAIMS [address] [place] [address] [phone] [id number] AMINAH FRAZIER Self - patient is the insured Medical (General) History Medical History History ICD Code Neuropathy Arthritis Peripheral vascular disease Coronary artery disease Gout Hypertension Chronic kidney disease-- Stage 3 -sees Dr. Booth GERD--EGD 07/2024 Denies [place],DM,CVA,Lung disease Surgical History Surgery Date(Month/Year) Bilateral knee replacements tonsillectomy CARPAL TUNNEL BILATERAALY S/P CABG Hx of cataract surgery Hx of bilateral hip replacements LE vein stripping
--- OUTSIDE RECORDS SUMMARY | 2025-06-13 12:38 | XMS_ITS | Encounter Summary ---
Author Organization [facility], Address [address] [place] [address] Phone Care Team Providers Care Shock Absorber Installer Name Role Phone Penelope Parsons MD Primary Care Provider [phone] Encounter Details Date Type Department Care Team (Late Contact Info) Description 06/25/2024 Documentation Only [facility] [address] [address] [place] [address] [place] [address] Social History Tobacco Use Types Packs/Day [...] Visit [facility] [address] [address] Juan Luis MD [address] [place] [address] documented as of this encounter Visit Diagnoses Not on filedocumented in this encounter Care Teams Shock Absorber Installer Relationship Specialty Start Date End Date Penelope Parsons MD [address] [facility] [address] PCP - General 08/06/19 documented as of this encounter
--- OUTSIDE RECORDS SUMMARY | 2025-06-13 12:38 | XMS_ITS | Encounter Summary ---
Author Organization [facility], Address [address] [place] [address] Phone Care Team Providers Care Brand Coordinator Name Role Phone Penelope Parsons MD Primary Care Provider [phone] Encounter Details Date Type Department Care Team (Late Contact Info) Description 12/25/2024 Documentation Only [facility] [address] [place] [address] [place] [address] [place] [address] Social History Tobacco Use Types Packs/Day [...] Visit [facility] [address] [place] [address] Juan Luis MD [address] [place] [address] documented as of this encounter Visit Diagnoses Not on filedocumented in this encounter Care Teams Brand Coordinator Relationship Specialty Start Date End Date Penelope Parsons MD [address] [place] [address] PCP - General 08/06/19 documented as of this encounter
--- OUTSIDE RECORDS SUMMARY | 2025-06-13 12:38 | XMS_ITS | Clinical Summary ---
Author Organization [facility], Address [address] [place] [address] [place] [address] Phone Care Team Providers Care Advanced Manufacturing Associate Name Role Phone Penelope Parsons MD Primary Care Provider [phone] Allergies Active Allergy Reactions Criticality Noted Date [...] Problem Noted Date Diagnosed Date Atherosclerosis of [place] arteries of the extrem ities 05/29/2023 05/29/2023 Renal artery stenosis 12/31/2021 05/29/2023 Essential hypertension 05/27/2021 Stage 3b chronic kidney disease 01/03/2020 Hypertensive chronic kidney disease, malignant, 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, or unspecified 01/03/2020 Iron deficiency anemia 01/03/2020 Encounters Date Type Department Care Team Description 06/06/2025 2:00 PM EDT Office Visit [facility], [address] [place] [address] Juan Luis MD Stage 3b chronic kidney disease (HCC) (Primary Dx); Hypertension; Other iron deficiency anemia; Anemia in chronic kidney disease 05/20/2025 Orders Only [facility], [address] [place] [address] Zara Bob [place] from Last 3 Months Immunizations Immunization Administration [...] Visit [facility], [address] [place] [address] Juan Luis MD [address] [place] [address] [place] [address] Health Maintenance Due Date Last Done Comments Pneumococcal Vaccine: 50+ Years (1 of 2 - PCV) 12/14/1954 Influenza Vaccine (#1) 2025 4, 12/12/2019 Hepatitis B Vaccine Aged Out No longe r eligible based on patient's age to complete this topic Insurance Medicare [facility] Care Teams Advanced Manufacturing Associate Relationship Specialty Start Date End Date Peneloep Parsons MD [address] [place] [address] PCP - General 08/06/19
--- OUTSIDE RECORDS SUMMARY | 2025-06-13 12:38 | XMS_ITS | Patient Health Record ---
Author Organization [facility] Address [address] [facility] [place] [address] Care Team Providers Care Commissary Representative Name Role Phone Issa STEIN, [facility] Primary Care Provider Francesca Zapien Unavailable [phone] Allergies Allergen (clinical drug ingredient) Drug/Non Drug [...] Notes Start Date End Date Status Multivitamin Active Acetaminophen Active Vitamin D3 1000 UNIT 1 capsule Orally Once a day Active Aspirin 81 MG 1 tablet Orally Once a day Active amLODIPine Besylate 5 MG 2 tablets Orall y twice a day Active Vitamin B-6 50 MG 1 tablet Orally Once a day Not-Taking Jonancy Power 1050 MG 1 capsule Orally Once a day Not-Taking Aleve 220 MG 1 tablet as needed Orally every 12 hrs Not-Taking Multivitamin Not-Jasper ing Omeprazole 20 MG TAKE 1 CAPSULE BY MOUTH EVERY MORNING Oral; Duration: 90 Days Active Atenolol 25 MG 1 tablet Orally Once a day Not-Taking Omeprazole 20 MG 1 capsule Orally Once a day Not-Taking Warfarin Sodium 1 MG take 3 tablets by mouth once daily or as directed for 10 days Oral; Duration: 3 Not-Taking Folic Acid 1 MG 1 tablet Orally Once a day Not-Taking Plavix Active Torsemide 20 MG 2 tabs Orally 3 tablets once a day Active Betamethasone Dipropionate 0.05 % APPLY TWICE DAILY TO LOWER LEGS FOR 2 WEEKS THEN TAKE 1 WEEK OFF. REPEAT NEEDED External; Duration: 30 L2089,Unavail able Active Isosorbide Mononitrate ER 60 MG Oral; Duration: 30 Not-Taking Metoprolol Tartrate 25 MG Oral; Duration : 6 Active Lisinopril 10 MG 1 tablet Orally Once a day Not-Taking Chlorhexidine Gluconate 0.12 % Mouth/Throat; Duration: 2 Not-Taking Lasix 40 MG 1 tablet Orally Once a day Not-Taking traMADol HCl Not-Jasper ing Colchicine 0.6 MG 1 tablet Orally Once a day; Duration: 10 days 02/08/2016 Not-Taking Mupirocin 2 % External; Duration: 22 Not-Taking Spironolactone 25 MG 1 tablet Orally Once a day Not-Taking Hydralazine-HCTZ 5mg Act zulema hydroCHLOROthiazide 25 MG 1 tablet in morning Orally Once a day Not-Taking Furosemide 20 MG Oral; Duration: 30 Not-Taking Pantoprazole Sodium 40 MG take 1 tablet by mouth every morning Oral; Duration: 30 Not-Taking Fish Oil Not-Taking Lipitor 20 MG Orally Not-Ta kitty Nystop Not-Taking Metoprolol Succinate 25 MG 1 capsule Orally twice a day twice a day Not-Taking Vitamin B 12 Not-Jasper ing Biotin Not-Taking Ocuvite Not-Taking Allopurinol 100 MG Orally every other day Active Centrum Silver Orally Not-T aking Tums 500 MG 1 tablet Orally Four times a day PRN Not-Taking Extra-Depth Diabetic Shoes with 3 Pair Custom heat-molded multi-density innersoles . for 1 year . Dx:please accomodate for painful left 5th mtpj in the insole; Duration: . 07/01/2015 Not-Taking Tamsulosin HCl Not-T aking Pepto-Bismol Not-Jasper ing Atorvastatin Calcium 20 MG 1 tablet Orally Once a day Not-Taking Co Q 10 10 MG 1 capsule with a meal Orally Once a day Not-Taking Vazalore Not-Taking Ezetimibe Not-Taking Jonancy 3 Not-Taking Colace Not-Taking Torsemide 20 MG as directed Orally Once a day Not-Taking Clopidogrel Bisulfate 75 MG as directed Not-Taking Immunizations Vaccine Route Administration Date Status Comme nts Influenza Unknown 07/02/2024 Administered Influenza Unknown 07/02/2024 Administered Social History Tobacco Use: Social History Observation [...] atherosclerosis of arteries of lower limbs (disorder) (55020152868663486 ) Atherosclerosis of [place] artery of both lower extremities, with unspecified presence of clinical manifestation (I70.203) Active confirmed Q7(A), Q8(2B), Q9(1B,2 C) Vital Signs Blood pressure diastolic 75 mm Hg 03/17/2025 Height 5 ft in 03/17/2025 Blood pressure systolic 148 mm Hg 03/17/2025 Weight 145 lbs 03/17/2025 BMI 28.32 kg/m2 03/17/2025 Procedures Procedure Date Ordered Date Performed Result Body Sit e 67115-DVCDZSA NAIL, 6 OR MORE 08/26/2024 N/A 54113-GJYB SKIN LESIONS, OVER 4 08/26/2024 N/A 36596-XRJPNDQ NAIL, 6 OR MORE 03/17/2025 N/A 50632-XDCZ SKIN LESIONS, OVER 4 03/17/2025 N/A Encounters Encounter Location Date [facility] [address] 08/26/2024 Francesca Gutierrez Atherosclerosis of [place] artery of both lower extremities, with unspecified presence of clinical manifestation I70.203 ; Tinea unguium B35.1 ; Pain in right toe(s) M79.674 and Pain in left toe(s) M79.675 [facility] [address] 03/17/2025 Francesca Gutierrez Atherosclerosis of [place] artery of both lower extremities, with unspecified presence of clinical manifestation I70.203 ; Tinea unguium B35.1 ; Pain in right toe(s) M79.674 and Pain in left toe(s) M79.675 [facility] [address] [place] [address] 01/13/2025 Francesca Gutierrez Assessments Encounter Date Diagnosis (ICD Code) Assessment Notes Treatment Notes Treatment Clinical Notes Section Notes 08/26/2024 Atherosclerosis of [place] artery of both lower extremities, with unspecified presence of clinical manifestation (ICD-10 - I70.203) Q7(A), Q8(2B), Q9(1B,2C) 03/17/2025 Atherosclerosis of [place] artery of both lower extremities, with unspecified presence of clinical manifestation (ICD-10 - I70.203) Q7(A), Q8(2B), Q9(1B,2C) 03/17/2025 Tinea unguium (ICD-10 - B35.1) 08/26/2024 Tinea unguium (ICD-10 - B35.1) 08/26/2024 Pain in right toe(s) (ICD-10 - M79.674) 03/17/2025 Pain in right toe(s) (ICD-10 - M79.674) 03/17/2025 Pain in left toe(s) (ICD-10 - M79.675) 08/26/2024 Pain in left toe(s) (ICD-10 - M79.675) Plan Of Treatment Pending Test Test Name Order Date *Uric Acid, Serum 02/08/2016 *Sedimentation Rate-Westergren 6 X ray : Foot, left 3V 04/13/2015 01633-JOXPTKY NAIL, 6 OR MORE 08/26/2024 00197-PGCOPHC NAIL, 6 OR MORE 03/17/2025 13902-LPCRBSY NAIL, 1-5 04/13/2015 37204-UVXQMRP NAIL, -5 07/01/2015 74298-GNXHBGL NAIL, -5 09/21/2015 19976-JGIVDUJ NAIL, -5 01/04/2016 42361-VNLJBET NAIL, -5 05/02/2016 69289-XWCHCAS NAIL, -5 08/22/2016 63737-PEFBXVZ NAIL, -5 12/21/2016 14417-GIBMXMZ NAIL, -03/29/2017 76627-XKVW SKIN LESIONS, OVER 4 08/26/20 24 35053-VHCH SKIN LESIONS, OVER 4 03/17/20 25 17408-YCRY SKIN LESIONS, 2 TO 4 04/10/20 23 63441-EGBD SKIN LESIONS, 2 TO 4 01/03/20 23 00405-OKOE SKIN LESIONS, 2 TO 4 07/01/20 19 79168-VWBW SKIN LESIONS, 2 TO 4 07/01/20 15 96520-QUBG NAIL(S) 01/02/2023 P4492-OSZEBFJF DYSTROPHIC NAILS ANY # [id number]- Nail Unit Biopsy 06/21/2018 Next Appt Details Provider Name:Francesca henry, 06/30/2025 11:00:00 AM, [address] [facility], [place], [address], Insurance Providers Payer Name Payer Address Payer Phone Subscriber Number Group Number Insured Name Patient Relationship to Insured Coverage Start Date Coverage End Date Medicare National Govt Svcs Inc [address] [place] [id number] Self - patient is the insured [employer] Blue Shield [address] [place] [id number] Self - patient is [...] Hospitalization History Reason Date(Month/Year) Vein Surgery 03/24 [facility] for bad reaction to pain medica tion. Legs/feet swelled up. 2017
== END 2025-06-13 11:41 | disposition home or self-care (01) ==
LOC: HO.HMCC 10:57
PROVIDERS: PCP Internal Medicine; Visit Provider Internal Medicine
DX: Z00.00 Encounter for general adult medical examination without abnormal findings (principal); I12.9 Hypertensive chronic kidney disease with stage 1 through stage 4 chronic kidney disease, or unspecified chronic kidney disease; N18.31 Chronic kidney disease, stage 3a; I50.32 Chronic diastolic (congestive) heart failure; D63.8 Anemia in other chronic diseases classified elsewhere; N95.1 Menopausal and female climacteric states; M1A.3790 Chronic gout due to renal impairment, unspecified ankle and foot, without tophus (tophi)

== ENCOUNTER 2025-06-19 06:33 | Outpatient (AMB) | payer MEDICARE, SELFPAY ==
--- OUTSIDE RECORDS SUMMARY | 2024-04-29 07:15 | XMS_ITS ---
Author Organization [facility] Address [address] [place] [address] Care Team Providers Care Lead Dental Assistant Name Role Phone Issa STEIN, [facility] Primary Care Provider Francesca Zapien Unavailable [phone] Juan Daniel Ambrosio Unavailable [phone] REASON FOR VISIT Painful nail(s) aggrevated by shoes and causing difficulty standing/walking. Encounters Encounter Location Date Provider Diagnosis [facility] [address] [place] [address] 04/29/2024 Juan Daniel Ambrosio Pain in right [...] neuritis, unspecified M79.2 and Unspecified atherosclerosis of [place] arteries of extremities, bilateral legs I70.203 Assessments [...] (ICD-10 - M79.2) 04/29/2024 Unspecified atherosclerosis of [place] arteries of extremities, bilateral legs (ICD-10 - I70.203) Plan Of Treatment Next Appt Details Follow Up: 3 Months, Reason: Provider Name:Francescaki henry, 06/30/2025 11:00:00 AM, [address] [place] [address], [address], Procedure Notes * Category Sub-Category Detail [...] as necessary. Patient chooses, no pharmaceutical tx (94938) Keratoma Treatment Parring or Cutting o f Benign Hyperkeratotic Lesion(s) 24787 ( 2-4 Lesions ) - The Benign hyperkeratotic lesions, as described above were pared, and/or cut utilizing a sterile 15 blade, tissue nippers, and/or dremel , Q8 Progress Notes * Aminah FRAZIER SDOB:1935 (89 yo F)Acc No.[id number]:04/29/2024 Progress Note Patient: Aminah PRADO Provider: Hetal Ambrosio DPM :1935 A ge:88 Y S ex:Female Date:04/29/2024 Address:[address] [place] [address] Rosalba Greenberg [id number] Pcp:Penelope Parsons MD Subjective: * Chief Complaints: [...] enies. C ardiovascular: Pacemaker d enies. M SOFTWARE LEAD d enies. W PW d enies. C [...] M79.2 1 1. U nspecified atherosclerosis of [place] arteries of extremities, bilateral legs - I70.203 [...] as necessary. Patient chooses, no pharmaceutical tx (93848). K eratoma Treatment: Parring or Cutting of Benign Hyperkeratotic Lesion(s) 1 1056 ( 2-4 Lesions ) - The Benign hyperkeratotic lesions, as described above were pared, and/or cut utilizing a sterile 15 blade, tissue nippers, and/or dremel , Q8. * Procedure Codes: 1 1721 DEBRIDE NAIL, 6 OR MORE, Modifiers: XS , 13406 TRIM SKIN LESIONS, 2 TO 4, Modifiers: Q8 * Follow Up: 3 Months * Images: * The named appointment provid er may or may not be the originator of this progress note, and it is not deemed complete until electronically signed by the appointment provider. Sign off status: Pending * Provider: Hetal Ambrosio DPM Date: 0 04/29/2024 Generated for Leroy martinez/Shonda/eTransmitting on: 0 06/19/2025 06:38 AM EDT History and Physical Notes * HPI [...]
--- OUTSIDE RECORDS SUMMARY | 2024-07-18 09:00 | XMS_ITS ---
Author Organization [facility] Address [address] [place] [address] Care Team Providers Care City Treasurer Name Role Phone Issa STEIN, [facility] Primary [facility] Provider Umair Villafana [phone] REASON FOR VISIT dysphagia, gerd Problems Problem Type SNOMED Code ICD Code Onset Dates Problem Status W/U Status Risk Notes Problem Esophageal stricture (46227632) Esophageal stricture (K22.2) Active confirmed Problem Gastro-esophagea l reflux disease without esophagitis (218563988) Gastro-esophage al reflux disease without esophagitis (K21.9) Active confirmed Problem Duodenitis (09488562) Duodenitis (K29.80) Active confirmed Problem Chronic gastritis (4098211) Gastritis, chronic (K29.50) Active confirmed Encounters Encounter Location Date Provider Diagnosis [facility] Outpatient [address] [place] [phone] 07/18/2024 Umair Tracey Esophageal strictu re K22.2 ; Other specified disease of esophagus K22.89 ; Gastro-esophageal reflux disease without esophagitis K21.9 ; Hiatal hernia K44.9 ; Duodenitis K29.80 ; Gastritis, chronic K29.50 and Dysphagia R13.10 Assessments Encounter Date Diagnosis (ICD Code) Assessment Notes Treatment Notes Treatment Clinical Notes Section Notes 07/18/2024 Esophageal stricture (ICD-10 - K22.2) 07/18/2024 Other specified disease of esophagus (ICD-10 - K22.89) 07/18/2024 Gastro-esophagea l reflux disease without esophagitis (ICD-10 - K21.9) 07/18/2024 Hiatal hernia (ICD-10 - K44.9) 07/18/2024 Duodenitis (ICD-10 - K29.80) 07/18/2024 Gastritis, chronic (ICD-10 - K29.50) 07/18/2024 Dysphagia (ICD-10 - R13.10) Plan Of Treatment No Information Progress Notes * JANINE FRAZIERDOB:[birth year] (89 yo F)Acc No.[id number]:07/18/2024 EGD/MAC Patient: JANINE PRADO Provider: Shelley Tracey MD :1935 A ge:88 Y S ex:Female Date:07/18/2024 Address:[address] [place], [place] [phone] Pcp:Penelope Parsons MD Subjective: * Chief Complaints: * 1 . Dysphagia, gerd. * Medical History: Objective: * Vitals: Assessment: * Assessment: 1. E sophageal stricture - K22.2 (Primary) 2 . O ther specified disease of esophagus - K22.89 3 . G emmanuel-esophageal reflux disease without esophagitis - K21.9 4 . H iatal hernia - K44.9 5 . D uodenitis - K29.80 6. G astritis, chronic - K29.50 7 . D ysphagia - R13.10 ? Plan: * Treatment: * Procedure Codes: 4 3249 ESOPH ENDOSCOPY, DILATION, 53960 UPPER GI ENDOSCOPY, BIOPSY, Modifiers: 59 * * The named appointment provid er may or may not be the originator of this progress note, and it is not deemed complete until electronically signed by the appointment provider. Sign off status: Pending * Provider: Shelley Tracey MD Date: 1 Generated for Leroy martinez/Shonda/eTalishasmitting on: 0 06/19/2025 06:37 AM EDT
--- OUTSIDE RECORDS SUMMARY | 2024-09-03 06:50 | XMS_ITS ---
Author Organization [facility] Address [address] [place] [phone] Care Team Providers Care Mineral Resources Inspector Name Role Phone Issa STEIN, Penelope Primary Care Provider Umair Villafana [phone] REASON FOR VISIT burning in throat Encounters Encounter Location Date Provider Diagnosis [facility] [address] [place] [phone] 09/03/2024 Umair Tracey Plan Of Treatment No Information Progress Notes * JANINE FRAZIERDOB:[birth year] (89 yo F)Acc No.[id number]:09/03/2024 Progress Notes Patient: JANINE PRADO Provider: Shelley Tracey MD :1935 A ge:88 Y S ex:Female Date:09/03/2024 Address:[address] [place], [place] [phone] Pcp:Penelope Parsons MD Subjective: * Chief Complaints: * 1 . Burning in throat. * Medical History: Objective: * Vitals: Assessment: Plan: * Treatment: * * The named appointment provid er may or may not be the originator of this progress note, and it is not deemed complete until electronically signed by the appointment provider. Sign off status: Pending * Provider: Shelley Tracey MD Date: 1 11/04/2023 Generated for Printi ng/Fatheodorag/eTransmitting on: 0 06/19/2025 06:37 AM EDT
--- OUTSIDE RECORDS SUMMARY | 2025-01-13 07:15 | XMS_ITS ---
Author Organization [facility] Address [address] [place] [address] Care Team Providers Care Medical Auditor Name Role Phone Issa STEIN, Penelope Primary Care Provider Francesca Zapien [phone] Encounters Encounter Location Date Provider Diagnosis [address] [address] 01/13/2025 Francesca Gutierrez Plan Of Treatment Next Appt Details Provider Name:Francesca henry, 06/30/2025 11:00:00 AM, [address] [place] [address], [phone], Progress Notes * Aminah FRAZIER SDOB:1935 (89 yo F)Acc No.[id number]:01/13/2025 Progress Note Patient: Aminah PRADO Provider: Chad Gutierrez DPM :1935 A ge:89 Y S ex:Female Date:01/13/2025 Address:[address] [place], [place] [address] [id number] Pcp:Penelope Parsons MD Subjective: * Chief Complaints: [...] 0 01/13/2025 Generated for Leroy martinez/Shonda/Isaias on: 0 06/19/2025 06:38 AM EDT
--- OUTSIDE RECORDS SUMMARY | 2025-06-19 06:38 | XMS_ITS | Patient Health Record ---
[facility] Address [address] [place] [address] Care Team Providers Care Gauger Delivery Name Role Phone Issa STEIN, [facility] Primary Care Provider Francesca Zapien Unavailable [phone] Allergies Allergen (clinical drug ingredient) Drug/Non Drug [...] 1 tablet Orally Once a day Not-Taking Dumas Power 1050 MG 1 capsule Orally Once [...] a day Not-Taking Vazalore Not-Taking Ezetimibe Not-Taking Dumas 3 Not-Taking Colace Not-Taking Torsemide 20 MG [...] atherosclerosis of arteries of lower limbs (disorder) (65638272145751446 ) Atherosclerosis of [place] artery of both lower extremities, with unspecified presence of clinical manifestation (I70.203) Active confirmed Q7(A), Q8(2B), Q9(1B,2 C) Vital Signs Blood pressure diastolic 75 mm Hg 03/17/2025 Height 5 ft in 03/17/2025 Blood pressure systolic 148 mm Hg 03/17/2025 Weight 145 lbs 03/17/2025 BMI 28.32 kg/m2 03/17/2025 Procedures Procedure Date Ordered Date Performed Result Body Sit e 47724-VPNXIUF NAIL, 6 OR MORE 08/26/2024 N/A 63540-QFIB SKIN LESIONS, OVER 4 08/26/2024 N/A 48192-OARGNAS NAIL, 6 OR MORE 03/17/2025 N/A 20076-DCMJ SKIN LESIONS, OVER 4 03/17/2025 N/A Encounters Encounter Location Date [facility] [address] 08/26/2024 Francesca Gutierrez Atherosclerosis of [place] artery of both lower extremities, with unspecified presence of clinical manifestation I70.203 ; Tinea unguium B35.1 ; Pain in right toe(s) M79.674 and Pain in left toe(s) M79.[address] [facility] [address] 03/17/2025 Francesca Gutierrez Atherosclerosis of [place] artery of both lower extremities, with unspecified presence of clinical manifestation I70.203 ; Tinea unguium B35.1 ; Pain in right toe(s) M79.674 and Pain in left toe(s) M79.675 [facility] [address] [place] [address] 01/13/2025 Francesca Gutierrez Assessments Encounter Date Diagnosis (ICD Code) Assessment Notes Treatment Notes Treatment Clinical Notes Section Notes 08/26/2024 Atherosclerosis of [place] artery of both lower extremities, with unspecified presence of clinical manifestation (ICD-10 - I70.203) Q7(A), Q8(2B), Q9(1B,2C) 03/17/2025 Atherosclerosis of [place] artery of both lower extremities, with unspecified [...] X ray : Foot, left 3V 04/13/2015 69981-TUYTQKE NAIL, 6 OR MORE 08/26/2024 29608-CLSLVBT NAIL, 6 OR MORE 03/17/2025 23955-VTHJWXC NAIL, 1-5 04/13/2015 05833-ZIPOFBO NAIL, -5 07/01/2015 90119-OQQACMT NAIL, -5 09/21/2015 52675-QRHUIRL NAIL, -5 01/04/2016 55507-DFIDJVH NAIL, -5 05/02/2016 26943-KJQLBPP NAIL, -5 08/22/2016 53842-BZVUBFC NAIL, -5 12/21/2016 09255-OEIPXVZ NAIL, -03/29/2017 33783-QTFM SKIN LESIONS, OVER 4 08/26/20 24 08902-UMDA SKIN LESIONS, OVER 4 03/17/20 25 46514-SWCP SKIN LESIONS, 2 TO 4 04/10/20 23 44605-HHNM SKIN LESIONS, 2 TO 4 01/03/20 23 45822-LJYA SKIN LESIONS, 2 TO 4 07/01/20 19 70273-BHGK SKIN LESIONS, 2 TO 4 07/01/20 15 50798-UJAR NAIL(S) 01/02/2023 I5520-NUGTFYDZ DYSTROPHIC NAILS ANY # [id number]- Nail Unit Biopsy 06/21/2018 Next Appt Details Provider Name:Francesca henry, 06/30/2025 11:00:00 AM, [address] [facility], [place], [address], Insurance Providers Payer Name Payer Address Payer Phone Subscriber Number Group Number Insured Name Patient Relationship to Insured Coverage Start Date Coverage End Date Medicare National Govt Svcs Inc [address] [place] [id number] Self - patient is the insured [employer] Blue Shield [address] [place] [id number] Self - patient is [...] Hospitalization History Reason Date(Month/Year) Vein Surgery 03/24 [facility] for bad reaction to pain medica tion. Legs/feet swelled up. 2017
--- OUTSIDE RECORDS SUMMARY | 2025-06-19 06:38 | XMS_ITS | Patient Health Record ---
Author Organization [facility] Address [address] [place] [address] Care Team Providers Care Industrial Education Instructor Name Role Phone Issa STEIN, [facility] Primary Care Provider Umair Villafana [phone] Allergies Allergen (clinical drug ingredient) Drug/Non Drug Allergy documented on EMR Reaction Allergy Type Onset Date Status hydromorphone HYDROmorphone Unknown Drug Allergy Active codeine Codeine Unknown Drug Allergy Active azithromycin Azithromycin Unknown Drug Allergy A ctive Results Component Value Reference Range Notes Pathology Reviewed date:11/21/2024 10:20:00 AM Interpretation: Performing Lab:[facility], [address] [place] [phone] Notes/Report: Reason For Referral No Information Medications [...] Notes Problem Gastro-esophageal reflux disease without esophagitis (355621373) Gastro-esophag eal reflux disease without esophagitis (K21.9) Active confirmed Problem Dysphagia (15828469) Dysphagia (R13.10) Active confirmed Problem Duodenitis (22246631) Duodenitis (K29.80) Active confirmed Problem Esophageal stricture (32705574) Esophageal stricture (K22.2) Active confirmed Problem Hiatal hernia (61360193) Hiatal hernia (K44.9) Active confirmed Problem Chronic gastritis (5672696) Gastritis, chronic (K29.50) Active confirmed Problem Gastroesophageal reflux disease (disorder) (179843212) Chronic GERD (K21.9) Active confirmed Vital Signs Blood pressure diastolic 11 mm Hg 11/21/2024 Height 4 ft 10 in in 11/21/2024 Blood pressure systolic 111 mm Hg 11/21/2024 Weight 138 lbs 11/21/2024 BMI 28.84 kg/m2 11/21/2024 Encounters Encounter Location Date Provider Diagnosis [facility] Outpatient [address] [place] [phone] 07/18/2024 Umair Tracey Esophageal stricture K22.2 ; Other specified disease of esophagus K22.89 ; Gastro-esophageal reflux disease without esophagitis K21.9 ; Hiatal hernia K44.9 ; Duodenitis K29.80 ; Gastritis, chronic K29.50 and Dysphagia R13.10 [facility] [address] [place] [address] 11/21/2024 Umair Kyung Esophageal stricture K22.2 ; Dysphagia R13.10 ; Chronic GERD K21.9 and Hiatal hernia K44.9 [facility] [address] [place] [address] 06/30/2024 Umair Tracey [facility] [address] [place] [address] 07/18/2024 Umair Tracey [facility] [address] [place] [address] 05/06/2025 Umair Tracey Chronic GERD K21.9 Assessments Encounter Date Diagnosis (ICD Code) Assessment Notes Treatment Notes Treatment Clinical Notes Section Notes 07/18/2024 Esophageal stricture (ICD-10 - K22.2) 07/18/2024 Other specified disease of esophagus (ICD-10 - K22.89) 11/21/2024 Dysphagia (ICD-10 - R13.10) 11/21/2024 Esophageal stricture (ICD-10 - K22.2) Continue omeprazole 20mg daily shelter. Call me if problems 05/06/2025 Chronic GERD (ICD-10 - K21.9) 07/18/2024 Gastro-esophagea l reflux disease without esophagitis [...] End Date MEDICARE OF [place] [address] [place] [id number] JANINE FRAZIER Self - patient is the insured [employer] ATTN CLAIMS [address] [place] [address] [phone] [id number] JANINE FRAZIER Self - patient is the insured Medical (General) History Medical History History ICD Code Neuropathy Arthritis Peripheral vascular disease Coronary artery disease Gout Hypertension Chronic kidney disease-- Stage 3 -sees Dr. Booth GERD--EGD 07/2024 Denies [place],DM,CVA,Lung disease Surgical History Surgery Date(Month/Year) Bilateral knee replacements tonsillectomy CARPAL TUNNEL BILATERAALY S/P CABG Hx of cataract surgery Hx of bilateral hip replacements LE vein stripping
--- OUTSIDE RECORDS SUMMARY | 2025-06-19 06:38 | XMS_ITS | Encounter Summary ---
Author Organization [facility] [place], Address [address] [place] [address] Phone Care Team Providers Care Senior Technical Specialist Name Role Phone Penelope Parsons MD Primary Care Provider [phone] Encounter Details Date Type Department Care Team (Late Contact Info) Description 05/20/2025 Orders Only [facility] [address] [place] [address] [place]ara [place], [place] [address] [place] [address] Social History Tobacco Use Types [...] Visit [facility] [address] [place] [address] Juan Luis MD [address] [place] [address] documented as of this encounter Visit Diagnoses Not on filedocumented in this encounter Care Teams Senior Technical Specialist Relationship Specialty Start Date End Date Penelope Parsons MD [address] [place] [address] PCP - General 08/06/19 documented as of this encounter
--- OUTSIDE RECORDS SUMMARY | 2025-06-19 06:39 | XMS_ITS | Clinical Summary ---
Author Organization [facility] [place], Address [address] [place] [address] [place] [address] Phone Care Team Providers Care School Janitor Name Role Phone Penelope Parsons MD Primary Care Provider [phone] Allergies Active Allergy Reactions Criticality Noted Date [...] Problem Noted Date Diagnosed Date Atherosclerosis of [place] arteries of the extrem ities 05/29/2023 05/29/2023 Renal artery stenosis 12/31/2021 05/29/2023 Essential hypertension 05/27/2021 Stage 3b chronic kidney disease 01/03/2020 Hypertensive chronic kidney disease, malignant, 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, or unspecified 01/03/2020 Iron deficiency anemia 01/03/2020 Encounters Date Type Department Care Team Description 06/06/2025 2:00 PM EDT Office Visit [facility] [place], [address] [place] [address] Juan Luis MD Stage 3b chronic kidney disease (HCC) (Primary Dx); Hypertension; Other iron deficiency anemia; Anemia in chronic kidney disease 05/20/2025 Orders Only [facility] [place], [address] [place] [address] Zara Bob MA from Last [...] Visit [facility] [place], [address] [place] [address] Juan Luis MD [address] [place] [address] [place] [address] Health Maintenance Due Date Last Done Comments Pneumococcal Vaccine: 50+ Years (1 of 2 - PCV) 12/14/1954 Influenza Vaccine (#1) 2025 4, 12/12/2019 Hepatitis B Vaccine Aged Out No longe r eligible based on patient's age to complete this topic Insurance Medicare [facility] Care Teams School Janitor Relationship Specialty Start Date End Date Penelope Parsons MD [address] [place] [address] PCP - General 08/06/19
--- OUTSIDE RECORDS SUMMARY | 2025-06-19 06:39 | XMS_ITS | Encounter Summary ---
Author Organization [facility] [place], Address [address] [place] [address] Phone Care Team Providers Care Dumb Waiter Operator Name Role Phone Penelope Parsons MD Primary Care Provider [phone] Encounter Details Date Type Department Care Team (Late Contact Info) Description 12/25/2024 Documentation Only [facility] [address] [place] [address] [place] [address] [place] [address] Social History Tobacco Use Types Packs/Day [...] [facility] [address] [place] [address] Juan Luis MD [address] [place] [address] documented as of this encounter Visit Diagnoses Not on filedocumented in this encounter Care Teams Dumb Waiter Operator Relationship Specialty Start Date End Date Penelope Parsons MD [address] [place] [address] PCP - General 08/06/19 documented as of this encounter
--- OUTSIDE RECORDS SUMMARY | 2025-06-19 06:39 | XMS_ITS | Encounter Summary ---
Author Organization [facility] [place], Address [address] [place] [address] Phone Care Team Providers Care Commercial Construction Estimator Name Role Phone Penelope Parsons MD Primary Care Provider [phone] Encounter Details Date Type Department Care Team (Late Contact Info) Description 06/25/2024 Documentation Only [facility] [address] [place] [address] [place] [address] [place] [address] Social History Tobacco Use Types Packs/Day [...] Visit [facility] [address] [place] [address] Juan Luis MD [address] [place] [address] documented as of this encounter Visit Diagnoses Not on filedocumented in this encounter Care Teams Commercial Construction Estimator Relationship Specialty Start Date End Date Penelope Parsons MD [address] [facility] [place] [address] PCP - General 08/06/19 documented as of this encounter
--- NOTE | 2025-06-19 09:52 | A.OFFPC_ITS ---
Intake Visit Reasons: lab review Allergies azithromycin Allergy (Intermediate, Verified 06/13/25 11:08) Nausea/Became dehydrated hydromorphone Allergy (Unknown, Verified 06/13/25 11:08) Unknown codeine Adverse Reaction (Intermediate, Verified 06/13/25 11:08) Stomach Upset Medication List - Last Reconciled 06/19/25 by Penelope Parsons MD acetaminophen ER 650 mg PO Q8H PRN allopurinol 100 mg PO BEDTIME amlodipine 5 mg PO BID aspirin (Adult Low Dose Aspirin) 81 mg PO DAILY atorvastatin 20 mg PO BEDTIME betamethasone dipropionate 0.05% 1 appl topical DAILY PRN cholecalciferol (vitamin D3) (Vitamin D3) 50 mcg PO DAILY clopidogrel 75 mg PO DAILY coenzyme Q10 200 mg PO BEDTIME docusate sodium (Colace) 100 mg PO BEDTIME PRN fluorouracil 5% 1 appl topical BID hydralazine 10 mg PO BEDTIME metoprolol succinate ER 25 mg PO BID multivitamin 1 tab PO QAM nystatin 1 appl topical DAILY 30 days omeprazole 20 mg PO DAILY torsemide 60 mg (3 x 20 mg) PO DAILY Tobacco use date assessed: 11/23/22 HPI lab review HPI Details History of Present Illness The patient is an 89-year-old female presenting with decreased hemoglobin. Decreased hemoglobin: - Hemoglobin levels decreased from 11 in November to 9.7 in recent lab tests. - The decline in hemoglobin levels was n oted during routine lab tests. - Potential causes discussed include ble eding, possibly due to hemorrhoids or other sources, and compromised kidney function. - The patient has known kidney function issues. Problem List - Anemia - Compromised kidney function Patient Instructions - Schedule and attend an appointment wit h a landscaper helper recommended at [facility]. - Contact the hematology department carmelo donald, phone number provided Review of Systems - General: No fever no chills - Neurological: No headaches no dizziness - Ear nose throat: No sore throat no hearing difficulty no ear pain - Gastrointestinal: No nausea vomiting or diarrhea [facility] Medical History Back pain History of femoral angiogram Arthritis Gait disorder Neuropathy Degenerative localized arthritis of hip PVD (peripheral vascular disease) CAD (coronary artery disease) Diastolic dysfunction (HFpEF) heart failure with preserved ejection fraction Low hemoglobin Gout Osteoarthritis of knees, bilateral Chronic kidney disease Chronic GERD Lipid disorder Hypertension, essential Surgical History H/O colonoscopy Hx of right cataract extraction History of bilateral knee replacement H/O vein stripping Hx of bilateral hip replacements History of cataract surgery S/P CABG x 2 History of carpal tunnel surgery History of right hip replacement History of tonsillectomy Family History Father CHF (congestive heart failure) CVD (cardiovascular disease) Mother Pancreatitis Maternal Aunt Breast cancer Sister No problems noted. Sister No problems noted. Daughter No problems noted. Social History Housing: House Are you a primary careers counsellor to a significant other at home: No Do you presently have visiting nurse or other home services: No Alcohol intake: never Patient Tobacco Use Status: Former Tobacco user Tobacco use type: Cigarette Years Smoked: 2 years e-Cigarette/Vaping Use: Never Used Second Hand Smoke Exposure: No Current occupational status: retired Cognitive needs: No Hearing needs: No Vision needs: No Questionnaire Thrive Questionnaire Date Thrive assessed: 06/13/25 VENESSA-7 AMB Questionnaire VENESSA-7 Date VENESSA - 7 assessed: 07/29/22 Source: Developed by Drs. Umair Villegas, Miriam Antunez, Hermilo Friedman and colleagues, with an educational jillian from [employer]. Physical exam (Primary Care) Tobacco/Smoking Status: Tobacco use Status Tobacco use date assessed 11/23/22 05/31/23 15:40 Patient Tobacco Use Status Former Tobacco user 07/18/24 14:01 Tobacco use type Cigarette 05/31/23 15:40 e-Cigarette/Vaping Use Never Used 05/31/23 15:40 Thrive Assessment: Date of Thrive Assessment Date Thrive assessed 06/13/25 06/13/25 10:57 Telehealth Telehealth Telehealth Platform: [facility] Location of provider rendering services: practice address Location of patient: address on file Patient Identification confirmed using: Name, : Yes Telehealth method: video Patient verbally consented to treatment: Yes Patient verbally consented to billing insurance company: Yes Patient informed of any privacy concerns related to visit: Yes Minutes spent on Phone/Video with Pt.: 13 Coding Level of Care Code Tele Est Pt Level 3 (11137) Diagnoses Drop in hematocrit R71.0 Stage 3a chronic kidney disease N18.31 Chronic kidney disease stage: stage 3 (moderate) Chronic kidney disease stage 3 subtype: stage 3a (GFR 45-59) Assessment & Plan Assessment & Plan (1) Drop in hematocrit: Code(s): R71.0 - Precipitous drop in hematocrit Category: Medical (2) Chronic kidney disease: Code(s): N18.9 - Chronic kidney disease, unspecified Category: Medical Qualifiers: Chronic kidney disease stage: stage 3 (moderate) Chronic kidney disease stage 3 subtype: stage 3a (GFR 45-59) Qualified Code(s): N18.31 - Chronic kidney disease, stage 3a Plan History of Present Illness The patient is an 89-year-old female presenting with decreased hemoglobin. Decreased hemoglobin: - Hemoglobin levels decreased from 11 in November to 9.7 in recent lab tests. - The decline in hemoglobin levels was noted during routine lab tests. - Potential causes discussed include bleeding, possibly due to hemorrhoids or other sources, and compromised kidney function. - The patient has known kidney function issues. Problem List - Anemia - Compromised kidney function Patient Instructions - Schedule and attend an appointment with a landscaper helper recommended at [facility]. - Contact the hematology department tomorrow, phone number provided Orders: Referrals Hematology & Oncology Referral R71.0 - Precipitous drop in hematocrit
== END 2025-06-19 11:59 | disposition home or self-care (01) ==
LOC: HO.HMCC 06:34
PROVIDERS: PCP Internal Medicine; Visit Provider Internal Medicine
DX: R71.0 Precipitous drop in hematocrit (principal); N18.31 Chronic kidney disease, stage 3a

== ENCOUNTER → 2025-07-28 09:51 | Outpatient (BNV) | payer MEDICARE, SELFPAY | PROVIDERS: PCP Internal Medicine; Referring Provider Internal Medicine; Visit Provider Internal Medicine Medical Oncology | DX: D64.9 Anemia, unspecified (principal) | CPT/HCPCS: 99203 ==

== ENCOUNTER 2025-08-15 13:27 | Outpatient (REF) | payer MEDICARE, SELFPAY ==
--- OUTSIDE RECORDS SUMMARY | 2024-04-29 06:15 | XMS_ITS ---
Author Organization [facility] Address [address] [place] [address] Care Team Providers Care Retail Account Executive Name Role Phone Issa STEIN, [facility] Primary Care Provider UnavailFrancesca Hull Unavailable [phone] Juan Daniel Lindsay Unavailable [phone] REASON FOR VISIT Painful nail(s) aggrevated by shoes and causing difficulty standing/walking. Encounters Encounter Location Date Provider Diagnosis [facility] [address] [place] [address] 04/29/2024 Juan Daniel Lindsay Pain in right toe(s) M79.674 ; Tinea unguium B35.1 ; Pain in left toe(s) M79.675 ; Tailors bunion M20.10 ; Hallux valgus (acquired), left foot M20.12 ; Hallux valgus (acquired), right foot M20.11 ; Metatarsalgia, left foot M77.42 ; Other hammer toe(s) (acquired), left foot M20.42 ; Other hammer toe(s) (acquired), right foot M20.41 ; Neuralgia and neuritis, unspecified M79.2 and Unspecified atherosclerosis of [place] arteries of extremities, bilateral legs I70.203 Assessments Encounter Date Diagnosis (ICD Code) Assessment Notes Treatment Notes Treatment Clinical Notes Section Notes 04/29/2024 Pain in right toe(s) (ICD-10 - M79.674) 04/29/2024 Tinea unguium (ICD-10 - B35.1) 04/29/2024 Pain in left toe(s) (ICD-10 - M79.675) 04/29/2024 Tailors bunion (ICD-10 - M20.10) 04/29/2024 Hallux valgus (acquired), left foot (ICD-10 - M20.12) 04/29/2024 Hallux valgus (acquired), right foot (ICD-10 - M20.11) 04/29/2024 Metatarsalgia, left foot (ICD-10 - M77.42) 04/29/2024 Other hammer toe(s) (acquired), left foot (ICD-10 - M20.42) 04/29/2024 Other hammer toe(s) (acquired), right foot (ICD-10 - M20.41) 04/29/2024 Neuralgia and neuritis, unspecified (ICD-10 - M79.2) 04/29/2024 Unspecified atherosclerosis of [place] arteries of extremities, bilateral legs (ICD-10 - I70.203) Plan Of Treatment Next Appt Details Follow Up: 3 Months, Reason: Provider Name:Francescaki henry, 10/13/2025 01:00:00 PM, [address] [place] [address], [place], [address], Procedure Notes * Category Sub-Category Detail Notes Debride Nail 6-10 Nail debridement Nail debridem ent performed extensively to reduce/remove overall nail length and girth, subungual debris, and necrotic tissue, by manual and electrical means with use of a nail nipper and/or dremel, to more viable healthy nail plate or bed tissue 6-10. Silver nitrate used for any petechial bleeding as necessary. Patient chooses, no pharmaceutical tx (39200) Keratoma Treatment Parring or Cutting o f Benign Hyperkeratotic Lesion(s) 20644 ( 2-4 Lesions ) - The Benign hyperkeratotic lesions, as described above were pared, and/or cut utilizing a sterile 15 blade, tissue nippers, and/or dremel , Q8 Progress Notes * Aminah FRAZIER SDOB:1935 (89 yo F)Acc No.[id number]:04/29/2024 Progress Note Patient: S ARIANNAJenniferAminah Tamika Provider: Hetal Ambrosio DPM :1935 A ge:88 Y S ex:Female Date:04/29/2024 Address:[address] [place] [address] Rosalba [place]berg, [id number] Pcp:Penelope Parsons MD Subjective: * Chief Complaints: * 1 . Painful nail(s) aggrevated by shoes and causing difficulty standing/walking.. * HPI: P ainful Nails: Pt States Last PCP Visit: D ate: 1 10/02/2022 Misc: d nevin Keller is present who takes care of and lives with her Mom. T oe pain: Nature: a marlena, tenderness, sharp. Location: 5 th toe, Left foot. Duration: s everal months. Onset/Cause: g radual. Aggravated by: s hoes, any pressure. Treatments: c hange in shoes, bracing/splinting/padding.? * ROS: G eneral/Constitutional: Nausea d enies. V omiting d enies. H bindu Thirst d enies. L oss appetite d enies. C hills d enies. F atigue a dmits.?Fever d enies. N ight Sweats d enies. U nexplained weight loss d enies. U nexplained weight gain d enies. H EENTM: Dentures d enies. D izziness d enies. G lasses/contacts a dmits. R etinopathy d enies. B lurred/double vision d enies. T MJ?denies. D ischarge/drainage d enies. I mplants d enies. S ore throat a dmits. D ental implants a dmits. H vivienne of hearing d enies. D ifficulty chewing/swallowing/speaking a dmits. N ose bleeds a dmits. S ore mouth d enies. ? R espiratory: On Oxygen d enies. P neumonia/pleurisy d enies.?Bronchitis d enies. E mphysema d enies. C oughing d enies. C ough blood?denies. S hortness of breath a dmits. W heezing d enies. C ardiovascular: Pacemaker d enies. M UNDERCOATER d enies. W PW d enies. C HF d enies. H eart attack d enies. S eptal defect d enies. R apid beat d enies. C hest pain d enies. A trial Fib. d enies. M urmur/Palpitations d enies. G astrointestinal: Hemorrhoids d enies. S tomach/Abdominal pain d enies. D ark blood stool d enies. I rritable bowel d enies. C onstipation d enies. D iarrhea d enies. H ematology: Swelling a dmits. C lots d enies. V aricose Veins a dmits. B ruising a dmits. B leeding problem d enies. G enitourinary: Blood urine d enies. F requent/Painfu/urination/bladder control a dmits. K idney stones d enies. I nfection (UTI) d enies. N ephropathy d enies. s ex trans dis (STD) d enies. P rostate d enies. M usculoskeletal: Hammertoes d enies. B unions d enies. B ack Pain d enies. M uscle Cramps/ Resting a dmits. M uscle cramps / walking d enies.?Generalized aches and pains d enies. W eakness a dmits. I nteg.: Diallo d enies. S cars d enies. C orns/calluses?admits. I ngrown nails d enies. P ainful nails d enies. O pen Sores d enies. R ashes d enies. N eurologic: Difficulty sleeping d enies. B rain disorder d enies. N umbness d enies. B alance trouble a dmits. C onfusion d enies. F ainting/blackouts d enies. T ingling d enies. T remors d enies. * Medical History: Objective: * Vitals: * Examination: G eneral Examination: GENERAL APPEARANCE: p leasant, alert, well nourished, well developed, well hydrated, with good attention to hygene/body habitus, and in no acute distress. ORIENTED: p erson,place, and time. N eurological: SENSORY: Neurological exam reveals intact sensorium, pain sensation normal, vibration sensation intact, pinprick sensation is normal in the lower extremities, Pt denies, anesthesia, burning, paresthesia, tingling, B/L, Neurological exam demonstrates pop left 5th toe pipj. TINEL'S COMPRESSION: N egative tarsal tunnel, stephen pedis, and medial calcaneal nerves B/L. BABINSKI REFLEX: a bsent. N euroma Pain: PALPATION: N o interspace pain noted on palpation. ? V ascular: DP PULSES (B): 0/4, B/L. PT PULSES (B): 0/4, B/L. CAPILLARY FILL TIME: delayed, all digits, B/L. TROPHIC CONDITION-TEXTURE/ELASTICITY/TURGOR/HAIR GROWTH (B):? decreased, B/L. TEMPERTURE GRADIENT (C): decreased, cool to cold, proximal to distal, B/L. PIGMENTATION: cyanotic, B/L. EDEMA (C): 2/4, pitting, B/L, Feet, Ankle(s), Leg(s).? TELANGECTASIA: moderate. VARICOSITIES: present, moderate, nonpainful, B/L. ? D ermatologic: SKIN FINDINGS: Skin exam reveals Keratotic lesion(s) located at, Dorsal, PIPJ, T4, SUB MTH (s), 1, 5, Left , Skin exam reveals Keratotic lesion(s) located at, SUB MTH (s), 1, Right. O rthopedic: MUSCLE STRENGTH: 5 /5 all groups in a symmetrical fashion , B/L. GAIT ABNORMALITY: p ronated, abducted, B/L. BUNION: Medially prominent 1st MPJ, Dorsally prominent 1st MPJ , (+) Pain on palpation, RIGHT, Lateral tracking 1st MPJ incompletely reducable. TAILOR'S BUNION: Prominent 5th MTH/MPJ, B/L. DIGITAL DEFORMITIES: Digital contracture, PIPJ, 2-5 B/L, incompl-reducable to push-up test, no over, nor underlapping. N ails: NAILS are: Elongated, overgrown, dystrophic, lytic, greater than 3mm thick, discolored and friable with crumbly malodorous subungual debris, with pain on palpation, 1-5 Right foot, TA. Assessment: * Assessment: 1. P ain in right toe(s) - M79.674 (Primary) 2 . T inea unguium - B35.1? 3. P ain in left toe(s) - M79.675 4 . T ailors bunion - M20.10? 5. H allux valgus (acquired), left foot - M20.12 6 . H allux valgus (acquired), right foot - M20.11 7 . M etatarsalgia, left foot - M77.42? 8. O ther hammer toe(s) (acquired), left foot - M20.42 9 .?Other hammer toe(s) (acquired), right foot - M20.41 1 0. N euralgia and neuritis, unspecified - M79.2 1 1. 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 Silver nitrate used for any petechial bleeding as necessary. Patient chooses, no pharmaceutical tx (15396). K eratoma Treatment: Parring or Cutting of Benign Hyperkeratotic Lesion(s) 1 1056 ( 2-4 Lesions ) - The Benign hyperkeratotic lesions, as described above were pared, and/or cut utilizing a sterile 15 blade, tissue nippers, and/or dremel , Q8. * Procedure Codes: 1 1721 DEBRIDE NAIL, 6 OR MORE, Modifiers: XS , 98518 TRIM SKIN LESIONS, 2 TO 4, Modifiers: Q8 * Follow Up: 3 Months * Images: * The named appointment provid er may or may not be the originator of this progress note, and it is not deemed complete until electronically signed by the appointment provider. Sign off status: Pending * Provider: Hetal Ambrosio DPM Date: 0 04/29/2024 Generated for Leroy martinez/Shonda/eTransmitting on: 10/15/2024 07:48 PM EST History and Physical Notes * HPI (History of Present Illness) Category Sub-Category Detail Notes Category Not es Toe pain Nature: aching, tenderness, sharp Location: 5th toe, Left foot Duration: several months Onset/Cause: gradual Aggravated by: shoes, any pressure Treatments: change in shoes, bra cing/splinting/padding Painful Nails Misc: daughter Arianna is present who takes care of and lives with her Mom Pt States Last PCP Visit: Date:: 08/02/2023 Examination Category Sub-Category Detail Notes Category Not es Neuroma Pain PALPATION: No interspace pain noted on palpation Neurological SENSORY: Neurological exa m reveals intact sensorium, pain sensation normal, vibration sensation intact, pinprick sensation is normal in the lower extremities, Pt denies, anesthesia, burning, paresthesia, tingling, B/L, Neurological exam demonstrates pop left 5th toe pipj BABINSKI REFLEX: absent TINEL'S COMPRESSION: Negative tarsal sharla joaquín, stephen pedis, and medial calcaneal nerves B/L Dermatologic SKIN FINDINGS: Skin exam reveal s Keratotic lesion(s) located at, Dorsal, PIPJ, T4, SUB MTH (s), 1, 5, Left , Skin exam reveals Keratotic lesion(s) located at, SUB MTH (s), 1, Right Orthopedic GAIT ABNORMALITY: pronated, abducted, B/L BUNION: Medially prominent 1 st MPJ, Dorsally prominent 1st MPJ , (+) Pain on palpation, RIGHT, Lateral tracking 1st MPJ incompletely reducable DIGITAL DEFORMITIES: Digital contracture , PIPJ, 2-5 B/L, incompl-reducable to push-up test, no over, nor underlapping TAILOR'S BUNION: Prominent 5th MTH/MP J, B/L MUSCLE STRENGTH: 5/5 all groups in a symmetrical fashion , B/L General Examination GENERAL APPEARANCE: pleasant , alert, well nourished, well developed, well hydrated, with good attention to hygene/body habitus, and in no acute distress ORIENTED: person,place, and ti me Vascular DP PULSES (B): 0/4, B/L PT PULSES (B): 0/4, B/L CAPILLARY FILL TIME: delayed, all digits , B/L TEMPERTURE GRADIENT (C): decreased, cool to cold, proximal to distal, B/L TROPHIC CONDITION-TEXTURE/ELASTICITY/TURGOR/HAIR GROWTH (B): decreased, B/L EDEMA (C): 2/4, pitting, B/L, F eet, Ankle(s), Leg(s) TELANGECTASIA: moderate VARICOSITIES: present, moderate, n onpainful, B/L PIGMENTATION: cyanotic, B/L Nails NAILS are: Elongated, overg rown, dystrophic, lytic, greater than 3mm thick, discolored and friable with crumbly malodorous subungual debris, with pain on palpation, 1-5 Right foot, TA
--- OUTSIDE RECORDS SUMMARY | 2025-01-13 06:15 | XMS_ITS ---
Author [facility] Address [address] [place] [address] Care Team Providers Care Lead Person Name Role Phone Issa STEIN, Penelope Primary Care Provider Francesca Zapien [phone] Encounters Encounter Location Date Provider Diagnosis [address] [address] 01/13/2025 Francesca Gutierrez Plan Of Treatment Next Appt Details Provider Name:Francesca henry, 10/13/2025 01:00:00 PM, [address] [place] [address], [phone], Progress Notes * Aminah FRAZIER SDOB:1935 (89 yo F)Acc No.[id number]:01/13/2025 Progress Note Patient: Aminah PRADO Provider: Chad Gutierrez DPM :1935 A ge:89 Y S ex:Female Date:01/13/2025 Address:[address] [place], [place] [address] [id number] Pcp:Penelope Parsons MD Subjective: * Chief Complaints: * * Medical History: Objective: * Vitals: Assessment: Plan: * Treatment: * Images: * The named appointment provid er may or may not be the originator of this progress note, and it is not deemed complete until electronically signed by the appointment provider. Sign off status: Pending * Provider: Chad Gutierrez, PEDRO Date: 0 01/13/2025 Generated for Leroy martinez/Shonda/Isaias on: 1 10/15/2024 07:48 PM EST
[2025-08-15 14:17] LABS: OBS1 NEGATIVE (NEGATIVE); OBS2 NEGATIVE (NEGATIVE); OBS3 NEGATIVE (NEGATIVE)
[2025-08-15 14:18] LABS: OBS Date 3 11/12/2025; OBS Int Ctl Valid YES; OBS Lot 50142 3L
--- OUTSIDE RECORDS SUMMARY | 2025-08-15 19:48 | XMS_ITS | Encounter Summary ---
Author Organization [facility] [place], Address [address] [place] [address] Phone Care Team Providers Care Assistant Federal Public Defender Name Role Phone Penelope Parsons MD Primary Care Provider [phone] Encounter Details Date Type Department Care Team (Late Contact Info) Description 06/13/2025 Documentation Only [facility] [address] [place] [address] [place] [address] [place] [phone] Social History Tobacco Use Types Packs/Day [...] Visit [facility] [address] [place] [address] Juan Luis MD [address] [place] [address] documented as of this encounter Visit Diagnoses Not on filedocumented in this encounter Care Teams Assistant Federal Public Defender Relationship Specialty Start Date End Date Penelope Parsons MD [address] [facility] [place] [address] PCP - General 08/06/19 documented as of this encounter
--- OUTSIDE RECORDS SUMMARY | 2025-08-15 19:48 | XMS_ITS | Patient Health Record ---
Author Organization [facility] Address [address] [place] [address] Care Team Providers Care Psychology Physician Name Role Phone Issa STEIN, [facility] Primary Care Provider Francesca Zapien Unavailable [phone] Allergies Allergen (clinical drug ingredient) Drug/Non Drug [...] Duration) Notes Start Date End Date Status Colace Not-Taking Torsemide 20 MG as directed Orally Once a day Not-Taking Pepto-Bismol Not-Jasper ing Atorvastatin Calcium 20 MG 1 tablet Orally Once a day Not-Taking Co Q 10 10 MG 1 capsule with a meal Orally Once a day Not-Taking Dowagiac 3 Not-Taking Centrum Silver Orally Not-T aking Tums 500 MG 1 tablet Orally Four times a day PRN Not-Taking Extra-Depth Diabetic Shoes with 3 Pair Custom heat-molded multi-density innersoles . for 1 year . Dx:please accomodate for painful left 5th mtpj in the insole; Duration: . 07/01/2015 Not-Taking Metoprolol Succinate 25 MG 1 capsule Orally twice a day twice a day Not-Taking Clopidogrel Bisulfate 75 MG as directed Not-Taking Nystop Not-Taking Vitamin B 12 Not-Jasper ing Biotin Not-Taking Ocuvite Not-Taking Lipitor 20 MG Orally Not-Ta kitty Hydralazine-HCTZ 5mg Act zulema hydroCHLOROthiazide 25 MG 1 tablet in th e morning Orally Once a day Not-Taking Furosemide 20 MG Oral; Duration: 30 Not-Taking Pantoprazole Sodium 40 MG take 1 tablet by mouth every morning Oral; Duration: 30 Not-Taking Lasix 40 MG 1 tablet Orally Once a day Not-Taking Fish Oil Not-Taking Nystatin Cream Active Spironolactone 25 MG 1 tablet Orally Once a day Not-Taking traMADol HCl Not-Jasper ing Colchicine 0.6 MG 1 tablet Orally Once a day; Duration: 10 days 02/08/2016 Not-Taking Mupirocin 2 % External; Duration: 22 Not-Taking Chlorhexidine Gluconate 0.12 % Mouth/Throat; Duration: 2 Not-Taking Omeprazole 20 MG 1 capsule Orally Once a day Not-Taking amLODIPine Besylate 5 MG 2 tablets Orall y twice a day Active Warfarin Sodium 1 MG take 3 tablets by mouth once daily or as directed for 10 days Oral; Duration: 3 Not-Taking Multivitamin Active Folic Acid 1 MG 1 tablet Orally Once a day Not-Taking Acetaminophen Active Vitamin B-6 50 MG 1 tablet Orally Once a day Not-Taking Isosorbide Mononitrate ER 60 MG Oral; Duration: 30 Not-Taking Lisinopril 10 MG 1 tablet Orally Once a day Not-Taking Atenolol 25 MG 1 tablet Orally Once a day Not-Taking Betamethasone Dipropionate 0.05 % APPLY TWICE DAILY TO LOWER LEGS FOR 2 WEEKS THEN TAKE 1 WEEK OFF. REPEAT NEEDED External; Duration: 30 L2089,Unavail able Active Metoprolol Tartrate 25 MG Oral; Duration : 6 Active Omeprazole 20 MG TAKE 1 CAPSULE BY MOUTH EVERY MORNING Oral; Duration: 90 Days Active Vitamin D3 1000 UNIT 1 capsule Orally Once a day Active Dowagiac Power 1050 MG 1 capsule Orally Once a day Not-Taking Aspirin 81 MG 1 tablet Orally Once a day Active Aleve 220 MG 1 tablet as needed Orally every 12 hrs Not-Taking Plavix Active Multivitamin Not-Jasper ing Torsemide 20 MG 2 tabs Orally 3 tablets once a day Active Allopurinol 100 MG Orally every other day Active [place] Not-Taking Ezetimibe Not-Taking Tamsulosin HCl Not-T aking Immunizations Vaccine Route Administration Date Status Comme nts Influenza Unknown 07/02/2024 Administered Influenza Unknown 07/02/2024 Administered Social History Tobacco Use: Social History Observation Description Date Details (start date - stop date) Never Smoker NA - NA Alcohol Screen Question Answer Notes Did you have a drink contain ing alcohol in the past year? Yes How often did you have a dri nk containing alcohol in the past year? Monthly or less (1 point) Points 1 Interpretation Negative Tobacco use other than smoking: Question Answer Notes Are you an other tobacco user? No Tobacco Control (Standard) Question Answer Notes Tobacco use: Nonsmoker Additional Findings: Tobacco non-user Current no nsmoker AUDIT-C (Standard) Question Answer Notes Did you have a drink contain ing alcohol in the past year? Yes How often did you have a dri nk containing alcohol in the past year? Monthly or less (1 point) How many drinks did you have on a typical day when you were drinking in the past year? 1 or 2 drinks (0 point) How often did you have six o r more drinks on one occasion in the past year? Never (0 point) Points 1 Interpretation Negative Problems Problem Type SNOMED Code ICD Code Onset Dates Problem Status W/U Status Risk Notes Problem Bilateral atherosclerosis of arteries of lower limbs (disorder) ([id number] ) Atherosclerosis of [place] artery of both lower extremities, with unspecified presence of clinical manifestation (I70.203) Active confirmed Q7(A), Q8(2B), Q9(1B,2 C) Vital Signs Blood pressure diastolic 70 mm Hg 06/30/2025 Height 5 ft in 06/30/2025 Blood pressure systolic 134 mm Hg 06/30/2025 Weight 135 lbs 06/30/2025 BMI 26.36 kg/m2 06/30/2025 Procedures Procedure Date Ordered Date Performed Result Body Sit e 73933-VDTZVSS NAIL, 6 OR MORE 08/26/2024 N/A 88455-JNDZ SKIN LESIONS, OVER 4 08/26/2024 N/A 29119-QLPHJVY NAIL, 6 OR MORE 03/17/2025 N/A 06408-TJRO SKIN LESIONS, OVER 4 03/17/2025 N/A 21777-NZJTQGP NAIL, 6 OR MORE 06/30/2025 N/A 77847-BUVP SKIN LESIONS, OVER 4 06/30/2025 N/A Encounters Encounter Location Date Provider Diagnosis [facility] [address] [place] [address] 08/26/2024 Francesca Gutierrez Atherosclerosis of telida artery of both lower extremities, with unspecified presence of clinical manifestation I70.203 ; Tinea unguium B35.1 ; Pain in right toe(s) M79.674 and Pain in left toe(s) M79.[address] [address] 03/17/2025 Francesca Gutierrez Atherosclerosis of telida artery of both lower extremities, with unspecified presence of clinical manifestation I70.203 ; Tinea unguium B35.1 ; Pain in right toe(s) M79.674 and Pain in left toe(s) M79.[address] [address] 06/30/2025 Francesca Gutierrez Atherosclerosis of telida artery of both lower extremities, with unspecified presence of clinical manifestation I70.203 ; Tinea unguium B35.1 ; Pain in right toe(s) M79.674 and Pain in left toe(s) M79.[address] [address] 01/13/2025 Francesca Gutierrez Assessments Encounter Date Diagnosis (ICD Code) Assessment Notes Treatment Notes Treatment Clinical Notes Section Notes 08/26/2024 Atherosclerosis of telida artery of both lower extremities, with unspecified presence of clinical manifestation (ICD-10 - I70.203) Q7(A), Q8(2B), Q9(1B,2C) 03/17/2025 Atherosclerosis of telida artery of both lower extremities, with unspecified presence of clinical manifestation (ICD-10 - I70.203) Q7(A), Q8(2B), Q9(1B,2C) 06/30/2025 Atherosclerosis of telida artery of both lower extremities, with unspecified presence of clinical manifestation (ICD-10 - I70.203) Q7(A), Q8(2B), Q9(1B,2C) 06/30/2025 Tinea unguium (ICD-10 - B35.1) 03/17/2025 Tinea unguium (ICD-10 - B35.1) 08/26/2024 Tinea unguium (ICD-10 - B35.1) 08/26/2024 Pain in right toe(s) (ICD-10 - M79.674) 03/17/2025 Pain in right toe(s) (ICD-10 - M79.674) 06/30/2025 Pain in right toe(s) (ICD-10 - M79.674) 06/30/2025 Pain in left toe(s) (ICD-10 - M79.675) 03/17/2025 Pain in left toe(s) (ICD-10 - M79.675) 08/26/2024 Pain in left toe(s) (ICD-10 - M79.675) Plan Of Treatment Pending Test Test Name Order Date *Uric Acid, Serum 02/08/2016 *Sedimentation Rate-Westergren 6 X ray : Foot, left 3V 04/13/2015 59318-LPJHVQN NAIL, 6 OR MORE 08/26/2024 92114-YAIDXTD NAIL, 6 OR MORE 03/17/2025 24288-QYCLPVI NAIL, 6 OR MORE 06/30/2025 14131-JQFSVDO NAIL, 1-5 04/13/2015 73859-GOFRXOF NAIL, 1-5 07/01/2015 93095-PDEPKPV NAIL, 1-5 09/21/2015 47192-YBYPJIU NAIL, 1-5 01/04/2016 69310-BFWHVNO NAIL, 1-5 05/02/2016 12344-QXXTWWB NAIL, 1-5 08/22/2016 85357-WUGTRRY NAIL, 1-5 12/21/2016 16956-YDCMWLO NAIL, 1-5 03/29/2017 76111-RDQQ SKIN LESIONS, OVER 4 08/26/20 24 03044-FAPL SKIN LESIONS, OVER 4 06/30/20 25 51455-DJMK SKIN LESIONS, OVER 4 03/17/20 25 67863-HJGT SKIN LESIONS, 2 TO 4 04/10/20 23 63667-YPDW SKIN LESIONS, 2 TO 4 01/03/20 23 07956-FWPS SKIN LESIONS, 2 TO 4 07/01/20 19 74476-NNLD SKIN LESIONS, 2 TO 4 07/01/20 15 89679-NTJY NAIL(S) 01/02/2023 P9908-OTFPQKVX DYSTROPHIC NAILS ANY # [id number]- Nail Unit Biopsy 06/21/2018 Next Appt Details Provider Name:Francesca henry, 10/13/2025 01:00:00 PM, [address] [facility], [place], [address], Insurance Providers Payer Name Payer Address Payer Phone Subscriber Number Group Number Insured Name Patient Relationship to Insured Coverage Start Date Coverage End Date Medicare [facility] [employer] [address] [place] [id number] Self - patient is the insured [employer] [address] [place] [id number] Self - patient is [...] Hospitalization History Reason Date(Month/Year) Vein Surgery 03/24 [facility] for bad reaction to pain medica tion. Legs/feet swelled up. 2017
--- OUTSIDE RECORDS SUMMARY | 2025-08-15 19:48 | XMS_ITS | Encounter Summary ---
Author Organization [facility] [place], Address [address] [place] [address] Phone Care Team Providers Care Coating Mixer Tender Name Role Phone Penelope Parsons MD Primary Care Provider [phone] Encounter Details Date Type Department Care Team (Late Contact Info) Description 05/20/2025 Orders Only [facility] [address] [place] [address] [place], [place] [address] [place] [address] Social History Tobacco Use Types [...] Visit [facility] [address] [place] [address] Juan Luis MD [address] [facility] [address] [place] [address] documented as of this encounter Visit Diagnoses Not on filedocumented in this encounter Care Teams Coating Mixer Tender Relationship Specialty Start Date End Date Penelope Parsons MD [address] [facility] [place] [address] PCP - General 08/06/19 documented as of this encounter
--- OUTSIDE RECORDS SUMMARY | 2025-08-15 19:49 | XMS_ITS | Encounter Summary ---
Author Organization [facility] [place], Address [address] [place] [address] Phone Care Team Providers Care Resaw Operator Name Role Phone Penelope Parsons MD Primary Care Provider [phone] Encounter Details Date Type Department Care Team (Late Contact Info) Description 06/25/2024 Documentation Only [facility] [address] [place] [address] [place] [address] [place] [address] Social History Tobacco Use Types Packs/Day [...] Visit [facility] [address] [place] [address] Juan Luis MD [address] [facility] [place] [address] documented as of this encounter Visit Diagnoses Not on filedocumented in this encounter Care Teams Resaw Operator Relationship Specialty Start Date End Date Penelope Parsons MD [address] [facility] [place] [address] PCP - General 08/06/19 documented as of this encounter
--- OUTSIDE RECORDS SUMMARY | 2025-08-15 19:49 | XMS_ITS | Encounter Summary ---
Author Organization [facility], Address [address] [place] [address] Phone Care Team Providers Care Transitional Care Liaison Name Role Phone Penelope Parsons MD Primary Care Provider [phone] Encounter Details Date Type Department Care Team (Late Contact Info) Description 12/25/2024 Documentation Only [facility] [address] [address] [place] [address] [place] [phone] Social History Tobacco Use Types Packs/Day [...] Visit [facility] [address] [address] Juan Luis MD [address] [place] [address] documented as of this encounter Visit Diagnoses Not on filedocumented in this encounter Care Teams Transitional Care Liaison Relationship Specialty Start Date End Date Penelope Parsons MD [address] [facility] [place] [address] PCP - General 08/06/19 documented as of this encounter
--- OUTSIDE RECORDS SUMMARY | 2025-08-15 19:49 | XMS_ITS | Clinical Summary ---
Author Organization [facility], Address [address] [place] [address] [place] [address] Phone Care Team Providers Care Second Watch Sergeant Name Role Phone Penelope Parsons MD Primary Care Provider [phone] Allergies Active Allergy Reactions Criticality Noted Date [...] Problem Noted Date Diagnosed Date Atherosclerosis of [place] arteries of the extrem ities 05/29/2023 05/29/2023 Renal artery stenosis 12/31/2021 05/29/2023 Essential hypertension 05/27/2021 Stage 3b chronic kidney disease 01/03/2020 Hypertensive chronic kidney disease, malignant, 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, or unspecified 01/03/2020 Iron deficiency anemia 01/03/2020 Encounters Date Type Department Care Team Description 06/13/2025 Documentation Only [facility] [address] [place] [address] Zara Bob MA 06/06/2025 2:00 PM EDT Office Visit [facility] [address] [place] [phone] Juan Luis MD Stage 3b chronic kidney disease (HCC) (Primary Dx); Hypertension; Other iron deficiency anemia; Anemia in chronic kidney disease 05/20/2025 Orders Only [facility] [address] [place] [address] Zara Bob MA from Last [...] Office Visit [facility] [address] [place] [address] Juan Luis MD [address] [place] [address] [place] [address] Health Maintenance Due Date Last Done Comments Pneumococcal Vaccine: 50+ Years (1 of 2 - PCV) 12/14/1954 Influenza Vaccine (#1) 2025 4, 12/12/2019 Hepatitis B Vaccine Aged Out No longe r eligible based on patient's age to complete this topic Insurance Medicare [facility] Care Teams Second Watch Sergeant Relationship Specialty Start Date End Date Penelope Parsons MD [facility] [place] [address] PCP - General 08/06/19
== END 2025-08-15 13:28 | disposition home or self-care (01) ==
LOC: HO.LNP 13:27
PROVIDERS: Visit Provider Internal Medicine Medical Oncology
DX: K92.1 Melena (principal)
CPT/HCPCS: 82270